=== PATIENT | female | born 1940 | race Caucasian/White ===

== ENCOUNTER 2019-06-30 13:21 | Outpatient (CLI) | payer OTHER, SELFPAY ==
--- NOTE | ~2019-06-30 | DEXA_ITS ---
Bone Density Report Name: Jamee Finley Age: 78 Sex: Female Ethnicity: White Date of : 1940 Indication: osteopenia; height loss; prior fracture; cancer; hysterectomy; Referring Provider: Radha Colbert Study: Bone densitometry was performed. Exam Date: June 30, 2019 Accession number: [id number] Bone Density: Region BMD T-score Z-score Classification AP Spine (L1, L3, L4) 0.931 -1.1 1.5 Osteopenia Femoral Neck (Left) 0.586 -2.4 -0.2 Osteopenia Total Hip (Left) 0.788 -1.3 0.7 Osteopenia Total Hip Bilateral Avg 0.777 -1.4 0.6 Osteopenia Femoral Neck (Right) 0.588 -2.3 -0.1 Osteopenia Total Hip (Right) 0.765 -1.5 0.5 Osteopenia World Health Organization criteria for BMD impression classify patients as: Normal (T-score at or above -1.0), Osteopenia (T-score between -1.0 and -2.5), or Osteoporosis (T-score at or below -2.5). 10-year Fracture Risk(1): Major Osteoporotic Fracture 23% Hip Fracture 6.8% Reported Risk Factors: [place] (), Neck BMD=0.586, BMI=31.1, previous fracture (1) FRAX(R) Version 3.08. Fracture probability calculated for an untreated patient. Fracture probability may be lower if the patient has received treatment. Previous Exams: Region Exam Age BMD T-score BMD Change BMD Change Date g/cm2 vs Baseline vs Previous AP Spine(L1, L3, L4) 06/30/2019 78 0.931 -1.1 0.026(2.9%)# 0.061(7.0%)* 12/11/2014 74 0.870 -1.7 -0.035(-3.8%)# -0.035(-3.8%)# 11/12/2012 72 0.905 -1.3 Total Hip(Left) 06/30/2019 78 0.788 -1.3 -0.057(-6.7%)# -0.010(-1.3%) 12/11/2014 74 0.798 -1.2 -0.046(-5.5%)# -0.046(-5.5%)# 11/12/2012 72 0.845 -0.8 Total Hip(Right) 06/30/2019 78 0.765 -1.5 -0.075(-9.0%)# -0.071(-8.4%)* 12/11/2014 74 0.835 -0.9 -0.005(-0.6%)# -0.005(-0.6%)# 11/12/2012 72 0.840 -0.8 *Denotes significance at 95% confidence level, LSC for AP Spine = 0.022 g/cm2, LSC for Total Hip = 0.027 g/cm2 Clinical Information Provided by Patient: Has had a low trauma fracture Has used the following medications: Vitamin D, Calcium Has the following medical conditions: Cancer, Hysterectomy Patient maximum height was 64 Menopause Age: 46 No regular weight bearing exercise Drinks caffeinated beverages Onset of menses at age 14 Number of children 1 Impression: The patient has low bone mass, based on the Left Femoral Neck T-score. The patient has an estimated ten-year risk of hip fracture
== END 2019-06-30 13:22 | disposition home or self-care (01) ==
PROVIDERS: PCP Family Medicine; Visit Provider Internal Medicine Endocrinology, Diabetes & Metabolism
DX: E03.9 Hypothyroidism, unspecified (principal); E11.40 Type 2 diabetes mellitus with diabetic neuropathy, unspecified; Z78.0 Asymptomatic menopausal state; Z79.4 Long term (current) use of insulin; M85.88 Other specified disorders of bone density and structure, other site; M85.852 Other specified disorders of bone density and structure, left thigh; M85.851 Other specified disorders of bone density and structure, right thigh
CPT/HCPCS: 77080

== ENCOUNTER 2019-07-31 14:00 | Outpatient (RCR) | payer OTHER, SELFPAY ==
[2019-06-10 11:06] VITALS: BMI 30.7
[2019-06-10 11:07] VITALS: BMI 30.7
== END 2019-09-08 23:59 | disposition home or self-care (01) ==
LOC: ANHDMC 14:00
PROVIDERS: PCP Family Medicine; Visit Provider Family Medicine
DX: E11.22 Type 2 diabetes mellitus with diabetic chronic kidney disease (principal); E11.40 Type 2 diabetes mellitus with diabetic neuropathy, unspecified; Z71.3 Dietary counseling and surveillance
CPT/HCPCS: 97803; G0108

== ENCOUNTER 2020-01-01 09:26 | Outpatient (CLI) | payer OTHER, SELFPAY ==
--- NOTE | ~2020-01-01 | CT_ITS ---
EXAMINATION: CT chest high resolution wo nh DATE: 01/01/2020 09:45 INDICATION: Obstructive sleep apnea TECHNIQUE: Computed tomography (CT) of the chest was performed without intravenous contrast. The dose -length product (DLP) was 223.32 mGy-cm. Automated exposure control and iterative reconstruction tech nique were employed. COMPARISON: None FINDINGS: There is mild emphysema. The lungs are hyperinflated. There are multiple upper lung zone pr edominant tree-in-bud and solitary nodules. The largest measures 8 mm in the right upper lobe. There is no pleural effusion or pneumothorax. Cardiomegaly is noted. There are changes of coronary artery b ypass grafting. There are no pathologically enlarged thoracic lymph nodes. There is a moderate-sized sliding hiatal hernia. Gastric lap band is noted. A stone is present in the nondistended gallbladder. There is moderate thoracic spondylosis. IMPRESSION: 1. Solitary and tree-in-bud nodules with an upper lung zone predominance with scattered throughout th e lungs, likely infectious or inflammatory. Follow-up CT in three months is recommended. 2. Emphysema. Reviewed, dictated and finalized at location B. IMPRESSION: 1. Solitary and tree-in-bud nodules with an upper lung zone predominance with s cattered throughout the lungs, likely infectious or inflammatory. Follow-up CT in three months is recommended. 2. Emphysema.
== END 2020-01-01 09:27 | disposition home or self-care (01) ==
LOC: ANHIMG 09:28
PROVIDERS: PCP Family Medicine; Visit Provider Nurse Practitioner Family
DX: G47.33 Obstructive sleep apnea (adult) (pediatric) (principal); R09.89 Other specified symptoms and signs involving the circulatory and respiratory systems; R91.8 Other nonspecific abnormal finding of lung field; J43.9 Emphysema, unspecified
CPT/HCPCS: 71250

== ENCOUNTER → 2020-06-15 15:47 | Outpatient (CLI) | payer OTHER, SELFPAY ==
--- NOTE | ~2020-06-15 | CT_ITS ---
EXAMINATION: CT chest wo con DATE: 06/15/2020 16:08 INDICATION: Solitary pulmonary nodule TECHNIQUE: Computed tomography (CT) of the chest was performed without intravenous contrast. The dose -length product (DLP) was 103.11 mGy-cm. Automated exposure control and iterative reconstruction tech [employer] were employed. COMPARISON: 01/01/2020 FINDINGS: Again seen are tree-in-bud and solitary nodules of the lungs, many of which have decreased in size since the prior examination and including the largest nodule previously measured in the right upper lobe. No new pulmonary nodule is identified. There is no pleural effusion or pneumothorax. Sta ble cardiomegaly is noted. There are no pathologically enlarged thoracic lymph nodes. A moderate-size d sliding hiatal hernia is noted. There are changes of gastric lap band surgery. Also noted are lobo es of prior coronary artery bypass grafting. There is a 1.5 cm calcified nodule of the right thyroid lobe. Cholelithiasis is noted. There is moderate thoracic spondylosis. IMPRESSION: 1. Persistent but improved solitary and tree-in-bud nodules of the lungs, most consistent with infect ion/inflammation. 2. Cholelithiasis. 3. Calcified nodule of the right thyroid. Consider thyroid ultrasound for risk stratification. Reviewed, dictated and finalized at location A. ICAL RESEARCHER IMPRESSION: 1. Persistent but improved solitary and tree-in-bud nodules of the lungs, most consistent with infection/inflammation. 2. Cholelithiasis. 3. Calcified nodule of the right thyroid. Consider thyroid ultrasound for risk stratification.
== END ==
PROVIDERS: PCP Family Medicine; Visit Provider Internal Medicine Critical Care Medicine
DX: R91.1 Solitary pulmonary nodule (principal); R91.8 Other nonspecific abnormal finding of lung field; K80.20 Calculus of gallbladder without cholecystitis without obstruction; E04.1 Nontoxic single thyroid nodule
CPT/HCPCS: 71250

== ENCOUNTER 2020-06-25 14:39 | Outpatient (CLI) | payer OTHER, SELFPAY ==
[2020-06-25 14:50] VITALS: PULSE 77; O2SAT 95
[2020-06-25 14:55] VITALS: PULSE 97; O2SAT 90
[2020-06-25 15:05] VITALS: PULSE 75; O2SAT 94
--- NOTE | 2020-06-25 15:17 | HOMEO2EVAL ---
Home Oxygen Evaluation RC: Home Oxygen (O2) Evaluation Start: 06/25/20 15:13 Freq: Status: Active Protocol: RPE Activity Type Activity Date Activity User E-Sign Co-Sign Detail Recorded Client Recorded Date Recorded By Document 06/25/20 14:50 DJO [email or web address] 06/25/20 15:15 DJO Document 06/25/20 14:55 DJO [email or web address] 06/25/20 15:15 DJO Document 06/25/20 15:05 DJO [email or web address] 06/25/20 15:15 DJO 06/25/20 06/25/20 06/25/20 14:50 14:55 15:05 Home O2 Evaluation Test Phase Resting Exercise Resting Oxygen Delivery Room Air Room Air Room Air Pulse Oximetry (90-100 %) 95 90 94 Pulse Rate (60-100 beats/min) 77 97 75 Activity Tolerance Good Ambulation Distance (feet) 500 Treatment Charges O2 Evaluation
== END 2020-06-25 14:40 | disposition home or self-care (01) ==
LOC: ANHPFT 14:40
PROVIDERS: PCP Family Medicine; Visit Provider Nurse Practitioner Family
DX: R06.02 Shortness of breath (principal)
CPT/HCPCS: 94618

== ENCOUNTER 2021-01-03 15:01 | Outpatient (CLI) | payer OTHER, SELFPAY ==
--- NOTE | ~2021-01-03 | XR_ITS ---
EXAMINATION: XR ankle RT min 3V DATE: 01/03/2021 15:29 INDICATION: Lymphatic right ankle pain and swelling TECHNIQUE: Anteroposterior, oblique, mortise, and lateral views of the right ankle were obtained. COMPARISON: None. FINDINGS: Alignment is normal. No fracture. The profiled joint spaces are normal. Small heterotopic ossicle ne ar the tip the medial malleolus likely sequela of chronic deltoid ligament sprain. Soft tissue swelli ng about the lateral malleolus suggesting more acute lateral ankle sprain. Moderate-sized plantar terell caneal spurs. No ankle joint effusion. IMPRESSION: 1. No acute osseous abnormality. Reviewed, dictated and finalized at location A.
== END 2021-01-03 15:02 | disposition home or self-care (01) ==
PROVIDERS: PCP Family Medicine; Visit Provider Physician Assistant
DX: M25.571 Pain in right ankle and joints of right foot (principal)
CPT/HCPCS: 73610

== ENCOUNTER 2021-02-28 11:31 | Outpatient (CLI) | payer OTHER, SELFPAY ==
--- NOTE | ~2021-02-28 | XR_ITS ---
EXAMINATION: XR lumbar spine 2-3V EXAM DATE: 02/28/2021 11:49 INDICATION: M54.5 - Low back pain. TECHNIQUE: Lumber spine frontal, lateral, lateral L5-S1 projections for interpretation. Comparison is made to prior examination from 04/10/2016. FINDINGS: There is moderate aortic arterial sclerosis. There are moderate-sized bridging endplate os teophytes. There is gastric banding device. Sacrum, sacroiliac joints, sacral arcuate lines are intac t. The vertebral bodies are aligned in the AP dimension. The disc heights appear maintained. There is moderate mid and lower lumbar facet arthropathy. There are no acute fractures identified. There are no bony erosions identified. Facet arthropathy, size of the osteophytes have progressed compared to 2 016. IMPRESSION: 1. Moderate lumbar facet arthropathy. 2. Bridging endplate osteophytes, diffuse idiopathic skeletal hyperostosis. Reviewed, dictated and finalized at location A.
== END 2021-02-28 11:32 | disposition home or self-care (01) ==
PROVIDERS: PCP Family Medicine; Visit Provider Nurse Practitioner Family
DX: M54.50 Low back pain, unspecified (principal); M12.88 Other specific arthropathies, not elsewhere classified, other specified site; M48.16 Ankylosing hyperostosis [Forestier], lumbar region
CPT/HCPCS: 72100

== ENCOUNTER 2021-03-18 13:32 | Outpatient (CLI) | payer OTHER, SELFPAY ==
--- NOTE | ~2021-03-18 | US_ITS ---
US thyroid 03/18/2021 14:01 Indication: Nontoxic thyroid goiter Procedure: High-resolution ultrasound of the thyroid gland Comparison: No prior studies for comparison. Findings: Right lobe of the thyroid gland measures 4.1 x 2.6 x 1.4 cm. Left lobe measures 3.2 x 1.4 x 1.1 cm. There is normal vascularity in both lobes. In the right lobe there is a complex largely cyst ic mass which is wider than tall, ill-defined margins and no definite calcifications measuring 2 x 1. 7 x 1.9 cm. No internal vascularity. No abnormal masses in the left lobe. Impression: 1: Largely cystic 2 cm right thyroid mass with internal septations which is not suspicious. Reviewed, dictated and finalized at location B. Impression: 1: Largely cystic 2 cm right thyroid mass with internal septations which is not suspicious.
== END 2021-03-18 13:33 | disposition home or self-care (01) ==
LOC: ANHIMG 13:33
PROVIDERS: PCP Family Medicine; Visit Provider Nurse Practitioner Family
DX: E04.1 Nontoxic single thyroid nodule (principal)
CPT/HCPCS: 76536

== ENCOUNTER → 2021-04-13 11:25 | Outpatient (CLI) | payer OTHER, SELFPAY ==
--- NOTE | ~2021-04-13 | MR_ITS ---
EXAMINATION: MR lumbar spine wo con EXAM DATE: 04/13/2021 12:21 INDICATION: Low back pain, lumbar radiculopathy. TECHNIQUE: Multi-sequential, multiplanar MR images of the lumbar spine were obtained without contrast . Sagittal T1, T2, T2 fat saturation images. Axial T2 weighted images. There is no prior study for comparison. FINDINGS: The vertebral bodies are aligned in the AP dimension. Vertebral body and disc heights are w ell-maintained. There are scattered focal signal abnormalities consistent with hemangiomata, otherwi se without focal suspicious marrow signal abnormalities. Paraspinal soft tissue is unremarkable. Level by level evaluation: T12-L1: Disc does not extend beyond the endplate margin. Facet arthropathy: Mild. Neural foraminal stenosis: No stenosis. Central canal stenosis: No stenosis. L1-L2: Disc does not extend beyond the endplate margin. Facet arthropathy: Mild. Neural foraminal stenosis: No stenosis. Central canal stenosis: No stenosis. L2-L3: There is a mild diffuse disc bulge. Facet arthropathy: Mild. Neural foraminal stenosis: Minimal left. Central canal stenosis: Mild. L3-L4: There is a mild diffuse disc bulge. Facet arthropathy: Mild. Neural foraminal stenosis: Minimal bilateral. Central canal stenosis: Mild. L4-L5: There is a mild diffuse disc bulge. Facet arthropathy: Moderate . Ligamentum flavum enlargement. Neural foraminal stenosis: Mild to moderate left. Central canal stenosis: Moderate to severe. L5-S1: There is a mild diffuse disc bulge. Facet arthropathy: Mild. Neural foraminal stenosis: No stenosis. Central canal stenosis: No stenosis. IMPRESSION: 1. L4-5 moderate to severe central canal stenosis. 2. Otherwise overall mild to moderate lumbar spondylosis. Reviewed, dictated and finalized at location B. ORARY DATA ENTRY CLERK
== END ==
PROVIDERS: Visit Provider Nurse Practitioner Family
DX: M47.27 Other spondylosis with radiculopathy, lumbosacral region (principal); M48.07 Spinal stenosis, lumbosacral region
CPT/HCPCS: 72148

== ENCOUNTER 2021-08-09 13:27 | Outpatient (CLI) | payer OTHER, SELFPAY ==
--- NOTE | ~2021-08-09 | XR_ITS ---
EXAMINATION: XR chest 2V DATE: 08/09/2021 13:44 INDICATION: Chest pain and shortness of breath TECHNIQUE: frontal and lateral views of the chest were obtained. COMPARISON: Chest radiograph dated 08/08/[address] dated 06/15/2020 FINDINGS: Diffuse airspace opacities throughout both lungs. Small bilateral pleural effusions. No pneumothorax. Cardiomegaly. Median sternotomy wires and mediastinal surgical clips are seen, likely from prior cor onary artery bypass grafting. There is also coronary artery stenting. New small metallic device of in determinate purpose projecting over the heart near the region of the mitral valve. Correlate with cli nical history. Additional postoperative change of adjustable lap band procedure with phi angle of cezar roximately 60 degrees which is at the upper limits of normal. There are bridging osteophytes at multi ple levels in the spine, consistent with diffuse idiopathic skeletal hyperostosis (DISH). IMPRESSION: 1. Diffuse bilateral lung disease which could represent pulmonary edema, pneumonia, atelectasis or so me combination thereof. 2. Small bilateral pleural effusions. 3. Cardiomegaly. 4. Postoperative changes as detailed above. Reviewed, dictated and finalized at location A. IMPRESSION: 1. Diffuse bilateral lung disease which could represent pulmonary edema, pneumo linda, atelectasis or some combination thereof. 2. Small bilateral pleural effusions. 3. Cardiomegaly. 4. Postoperative changes as detailed above.
== END 2021-08-09 13:28 | disposition home or self-care (01) ==
LOC: ANHIMG 13:30
PROVIDERS: PCP Family Medicine; Visit Provider Physician Assistant
DX: R09.02 Hypoxemia (principal); J96.10 Chronic respiratory failure, unspecified whether with hypoxia or hypercapnia; J98.4 Other disorders of lung; J90 Pleural effusion, not elsewhere classified; I51.7 Cardiomegaly; Z98.890 Other specified postprocedural states
CPT/HCPCS: 71046

== ENCOUNTER 2021-08-14 12:12 | Inpatient (IN) | payer OTHER, SELFPAY ==
[2021-08-14] VITALS (26 sets, daily range): BP systolic 136–184; BP diastolic 69–134; PULSE 63–82; RESP 16–29; TEMP 35.7–36.8; O2SAT 94–100; BMI 29.0
--- NOTE | ~2021-08-14 | US_ITS ---
EXAMINATION: US venous doppler [facility] DATE: 08/15/2021 09:14 INDICATION: Right lower limb edema TECHNIQUE: Baker scale images without and with compression and Doppler images of the right lower extre mity veins were obtained. COMPARISON: None FINDINGS: The right common femoral vein, profunda femoral vein, femoral vein, popliteal vein, peronea l trunk, posterior tibial veins, and greater saphenous vein are patent. IMPRESSION: 1. Patent right lower extremity veins. No evidence of deep venous thrombosis. Reviewed, dictated and finalized at location B.
--- NOTE | ~2021-08-14 | XR_ITS ---
EXAMINATION: XR chest 2V DATE: 08/17/2021 09:55 INDICATION: Shortness of breath TECHNIQUE: frontal and lateral views of the chest were obtained. COMPARISON: Chest radiograph dated 08/14/2021 FINDINGS: Mild elevation of the right hemidiaphragm. Diffuse patchy airspace opacities throughout both lungs wi th slight worsening in the left upper lung zone and some improvement in the right lower lung zone. Sm all bilateral pleural effusions. No pneumothorax. Cardiomegaly. Median sternotomy wires and mediastin al surgical clips are seen, likely from prior coronary artery bypass grafting. There is also been donnie or coronary artery stenting. Mitraclip projecting in expected position over the region of the mitral valve. Adjustable lap band also in expected position with reservoir project over the right upper quad rant. Old fracture at the right humeral neck. Mild anterior wedging of a couple mid thoracic vertebra l bodies. Bridging osteophytes at multiple levels in the spine, consistent with diffuse idiopathic sk eletal hyperostosis (DISH). IMPRESSION: 1. Interval evolution of diffuse patchy airspace opacities throughout both lungs with some improvemen t in the right lower lung zone and worsening in the left upper lung zone which could represent pneumo linda and/or pulmonary edema. 2. Small bilateral pleural effusions. 3. Cardiomegaly with postoperative changes detailed above. Reviewed, dictated and finalized at location A. IMPRESSION: 1. Interval evolution of diffuse patchy airspace opacities throughout both lung s with some improvement in the right lower lung zone and worsening in the left upper lung zone which could represent pneumonia and/or pulmonary edema. 2. Small bilateral pleural effusions. 3. Cardiomegaly with postoperative changes detailed above.
--- NOTE | ~2021-08-14 | NM_ITS ---
NM hepatobiliary w pharm Procedure: Hepatobiliary scan performed following IV administration 4.3 mCi Tc 99m Choletec. At 60 m inutes 1.5 mcg CCK administered IV for evaluation of gallbladder ejection fraction. Indication: Cholelithiasis. Elevated liver function tests. Comparison: Ultrasound dated 08/15/2021 Findings: There is normal radiotracer uptake in the liver parenchyma with prompt excretion into the b iliary tract. Gallbladder visualized at 25 minutes. Small bowel visualized at 20 minutes. Gallbla dder ejection fraction measures 25 %. (normal is considered 10-90%, but most patients with gallbladde r dysfunction have GBEF of less than 35%) Impression: 1: Low gallbladder ejection fraction measuring 25%. Low GBEF is associated with gallbladder dysfunct ion, although not specific for acute or chronic cholecystitis. Reviewed, dictated and finalized at location A. Impression: 1: Low gallbladder ejection fraction measuring 25%. Low GBEF is associated wit h gallbladder dysfunction, although not specific for acute or chronic cholecyst itis.
--- NOTE | ~2021-08-14 | XR_ITS ---
EXAMINATION: XR chest 1V portable DATE: 08/20/2021 05:29 INDICATION: Shortness of breath TECHNIQUE: frontal view of the chest was obtained. COMPARISON: Chest radiograph dated 08/17/2021 FINDINGS: No significant interval change in patchy airspace opacities throughout both lungs. Small right and ti ny left pleural effusions. No pneumothorax. Cardiomegaly. Median sternotomy wires and mediastinal nayan gical clips are seen, likely from prior coronary artery bypass grafting. Mitraclip and adjustable lap band in expected positions. Old proximal right humeral fracture deformity. IMPRESSION: 1. No significant change in diffuse patchy bilateral lung disease consistent with pneumonia and/or pu lmonary edema. 2. Small bilateral pleural effusions. 2. Cardiomegaly. Reviewed, dictated and finalized at location A. IMPRESSION: 1. No significant change in diffuse patchy bilateral lung disease consistent wi th pneumonia and/or pulmonary edema. 2. Small bilateral pleural effusions. 2. Cardiomegaly.
--- NOTE | ~2021-08-14 | US_ITS ---
EXAMINATION: US abdomen limited DATE: 08/15/2021 09:15 INDICATION: Elevated liver function tests TECHNIQUE: Multiple grayscale and Doppler ultrasound images of the abdomen were obtained. COMPARISON: None available FINDINGS: The head and body of the pancreas are normal. The pancreatic tail is obscured by bowel gas. The liver is normal with normal echogenicity and echotexture. No surface nodularity. Normal hepatope salma flow in the main portal vein. A stone is present in the nondistended gallbladder. There is no gal lbladder wall thickening or pericholecystic fluid. The normal common bile duct measures 3 mm. There w as no sonographic Thompson sign. IMPRESSION: 1. Cholelithiasis without evidence of cholecystitis. Reviewed, dictated and finalized at location B.
--- NOTE | ~2021-08-14 | XR_ITS ---
XR chest 1V portable 08/14/2021 12:45 Indication: Dyspnea. Procedure: AP portable chest Comparison: Comparison to multiple prior studies sequentially, with oldest reviewed study dated 08/08 Findings: Progression of patchy bilateral airspace disease, compatible with pneumonia. Status post me abner sternotomy for CABG. Mildly elevated right diaphragm.. Impression: 1: Interval progression of patchy bilateral airspace disease, compatible with pneumonia. Reviewed, dictated and finalized at location A. Impression: 1: Interval progression of patchy bilateral airspace disease, compatible with p neumonia.
--- NOTE | 2021-08-14 12:34 | ECG_ITS ---
Measurements Intervals [place]stein Rate: 69 P: NC: 0 QRS: -6 QRSD: 110 T: 171 QT: 434 QTc: 468 Interpretive Statements SINUS RHYTHM MINIMAL VOLTAGE CRITERIA FOR LVH, CONSIDER NORMAL VARIANT [MEETS CRITERIA IN ONE OF: R(aVL), S(V1), R(V5), R(V5/V6)+S(V1)] ST DEVIATION AND MODERATE T-WAVE ABNORMALITY, CONSIDER ANTEROLATERAL ISCHEMIA [-0.1+ mV T WAVE IN I/aVL/V5/V6] ABNORMAL ECG NO PREVIOUS ECG AVAILABLE FOR COMPARISON ARTIFACT LIMITS INTERPRETATION Electronically Signed On 08-14-2021 12:44:05 CDT by Dean Portillo M.D.
[2021-08-14 12:46] LABS: Basophils Percent Auto 0.3 % (0.2-1.2); Eosinophils Absolute Auto 0.2 K/mm3 (0-0.3); Eosinophils Percent Auto 1.4 % (0-4.4); Hematocrit 28.5 % (37.0-47.0); Hemoglobin 8.6 g/dL (12.0-15.0); Immature Granulocyte Absolute 0.15 K/mm3 (0.00-0.031); Immature Granulocyte Percent A 1.1 % (0-0.5); Lymphocytes Absolute Auto 0.58 K/mm3 (0.9-3.2); Lymphocytes Percent Auto 4.2 % (18.3-44.2); Mean Corpuscular HGB Conc 30.2 g/dl (32-36); Mean Corpuscular Hemoglobin 29.6 pg (26-34); Mean Corpuscular Volume 97.9 fl (80-100); Mean Platelet Volume 9.3 fl (7.4-10.4); Monocytes Absolute Auto 0.9 K/mm3 (0.1-0.6); Monocytes Percent Auto 6.7 % (2.6-8.5); Neutrophils Percent Auto 86.3 % (45.5-73.1); Platelet Count Result 373 k/mm3 (150-375); Red Blood Count 2.91 M/mm3 (4.2-5.4); Red Cell Distribution Width 18.5 % (11.5-14.5); White Blood Count 13.9 K/mm3 (4.5-10.0)
--- NOTE | 2021-08-14 12:47 | ED.SOB ---
HPI - SOB/Dyspnea General Chief Complaint: Shortness of Breath/Dyspnea Stated Complaint: SOB Time Seen by Provider: 08/14/21 12:35 History of Present Illness HPI Narrative: Pt is an 81y/o female who presented to the ER via EMS w/ c/o SOB. Patient states she has been SOB for approximately 1 week. Patient states she has progressively gotten more SOB and today she could no longer tolerate the SOB. Patient states she does have a rescue MDI at home, but she did not try to use the inhaler b/c her daughter in law did not think she needed it. Patient denies any fever or chills. Patient initially denied any chest discomfort, but upon reevaluation patient states that she has had chest discomfort with activity that resolves with rest. Patient states she does have a known history of COPD and she wears chronic oxygen at home at 3 L per nasal cannula. Patient states she also does have a history of coronary artery disease and had coronary bypass grafting in 1998. Patient did have a cardiac catheterization in November 2020 showed ejection fraction of 50% with a patent LAYNE graft to the LAD and occluded vein graft to the diagonal branch and obtuse marginal. Patient had an echo Doppler that showed ejection fraction 30 to 40% with no significant valvular disease. Patient did have a history of severe mitral regurgitation underwent mitral clip on 02/24/2021. Patient states she has not had anything to eat or drink today, but she has taken all of her medication. Patient states she was recently hospitalized at [facility] for COPD exacerbation. Patient states during that hospitalization she broke her hip and had to have surgery. Related Data Home Medications Medication Instructions Recorded Confirmed clopidogrel 75 mg tablet 75 mg PO DAILY 11/05/19 08/14/21 insulin glargine U-300 conc 300 10 unit SUBCUT DAILY syr 05/30/21 08/14/21 unit/mL (1.5 mL) subcutaneous pen losartan 50 mg tablet 100 mg PO DAILY tablet 05/30/21 08/14/21 atorvastatin 80 mg PO DAILY 08/14/21 08/14/21 carvedilol 25 mg PO Q12H 08/14/21 08/14/21 citalopram 40 mg PO DAILY 08/14/21 08/14/21 plysibwvblx-sjunfnzbu-wozievii 1 inh INHALATION DAILY 08/14/21 08/14/21 [Trelegy Ellipta] hydralazine 50 mg PO Q8H 08/14/21 08/14/21 insulin lispro [Humalog KwikPen See Rx Instructions .ROUTE .COMPLEX 08/14/21 08/14/21 Insulin] isosorbide dinitrate 10 mg PO Q12H 08/14/21 08/14/21 levothyroxine 50 mcg PO DAILY 08/14/21 08/14/21 Allergies Allergy/AdvReac Type Severity Reaction Status Date / Time adhesive tape Allergy Unknown unknown Verified 08/14/21 15:17 clarithromycin Allergy Unknown unknown Verified 08/14/21 15:17 latex Allergy Unknown unknown Verified 08/14/21 15:17 prednisone Allergy Unknown Hyperglycem Verified 08/14/21 15:17 ia Review of Systems Review of Systems: 12 point review systems was completed with patient all pertinent positive negative per HPI the remainder are unremarkable [facility] Past Medical History Medical History (Updated 08/14/21 @ 16:04 by Eric Ybarra DO) Anemia Cardiac arrest with ventricular fibrillation (06/2018) Cervical cancer Chronic anemia Chronic kidney disease, stage 3 Chronic left-sided low back pain with left-sided sciatica Chronic respiratory failure with hypoxia, on home oxygen therapy Congestive heart failure Congestive heart failure Coronary artery disease Patient of Dr. Edward Carrasco. Status post CABG in 1998. Cardiac cath in November 2020 showed an EF of 50% with patent LAYNE graft to the LAD and occluded vein graft to the diagonal branch and obtuse marginal branch. Diabetic peripheral neuropathy Diabetic retinopathy Essential hypertension Fracture of head of left femur (06/2021) Gastroesophageal reflux disease Hypertension Hypothyroidism Insulin dependent diabetes mellitus Ischemic cardiomyopathy EF as low as 35 to 45% in July 2018 Echocardiogram in November 2020 showed ejection fraction of 55 to 60%. Kidney stones Macular degeneration Major depre
[2021-08-14 12:55] LABS: Alanine Aminotransferase 39 U/L (4-35); Albumin Level 3.4 g/dL (3.5-5.1); Alkaline Phosphatase 227 U/L (38-126); Anion Gap 4 mmol/L (8-16); Aspartate Amino Transferase 75 U/L (14-36); Bilirubin,Total 1.5 mg/dL (0.2-1.3); Blood Urea Nitrogen 28 mg/dL (7-17); Calcium 8.7 mg/dL (8.4-10.2); Carbon Dioxide 34 mmol/L (22-30); Chloride 94 mmol/L (98-107); Estimated CRCL calculation 39 ml/min; Estimated Glomerular Filt Rate 53; Glucose 194 mg/dL (65-110); INR 1.3; Potassium 4.5 mmol/L (3.4-5.0); Prothrombin Time 15.9 Seconds (11.1-14.7); Sodium 132 mmol/L (137-145)
[2021-08-14 12:56] LABS: Partial Thromboplastin Time 35.4 SECONDS (22.3-36.8)
[2021-08-14 13:09] LABS: NT Pro B Type Natriuretic Pept 17100 pg/mL (5-100)
--- NOTE | 2021-08-14 13:30 | PM.IMHP ---
H&P: HPI History of Present Illness Date/Time: 08/14/21 13:30 Chief Complaint: Shortness of breath. Narrative: This is a pleasant 81-year-old female with multiple medical problems including coronary artery disease, ischemic cardiomyopathy, chronic respiratory failure on 2 L nasal cannula, chronic obstructive pulmonary disease, insulin-dependent diabetes, hypertension, chronic kidney disease, and several other comorbidities who presented to the emergency department for evaluation of shortness of breath. She has had an unfortunate run over the last month several months and has been hospitalized at [facility] for what sounds like congestive heart failure exacerbation, RSV bronchitis, and acute on chronic anemia requiring blood transfusion. During her most recent admission she sustained a fall and fractured her left hip which was fixed with what sounds like an intramedullary elsy. She has been home for 2 to 3 weeks and since that time she has become progressively more swollen and short of breath with significant orthopnea to the point where she has hardly slept much in the last week. The last 2 days she has felt worn out and exhausted due to lack of sleep. She has also had intermittent episodes of mid to left anterior chest heaviness associated with shortness of breath and nausea. The chest heaviness occurs randomly and is not necessarily related to exertion or mealtime. A chest x-ray done on arrival showed interval progression of patchy bilateral airspace disease compatible with pneumonia and with further questioning she endorses perhaps a mild cough and a decrease in appetite but she has had no other symptoms to suggest infection. Specifically she denies fever, headache, sinus congestion, sore throat, productive cough, nausea, vomiting, and diarrhea. She has not had any sick contacts. No dysphagia or concerns for aspiration. Her proBNP was 17,100 and initial troponin was 1.010. EKG was personally reviewed and showed ST and T wave abnormalities in the anterior lateral leads, similar to previous tracings. Of note the patient was seen by her care support representative within the last couple of weeks and she was apparently referred to the heart failure team at [facility]. Review of Systems Review of Systems: 12 systems were reviewed and are negative except for as per HPI. She believes that her weight has been steady at 160 lb though her weight today is 167.2 lb. She has not had fever or sweats but she is always cold. She does fall asleep with her CPAP on but she seems and up with it off by the time she wakes up in the morning. No dysuria. She had been having issues with constipation however has increased her intake of prune juice and she is now moving her bowels much better. Except as documented, all other systems were reviewed and are negative. [facility] Past Medical History Medical History (Updated 08/14/21 @ 22:25 by Carlene Lomax PA-C) Anemia Cardiac arrest with ventricular fibrillation (06/2018) Cervical cancer Chronic anemia Chronic kidney disease, stage 3 Chronic left-sided low back pain with left-sided sciatica Chronic respiratory failure with hypoxia, on home oxygen therapy Congestive heart failure Coronary artery disease Patient of Dr. Edward Carrasco. Status post CABG in 1998. Cardiac cath in November 2020 showed an EF of 50% with patent LAYNE graft to the LAD and occluded vein graft to the diagonal branch and obtuse marginal branch. Five stents were placed in November 2020. Diabetic peripheral neuropathy Diabetic retinopathy Essential hypertension Fracture of head of left femur (06/2021) Gastroesophageal reflux disease Hypertension Hypothyroidism Insulin dependent diabetes mellitus Ischemic cardiomyopathy EF as low as 35 to 45% in July 2018 Echocardiogram in November 2020 showed ejection fraction of 55 to 60%. Kidney stones Macular degeneration Major depression Mixed hyperlipidemia Obstructive sleep apnea on CPAP Osteoarthritis Osteoporosis Severe mitral valve regurg
[2021-08-14 13:56] LABS: SARS-CoV-2 RNA PCR Negative
[2021-08-14] MEDS: FUROSEMIDE INJ 40 MG/4 ML VIAL IV PUSH (14:58)
--- NOTE | 2021-08-14 15:52 | PM.CNCAR ---
Assessment and Plan Assessment and plan (1) Elevated troponin: Code(s): R77.8 - Other specified abnormalities of plasma proteins Status: Acute Assessment and Plan: Probably due to pneumonia with CKD, anemia, hypoxia. Trend troponin to peak. Given anemia with Hb 8.6, will hold off on anticoagulation as it is unusual to be both pneumonia and ACS. Obtain echo. (2) Systolic dysfunction: Code(s): I51.9 - Heart disease, unspecified Status: Acute Assessment and Plan: Does not appear to be in acute heart failure at this time though she has edema of legs and elevated NTproBNP. History of mod-severe LV systolic dysfunction of EF 30-40%. Received a dose of Lasix 40 mg IV in ED. Resume home Lasix dose to keep her from becoming fluid overloaded. (3) Pneumonia: Code(s): J18.9 - Pneumonia, unspecified organism Status: Acute Assessment and Plan: On Antibiotics and managed by hospitalist. (4) Chronic anemia: Code(s): D64.9 - Anemia, unspecified Status: Acute (5) CAD (coronary artery disease), autologous vein bypass graft: Code(s): I25.810 - Atherosclerosis of coronary artery bypass graft(s) without angina pectoris Status: Acute Assessment and Plan: Received 5 stents in November 2020 at [facility]. On aspirin and Clopidogrel, resume that. Her regular felt finishing supervisor is at [facility]. (6) Hypertension: Code(s): I10 - Essential (primary) hypertension Status: Acute Assessment and Plan: Mildly high. Monitor. Resume home medication. (7) Mixed hyperlipidemia: Code(s): E78.2 - Mixed hyperlipidemia Status: Acute Assessment and Plan: On Atorvastatin, resume that. History of Present Illness History of Present Illness Consult date/time: 08/14/21 15:52 Reason for consult: Elevated troponin. 81 yr old woman presents to ER for sob and chest pain for 1 week. Her son is at bedside. Her regular felt finishing supervisor who see saw just last Sunday is at [facility]. She has a history of CAD/CABG x4 vessels in 1998 at [facility], mitral clip for severe MR in Jan 2021 at [facility], last left heart cath with 5 stents placed at [facility] in November 2020 with patent LM to LAD, but occluded veing grafts to Diag and OM. She has a history of systolic heart failure with EF 30-40%. States that her felt finishing supervisor was referring her to heart failure team at [facility] after he saw her last Sunday. She also has history of DM, hypertension, dyslipidemia, MATHEUS on CPAP, COPD with home oxygen (former smoker). States that for last 1 week she has sob and intermittent lower chest discomfort at rest. She is always cold , no fever. Has mild infrequent cough. She is limited at walking minimal distance with her walker. She fell recently and fractured her hip and therefore, more limited now with walking distance. EKG: Sinus rhythm, LVH, consider inferior infarct, ST-T wave abnormality in anterolat leads- consider ischemia. CXR shows patchy bilateral airspace disease c/w pneumonia. WBC 13.9, Hb 8.6, Sodium 132, Cr 1.0/Cr Cl 39, NTproBNP 13,100, AST 75, ALT 39, troponin 1.01. Reason For Visit: Pneumonia Review of Systems Review of Systems: All systems reviewed & are unremarkable except as noted in HPI and below Constitutional: Constitutional: Reports as per HPI, Reports chills, Reports fatigue, Denies fever(s) and Reports frequent falls Cardiovascular: Cardiovascular: Reports as per HPI, Reports chest pain, Denies irregular heart rhythm, Reports leg edema, Denies lightheadedness and Reports dyspnea Respiratory: Respiratory: Reports as per HPI, Reports cough and Reports dyspnea Gastrointestinal: Gastrointestinal: Reports as per HPI and Denies abdominal pain Genitourinary: Genitourinary: Reports as per HPI and Denies dysuria Musculoskeletal: Musculoskeletal: Reports as per HPI and Reports arthralgias Neurologic: Reports as per
--- NOTE | 2021-08-14 15:55 | ADMGEN ---
This patient, Jamee Finley, was admitted to IMU Room 205-02 at 1530. Patient/family oriented to hospital policies and general routines including ID bracelet, bed and alarms, visiting hours, pain management, procedures, bathroom and other care routines, personal items, smoking policy, room service/diet, and visiting hours. Information on how to activate the Rapid Response Team has been discussed. Patient/Family are encouraged to report perceived risks to care and to ask questions if they do not understand what they are told or what they should do.
--- NOTE | 2021-08-14 16:09 | PC.NURSE ---
Report received by YARELI Katz with the ED department at 1515. All questions answered and plan of care reviewed. Patient to go to IMU room 205-1.
--- NOTE | 2021-08-14 17:10 | ADMGEN ---
This patient, Jamee Finley, was admitted to IMU Room 205-02 at 1525. Patient/family oriented to hospital policies and general routines including ID bracelet, bed and alarms, visiting hours, pain management, procedures, bathroom and other care routines, personal items, smoking policy, room service/diet, and visiting hours. Information on how to activate the Rapid Response Team has been discussed. Patient/Family are encouraged to report perceived risks to care and to ask questions if they do not understand what they are told or what they should do.
[2021-08-14 19:38] LABS: Troponin I 0.958 ng/mL (0.000-0.034)
[2021-08-14] MEDS: MELATONIN 5 MG TABLET PO (23:52)
[2021-08-14] MEDS: carvediloL 25 MG TABLET PO (23:52)
[2021-08-14] MEDS: PANTOPRAZOLE 40 MG TABLET PO (23:53)
[2021-08-14] MEDS: hydrALAZINE HCL 50 MG TABLET PO (23:53)
[2021-08-14] MEDS: DOXYCYCLINE HYCLATE 100 MG TABLET PO (23:53)
[2021-08-14] MEDS: ISOSORBIDE DINITRATE 10 MG TABLET PO (23:53)
[2021-08-15] VITALS (32 sets, daily range): BP systolic 126–170; BP diastolic 55–93; PULSE 60–89; RESP 16–26; TEMP 35.6–36.4; O2SAT 83–100; BMI 29.7
--- NOTE | 2021-08-15 | ECHO_ITS ---
Patient Info Name: Jamee Finley Age: 81 years : 1940 Gender: Female Ht: 63 in Wt: 164 lbs BSA: 1.84 m2 HR: 67 bpm BP: 170 / 93 mmHg Technical Quality: Good Exam Date: 08/15/2021 11:56 AM Exam Location: [facility] Pulmonary Patient Status: Inpatient Admit Date: 08/15/2021 Staff Ordering Physician: Eric Ybarra DO Casino Assistant Manager: Tyler Thompson RDCS, RT Attending Provider: Bakari Yi MD Referring Physician: Tate FULLER; Exam Type: CA echo doppler color flow Study Info Indications R06.02 - Shortness of breath Complete two-dimensional, color flow and Doppler transthoracic echocardiogram is performed. Strain analysis performed. Summary 1. Complete two-dimensional, color flow and Doppler transthoracic echocardiogram is performed. 2. Left ventricular chamber dimension is mildly enlarged. 3. Left ventricular systolic function is mildly reduced, estimated at 45-50%. 4. There is mildly increased left ventricular wall thickness. 5. The left ventricular diastolic function is normal. 6. E/e' 8 is minimally elevated. 7. Global longitudinal strain is abnormal at -9.9%. 8. Right ventricular systolic function is reduced based on abnormal TAPSE 1.4 cm. 9. Left atrial chamber dimension is moderately enlarged. 10. The mitral valve has mildly thickened leaflets. 11. Evidence of mitral clip. 12. There is mild mitral valve regurgitation. 13. There is moderate tricuspid valve regurgitation. 14. Moderate pulmonary hypertension, estimated pulmonary arterial systolic pressure is 54 mmHg. 15. There is trace pulmonic regurgitation. 16. Normal inferior vena cava with <50% collapse upon inspiration consistent with elevated right atrial pressure, 10 mmHg. Left Ventricle E/e' 8 is minimally elevated. Global longitudinal strain is abnormal at -9.9%. Left ventricular chamber dimension is mildly enlarged. Left ventricular systolic function is mildly reduced, estimated at 45-50%. There is mildly increased left ventricular wall thickness. The left ventricular diastolic function is normal. Right Ventricle Right ventricular systolic function is reduced based on abnormal TAPSE 1.4 cm. Right ventricular chamber dimension is not well visualized. Left Atria Left atrial chamber dimension is moderately enlarged. Right Atria Right atrial chamber dimension is normal. Aortic Valve The aortic valve is trileaflet. There is no aortic valve stenosis. There is no aortic valve regurgitation. Pulmonic Valve There is trace pulmonic regurgitation. Mitral Valve The mitral valve has mildly thickened leaflets. Evidence of mitral clip. There is no mitral valve stenosis. There is mild mitral valve regurgitation. Tricuspid Valve There is moderate tricuspid valve regurgitation. Moderate pulmonary hypertension, estimated pulmonary arterial systolic pressure is 54 mmHg. Pericardium/Pleural There is no pericardial effusion. Inferior Vena Cava Normal inferior vena cava with <50% collapse upon inspiration consistent with elevated right atrial pressure, 10 mmHg. Aorta The aortic root size at the sinus of Valsalva is normal. Left Ventricular Outflow Tract Name Value Normal LVOT 2D LVOT Diameter 2
[2021-08-15 01:07] LABS: Glucose Point of Care 245 mg/dl (65-105)
[2021-08-15] MEDS: FUROSEMIDE INJ 40 MG/4 ML VIAL IV PUSH ×2 (04:18→11:59)
[2021-08-15] MEDS: ALBUTEROL SULFATE NEB 2.5 MG/0.5 ML INH INHALATION ×3 (04:24→20:00)
[2021-08-15] MEDS: IPRATROPIUM BR 0.02% INH SOLN 0.5 MG/2.5 ML VIAL INHALATION ×3 (04:24→20:00)
[2021-08-15 04:51] LABS: Hematocrit 26.6 % (37.0-47.0); Hemoglobin 7.9 g/dL (12.0-15.0); Mean Corpuscular HGB Conc 29.7 g/dl (32-36); Mean Corpuscular Hemoglobin 28.8 pg (26-34); Mean Corpuscular Volume 97.1 fl (80-100); Mean Platelet Volume 9.4 fl (7.4-10.4); Platelet Count Result 355 k/mm3 (150-375); Red Blood Count 2.74 M/mm3 (4.2-5.4); Red Cell Distribution Width 18.4 % (11.5-14.5); White Blood Count 11.3 K/mm3 (4.5-10.0)
[2021-08-15 04:59] LABS: Hemoglobin A1C 5.8 % (<5.7)
[2021-08-15 05:01] LABS: Alanine Aminotransferase 36 U/L (4-35); Alkaline Phosphatase 197 U/L (38-126); Anion Gap 6 mmol/L (8-16); Aspartate Amino Transferase 81 U/L (14-36); Blood Urea Nitrogen 32 mg/dL (7-17); Calcium 8.1 mg/dL (8.4-10.2); Carbon Dioxide 33 mmol/L (22-30); Chloride 93 mmol/L (98-107); Estimated CRCL calculation 35 ml/min; Estimated Glomerular Filt Rate 48; Glucose 248 mg/dL (65-110); Magnesium 1.7 mg/dL (1.6-2.3); Potassium 4.3 mmol/L (3.4-5.0); Sodium 132 mmol/L (137-145)
[2021-08-15 05:49] LABS: Hepatitis B Surface Antigen Negative (Negative)
[2021-08-15 05:55] LABS: HAV RESULT Negative (Negative); Hepatitis B Core IgM Result Negative (Negative)
[2021-08-15 06:07] LABS: Hepatitis C Virus Antibody Negative (Negative)
[2021-08-15] MEDS: hydrALAZINE HCL 50 MG TABLET PO ×3 (06:29→20:53)
[2021-08-15] MEDS: LEVOTHYROXINE SODIUM 50 MCG TABLET PO (06:29)
[2021-08-15 07:36] LABS: Glucose Point of Care 249 mg/dl (65-105)
--- NOTE | 2021-08-15 07:54 | PM.PNCARD ---
Progress Note: A&P Assessment and Plan (1) Elevated troponin: Code(s): R77.8 - Other specified abnormalities of plasma proteins Status: Acute Assessment and Plan: Probably due to pneumonia with CKD, anemia, hypoxia. Troponin peaked at 1.07. Obtain echo. (2) Systolic dysfunction: Code(s): I51.9 - Heart disease, unspecified Status: Acute Assessment and Plan: Does not appear to be in acute heart failure at this time though she has edema of legs and elevated NTproBNP. History of mod-severe LV systolic dysfunction of EF 30-40%. Received a dose of Lasix 40 mg IV in ED. Start Lasix 40 mg PO BID to keep her from becoming fluid overloaded. (3) Pneumonia: Code(s): J18.9 - Pneumonia, unspecified organism Status: Acute Assessment and Plan: On Antibiotics and managed by hospitalist. (4) Chronic anemia: Code(s): D64.9 - Anemia, unspecified Status: Acute (5) CAD (coronary artery disease), autologous vein bypass graft: Code(s): I25.810 - Atherosclerosis of coronary artery bypass graft(s) without angina pectoris Status: Acute Assessment and Plan: Received 5 stents in November 2020 at [facility]. On aspirin and Clopidogrel. Her regular nipple maker is at [facility]. (6) Hypertension: Code(s): I10 - Essential (primary) hypertension Status: Acute Assessment and Plan: Mildly high. Monitor. Resume home medication. (7) Mixed hyperlipidemia: Code(s): E78.2 - Mixed hyperlipidemia Status: Acute Assessment and Plan: On Atorvastatin, resume that. Subjective Date/time seen: 08/15/21 07:54 Has sob. Denies chest pain. Exam Const: General: cooperative, healthy appearing and comfortable Resp: Auscultation: crackles, no wheezes and diminished lung sounds Cardio: Jugular venous distension: no JVD Rate: regular rate Rhythm: regular rhythm Heart sounds: no murmurs GI: GI Palp: No abdominal tenderness and Yes Soft to palpation Neuro: General: oriented to person, oriented to place and oriented to time Extrem: Right lower extremity: edema Left lower extremity: edema Other: Left with mod and right with mild edema Objective Data Vital Signs Vital Signs: Vital Signs - 24 hr 08/14/21 12:29 08/14/21 12:34 08/14/21 12:35 Temperature 98.2 F Pulse Rate 77 72 72 Respiratory Rate 22 H 23 H 29 H Blood Pressure 184/74 H Pulse Oximetry 100 100 100 08/14/21 12:45 08/14/21 12:47 08/14/21 13:00 Temperature Pulse Rate 69 69 69 Respiratory Rate 22 H 27 H 29 H Blood Pressure 157/74 H Pulse Oximetry 100 99 100 08/14/21 13:01 08/14/21 13:02 08/14/21 13:15 Temperature Pulse Rate 72 69 68 Respiratory Rate 29 H 27 H 22 H Blood Pressure 163/134 H Pulse Oximetry 100 100 08/14/21 13:17 08/14/21 13:38 08/14/21 13:45 Temperature Pulse Rate 67 70 63 Respiratory Rate 22 H 25 H 22 H Blood Pressure 156/73 H Pulse Oximetry 100 100 100 08/14/21 14:05 08/14/21 14:22 08/14/21 14:23 Temperature Pulse Rate 72 75 71 Respiratory Rate 25 H 26 H 26 H Blood Pressure 160/79 H Pulse Oximetry 100 98 98 08/14/21 14:34 08/14/21 14:45 08/14/21 14:47 Temperature Pulse Rate 71 66 67 Respiratory Rate 22 H 23 H 20 Blood Pressure 163/86 H Pulse Oximetry 98 98 98 08/14/21 15:41 08/14/21 16:00 08/14/21 18:00 Temperature 96.3 F L Pulse Rate 74 73 75 Respiratory Rate 26 H Blood Pressure 176/85 H Pulse Oximetry 97 97 08/14/21 20:00 08/14/21 22:00 08/14/21 23:13 Temperature 97.6 F 97.8 F Pulse Rate 78 76 76 Respiratory Rate 16 18 Blood Pressure 171/83 H 155/69 H Pulse Oximetry 94 95 08/14/21 23:52 08/15/21 00:00 08/15/21 00:20 Temperature Pulse Rate 79 80 89 Respiratory Rate 18 24 H Blood Pressure Pulse Oximetry 95 93 08/15/21 02:00 08/15/21 03:45 08/15/21 04:00 Temperature 97.3 F L Pulse Rate 74 75 76 Respiratory Rate 26 H Blood Press
[2021-08-15 08:20] LABS: Glucose Point of Care 242 mg/dl (65-105)
[2021-08-15] MEDS: FLUTICASONE/UMECLIDIN/VILANTER 100-62.5-25 MCG ELLIPTA 1 PUFF INHALATION (08:25)
[2021-08-15] MEDS: INSULIN ASPART (*BKC) 100 UNITS/ML SUB-Q ×4 (10:02→17:24)
[2021-08-15] MEDS: SODIUM CHLORIDE 0.9% IV 250 ML 30 ML IV CONT (10:03)
[2021-08-15] MEDS: PROCHLORPERAZINE EDISYLATE 10 MG/2 ML VIAL IV PUSH (10:04)
[2021-08-15] MEDS: TUBING, BLOOD PLUM PUMP TUBING 1 EACH XX (10:27)
[2021-08-15] MEDS: SILVERGEL (ELTA) 45 ML 1 APPLIC TOPICAL (10:27)
[2021-08-15] MEDS: PANTOPRAZOLE 40 MG TABLET PO ×2 (10:28→20:53)
[2021-08-15] MEDS: ISOSORBIDE DINITRATE 10 MG TABLET PO ×2 (10:29→20:53)
[2021-08-15] MEDS: FUROSEMIDE 40 MG TABLET PO ×2 (10:29→17:20)
[2021-08-15] MEDS: DOXYCYCLINE HYCLATE 100 MG TABLET PO ×2 (10:30→20:53)
[2021-08-15] MEDS: carvediloL 25 MG TABLET PO ×2 (10:30→20:53)
[2021-08-15] MEDS: CLOPIDOGREL BISULFATE 75 MG TABLET PO (10:30)
[2021-08-15] MEDS: CITALOPRAM HYDROBROMIDE 20 MG TABLET 40 MG PO (10:30)
[2021-08-15] MEDS: ATORVASTATIN 40 MG TABLET 80 MG PO (10:31)
[2021-08-15] MEDS: LOSARTAN POTASSIUM 50 MG TABLET 100 MG PO (11:10)
--- NOTE | 2021-08-15 11:21 | PM.IMPN ---
Progress Note: A&P Additional Plan 81-year-old female with multiple medical problems including coronary artery disease, ischemic cardiomyopathy, chronic respiratory failure on 2 L nasal cannula, chronic obstructive pulmonary disease, insulin-dependent diabetes, hypertension, chronic kidney disease, presented to the emergency department for evaluation of shortness of breath. She has had an unfortunate run over the last month several months and has been hospitalized at [facility] for congestive heart failure exacerbation, RSV bronchitis, and acute on chronic anemia requiring blood transfusion. During her most recent admission she sustained a fall and fractured her left hip which was fixed with intramedullary elsy. She has been home for 2 to 3 weeks and since that time she has become progressively more swollen and short of breath with significant orthopnea to the point where she has hardly slept much in the last week.. Patient was seen by her bomb technician within the last couple of weeks and she was apparently referred to the heart failure team at [facility]. 1)Acute on Chronic Resp Failure: Likely multifactorial 2/2 acute on chronic heart failure+?B/l PNA+Acute on Chronic Anemia Appreciate cardiology help C/w Lasix BID Strict I/O's Daily standing weight Keep K>4, mag>2 Await echocardiogram C/w ceftriaxone+Doxycycline DVT study negative c/w bronchodilators Obtain iron panel, fecal occult blood Will transfuse 1 unit of packed RBC 2)Elevated LFT's+Nausea: US[facility] abdomen shows cholelithasis but no cholecysytitis Will get HIDA scan Although elevated LFT's can be in setting of hepatic congestion with heart failure 3)H/o CAD: c/w Plavix, Coreg, Statin, Imdur, Losartan 4)Diabetes Mellitus: HBA1C in range of 5 falsely low in setting of anemia BG check TID AC and HS c/w lantus+meal time insulin Adjust dose as needed 5)CKD stage 3: Stable at the moment Avoid nephrooxins Recheck BMP in AM 5)DVT ppx: SCD 6)Code: Modified 7)Dispo:Pending improvement, critically sick, poor manager intermediate prognosis Time Spent With Patient Time with patient: 25 - 35 minutes Subjective Date/time seen: 08/15/21 11:21 not feeling well in general, nauseous, just got back from [facility] abdomen has leg swelling Review of Systems Constitutional: Constitutional: Reports lethargy and Reports weakness Eyes: Eyes: Reports no additional eye complaints ENT: Reports system reviewed and no additional complaints, except as documented Cardiovascular: Cardiovascular: Reports leg edema Respiratory: Respiratory: Reports dyspnea Gastrointestinal: Gastrointestinal: Reports nausea Musculoskeletal: Musculoskeletal: Reports no additional musculoskeletal complaints Neurologic: Reports as per HPI Exam Const: General: uncomfortable HENMT: Mouth: Yes moist mucous membranes Eyes: Pupils: Equal, round and reactive pupils present Neck: Neck: supple Resp: Other: decreased breath sounds B/L, few crackles at B/L bases Cardio: Rate: regular rate Rhythm: regular rhythm GI: GI Palp: Yes Soft to palpation Percussion: Yes normal to percussion Auscultation: normal bowel sounds Skin: General skin exam: normal color Neuro: Cognition (Neuro): normal cognition Speech: normal speech Extrem: General: pedal edema bilaterally Objective Data Vital Signs Vital Signs: Vital Signs - 24 hr 08/14/21 12:29 08/14/21 12:34 08/14/21 12:35 Temperature 98.2 F Pulse Rate 77 72 72 Respiratory Rate 22 H 23 H 29 H Blood Pressure 184/74 H Pulse Oximetry 100 100 100 08/14/21 12:45 08/14/21 12:47 08/14/21 13:00 Temperature Pulse Rate 69 69 69 Respiratory Rate 22 H 27 H 29 H Blood Pressure 157/74 H Pulse Oximetry 100 99 100 08/14/21 13:01 08/14/21 13:02 08/14/21 13:15 Temperature Pulse Rate 72 69 68 Respiratory Rate 29 H 27 H 22 H Blood Pressure 163/134 H Pulse Oximetry 100 100 08/14/21 13:17 08/14/21 13:38 08/14/21 13:45 Temperatu
[2021-08-15 11:27] LABS: Glucose Point of Care 227 mg/dl (65-105)
[2021-08-15] MEDS: buPROPion HCL XL (24 HR) 150 MG TABCR PO (11:30)
[2021-08-15 12:43] LABS: IFOB Positive Control Positive; Immunochemical Fecal Occult Bl Positive (N)
[2021-08-15] MEDS: MAGNESIUM SULF 1 GM/D5W 100 ML 1 GM/100 ML BAG IVPB (16:23)
[2021-08-15 16:42] LABS: Glucose Point of Care 166 mg/dl (65-105)
[2021-08-15 19:51] LABS: Glucose Point of Care 240 mg/dl (65-105)
[2021-08-15] MEDS: MELATONIN 5 MG TABLET PO (20:53)
[2021-08-16] VITALS (31 sets, daily range): BP systolic 121–154; BP diastolic 62–77; PULSE 60–90; RESP 16–22; TEMP 35.7–36.4; O2SAT 95–100
[2021-08-16] MEDS: ALBUTEROL SULFATE NEB 2.5 MG/0.5 ML INH INHALATION ×6 (00:20→20:31)
[2021-08-16] MEDS: IPRATROPIUM BR 0.02% INH SOLN 0.5 MG/2.5 ML VIAL INHALATION (04:20)
[2021-08-16] MEDS: PROCHLORPERAZINE EDISYLATE 10 MG/2 ML VIAL IV PUSH ×2 (05:19→19:53)
[2021-08-16 05:30] LABS: Basophils Percent Auto 0.3 % (0.2-1.2); Eosinophils Absolute Auto 0.2 K/mm3 (0-0.3); Eosinophils Percent Auto 1.5 % (0-4.4); Hemoglobin 9.6 g/dL (12.0-15.0); Immature Granulocyte Percent A 0.7 % (0-0.5); Lymphocytes Absolute Auto 0.85 K/mm3 (0.9-3.2); Lymphocytes Percent Auto 6.2 % (18.3-44.2); Mean Corpuscular Hemoglobin 29.4 pg (26-34); Mean Platelet Volume 9.2 fl (7.4-10.4); Monocytes Absolute Auto 1.4 K/mm3 (0.1-0.6); Monocytes Percent Auto 10.4 % (2.6-8.5); Neutrophils Percent Auto 80.9 % (45.5-73.1); Platelet Count Result 346 k/mm3 (150-375); Red Blood Count 3.26 M/mm3 (4.2-5.4); Red Cell Distribution Width 17.9 % (11.5-14.5); White Blood Count 13.6 K/mm3 (4.5-10.0)
[2021-08-16 05:45] LABS: Alanine Aminotransferase 37 U/L (4-35); Albumin Level 3.1 g/dL (3.5-5.1); Alkaline Phosphatase 192 U/L (38-126); Anion Gap 3 mmol/L (8-16); Aspartate Amino Transferase 70 U/L (14-36); Bilirubin,Total 0.9 mg/dL (0.2-1.3); Blood Urea Nitrogen 35 mg/dL (7-17); Calcium 8.3 mg/dL (8.4-10.2); Carbon Dioxide 34 mmol/L (22-30); Chloride 95 mmol/L (98-107); Estimated CRCL calculation 35 ml/min; Estimated Glomerular Filt Rate 48; Glucose 183 mg/dL (65-110); Lactate Dehydrogenase 1357 U/L (313-618); Potassium 3.7 mmol/L (3.4-5.0); Sodium 132 mmol/L (137-145)
[2021-08-16 05:50] LABS: Iron 61 ug/dL (37-170)
[2021-08-16 05:59] LABS: Percent Iron Saturation 30 % (20-50)
[2021-08-16] MEDS: LEVOTHYROXINE SODIUM 50 MCG TABLET PO (06:50)
[2021-08-16] MEDS: hydrALAZINE HCL 50 MG TABLET PO ×3 (06:50→19:55)
[2021-08-16 06:52] LABS: Folic Acid 16.3 ng/mL (2.76->20); Vitamin B12 > 1000.0 pg/mL (239-931)
--- NOTE | 2021-08-16 08:04 | PM.PNCARD ---
Progress Note: A&P Assessment and Plan (1) Elevated troponin: Code(s): R77.8 - Other specified abnormalities of plasma proteins Status: Acute Assessment and Plan: Probably due to pneumonia with CKD, anemia, hypoxia. Troponin peaked at 1.07. Obtain echo. (2) Systolic dysfunction: Code(s): I51.9 - Heart disease, unspecified Status: Acute Assessment and Plan: Mild systolic dysfunction. Does not appear to be in acute heart failure at this time though she has edema of legs and elevated NTproBNP. History of mod-severe LV systolic dysfunction of EF 30-40%. Received a dose of Lasix 40 mg IV in ED. On Lasix 40 mg PO BID to keep her from becoming fluid overloaded. Echo on 08/15/21 EF 45-50%, mild LVH, mod LAE, mitral clip, mild MR, mod TR, mod pulm hypertension with RVSP 54 mmHg. Decrease Lasix 40 mg PO daily. (3) Pneumonia: Code(s): J18.9 - Pneumonia, unspecified organism Status: Acute Assessment and Plan: On Antibiotics and managed by hospitalist. (4) Chronic anemia: Code(s): D64.9 - Anemia, unspecified Status: Acute Assessment and Plan: Received blood transfusion on 08/15/21. Stool occult positive. Managed by hospitalist. (5) CAD (coronary artery disease), autologous vein bypass graft: Code(s): I25.810 - Atherosclerosis of coronary artery bypass graft(s) without angina pectoris Status: Acute Assessment and Plan: Received 5 stents in November 2020 at [facility]. On aspirin and Clopidogrel. Her regular post doctoral fellow is at [facility]. (6) Hypertension: Code(s): I10 - Essential (primary) hypertension Status: Acute Assessment and Plan: Stable. Monitor. Resume home medication. (7) Mixed hyperlipidemia: Code(s): E78.2 - Mixed hyperlipidemia Status: Acute Assessment and Plan: On Atorvastatin, resume that. Subjective Date/time seen: 08/16/21 08:04 Feels weak. No chest pain or sob this morning. Exam Const: General: cooperative, healthy appearing and comfortable Resp: Auscultation: crackles, no wheezes and diminished lung sounds Cardio: Jugular venous distension: no JVD Rate: regular rate Rhythm: regular rhythm Heart sounds: no murmurs GI: GI Palp: No abdominal tenderness and Yes Soft to palpation Neuro: General: oriented to person, oriented to place and oriented to time Extrem: Right lower extremity: no edema Left lower extremity: no edema Objective Data Vital Signs Vital Signs: Vital Signs - 24 hr 08/15/21 08:12 08/15/21 10:00 08/15/21 10:30 Temperature Pulse Rate 78 71 Respiratory Rate Blood Pressure Pulse Oximetry 100 08/15/21 11:05 08/15/21 11:20 08/15/21 12:00 Temperature 97.6 F 97.4 F L 97.4 F L Pulse Rate 73 66 70 Respiratory Rate 17 22 H 16 Blood Pressure 126/61 132/68 132/68 Pulse Oximetry 96 97 98 08/15/21 13:20 08/15/21 14:00 08/15/21 14:11 Temperature 97.4 F L Pulse Rate 67 70 71 Respiratory Rate 20 22 H 22 H Blood Pressure 137/55 L Pulse Oximetry 100 08/15/21 14:20 08/15/21 15:20 08/15/21 16:00 Temperature 96.0 F L 97.4 F L 97.2 F L Pulse Rate 68 65 61 Respiratory Rate 24 H 20 20 Blood Pressure 148/60 H 147/69 H 138/76 Pulse Oximetry 97 99 100 08/15/21 18:00 08/15/21 20:00 08/15/21 20:01 Temperature 96.7 F L Pulse Rate 80 60 66 Respiratory Rate 20 20 Blood Pressure 127/75 Pulse Oximetry 98 08/15/21 20:02 08/15/21 20:10 08/15/21 20:53 Temperature Pulse Rate 66 64 66 Respiratory Rate 20 Blood Pressure Pulse Oximetry 98 08/15/21 21:59 08/15/21 23:47 08/16/21 00:00 Temperature 97.6 F Pulse Rate 62 61 72 Respiratory Rate 16 16 Blood Pressure 129/65 Pulse Oximetry 100 100 08/16/21 00:20 08/16/21 00:30 08/16/21 02:00 Temperature Pulse Rate 65 66 68 Respiratory Rate 20 20 Blood Pressure Pulse Oximetry 08/16/21 04:00 08/16/21 04:20 08/16/21 04:31 Temper
[2021-08-16 08:20] LABS: Glucose Point of Care 186 mg/dl (65-105)
[2021-08-16] MEDS: FLUTICASONE/UMECLIDIN/VILANTER 100-62.5-25 MCG ELLIPTA 1 PUFF INHALATION (08:36)
[2021-08-16] MEDS: FUROSEMIDE 40 MG TABLET PO (10:08)
[2021-08-16] MEDS: ATORVASTATIN 40 MG TABLET 80 MG PO (10:08)
[2021-08-16] MEDS: buPROPion HCL XL (24 HR) 150 MG TABCR PO (10:09)
[2021-08-16] MEDS: CITALOPRAM HYDROBROMIDE 20 MG TABLET 40 MG PO (10:09)
[2021-08-16] MEDS: carvediloL 25 MG TABLET PO ×2 (10:09→19:54)
[2021-08-16] MEDS: CLOPIDOGREL BISULFATE 75 MG TABLET PO (10:09)
[2021-08-16] MEDS: ISOSORBIDE DINITRATE 10 MG TABLET PO ×2 (10:10→19:54)
[2021-08-16] MEDS: DOXYCYCLINE HYCLATE 100 MG TABLET PO ×2 (10:10→19:54)
[2021-08-16] MEDS: LOSARTAN POTASSIUM 50 MG TABLET 100 MG PO (10:10)
[2021-08-16] MEDS: SILVERGEL (ELTA) 45 ML 1 APPLIC TOPICAL (10:11)
[2021-08-16] MEDS: PANTOPRAZOLE 40 MG TABLET PO ×2 (10:11→19:55)
[2021-08-16 13:16] LABS: Glucose Point of Care 218 mg/dl (65-105)
[2021-08-16] MEDS: INSULIN ASPART (*BKC) 100 UNITS/ML SUB-Q ×4 (13:48→18:13)
[2021-08-16 17:06] LABS: Glucose Point of Care 204 mg/dl (65-105)
--- NOTE | 2021-08-16 17:20 | PM.IMPN ---
Progress Note: A&P Assessment and Plan (1) Elevated troponin: Code(s): R77.8 - Other specified abnormalities of plasma proteins Status: Acute Assessment and Plan: likley secondary to CHF excerbation (2) Acute exacerbation of congestive heart failure: Code(s): I50.9 - Heart failure, unspecified Status: Acute Assessment and Plan: Pt is on oral lasix pt seen by Dr Ybarra cardiology awaiting echo (3) Pneumonia: Code(s): J18.9 - Pneumonia, unspecified organism Status: Acute Assessment and Plan: Pt lungs are full of rales continue with iv ceftriaxone and oral doxycycline cultures are not found (4) Chronic respiratory failure with hypoxia, on home oxygen therapy: Code(s): J96.11 - Chronic respiratory failure with hypoxia; Z99.81 - Dependence on supplemental oxygen Status: Acute Assessment and Plan: pt is on 3 liters 2liters is her baseline (5) Chronic anemia: Code(s): D64.9 - Anemia, unspecified Status: Acute Assessment and Plan: pt had one unit of blood hb has improved to 9 (6) Obstructive sleep apnea on CPAP: Code(s): G47.33 - Obstructive sleep apnea (adult) (pediatric); Z99.89 - Dependence on other enabling machines and devices Status: Acute (7) Insulin dependent diabetes mellitus: Status: Acute Assessment and Plan: accuchecks, ssi, hbaic is 5 (8) Chronic kidney disease, stage 3: Code(s): N18.30 - Chronic kidney disease, stage 3 unspecified Status: Acute Assessment and Plan: creat is 1.1 (9) Hypothyroidism: Code(s): E03.9 - Hypothyroidism, unspecified Status: Acute (10) Elevated LFTs: Code(s): R79.89 - Other specified abnormal findings of blood chemistry Status: Acute Assessment and Plan: Pt had hida scan today- Low gallbladder ejection fraction measuring 25%. Low GBEF is associated with gallbladder dysfunction, although not specific for acute or chronic cholecystitis. pt will need to follow in surgery clinic on dischrage Subjective Date/time seen: 08/16/21 17:20 Interval history: 81-year-old female with multiple medical problems including coronary artery disease, ischemic cardiomyopathy, chronic respiratory failure on 2 L nasal cannula, chronic obstructive pulmonary disease, insulin-dependent diabetes, hypertension, chronic kidney disease, and several other comorbidities who presented to the emergency department for evaluation of shortness of breath. Pt still feels very SOB today, Pt went for her HIDA scan today. complains of L sided back pains? pleuritic Review of Systems Review of Systems: All systems reviewed & are unremarkable except as noted in HPI and below Exam Const: General: ill appearing and tired appearing Orientation/consciousness: oriented to person HENMT: Head: normal to inspection Resp: Effort & Inspection: other (BL rales in lungs ) Other: TTP over L lung Cardio: Rate: regular rate Rhythm: regular rhythm GI: Inspection: normal to inspection GI Palp: No abdominal tenderness, No Guarding due to palpation present (GI) and No Hepatomegaly present Auscultation: normal bowel sounds Neuro: General: oriented to person Objective Data Vital Signs Vital Signs: Vital Signs - 24 hr 08/15/21 18:00 08/15/21 20:00 08/15/21 20:01 Temperature 35.9 C L Pulse Rate 80 60 66 Respiratory Rate 20 20 Blood Pressure 127/75 Pulse Oximetry 98 08/15/21 20:02 08/15/21 20:10 08/15/21 20:53 Temperature Pulse Rate 66 64 66 Respiratory Rate 20 Blood Pressure Pulse Oximetry 98 08/15/21 21:59 08/15/21 23:47 08/16/21 00:00 Temperature 36.4 C Pulse Rate 62 61 72 Respiratory Rate 16 16 Blood Pressure 129/65 Pulse Oximetry 100 100 08/16/21 00:20 08/16/21 00:30 08/16/21 02:00 Temperature Pulse Rate 65 66 68 Respiratory Rate 20 20 Blood Pressure Pulse Oximetry
[2021-08-16] MEDS: MELATONIN 5 MG TABLET PO (19:55)
[2021-08-16 20:15] LABS: Glucose Point of Care 223 mg/dl (65-105)
--- NOTE | 2021-08-16 20:39 | PCRCNOTE ---
Pt refuses S9. States that she wears hers at home sometimes but that she doesn't like the mask on this one. She was advised to let the nurse know if she changes her mind.
[2021-08-17] VITALS (26 sets, daily range): BP systolic 131–174; BP diastolic 51–91; PULSE 56–106; RESP 16–28; TEMP 35.9–36.7; O2SAT 96–100
[2021-08-17] MEDS: ALBUTEROL SULFATE NEB 2.5 MG/0.5 ML INH INHALATION ×6 (00:16→20:11)
[2021-08-17] MEDS: PROCHLORPERAZINE EDISYLATE 10 MG/2 ML VIAL IV PUSH (02:40)
[2021-08-17] MEDS: LEVOTHYROXINE SODIUM 50 MCG TABLET PO (05:43)
[2021-08-17] MEDS: hydrALAZINE HCL 50 MG TABLET PO ×3 (05:43→21:17)
[2021-08-17 08:01] LABS: Alanine Aminotransferase 33 U/L (4-35); Albumin Level 2.9 g/dL (3.5-5.1); Alkaline Phosphatase 190 U/L (38-126); Anion Gap 3 mmol/L (8-16); Aspartate Amino Transferase 55 U/L (14-36); Bilirubin,Total 1.2 mg/dL (0.2-1.3); Blood Urea Nitrogen 28 mg/dL (7-17); Calcium 8.3 mg/dL (8.4-10.2); Carbon Dioxide 35 mmol/L (22-30); Chloride 95 mmol/L (98-107); Estimated CRCL calculation 35 ml/min; Estimated Glomerular Filt Rate 48; Glucose 140 mg/dL (65-110); Potassium 3.8 mmol/L (3.4-5.0); Sodium 133 mmol/L (137-145)
--- NOTE | 2021-08-17 08:01 | PM.PNCARD ---
Progress Note: A&P Assessment and Plan (1) Elevated troponin: Code(s): R77.8 - Other specified abnormalities of plasma proteins Status: Acute Assessment and Plan: Probably due to pneumonia with CKD, anemia, hypoxia. Troponin peaked at 1.07. (2) Systolic dysfunction: Code(s): I51.9 - Heart disease, unspecified Status: Acute Assessment and Plan: Mild systolic dysfunction. Does not appear to be in acute heart failure at this time though she has edema of legs and elevated NTproBNP. History of mod-severe LV systolic dysfunction of EF 30-40%. Received a dose of Lasix 40 mg IV in ED. On Lasix 40 mg PO BID to keep her from becoming fluid overloaded. Echo on 08/15/21 EF 45-50%, mild LVH, mod LAE, mitral clip, mild MR, mod TR, mod pulm hypertension with RVSP 54 mmHg. On Lasix 40 mg PO daily. Obtain CXR to see if any congestion or pleural effusion that would require higher lasix dose. (3) Pneumonia: Code(s): J18.9 - Pneumonia, unspecified organism Status: Acute Assessment and Plan: On Antibiotics and managed by hospitalist. (4) Chronic anemia: Code(s): D64.9 - Anemia, unspecified Status: Acute Assessment and Plan: Received blood transfusion on 08/15/21. Stool occult positive. Managed by hospitalist. (5) CAD (coronary artery disease), autologous vein bypass graft: Code(s): I25.810 - Atherosclerosis of coronary artery bypass graft(s) without angina pectoris Status: Acute Assessment and Plan: Received 5 stents in November 2020 at [facility]. On aspirin and Clopidogrel. 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 (6) Hypertension: Code(s): I10 - Essential (primary) hypertension Status: Acute Assessment and Plan: Stable. Monitor. Resume home medication. (7) Mixed hyperlipidemia: Code(s): E78.2 - Mixed hyperlipidemia Status: Acute Assessment and Plan: On Atorvastatin, resume that. Subjective Date/time seen: 08/17/21 08:01 Has sob and weakness. No chest pain. Exam Const: General: cooperative, healthy appearing and comfortable Resp: Auscultation: crackles, no wheezes and diminished lung sounds Cardio: Jugular venous distension: no JVD Rate: regular rate Rhythm: regular rhythm Heart sounds: no murmurs GI: GI Palp: No abdominal tenderness and Yes Soft to palpation Neuro: General: oriented to person, oriented to place and oriented to time Extrem: Right lower extremity: no edema Left lower extremity: no edema Objective Data Vital Signs Vital Signs: Vital Signs - 24 hr 08/16/21 08:26 08/16/21 08:30 08/16/21 08:39 Temperature 96.2 F L Pulse Rate 77 81 79 Respiratory Rate 22 H 20 20 Blood Pressure 154/77 H Pulse Oximetry 96 96 96 08/16/21 10:00 08/16/21 10:09 08/16/21 12:00 Temperature Pulse Rate 76 79 77 Respiratory Rate 20 Blood Pressure Pulse Oximetry 97 08/16/21 12:56 08/16/21 13:50 08/16/21 13:58 Temperature 97.0 F L Pulse Rate 72 67 75 Respiratory Rate 22 H 20 20 Blood Pressure 146/73 H Pulse Oximetry 95 08/16/21 14:00 08/16/21 16:00 08/16/21 17:05 Temperature Pulse Rate 73 60 70 Respiratory Rate 20 20 Blood Pressure Pulse Oximetry 97 08/16/21 17:14 08/16/21 18:00 08/16/21 19:28 Temperature 96.7 F L 97.1 F L Pulse Rate 65 65 67 Respiratory Rate 20 16 Blood Pressure 148/75 H 136/64 Pulse Oximetry 99 99 08/16/21 19:54 08/16/21 20:00 08/16/21 20:32 Temperature Pulse Rate 68 64 65 Respiratory Rate 16 16 Blood Pressure Pulse Oximetry 100 100 08/16/21 20:39 08/16/21 22:00 08/16/21 23:38 Temperature 97.4 F L Pulse Rate 64 64 70 Respiratory Rate 16 16 Blood Pressure 136/62 Pulse Oximetry 98 08/16/21 23:43 08/17/21 00:16 08/17/21 00:22 Temperature Pulse Rate 70 56 L 58 L Respiratory Rate 16 18 16 Blood Pressure Pulse Oximetry 98 08/17/21 02:00 08/17/21 04:00
[2021-08-17 08:38] LABS: Glucose Point of Care 157 mg/dl (65-105)
[2021-08-17] MEDS: FLUTICASONE/UMECLIDIN/VILANTER 100-62.5-25 MCG ELLIPTA 1 PUFF INHALATION (08:41)
[2021-08-17] MEDS: PANTOPRAZOLE 40 MG TABLET PO ×2 (10:26→21:17)
[2021-08-17] MEDS: SILVERGEL (ELTA) 45 ML 1 APPLIC TOPICAL (10:26)
[2021-08-17] MEDS: buPROPion HCL XL (24 HR) 150 MG TABCR PO (10:26)
[2021-08-17] MEDS: CITALOPRAM HYDROBROMIDE 20 MG TABLET 40 MG PO (10:27)
[2021-08-17] MEDS: carvediloL 25 MG TABLET PO ×2 (10:27→21:17)
[2021-08-17] MEDS: LOSARTAN POTASSIUM 50 MG TABLET 100 MG PO (10:27)
[2021-08-17] MEDS: CLOPIDOGREL BISULFATE 75 MG TABLET PO (10:28)
[2021-08-17] MEDS: DOXYCYCLINE HYCLATE 100 MG TABLET PO (10:28)
[2021-08-17] MEDS: ISOSORBIDE DINITRATE 10 MG TABLET PO ×2 (10:28→21:17)
[2021-08-17] MEDS: FUROSEMIDE 40 MG TABLET PO ×2 (10:28→17:20)
[2021-08-17] MEDS: ATORVASTATIN 40 MG TABLET 80 MG PO (10:29)
--- NOTE | 2021-08-17 11:33 | WPDCDIQUERY2 ---
CDI Query Clarification Request -08/14 Cardiology documented: - Systolic dysfunction: -I51.9 - Heart disease, unspecified -Status: Acute -Assessment and Plan: - Does not appear to be in acute heart failure at this time though she has edema of legs and elevated NTproBNP. -History of mod-severe LV systolic dysfunction of EF 30-40%. -08/15 Echocardiogram results: Left ventricular systolic function is mildly reduced, estimated at 45-50%. There is mildly increased left ventricular wall thickness. The left ventricular diastolic function is normal. 08/16 Hospitalist documented: - Acute exacerbation of congestive heart failure: -I50.9 - Heart failure, unspecified -Status: Acute -Assessment and Plan: Pt is on oral lasix, pt seen by Dr Ybarra cardiology, awaiting echo Please clarify within the medical record if Acute Congestive Heart Failure is ruled in, ruled out or unable to determine. Please clarify if Acute Congestive Heart Failure is: -Systolic -Diastolic -Combined -other -unable to determine <Anika Dempsey - Last Filed: 08/17/21 11:51> Provider Comments ACUTE ON CHRONIC SYSTOLIC CHF <Trinity Abraham MD - Last Filed: 08/18/21 14:14>
[2021-08-17 12:59] LABS: Glucose Point of Care 220 mg/dl (65-105)
[2021-08-17] MEDS: INSULIN ASPART (*BKC) 100 UNITS/ML SUB-Q ×4 (13:01→17:22)
--- NOTE | 2021-08-17 13:06 | PM.IMPN ---
Progress Note: A&P Assessment and Plan (1) Elevated troponin: Code(s): R77.8 - Other specified abnormalities of plasma proteins Status: Acute Assessment and Plan: likley secondary to CHF excerbation (2) Acute exacerbation of congestive heart failure: Code(s): I50.9 - Heart failure, unspecified Status: Acute Assessment and Plan: Pt is on oral lasix pt seen by Dr Ybarra cardiology echo reviewed (3) Pneumonia: Code(s): J18.9 - Pneumonia, unspecified organism Status: Acute Assessment and Plan: Pt lungs are full of rales continue with iv ceftriaxone and start iv doxycycline cultures are not found CXR shows pneumonia consider CT chest if Sob does not improve (4) Chronic respiratory failure with hypoxia, on home oxygen therapy: Code(s): J96.11 - Chronic respiratory failure with hypoxia; Z99.81 - Dependence on supplemental oxygen Status: Acute Assessment and Plan: pt is on 3 liters 2liters is her baseline (5) Chronic anemia: Code(s): D64.9 - Anemia, unspecified Status: Acute Assessment and Plan: pt had one unit of blood hb has improved to 9, continue to monitor Hb (6) Obstructive sleep apnea on CPAP: Code(s): G47.33 - Obstructive sleep apnea (adult) (pediatric); Z99.89 - Dependence on other enabling machines and devices Status: Chronic (7) Insulin dependent diabetes mellitus: Status: Chronic Assessment and Plan: accuchecks, ssi, hbaic is 5 (8) Chronic kidney disease, stage 3: Code(s): N18.30 - Chronic kidney disease, stage 3 unspecified Status: Chronic Assessment and Plan: creat is 1.1 (9) Hypothyroidism: Code(s): E03.9 - Hypothyroidism, unspecified Status: Chronic (10) Elevated LFTs: Code(s): R79.89 - Other specified abnormal findings of blood chemistry Status: Acute Assessment and Plan: Pt had hida scan today- Low gallbladder ejection fraction measuring 25%. Low GB EF is associated with gallbladder dysfunction, although not specific for acute or chronic cholecystitis. Pt has been nauseated all day i will consult GI. Subjective Date/time seen: 08/17/21 13:06 Interval history: 81-year-old female with multiple medical problems including coronary artery disease, ischemic cardiomyopathy, chronic respiratory failure on 2 L nasal cannula, chronic obstructive pulmonary disease, insulin-dependent diabetes, hypertension, chronic kidney disease, and several other comorbidities who presented to the emergency department for evaluation of shortness of breath. Pt still feels very SOB today, Pt went for her HIDA scan today. complains of L sided back pains? pleuritic. 08/17/2021: pt has been nauseated all night, HIDA was positive for Low gallbladder ejection fraction measuring 25%. Low GB EF is associated with gallbladder dysfunction, although not specific for acute or chronic cholecystitis. I will consult GI. Pt had cxr today for SOB Cxr shows ongoing pneumonia, I will continue to treat for pneumonia. If sob does not improve pt may benefit from CT Chest. Review of Systems Review of Systems: All systems reviewed & are unremarkable except as noted in HPI and below Exam Const: General: ill appearing and tired appearing Orientation/consciousness: oriented to person HENMT: Head: normal to inspection Resp: Effort & Inspection: other (BL rales in lungs ) Other: TTP over L lung Cardio: Rate: regular rate Rhythm: regular rhythm GI: Inspection: normal to inspection Auscultation: normal bowel sounds Neuro: General: oriented to person Objective Data Vital Signs Vital Signs: Vital Signs - 24 hr 08/16/21 13:50 08/16/21 13:58 08/16/21 14:00 Temperature Pulse Rate 67 75 73 Respiratory Rate 20 20 Blood Pressure Pulse Oximetry 08/16/21 16:00 08/16/21 17:05 08/16/21 17:14 Temperature 35.9 C L Pulse Rate 60 70 65 Respir
[2021-08-17 13:54] LABS: Vancomycin Trough < 5.0 ug/mL (10.0-20.0)
--- NOTE | 2021-08-17 13:57 | PCOTNOTE ---
Attempted to see pt 2x this PM for occupation therapy tx. At 1st attempt pt was still eating lunch at 12:54pm. At 2nd attempt pt was being evaluated with Physical Therapy. Will continue per poc duration/frequency tomorrow.
[2021-08-17 17:02] LABS: Glucose Point of Care 287 mg/dl (65-105)
--- NOTE | 2021-08-17 18:43 | PC.NURSE ---
This patient, Jamee Finley, was transferred to [address] [place] [address] Room 316-01 at 1845. Patient/family oriented to hospital policies and general routines including ID bracelet, bed and alarms, visiting hours, pain management, procedures, bathroom and other care routines, personal items, smoking policy, room service/diet, and visiting hours. Information on how to activate the Rapid Response Team has been discussed. Patient/Family are encouraged to report perceived risks to care and to ask questions if they do not understand what they are told or what they should do.
--- NOTE | 2021-08-17 18:45 | PC.NURSE ---
This patient, Jamee Finley, was transferred to [[id number] ] on 08/17/21 at 1835. Personal belongings sent with patient. Report given to [Jessika ]. Appropriate documentation sent with patient.
[2021-08-17 20:23] LABS: Glucose Point of Care 303 mg/dl (65-105)
[2021-08-17] MEDS: MELATONIN 5 MG TABLET PO (21:17)
[2021-08-17] MEDS: DOXYCYCLINE 100 MG/NS 100 ML 100 MG/100 ML BAG IVPB (21:17)
[2021-08-17] MEDS: INSULIN GLARGINE (*BKC) 100 UNITS/ML 10 UNITS SUB-Q (21:18)
[2021-08-18] VITALS (17 sets, daily range): BP systolic 129–148; BP diastolic 53–75; PULSE 62–76; RESP 16–18; TEMP 36.2–36.8; O2SAT 95–100
[2021-08-18] MEDS: ALBUTEROL SULFATE NEB 2.5 MG/0.5 ML INH INHALATION ×4 (00:55→20:19)
[2021-08-18] MEDS: hydrALAZINE HCL 50 MG TABLET PO ×3 (05:58→20:33)
[2021-08-18] MEDS: LEVOTHYROXINE SODIUM 50 MCG TABLET PO (05:58)
[2021-08-18 06:55] LABS: Anion Gap 2 mmol/L (8-16); Blood Urea Nitrogen 27 mg/dL (7-17); Calcium 8.4 mg/dL (8.4-10.2); Carbon Dioxide 36 mmol/L (22-30); Chloride 95 mmol/L (98-107); Estimated CRCL calculation 34 ml/min; Estimated Glomerular Filt Rate 48; Glucose 194 mg/dL (65-110); Potassium 3.7 mmol/L (3.4-5.0); Sodium 133 mmol/L (137-145)
--- NOTE | 2021-08-18 08:09 | PM.PNCARD ---
Progress Note: A&P Assessment and Plan (1) Elevated troponin: Code(s): R77.8 - Other specified abnormalities of plasma proteins Status: Acute Assessment and Plan: Probably due to pneumonia with CKD, anemia, hypoxia. Troponin peaked at 1.07. (2) Systolic dysfunction: Code(s): I51.9 - Heart disease, unspecified Status: Acute Assessment and Plan: Chronic mild systolic dysfunction. Does not appear to be in acute heart failure at this time though she has edema of legs and elevated NTproBNP. History of mod-severe LV systolic dysfunction of EF 30-40%. Received a dose of Lasix 40 mg IV in ED. On Lasix 40 mg PO BID to keep her from becoming fluid overloaded. Echo on 08/15/21 EF 45-50%, mild LVH, mod LAE, mitral clip, mild MR, mod TR, mod pulm hypertension with RVSP 54 mmHg. CXR showed worsening pneumonia and mild pleural effusions. On Lasix 40 mg PO BID. (3) Pneumonia: Code(s): J18.9 - Pneumonia, unspecified organism Status: Acute Assessment and Plan: On Antibiotics and managed by hospitalist. (4) Chronic anemia: Code(s): D64.9 - Anemia, unspecified Status: Acute Assessment and Plan: Received blood transfusion on 08/15/21. Stool occult positive. Managed by hospitalist. (5) CAD (coronary artery disease), autologous vein bypass graft: Code(s): I25.810 - Atherosclerosis of coronary artery bypass graft(s) without angina pectoris Status: Acute Assessment and Plan: Received 5 stents in November 2020 at [facility]. On aspirin and Clopidogrel. 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 (6) Hypertension: Code(s): I10 - Essential (primary) hypertension Status: Acute Assessment and Plan: Stable. Monitor. Resume home medication. (7) Mixed hyperlipidemia: Code(s): E78.2 - Mixed hyperlipidemia Status: Acute Assessment and Plan: On Atorvastatin, resume that. Subjective Date/time seen: 08/18/21 08:09 Reports sob is only slightly better than yesterday. No chest pain. Exam Const: General: cooperative, healthy appearing and comfortable Resp: Auscultation: crackles, no wheezes and diminished lung sounds Cardio: Jugular venous distension: no JVD Rate: regular rate Rhythm: regular rhythm Heart sounds: no murmurs GI: GI Palp: No abdominal tenderness and Yes Soft to palpation Neuro: General: oriented to person, oriented to place and oriented to time Extrem: Right lower extremity: no edema Left lower extremity: no edema Objective Data Vital Signs Vital Signs: Vital Signs - 24 hr 08/17/21 08:42 08/17/21 08:44 08/17/21 08:50 Temperature Pulse Rate 72 69 Respiratory Rate 16 16 Blood Pressure Pulse Oximetry 97 08/17/21 10:00 08/17/21 10:27 08/17/21 12:00 Temperature 97.6 F Pulse Rate 79 77 72 Respiratory Rate 24 H Blood Pressure 156/62 H Pulse Oximetry 96 08/17/21 13:08 08/17/21 13:15 08/17/21 16:00 Temperature 98.1 F Pulse Rate 71 76 106 H Respiratory Rate 16 16 28 H Blood Pressure 132/59 L Pulse Oximetry 99 08/17/21 16:55 08/17/21 17:02 08/17/21 19:07 Temperature 96.7 F L Pulse Rate 69 71 64 Respiratory Rate 16 16 20 Blood Pressure 131/51 L Pulse Oximetry 100 08/17/21 20:00 08/17/21 20:12 08/17/21 20:21 Temperature Pulse Rate 68 71 Respiratory Rate 16 16 Blood Pressure Pulse Oximetry 97 96 08/17/21 21:17 08/17/21 22:00 08/17/21 23:16 Temperature 98.0 F Pulse Rate 87 70 79 Respiratory Rate 20 23 H Blood Pressure 153/66 H Pulse Oximetry 100 96 08/18/21 00:55 08/18/21 01:09 08/18/21 03:53 Temperature Pulse Rate 66 67 73 Respiratory Rate 16 16 18 Blood Pressure Pulse Oximetry 08/18/21 04:03 08/18/21 05:28 Temperature 97.4 F L Pulse Rate 71 76 Respiratory Rate 16 18 Blood Pressure 148/75 H Pulse Oximetry 98 Intake/Output Intake/Output: Intake & Output 08/15/21 08/16/21 0
[2021-08-18 08:11] LABS: Glucose Point of Care 203 mg/dl (65-105)
[2021-08-18] MEDS: IPRATROPIUM BR 0.02% INH SOLN 0.5 MG/2.5 ML VIAL INHALATION (08:20)
[2021-08-18] MEDS: FLUTICASONE/UMECLIDIN/VILANTER 100-62.5-25 MCG ELLIPTA 1 PUFF INHALATION (08:21)
[2021-08-18 08:27] LABS: Hematocrit 30.9 % (37.0-47.0); Hemoglobin 9.5 g/dL (12.0-15.0); Mean Corpuscular HGB Conc 30.7 g/dl (32-36); Mean Corpuscular Hemoglobin 29.2 pg (26-34); Mean Corpuscular Volume 95.1 fl (80-100); Mean Platelet Volume 9.7 fl (7.4-10.4); Platelet Count Result 343 k/mm3 (150-375); Red Blood Count 3.25 M/mm3 (4.2-5.4); White Blood Count 11.8 K/mm3 (4.5-10.0)
[2021-08-18] MEDS: INSULIN ASPART (*BKC) 100 UNITS/ML SUB-Q ×6 (09:24→17:46)
[2021-08-18] MEDS: SILVERGEL (ELTA) 45 ML 1 APPLIC TOPICAL (09:26)
[2021-08-18] MEDS: CLOPIDOGREL BISULFATE 75 MG TABLET PO (09:27)
[2021-08-18] MEDS: DOXYCYCLINE 100 MG/NS 100 ML 100 MG/100 ML BAG IVPB ×2 (09:27→20:35)
[2021-08-18] MEDS: FUROSEMIDE 40 MG TABLET PO ×2 (09:28→17:47)
[2021-08-18] MEDS: buPROPion HCL XL (24 HR) 150 MG TABCR PO (09:29)
[2021-08-18] MEDS: carvediloL 25 MG TABLET PO ×2 (09:29→20:33)
[2021-08-18] MEDS: PANTOPRAZOLE 40 MG TABLET PO ×2 (09:29→20:33)
[2021-08-18] MEDS: ATORVASTATIN 40 MG TABLET 80 MG PO (09:30)
[2021-08-18] MEDS: CITALOPRAM HYDROBROMIDE 20 MG TABLET 40 MG PO (09:30)
[2021-08-18] MEDS: LOSARTAN POTASSIUM 50 MG TABLET 100 MG PO (09:30)
--- NOTE | 2021-08-18 11:27 | PCNFU ---
Nutrition Follow-Up Complete: Increase protein needs r/t wounds AEB stage II right buttock pressure ulcer, stage II left buttock pressure ulcer, and unstageable sacrum pressure ulcer goal: Pt to meet >50% of estimated nutritional needs patient is progressing towards goal. We will continue current goal. Pt current nutrition is Heart Healthy. Last recorded weight is 68.9 kg, down from 76 kg on admit. Bowel Motility:+BM reported 08/14 Labs Reviewed:Glu 94, GFR 48, Na 133, Cr 1.10,Glu 194 Meds Noted:Protonix, Wellbutrin, Plavix,Synthroid, Lantus, NovoLog, Cozaar, Albuterol Skin: WNL Additional Notes: Patient remains on a heart healthy diet. Oral intake has been 75-80% of meals. Spoke with patient in regards to diet supplements today due to wounds. MD orders for Arden BID and Glucerna shake BID 2/2 to wound healing. Agree with diet orders. Monitoring: Will monitor labs, medication, wt and reported intake every 5 days
[2021-08-18 12:12] LABS: Glucose Point of Care 251 mg/dl (65-105)
--- NOTE | 2021-08-18 12:27 | PM.IMPN ---
Progress Note: A&P Assessment and Plan (1) Elevated troponin: Code(s): R77.8 - Other specified abnormalities of plasma proteins Status: Acute Assessment and Plan: likley secondary to CHF excerbation (2) Acute exacerbation of congestive heart failure: Code(s): I50.9 - Heart failure, unspecified Status: Acute Assessment and Plan: Pt is on oral lasix pt seen by Dr Ybarra cardiology echo reviewed acute on chronic systolic CHF EF 45% (3) Pneumonia: Code(s): J18.9 - Pneumonia, unspecified organism Status: Acute Assessment and Plan: Pt lungs are getting better pt slightly better today continue with iv ceftriaxone and start iv doxycycline cultures are not found Rpt CXR showed worsening pneumonia and small BL pleural effusions consider CT chest if Sob does not improve (4) Chronic respiratory failure with hypoxia, on home oxygen therapy: Code(s): J96.11 - Chronic respiratory failure with hypoxia; Z99.81 - Dependence on supplemental oxygen Status: Acute Assessment and Plan: pt is on 3 liters 2liters is her baseline (5) Chronic anemia: Code(s): D64.9 - Anemia, unspecified Status: Acute Assessment and Plan: pt had one unit of blood hb has improved to 9, continue to monitor Hb (6) Obstructive sleep apnea on CPAP: Code(s): G47.33 - Obstructive sleep apnea (adult) (pediatric); Z99.89 - Dependence on other enabling machines and devices Status: Chronic (7) Insulin dependent diabetes mellitus: Status: Chronic Assessment and Plan: accuchecks, ssi, hbaic is 5 (8) Chronic kidney disease, stage 3: Code(s): N18.30 - Chronic kidney disease, stage 3 unspecified Status: Chronic Assessment and Plan: creat is 1.1 (9) Hypothyroidism: Code(s): E03.9 - Hypothyroidism, unspecified Status: Chronic (10) Elevated LFTs: Code(s): R79.89 - Other specified abnormal findings of blood chemistry Status: Acute Assessment and Plan: Pt had hida scan today- Low gallbladder ejection fraction measuring 25%. Low GB EF is associated with gallbladder dysfunction, although not specific for acute or chronic cholecystitis. Pt was nauseated yesterday not today, I will consult GI. Subjective Date/time seen: 08/18/21 12:27 Interval history: 81-year-old female with multiple medical problems including coronary artery disease, ischemic cardiomyopathy, chronic respiratory failure on 2 L nasal cannula, chronic obstructive pulmonary disease, insulin-dependent diabetes, hypertension, chronic kidney disease, and several other comorbidities who presented to the emergency department for evaluation of shortness of breath. Pt still feels very SOB today, Pt went for her HIDA scan today. complains of L sided back pains? pleuritic. 08/17/2021: pt has been nauseated all night, HIDA was positive for Low gallbladder ejection fraction measuring 25%. Low GB EF is associated with gallbladder dysfunction, although not specific for acute or chronic cholecystitis. I will consult GI. Pt had cxr today for SOB Cxr shows ongoing pneumonia, I will continue to treat for pneumonia. If sob does not improve pt may benefit from CT Chest. 08/18/2021 Pt feels better today, will order PT/ OT. Continue current care hopefully home in 2-3 days time. Review of Systems Review of Systems: All systems reviewed & are unremarkable except as noted in HPI and below Exam Const: General: ill appearing and tired appearing Orientation/consciousness: oriented to person HENMT: Head: normal to inspection Resp: Effort & Inspection: decreased respiratory effort (bilateral no added sounds ) Other: TTP over L lung Cardio: Rate: regular rate Rhythm: regular rhythm GI: Inspection: normal to inspection Auscultation: normal bowel sounds Neuro: General: oriented to person Objective Data Vital Signs Vital Signs: Vital Signs - 24 h
--- NOTE | 2021-08-18 13:33 | WPDGICN ---
Assessment and Plan Assessment and plan (1) Elevated LFTs: Code(s): R79.89 - Other specified abnormal findings of blood chemistry Status: Acute Assessment and Plan: only mild elevated of transaminases, last few days actually is downtrending and most likely this is in setting of worsening heart failure with ischemic cardiomyopathy, CKD, pneumonia currently on antibiotics and other medical problems. She has low EF in HIDA scan but not definitive for cholecystitis. She does not need cholecystectomy, there is no abdominal pain and no indication for surgery. Of course she will be at high risk anyways. will follow from af[place], call if questions. (2) Nausea: Code(s): R11.0 - Nausea Status: Acute Assessment and Plan: antiemetics prn no need to perform EGD she is tolerating diet, no emesis medical support (3) Acute exacerbation of congestive heart failure: Code(s): I50.9 - Heart failure, unspecified Status: Acute Assessment and Plan: this is the main reason of her hospitalization, she has advanced disease (4) Chronic respiratory failure with hypoxia, on home oxygen therapy: Code(s): J96.11 - Chronic respiratory failure with hypoxia; Z99.81 - Dependence on supplemental oxygen Status: Acute Assessment and Plan: also treated for pneumonia (5) CAD (coronary artery disease), autologous vein bypass graft: Code(s): I25.810 - Atherosclerosis of coronary artery bypass graft(s) without angina pectoris Status: Acute (6) Pneumonia: Code(s): J18.9 - Pneumonia, unspecified organism Status: Acute Assessment and Plan: on antibiotics (7) Chronic kidney disease, stage 3: Code(s): N18.30 - Chronic kidney disease, stage 3 unspecified Status: Chronic GI Consult Note Consult date/time: 08/18/21 13:33 Reason for consult: nausea, elevated liver enzymes HPI: Jamee Finley is a 81 year old female with multiple medical problems including CAD/CABG x4 vessels in [address] [facility], severe MR, last left heart cath with 5 stents at [facility] in November 2020. She has a history of systolic heart failure with EF 30-40%, DM, chronic respiratory failure on 2 L nasal cannula, chronic obstructive pulmonary disease, insulin-dependent diabetes, hypertension, chronic kidney disease. Recent hospitalization at [facility] for congestive heart failure exacerbation, RSV bronchitis, and acute on chronic anemia requiring blood transfusion, also she sustained a fall and fractured her left hip which was fixed with what sounds like an intramedullary elsy. She was admitted this time with worsening shortness of breath going on for 1 week and admitted again 4 days ago with exacerbation of heart failure requiring medical treatment and cardiology evaluation. Also noted to have mild elevated liver enzymes (transaminases 40-70) however denies any abdominal pain, no previous liver disease, no alcohol use. Also admits nausea last few weeks but no vomiting, decrease appetite but she has been eating. Primary ordered HIDA scan that showed low EF but no cholecystitis. She remembers having EGD about 2 years ago. Review of Systems Constitutional: Constitutional: Reports weakness Eyes: Eyes: Denies blurry vision ENT: Reports Normal hearing present Cardiovascular: Cardiovascular: Denies lightheadedness Respiratory: Respiratory: Reports dyspnea on exertion Gastrointestinal: Gastrointestinal: Denies abdominal pain and Reports nausea Genitourinary: Genitourinary: Denies hematuria Musculoskeletal: Musculoskeletal: Denies neck pain Integumentary/Breasts: Skin/Breast: Denies dry skin Neurologic: Denies headache(s) Psychiatric: Psychiatric: Denies behavioral changes [facility] Past Medical History Medical History (Updated 08/18/21 @ 13:41 by Harinder Estevez MD) Anemia Cardiac arrest with ventricular fibrillation (06/2018) Cervical cancer Chronic anemia Chronic
[2021-08-18] MEDS: ISOSORBIDE DINITRATE 20 MG TABLET PO ×2 (14:27→20:34)
--- NOTE | 2021-08-18 14:57 | PCRCNOTE ---
Changed pts treatments to Q6 with approval from doctor due to pts conditions/request. Went to do pts 2 o'clock treatment and pt refused. They stated they haven't gotten to sleep and finally got comfortable and wanted to sleep.
[2021-08-18 16:51] LABS: Pneumococcal Antigen Urine Not Detected (Not Detected)
[2021-08-18 17:39] LABS: Glucose Point of Care 228 mg/dl (65-105)
--- NOTE | 2021-08-18 20:29 | PCRCNOTE ---
Pt refuses use of AutoPAP. She states that it's so much stronger than her home machine and is uncomfortable. Machine is currently set to lowest autoPAP settings. Pt was advised to let her nurse know if she changes her mind. Pt also asked not to be woken up for her 02:00 treatment because she hasn't been able to sleep well lately and doesn't want to be disturbed if possible.
[2021-08-18] MEDS: MELATONIN 5 MG TABLET PO (20:33)
[2021-08-18] MEDS: INSULIN GLARGINE (*BKC) 100 UNITS/ML 10 UNITS SUB-Q (20:36)
[2021-08-18 20:47] LABS: Glucose Point of Care 169 mg/dl (65-105)
[2021-08-18] MEDS: IBUPROFEN 400 MG TABLET PO (21:35)
[2021-08-19] VITALS (15 sets, daily range): BP systolic 120–146; BP diastolic 46–65; PULSE 58–77; RESP 14–18; TEMP 36–36.7; O2SAT 96–100
[2021-08-19 00:42] LABS: Legionella pneumophila Ag Ur Not Detected (Not Detected)
[2021-08-19] MEDS: hydrALAZINE HCL 50 MG TABLET PO ×2 (05:27→21:34)
[2021-08-19] MEDS: LEVOTHYROXINE SODIUM 50 MCG TABLET PO (05:29)
[2021-08-19] MEDS: IBUPROFEN 400 MG TABLET PO (05:38)
[2021-08-19 06:24] LABS: Anion Gap 3 mmol/L (8-16); Blood Urea Nitrogen 30 mg/dL (7-17); Calcium 8.3 mg/dL (8.4-10.2); Carbon Dioxide 35 mmol/L (22-30); Chloride 94 mmol/L (98-107); Estimated CRCL calculation 34 ml/min; Estimated Glomerular Filt Rate 48; Glucose 152 mg/dL (65-110); Potassium 3.6 mmol/L (3.4-5.0); Sodium 132 mmol/L (137-145)
[2021-08-19 06:44] LABS: Hematocrit 29.5 % (37.0-47.0); Hemoglobin 9.1 g/dL (12.0-15.0); Mean Corpuscular HGB Conc 30.8 g/dl (32-36); Mean Corpuscular Hemoglobin 29.5 pg (26-34); Mean Corpuscular Volume 95.8 fl (80-100); Mean Platelet Volume 9.6 fl (7.4-10.4); Platelet Count Result 310 k/mm3 (150-375); Red Blood Count 3.08 M/mm3 (4.2-5.4); Red Cell Distribution Width 17.8 % (11.5-14.5); White Blood Count 9.5 K/mm3 (4.5-10.0)
--- NOTE | 2021-08-19 07:49 | PM.PNCARD ---
Progress Note: A&P Assessment and Plan (1) Elevated troponin: Code(s): R77.8 - Other specified abnormalities of plasma proteins Status: Acute Assessment and Plan: Probably due to pneumonia with CKD, anemia, hypoxia. Troponin peaked at 1.07. (2) Systolic dysfunction: Code(s): I51.9 - Heart disease, unspecified Status: Acute Assessment and Plan: Chronic mild systolic dysfunction. Does not appear to be in acute heart failure at this time though she has edema of legs and elevated NTproBNP. History of mod-severe LV systolic dysfunction of EF 30-40%. Received a dose of Lasix 40 mg IV in ED. Echo on 08/15/21 EF 45-50%, mild LVH, mod LAE, mitral clip, mild MR, mod TR, mod pulm hypertension with RVSP 54 mmHg. CXR showed worsening pneumonia and mild pleural effusions. On Lasix 40 mg PO BID. No further cardiac workup. Her regular seo manager is Dr. Hart at [facility]. Have her f/u with Dr. Obregon in 1-2 weeks after discharge. (3) Pneumonia: Code(s): J18.9 - Pneumonia, unspecified organism Status: Acute Assessment and Plan: On Antibiotics and managed by hospitalist. (4) Chronic anemia: Code(s): D64.9 - Anemia, unspecified Status: Acute Assessment and Plan: Received blood transfusion on 08/15/21. Stool occult positive. Managed by hospitalist. (5) CAD (coronary artery disease), autologous vein bypass graft: Code(s): I25.810 - Atherosclerosis of coronary artery bypass graft(s) without angina pectoris Status: Acute Assessment and Plan: Received 5 stents in November 2020 at [facility]. On aspirin and Clopidogrel. (6) Hypertension: Code(s): I10 - Essential (primary) hypertension Status: Acute Assessment and Plan: Stable. Monitor. Resume home medication. (7) Mixed hyperlipidemia: Code(s): E78.2 - Mixed hyperlipidemia Status: Acute Assessment and Plan: On Atorvastatin, resume that. Subjective Date/time seen: 08/19/21 07:49 Reports has sob but a little better. No chest pain. Exam Const: General: cooperative, healthy appearing and comfortable Resp: Auscultation: crackles, no wheezes and diminished lung sounds Cardio: Jugular venous distension: no JVD Rate: regular rate Rhythm: regular rhythm Heart sounds: no murmurs GI: GI Palp: No abdominal tenderness and Yes Soft to palpation Neuro: General: oriented to person, oriented to place and oriented to time Extrem: Right lower extremity: no edema Left lower extremity: no edema Objective Data Vital Signs Vital Signs: Vital Signs - 24 hr 08/18/21 08:00 08/18/21 08:22 08/18/21 08:23 Temperature Pulse Rate 70 Respiratory Rate 18 Blood Pressure Pulse Oximetry 95 96 08/18/21 08:30 08/18/21 09:29 08/18/21 14:10 Temperature 97.2 F L Pulse Rate 71 70 67 Respiratory Rate 18 16 Blood Pressure 138/68 Pulse Oximetry 100 08/18/21 20:00 08/18/21 20:20 08/18/21 20:28 Temperature Pulse Rate 62 68 70 Respiratory Rate 18 16 16 Blood Pressure Pulse Oximetry 97 98 08/18/21 20:33 08/18/21 21:20 08/18/21 21:47 Temperature 98.3 F Pulse Rate 70 67 62 Respiratory Rate 18 Blood Pressure 129/53 L Pulse Oximetry 98 97 08/19/21 05:35 08/19/21 07:48 Temperature 98.0 F 96.8 F L Pulse Rate 71 69 Respiratory Rate 18 18 Blood Pressure 134/55 L 146/65 H Pulse Oximetry 96 99 Intake/Output Intake/Output: Intake & Output 08/16/21 08/17/21 08/18/21 08/19/21 23:59 23:59 23:59 23:59 Intake Total 530 1950 1378 Output Total 900 1500 500 725 Balance -370 966 593 -723 Meds/Results Medications: Active Medications Generic Name Dose Route Start Last Admin Trade Name Freq PRN Reason Stop Dose Admin Albuterol 2.5 mg 08/18/21 14:00 08/19/21 02:23 Albuterol Sulfate Neb 2.5 Mg/0.5 Ml Inh INHALATION Not Given Q6HRT MAYA Atorvastatin Calcium 80 mg 08/15/21 09:00 08/18/21 09:3
[2021-08-19] MEDS: FLUTICASONE/UMECLIDIN/VILANTER 100-62.5-25 MCG ELLIPTA 1 PUFF INHALATION (08:01)
[2021-08-19] MEDS: ALBUTEROL SULFATE NEB 2.5 MG/0.5 ML INH INHALATION ×3 (08:01→20:26)
[2021-08-19 08:24] LABS: Glucose Point of Care 152 mg/dl (65-105)
[2021-08-19] MEDS: INSULIN ASPART (*BKC) 100 UNITS/ML SUB-Q ×5 (09:09→18:25)
[2021-08-19] MEDS: CITALOPRAM HYDROBROMIDE 20 MG TABLET 40 MG PO (09:10)
[2021-08-19] MEDS: ISOSORBIDE DINITRATE 20 MG TABLET PO ×2 (09:10→21:34)
[2021-08-19] MEDS: CLOPIDOGREL BISULFATE 75 MG TABLET PO (09:10)
[2021-08-19] MEDS: buPROPion HCL XL (24 HR) 150 MG TABCR PO (09:10)
[2021-08-19] MEDS: ATORVASTATIN 40 MG TABLET 80 MG PO (09:11)
[2021-08-19] MEDS: LOSARTAN POTASSIUM 50 MG TABLET 100 MG PO (09:11)
[2021-08-19] MEDS: carvediloL 25 MG TABLET PO ×2 (09:11→21:34)
[2021-08-19] MEDS: FUROSEMIDE 40 MG TABLET PO ×2 (09:11→18:27)
[2021-08-19] MEDS: SILVERGEL (ELTA) 45 ML 1 APPLIC TOPICAL (09:12)
--- NOTE | 2021-08-19 09:44 | PM.IMPN ---
Progress Note: A&P Assessment and Plan (1) Chronic respiratory failure with hypoxia, on home oxygen therapy: Code(s): J96.11 - Chronic respiratory failure with hypoxia; Z99.81 - Dependence on supplemental oxygen Status: Acute Assessment and Plan: -pt is on 3 liters her baseline (2) Elevated troponin: Code(s): R77.8 - Other specified abnormalities of plasma proteins Status: Acute Assessment and Plan: -likely secondary to pneumonia with CKD, anemia, hypoxia -peaked at 1.07 -cardiology signed off (3) Acute exacerbation of congestive heart failure: Code(s): I50.9 - Heart failure, unspecified Status: Acute Assessment and Plan: -Pt is on oral lasix -echo reviewed acute on chronic systolic CHF EF 45% -pt seen by Dr Ybarra cardiology, he states she does not appear to be in acute heart failure at this time though she has edema of legs and elevated NTproBNP. Recieved dose of Lasix 40 mg IV in ED. Continue Lasix 40 mg PO BID. She should follow up with her normal customs consultant in 1-2 weeks after discharge. (4) Pneumonia: Code(s): J18.9 - Pneumonia, unspecified organism Status: Acute Assessment and Plan: -Rpt CXR showed worsening pneumonia and small BL pleural effusions -continue with iv ceftriaxone and start iv doxycycline -consider CT chest if Sob does not improve, however she seems to be slightly better today (5) Chronic anemia: Code(s): D64.9 - Anemia, unspecified Status: Acute Assessment and Plan: -pt had one unit of blood hb has improved to 9, continue to monitor Hgb (6) Obstructive sleep apnea on CPAP: Code(s): G47.33 - Obstructive sleep apnea (adult) (pediatric); Z99.89 - Dependence on other enabling machines and devices Status: Chronic (7) Insulin dependent diabetes mellitus: Status: Chronic Assessment and Plan: -Hgb A1C in range of 5 -BG check TID AC and HS -c/w lantus+meal time insulin -Adjust dose as needed (8) Chronic kidney disease, stage 3: Code(s): N18.30 - Chronic kidney disease, stage 3 unspecified Status: Chronic Assessment and Plan: -stable -monitor BMP (9) Elevated LFTs: Code(s): R79.89 - Other specified abnormal findings of blood chemistry Status: Acute Assessment and Plan: -USG abdomen shows cholelithiasis but no cholecystitis -HIDA scan- Low gallbladder ejection fraction measuring 25%. Low GB EF is associated with gallbladder dysfunction, although not specific for acute or chronic cholecystitis. Pt was nauseated yesterday not today, GI consulted -per GI: only mild elevated of transaminases, last few days actually is downtrending and most likely this is in setting of worsening heart failure with ischemic cardiomyopathy, CKD, pneumonia currently on antibiotics and other medical problems. She has low EF in HIDA scan but not definitive for cholecystitis. She does not need cholecystectomy, there is no abdominal pain and no indication for surgery. -Continue to monitor CMP Subjective Date/time seen: 08/19/21 09:44 Interval history: 81-year-old female with multiple medical problems including coronary artery disease, ischemic cardiomyopathy, chronic respiratory failure on 2 L nasal cannula, chronic obstructive pulmonary disease, insulin-dependent diabetes, hypertension, chronic kidney disease, and several other comorbidities who presented to the emergency department for evaluation of shortness of breath. She is feeling better today but not at her baseline, still having some sob. She is on 3L NC which she states is her home oxygen requirement. No chest pain. Nausea from yesterday has resolved. No abd pain. Review of Systems Review of Systems: All systems reviewed & are unremarkable except as noted in HPI and below Exam Narrative: General: Moderately ill-appearing elderly female sitting up in
--- NOTE | 2021-08-19 10:36 | PCOTNOTE ---
Attempted to see patient this am, however patient refused at this time stating, I have indigestion, and I'm sick to my stomach. I don't feel like doing anything except getting something for my indigestion.
[2021-08-19 11:23] LABS: Glucose Point of Care 253 mg/dl (65-105)
--- NOTE | 2021-08-19 11:36 | PCPTNOTE ---
The patient treatment was not able to be completed on this date due to patient not feeling well due to having ingestion. RN notified and stated that she would contact the doctor due to her not having anything to give the patient for it at this time. Will plan to continue treatment per plan of care.
[2021-08-19] MEDS: DOXYCYCLINE 100 MG/NS 100 ML 100 MG/100 ML BAG IVPB ×2 (11:41→21:35)
[2021-08-19] MEDS: PANTOPRAZOLE 40 MG TABLET PO ×2 (12:20→21:34)
[2021-08-19 16:23] LABS: Glucose Point of Care 282 mg/dl (65-105)
[2021-08-19] MEDS: IPRATROPIUM BR 0.02% INH SOLN 0.5 MG/2.5 ML VIAL INHALATION (20:26)
[2021-08-19] MEDS: MELATONIN 5 MG TABLET PO (21:34)
[2021-08-19] MEDS: INSULIN GLARGINE (*BKC) 100 UNITS/ML 10 UNITS SUB-Q (21:35)
[2021-08-19 21:56] LABS: Glucose Point of Care 138 mg/dl (65-105)
[2021-08-20] VITALS (14 sets, daily range): BP systolic 104–130; BP diastolic 41–56; PULSE 60–78; RESP 16–20; TEMP 36.1–36.6; O2SAT 94–100
--- NOTE | 2021-08-20 02:38 | PCRCNOTE ---
No neb treatment given at this time. Patient is sleeping and she requested not to be awaken for neb treatment if she is asleep.
[2021-08-20] MEDS: hydrALAZINE HCL 50 MG TABLET PO ×3 (05:52→20:20)
[2021-08-20] MEDS: LEVOTHYROXINE SODIUM 50 MCG TABLET PO (05:52)
[2021-08-20 07:19] LABS: Basophils Absolute Auto 0.1 K/mm3 (0.0-0.1); Basophils Percent Auto 0.5 % (0.2-1.2); Eosinophils Absolute Auto 0.3 K/mm3 (0-0.3); Eosinophils Percent Auto 2.6 % (0-4.4); Hemoglobin 9.4 g/dL (12.0-15.0); Immature Granulocyte Absolute 0.08 K/mm3 (0.00-0.031); Immature Granulocyte Percent A 0.7 % (0-0.5); Lymphocytes Absolute Auto 0.75 K/mm3 (0.9-3.2); Lymphocytes Percent Auto 6.9 % (18.3-44.2); Mean Corpuscular HGB Conc 30.3 g/dl (32-36); Mean Corpuscular Hemoglobin 29.6 pg (26-34); Mean Corpuscular Volume 97.5 fl (80-100); Mean Platelet Volume 9.5 fl (7.4-10.4); Monocytes Absolute Auto 1.3 K/mm3 (0.1-0.6); Monocytes Percent Auto 11.9 % (2.6-8.5); Neutrophils Absolute Auto 8.4 K/mm3 (1.3-6.7); Neutrophils Percent Auto 77.4 % (45.5-73.1); Platelet Count Result 301 k/mm3 (150-375); Red Blood Count 3.18 M/mm3 (4.2-5.4); Red Cell Distribution Width 17.8 % (11.5-14.5); White Blood Count 10.9 K/mm3 (4.5-10.0)
[2021-08-20 07:30] LABS: Alanine Aminotransferase 28 U/L (4-35); Albumin Level 2.9 g/dL (3.5-5.1); Alkaline Phosphatase 172 U/L (38-126); Aspartate Amino Transferase 40 U/L (14-36); Bilirubin,Total 0.8 mg/dL (0.2-1.3); Blood Urea Nitrogen 32 mg/dL (7-17); Calcium 8.5 mg/dL (8.4-10.2); Carbon Dioxide > 40 mmol/L (22-30); Chloride 94 mmol/L (98-107); Estimated CRCL calculation 32 ml/min; Estimated Glomerular Filt Rate 43; Glucose 131 mg/dL (65-110); Potassium 3.9 mmol/L (3.4-5.0); Sodium 134 mmol/L (137-145)
[2021-08-20 08:06] LABS: Glucose Point of Care 141 mg/dl (65-105)
[2021-08-20] MEDS: INSULIN ASPART (*BKC) 100 UNITS/ML SUB-Q ×5 (08:07→16:54)
[2021-08-20] MEDS: ISOSORBIDE DINITRATE 20 MG TABLET PO ×2 (08:08→20:19)
[2021-08-20] MEDS: LOSARTAN POTASSIUM 50 MG TABLET 100 MG PO (08:09)
[2021-08-20] MEDS: CITALOPRAM HYDROBROMIDE 20 MG TABLET 40 MG PO (08:09)
[2021-08-20] MEDS: buPROPion HCL XL (24 HR) 150 MG TABCR PO (08:09)
[2021-08-20] MEDS: carvediloL 25 MG TABLET PO ×2 (08:09→20:19)
[2021-08-20] MEDS: ATORVASTATIN 40 MG TABLET 80 MG PO (08:09)
[2021-08-20] MEDS: CLOPIDOGREL BISULFATE 75 MG TABLET PO (08:09)
[2021-08-20] MEDS: PANTOPRAZOLE 40 MG TABLET PO ×2 (08:10→20:20)
[2021-08-20] MEDS: DOXYCYCLINE 100 MG/NS 100 ML 100 MG/100 ML BAG IVPB ×2 (08:10→20:21)
[2021-08-20] MEDS: FUROSEMIDE 40 MG TABLET PO ×2 (08:10→16:54)
[2021-08-20] MEDS: SILVERGEL (ELTA) 45 ML 1 APPLIC TOPICAL (08:11)
[2021-08-20] MEDS: ALBUTEROL SULFATE NEB 2.5 MG/0.5 ML INH INHALATION ×3 (08:47→20:01)
[2021-08-20] MEDS: FLUTICASONE/UMECLIDIN/VILANTER 100-62.5-25 MCG ELLIPTA 1 PUFF INHALATION (08:47)
--- NOTE | 2021-08-20 10:42 | PM.IMPN ---
Progress Note: A&P Assessment and Plan (1) Chronic respiratory failure with hypoxia, on home oxygen therapy: Code(s): J96.11 - Chronic respiratory failure with hypoxia; Z99.81 - Dependence on supplemental oxygen Status: Acute Assessment and Plan: -pt is on 3 liters her baseline (2) Elevated troponin: Code(s): R77.8 - Other specified abnormalities of plasma proteins Status: Acute Assessment and Plan: -likely secondary to pneumonia with CKD, anemia, hypoxia -peaked at 1.07 -cardiology signed off (3) Acute exacerbation of congestive heart failure: Code(s): I50.9 - Heart failure, unspecified Status: Acute Assessment and Plan: -Pt is on oral lasix -echo reviewed acute on chronic systolic CHF EF 45% -pt seen by Dr Ybarra cardiology, he states she does not appear to be in acute heart failure at this time though she has edema of legs and elevated NTproBNP. Recieved dose of Lasix 40 mg IV in ED. Continue Lasix 40 mg PO BID. She should follow up with her normal research advisor in 1-2 weeks after discharge. (4) Pneumonia: Code(s): J18.9 - Pneumonia, unspecified organism Status: Acute Assessment and Plan: -Rpt CXR showed worsening pneumonia and small BL pleural effusions -continue with iv ceftriaxone and start iv doxycycline -continue home inhalers (5) Chronic anemia: Code(s): D64.9 - Anemia, unspecified Status: Acute Assessment and Plan: -pt had one unit of blood hb has improved to 9, continue to monitor Hgb (6) Obstructive sleep apnea on CPAP: Code(s): G47.33 - Obstructive sleep apnea (adult) (pediatric); Z99.89 - Dependence on other enabling machines and devices Status: Chronic Assessment and Plan: -cpap (7) Insulin dependent diabetes mellitus: Status: Chronic Assessment and Plan: -Hgb A1C in range of 5 -BG check TID AC and HS -c/w lantus+meal time insulin -Adjust dose as needed (8) Chronic kidney disease, stage 3: Code(s): N18.30 - Chronic kidney disease, stage 3 unspecified Status: Chronic Assessment and Plan: -stable -monitor BMP (9) Elevated LFTs: Code(s): R79.89 - Other specified abnormal findings of blood chemistry Status: Acute Assessment and Plan: -USG abdomen shows cholelithiasis but no cholecystitis -HIDA scan- Low gallbladder ejection fraction measuring 25%. Low GB EF is associated with gallbladder dysfunction, although not specific for acute or chronic cholecystitis. Pt was nauseated yesterday not today, GI consulted -per GI: only mild elevated of transaminases, last few days actually is downtrending and most likely this is in setting of worsening heart failure with ischemic cardiomyopathy, CKD, pneumonia currently on antibiotics and other medical problems. She has low EF in HIDA scan but not definitive for cholecystitis. She does not need cholecystectomy, there is no abdominal pain and no indication for surgery. -Continue to monitor CMP Subjective Date/time seen: 08/20/21 10:42 Interval history: 81-year-old female with multiple medical problems including coronary artery disease, ischemic cardiomyopathy, chronic respiratory failure on 2 L nasal cannula, chronic obstructive pulmonary disease, insulin-dependent diabetes, hypertension, chronic kidney disease, and several other comorbidities who presented to the emergency department for evaluation of shortness of breath. She is feeling better today but not at her baseline, still having some sob. She is on 3L NC which she states is her home oxygen requirement. No chest pain. Nausea has resolved. No abd pain. She is stiff all over. Pt states her hospital bed is being delivered to her house on Sunday. Review of Systems Review of Systems: All systems reviewed & are unremarkable except as noted in HPI and below Exam Narrative: Tatiana
[2021-08-20] MEDS: IBUPROFEN 400 MG TABLET PO ×2 (11:24→20:18)
[2021-08-20 12:07] LABS: Glucose Point of Care 233 mg/dl (65-105)
[2021-08-20 12:36] LABS: Haptoglobin <8 mg/dL (43-212)
[2021-08-20 16:54] LABS: Glucose Point of Care 237 mg/dl (65-105)
[2021-08-20] MEDS: IPRATROPIUM BR 0.02% INH SOLN 0.5 MG/2.5 ML VIAL INHALATION (20:01)
[2021-08-20] MEDS: MELATONIN 5 MG TABLET PO (20:20)
[2021-08-20] MEDS: INSULIN GLARGINE (*BKC) 100 UNITS/ML 10 UNITS SUB-Q (20:23)
[2021-08-20 21:45] LABS: Glucose Point of Care 187 mg/dl (65-105)
[2021-08-21] VITALS (15 sets, daily range): BP systolic 106–139; BP diastolic 40–52; PULSE 58–76; RESP 16–18; TEMP 36.1–36.6; O2SAT 94–100
--- NOTE | 2021-08-21 02:48 | PCRCNOTE ---
Patient requested that she not be waken up for a neb treatment. If she was awake she would take one, if she was asleep then let her sleep. Patient was asleep and not woke up for treatment.
[2021-08-21] MEDS: LEVOTHYROXINE SODIUM 50 MCG TABLET PO (06:05)
[2021-08-21] MEDS: hydrALAZINE HCL 50 MG TABLET PO ×3 (06:05→20:31)
[2021-08-21 06:35] LABS: Basophils Absolute Auto 0.1 K/mm3 (0.0-0.1); Basophils Percent Auto 0.6 % (0.2-1.2); Eosinophils Absolute Auto 0.3 K/mm3 (0-0.3); Eosinophils Percent Auto 3.2 % (0-4.4); Hematocrit 30.9 % (37.0-47.0); Hemoglobin 9.4 g/dL (12.0-15.0); Immature Granulocyte Absolute 0.08 K/mm3 (0.00-0.031); Immature Granulocyte Percent A 0.9 % (0-0.5); Lymphocytes Absolute Auto 0.86 K/mm3 (0.9-3.2); Lymphocytes Percent Auto 9.6 % (18.3-44.2); Mean Corpuscular HGB Conc 30.4 g/dl (32-36); Mean Corpuscular Hemoglobin 29.6 pg (26-34); Mean Corpuscular Volume 97.2 fl (80-100); Mean Platelet Volume 9.6 fl (7.4-10.4); Monocytes Absolute Auto 1.3 K/mm3 (0.1-0.6); Monocytes Percent Auto 14.2 % (2.6-8.5); Neutrophils Absolute Auto 6.4 K/mm3 (1.3-6.7); Neutrophils Percent Auto 71.5 % (45.5-73.1); Platelet Count Result 267 k/mm3 (150-375); Red Blood Count 3.18 M/mm3 (4.2-5.4); Red Cell Distribution Width 17.4 % (11.5-14.5); White Blood Count 8.9 K/mm3 (4.5-10.0)
[2021-08-21 07:17] LABS: Alanine Aminotransferase 27 U/L (4-35); Albumin Level 2.7 g/dL (3.5-5.1); Alkaline Phosphatase 156 U/L (38-126); Aspartate Amino Transferase 52 U/L (14-36); Bilirubin,Total 0.7 mg/dL (0.2-1.3); Blood Urea Nitrogen 31 mg/dL (7-17); Calcium 8.2 mg/dL (8.4-10.2); Carbon Dioxide > 40 mmol/L (22-30); Chloride 94 mmol/L (98-107); Estimated CRCL calculation 35 ml/min; Estimated Glomerular Filt Rate 48; Glucose 141 mg/dL (65-110); Potassium 3.4 mmol/L (3.4-5.0); Sodium 134 mmol/L (137-145)
[2021-08-21] MEDS: ALBUTEROL SULFATE NEB 2.5 MG/0.5 ML INH INHALATION ×3 (07:47→20:23)
[2021-08-21] MEDS: FLUTICASONE/UMECLIDIN/VILANTER 100-62.5-25 MCG ELLIPTA 1 PUFF INHALATION (07:47)
[2021-08-21 08:39] LABS: Glucose Point of Care 141 mg/dl (65-105)
--- NOTE | 2021-08-21 09:07 | PM.IMPN ---
Progress Note: A&P Assessment and Plan (1) Chronic respiratory failure with hypoxia, on home oxygen therapy: Code(s): J96.11 - Chronic respiratory failure with hypoxia; Z99.81 - Dependence on supplemental oxygen Status: Acute Assessment and Plan: -pt is on 3 liters her baseline (2) Elevated troponin: Code(s): R77.8 - Other specified abnormalities of plasma proteins Status: Acute Assessment and Plan: -likely secondary to pneumonia with CKD, anemia, hypoxia -peaked at 1.07 -cardiology signed off (3) Acute exacerbation of congestive heart failure: Code(s): I50.9 - Heart failure, unspecified Status: Acute Assessment and Plan: -Pt is on oral lasix -echo reviewed acute on chronic systolic CHF EF 45% -pt seen by Dr Ybarra cardiology, he states she does not appear to be in acute heart failure at this time though she has edema of legs and elevated NTproBNP. Recieved dose of Lasix 40 mg IV in ED. Continue Lasix 40 mg PO BID. She should follow up with her normal search engine optimization analyst in 1-2 weeks after discharge. (4) Pneumonia: Code(s): J18.9 - Pneumonia, unspecified organism Status: Acute Assessment and Plan: -Rpt CXR showed worsening pneumonia and small BL pleural effusions -continue with iv ceftriaxone and start iv doxycycline -continue home inhalers (5) Chronic anemia: Code(s): D64.9 - Anemia, unspecified Status: Acute Assessment and Plan: -pt had one unit of blood hb has improved to 9, continue to monitor Hgb (6) Obstructive sleep apnea on CPAP: Code(s): G47.33 - Obstructive sleep apnea (adult) (pediatric); Z99.89 - Dependence on other enabling machines and devices Status: Chronic Assessment and Plan: -cpap (7) Insulin dependent diabetes mellitus: Status: Chronic Assessment and Plan: -Hgb A1C in range of 5 -BG check TID AC and HS -c/w lantus+meal time insulin -Adjust dose as needed (8) Chronic kidney disease, stage 3: Code(s): N18.30 - Chronic kidney disease, stage 3 unspecified Status: Chronic Assessment and Plan: -stable -monitor BMP (9) Elevated LFTs: Code(s): R79.89 - Other specified abnormal findings of blood chemistry Status: Acute Assessment and Plan: -USG abdomen shows cholelithiasis but no cholecystitis -HIDA scan- Low gallbladder ejection fraction measuring 25%. Low GB EF is associated with gallbladder dysfunction, although not specific for acute or chronic cholecystitis. GI consulted -per GI: only mild elevated of transaminases, last few days actually is downtrending and most likely this is in setting of worsening heart failure with ischemic cardiomyopathy, CKD, pneumonia currently on antibiotics and other medical problems. She has low EF in HIDA scan but not definitive for cholecystitis. She does not need cholecystectomy, there is no abdominal pain and no indication for surgery. -Continue to monitor CMP Subjective Date/time seen: 08/21/21 09:07 Interval history: 81-year-old female with multiple medical problems including coronary artery disease, ischemic cardiomyopathy, chronic respiratory failure on 2 L nasal cannula, chronic obstructive pulmonary disease, insulin-dependent diabetes, hypertension, chronic kidney disease, and several other comorbidities who presented to the emergency department for evaluation of shortness of breath. Pt states sob has improved but she feels really nauseated after eating breakfast. No abdominal pain or vomiting. No cp. Still having LE edema. Review of Systems Review of Systems: All systems reviewed & are unremarkable except as noted in HPI and below Exam Narrative: General: Chronically ill-appearing elderly female sitting up in chair. Weight: 76.8 kg. BMI: 30.0. HEENT: Normocephalic, atraumatic. She is wearing glasses. PERRL. Neck: Supple.
[2021-08-21] MEDS: ONDANSETRON INJ 4 MG/2 ML VIAL IV PUSH (10:05)
[2021-08-21] MEDS: CITALOPRAM HYDROBROMIDE 20 MG TABLET 40 MG PO (10:08)
[2021-08-21] MEDS: ATORVASTATIN 40 MG TABLET 80 MG PO (10:08)
[2021-08-21] MEDS: ISOSORBIDE DINITRATE 20 MG TABLET PO ×2 (10:09→20:31)
[2021-08-21] MEDS: carvediloL 25 MG TABLET PO ×2 (10:09→20:31)
[2021-08-21] MEDS: CLOPIDOGREL BISULFATE 75 MG TABLET PO (10:10)
[2021-08-21] MEDS: FUROSEMIDE 40 MG TABLET PO ×2 (10:10→18:04)
[2021-08-21] MEDS: PANTOPRAZOLE 40 MG TABLET PO ×2 (10:10→20:31)
[2021-08-21] MEDS: buPROPion HCL XL (24 HR) 150 MG TABCR PO (10:10)
[2021-08-21] MEDS: LOSARTAN POTASSIUM 50 MG TABLET 100 MG PO (10:10)
[2021-08-21] MEDS: INSULIN ASPART (*BKC) 100 UNITS/ML SUB-Q ×4 (10:11→18:04)
[2021-08-21] MEDS: IBUPROFEN 400 MG TABLET PO (10:15)
[2021-08-21] MEDS: SILVERGEL (ELTA) 45 ML 1 APPLIC TOPICAL (10:15)
[2021-08-21] MEDS: DOXYCYCLINE 100 MG/NS 100 ML 100 MG/100 ML BAG IVPB ×2 (10:15→20:32)
[2021-08-21 12:16] LABS: Glucose Point of Care 170 mg/dl (65-105)
[2021-08-21 17:02] LABS: Glucose Point of Care 235 mg/dl (65-105)
[2021-08-21] MEDS: MELATONIN 5 MG TABLET PO (20:31)
[2021-08-21 21:22] LABS: Glucose Point of Care 137 mg/dl (65-105)
[2021-08-22] VITALS (15 sets, daily range): BP systolic 110–128; BP diastolic 49–50; PULSE 65–82; RESP 14–19; TEMP 36.3–36.4; O2SAT 93–100
[2021-08-22] MEDS: IBUPROFEN 400 MG TABLET PO ×2 (02:12→16:46)
[2021-08-22] MEDS: LEVOTHYROXINE SODIUM 50 MCG TABLET PO (05:36)
[2021-08-22 06:27] LABS: Basophils Absolute Auto 0.1 K/mm3 (0.0-0.1); Basophils Percent Auto 0.4 % (0.2-1.2); Eosinophils Absolute Auto 0.3 K/mm3 (0-0.3); Eosinophils Percent Auto 2.7 % (0-4.4); Hemoglobin 8.9 g/dL (12.0-15.0); Immature Granulocyte Absolute 0.07 K/mm3 (0.00-0.031); Immature Granulocyte Percent A 0.6 % (0-0.5); Lymphocytes Absolute Auto 0.92 K/mm3 (0.9-3.2); Lymphocytes Percent Auto 8.1 % (18.3-44.2); Mean Corpuscular HGB Conc 30.7 g/dl (32-36); Mean Corpuscular Hemoglobin 29.8 pg (26-34); Mean Platelet Volume 9.4 fl (7.4-10.4); Monocytes Absolute Auto 1.6 K/mm3 (0.1-0.6); Monocytes Percent Auto 14.2 % (2.6-8.5); Neutrophils Absolute Auto 8.4 K/mm3 (1.3-6.7); Platelet Count Result 263 k/mm3 (150-375); Red Blood Count 2.99 M/mm3 (4.2-5.4); Red Cell Distribution Width 17.2 % (11.5-14.5); White Blood Count 11.3 K/mm3 (4.5-10.0)
[2021-08-22 06:37] LABS: Alanine Aminotransferase 28 U/L (4-35); Albumin Level 2.7 g/dL (3.5-5.1); Alkaline Phosphatase 166 U/L (38-126); Anion Gap 1 mmol/L (8-16); Aspartate Amino Transferase 43 U/L (14-36); Bilirubin,Total 0.7 mg/dL (0.2-1.3); Blood Urea Nitrogen 32 mg/dL (7-17); Calcium 8.4 mg/dL (8.4-10.2); Carbon Dioxide 39 mmol/L (22-30); Chloride 92 mmol/L (98-107); Estimated CRCL calculation 32 ml/min; Estimated Glomerular Filt Rate 43; Glucose 116 mg/dL (65-110); Potassium 3.7 mmol/L (3.4-5.0); Sodium 132 mmol/L (137-145)
[2021-08-22 08:07] LABS: Glucose Point of Care 119 mg/dl (65-105)
[2021-08-22] MEDS: INSULIN ASPART (*BKC) 100 UNITS/ML SUB-Q ×5 (08:09→16:47)
[2021-08-22] MEDS: DOXYCYCLINE 100 MG/NS 100 ML 100 MG/100 ML BAG IVPB (08:10)
[2021-08-22] MEDS: LOSARTAN POTASSIUM 50 MG TABLET 100 MG PO (08:13)
[2021-08-22] MEDS: buPROPion HCL XL (24 HR) 150 MG TABCR PO (08:13)
[2021-08-22] MEDS: ATORVASTATIN 40 MG TABLET 80 MG PO (08:13)
[2021-08-22] MEDS: ISOSORBIDE DINITRATE 20 MG TABLET PO ×2 (08:14→20:49)
[2021-08-22] MEDS: PANTOPRAZOLE 40 MG TABLET PO ×2 (08:14→20:49)
[2021-08-22] MEDS: CITALOPRAM HYDROBROMIDE 20 MG TABLET 40 MG PO (08:14)
[2021-08-22] MEDS: FUROSEMIDE 40 MG TABLET PO ×2 (08:14→16:46)
[2021-08-22] MEDS: carvediloL 25 MG TABLET PO ×2 (08:14→20:52)
[2021-08-22] MEDS: CLOPIDOGREL BISULFATE 75 MG TABLET PO (08:14)
[2021-08-22] MEDS: SILVERGEL (ELTA) 45 ML 1 APPLIC TOPICAL (08:15)
[2021-08-22] MEDS: ALBUTEROL SULFATE NEB 2.5 MG/0.5 ML INH INHALATION ×3 (09:00→19:48)
[2021-08-22] MEDS: FLUTICASONE/UMECLIDIN/VILANTER 100-62.5-25 MCG ELLIPTA 1 PUFF INHALATION (09:00)
--- NOTE | 2021-08-22 09:20 | PCOTNOTE ---
Attempted to see patient this am, however patient refused at this time due to upset stomach and feeling cold. Retrieved blanket for warmth and notified nurse of upset stomach.
--- NOTE | 2021-08-22 11:11 | PM.IMPN ---
Progress Note: A&P Assessment and Plan (1) Elevated LFTs: Code(s): R79.89 - Other specified abnormal findings of blood chemistry Status: Acute Assessment and Plan: -USG abdomen shows cholelithiasis but no cholecystitis -HIDA scan- Low gallbladder ejection fraction measuring 25%. Low GB EF is associated with gallbladder dysfunction, although not specific for acute or chronic cholecystitis. GI consulted -per GI: only mild elevated of transaminases, last few days actually is downtrending and most likely this is in setting of worsening heart failure with ischemic cardiomyopathy, CKD, pneumonia currently on antibiotics and other medical problems. She has low EF in HIDA scan but not definitive for cholecystitis. She does not need cholecystectomy, there is no abdominal pain and no indication for surgery. -Continue to monitor CMP (2) Nausea: Code(s): R11.0 - Nausea Status: Acute Assessment and Plan: -persistent, not controlled with -discussed with Dr. Hillman per request of the family, he will see her again and consider EGD -avoiding zofran due to already prolonged QT and she is also already on Celexa (3) Chronic respiratory failure with hypoxia, on home oxygen therapy: Code(s): J96.11 - Chronic respiratory failure with hypoxia; Z99.81 - Dependence on supplemental oxygen Status: Acute Assessment and Plan: -pt is on 3 liters her baseline -Likely multifactorial secondary to acute on chronic CHF, pneumonia, acute on chronic anemia (4) Elevated troponin: Code(s): R77.8 - Other specified abnormalities of plasma proteins Status: Acute Assessment and Plan: -likely secondary to pneumonia with CKD, anemia, hypoxia -peaked at 1.07 -cardiology reviewed and has signed off (5) Acute exacerbation of congestive heart failure: Code(s): I50.9 - Heart failure, unspecified Status: Acute Assessment and Plan: -Pt is on oral lasix -echo reviewed acute on chronic systolic CHF EF 45% -pt seen by Dr Ybarra cardiology, he states she does not appear to be in acute heart failure at this time though she has edema of legs and elevated NTproBNP. Recieved dose of Lasix 40 mg IV in ED. Continue Lasix 40 mg PO BID. She should follow up with her normal scrap iron cutter in 1-2 weeks after discharge. (6) Pneumonia: Code(s): J18.9 - Pneumonia, unspecified organism Status: Acute Assessment and Plan: -completed iv ceftriaxone #8 and iv doxycycline #6 -continue home inhalers -nebs prn (7) Chronic anemia: Code(s): D64.9 - Anemia, unspecified Status: Acute Assessment and Plan: -pt had one unit of blood hb has improved to 9, continue to monitor Hgb (8) Obstructive sleep apnea on CPAP: Code(s): G47.33 - Obstructive sleep apnea (adult) (pediatric); Z99.89 - Dependence on other enabling machines and devices Status: Chronic Assessment and Plan: -cpap (9) Insulin dependent diabetes mellitus: Status: Chronic Assessment and Plan: -Hgb A1C in range of 5 -BG check TID AC and HS -c/w lantus+meal time insulin -Adjust dose as needed (10) Chronic kidney disease, stage 3: Code(s): N18.30 - Chronic kidney disease, stage 3 unspecified Status: Chronic Assessment and Plan: -stable -monitor BMP Subjective Date/time seen: 08/22/21 11:11 Interval history: 81-year-old female with multiple medical problems including coronary artery disease, ischemic cardiomyopathy, chronic respiratory failure on 2 L nasal cannula, chronic obstructive pulmonary disease, insulin-dependent diabetes, hypertension, chronic kidney disease, and several other comorbidities who presented to the emergency department for evaluation of shortness of breath. Pt is not feeling good today. Has a lot of nausea that has not been well controlled with zofran. Mara goldberg
[2021-08-22 11:39] LABS: Glucose Point of Care 247 mg/dl (65-105)
--- NOTE | 2021-08-22 11:41 | PCPTNOTE ---
Patient refused treatment this session due to feeling nauseated. Patient states I will try later today.
--- NOTE | 2021-08-22 13:17 | PCOTNOTE ---
Attempted to see patient this pm, however patient declined stating, No, I wanna take a nap.
--- NOTE | 2021-08-22 13:53 | WPDGIPROGNO ---
Progress Note: A&P Assessment and Plan (1) Nausea: Code(s): R11.0 - Nausea Status: Acute Assessment and Plan: still with nausea but she says that controlled with medication, no emesis and she has been tolerating diet will proceed with EGD tomorrow to assess if pud, etc probably could be multifactorial (2) Acute exacerbation of congestive heart failure: Code(s): I50.9 - Heart failure, unspecified Status: Acute Assessment and Plan: on treatment, also had elevated troponin but flat- evaluated by cardiology and stable (3) Chronic respiratory failure with hypoxia, on home oxygen therapy: Code(s): J96.11 - Chronic respiratory failure with hypoxia; Z99.81 - Dependence on supplemental oxygen Status: Acute (4) Elevated LFTs: Code(s): R79.89 - Other specified abnormal findings of blood chemistry Status: Acute Assessment and Plan: only minimal elevation and stable denies any abdominal pain (5) CKD (chronic kidney disease), stage IV: Code(s): N18.4 - Chronic kidney disease, stage 4 (severe) Status: Acute (6) Cholelithiasis: Code(s): K80.20 - Calculus of gallbladder without cholecystitis without obstruction Status: Acute Assessment and Plan: no pain Subjective Date/time seen: 08/22/21 13:53 Interval history: I was called to reassess patient again because persistent nausea however she says that better, sometimes after eating but denies any abdominal pain. She had for lunch mash potatoes, turkey with gravy and she is feeling ok now. Still with shortness of breath on morning Review of Systems Review of Systems: All systems reviewed & are unremarkable except as noted in HPI and below Exam Const: General: comfortable, no acute distress and ill appearing chronically Other: on nasal cannula, she is pleasant HENMT: General nose exam: Normal nares present Eyes: General: appearance normal, both eyes and all related structures Neck: Neck: no JVD Resp: Auscultation: clear to auscultation bilaterally Cardio: Rate: regular rate Rhythm: regular rhythm GI: Inspection: non-distended GI Palp: Yes Soft to palpation and No Guarding due to palpation present (GI) Auscultation: normal bowel sounds Skin: General skin exam: normal color Neuro: Speech: normal speech Extrem: General: pedal edema Psych: Mental Status: mental status grossly normal Objective Data Vital Signs Vital Signs: Vital Signs - 24 hr 08/21/21 13:57 08/21/21 14:00 08/21/21 14:05 Temperature 97.0 F L Pulse Rate 64 58 L 61 Respiratory Rate 18 16 18 Blood Pressure 106/40 L Pulse Oximetry 98 08/21/21 20:00 08/21/21 20:23 08/21/21 20:25 Temperature Pulse Rate 65 Respiratory Rate 16 Blood Pressure Pulse Oximetry 94 99 08/21/21 20:31 08/21/21 20:32 08/21/21 22:00 Temperature 96.9 F L Pulse Rate 63 63 61 Respiratory Rate 16 18 Blood Pressure 119/52 L Pulse Oximetry 100 08/22/21 06:00 08/22/21 08:00 08/22/21 08:14 Temperature 97.6 F Pulse Rate 77 80 Respiratory Rate 16 Blood Pressure 122/50 L Pulse Oximetry 99 95 08/22/21 09:00 08/22/21 09:03 08/22/21 09:09 Temperature Pulse Rate 78 75 Respiratory Rate 16 16 Blood Pressure Pulse Oximetry 93 08/22/21 13:40 08/22/21 13:47 Temperature Pulse Rate 68 72 Respiratory Rate 16 16 Blood Pressure Pulse Oximetry Intake/Output Intake/Output: Intake & Output 08/19/21 08/20/21 08/21/21 08/22/21 23:59 23:59 23:59 23:59 Intake Total 1080 1870 1400 460 Output Total 1075 750 Balance 5 1120 1400 460 Meds/Results Medications: Active Medications Generic Name Dose Route Start Last Admin Trade Name Jumana PRN Reason Stop Dose Admin Albuterol 2.5 mg 08/18/21 14:00 08/22/21 13:40 Albuterol Sulfate Neb 2.5 Mg/0.5 Ml Inh INHALATION 2.5 mg Q6HRT MAYA Administration Atorvastatin Calcium 80 mg 08/15/21 09:00 08/22/21 08:
[2021-08-22] MEDS: hydrALAZINE HCL 50 MG TABLET PO (14:09)
[2021-08-22 16:36] LABS: Glucose Point of Care 276 mg/dl (65-105)
[2021-08-22] MEDS: MELATONIN 5 MG TABLET PO (20:49)
[2021-08-22] MEDS: INSULIN GLARGINE (*BKC) 100 UNITS/ML 10 UNITS SUB-Q (20:52)
[2021-08-22 22:43] LABS: Glucose Point of Care 231 mg/dl (65-105)
[2021-08-23] VITALS (17 sets, daily range): BP systolic 99–151; BP diastolic 32–61; PULSE 63–84; RESP 16–21; TEMP 36.1–36.6; O2SAT 91–100
[2021-08-23 06:29] LABS: Basophils Absolute Auto 0.1 K/mm3 (0.0-0.1); Basophils Percent Auto 0.6 % (0.2-1.2); Eosinophils Absolute Auto 0.3 K/mm3 (0-0.3); Eosinophils Percent Auto 3.1 % (0-4.4); Hematocrit 29.2 % (37.0-47.0); Hemoglobin 8.7 g/dL (12.0-15.0); Immature Granulocyte Absolute 0.05 K/mm3 (0.00-0.031); Immature Granulocyte Percent A 0.5 % (0-0.5); Lymphocytes Absolute Auto 1.04 K/mm3 (0.9-3.2); Lymphocytes Percent Auto 10.2 % (18.3-44.2); Mean Corpuscular HGB Conc 29.8 g/dl (32-36); Mean Corpuscular Hemoglobin 28.8 pg (26-34); Mean Corpuscular Volume 96.7 fl (80-100); Mean Platelet Volume 9.6 fl (7.4-10.4); Monocytes Absolute Auto 1.5 K/mm3 (0.1-0.6); Monocytes Percent Auto 14.4 % (2.6-8.5); Neutrophils Absolute Auto 7.2 K/mm3 (1.3-6.7); Neutrophils Percent Auto 71.2 % (45.5-73.1); Platelet Count Result 259 k/mm3 (150-375); Red Blood Count 3.02 M/mm3 (4.2-5.4); Red Cell Distribution Width 17.1 % (11.5-14.5); White Blood Count 10.2 K/mm3 (4.5-10.0)
[2021-08-23] MEDS: LEVOTHYROXINE SODIUM 50 MCG TABLET PO (06:32)
[2021-08-23 06:48] LABS: Alanine Aminotransferase 29 U/L (4-35); Albumin Level 2.8 g/dL (3.5-5.1); Alkaline Phosphatase 157 U/L (38-126); Anion Gap 0 mmol/L (8-16); Aspartate Amino Transferase 43 U/L (14-36); Bilirubin,Total 0.7 mg/dL (0.2-1.3); Blood Urea Nitrogen 32 mg/dL (7-17); Calcium 8.4 mg/dL (8.4-10.2); Carbon Dioxide 39 mmol/L (22-30); Chloride 94 mmol/L (98-107); Estimated CRCL calculation 30 ml/min; Estimated Glomerular Filt Rate 39; Glucose 128 mg/dL (65-110); Lipase 52 U/L (23-300); Potassium 3.8 mmol/L (3.4-5.0); Sodium 133 mmol/L (137-145)
[2021-08-23 07:19] LABS: Acanthocytes 1+ (NORMAL); Anisocytosis 1+ (NORMAL); Ovalocytes 1+ (NORMAL); Platelet Estimate Adequate (Adequate)
[2021-08-23 08:16] LABS: Glucose Point of Care 131 mg/dl (65-105)
[2021-08-23] MEDS: INSULIN ASPART (*BKC) 100 UNITS/ML SUB-Q ×2 (08:20→17:27)
[2021-08-23] MEDS: ATORVASTATIN 40 MG TABLET 80 MG PO (08:21)
[2021-08-23] MEDS: PANTOPRAZOLE 40 MG TABLET PO ×2 (08:21→21:12)
[2021-08-23] MEDS: buPROPion HCL XL (24 HR) 150 MG TABCR PO (08:21)
[2021-08-23] MEDS: CLOPIDOGREL BISULFATE 75 MG TABLET PO (08:21)
[2021-08-23] MEDS: CITALOPRAM HYDROBROMIDE 20 MG TABLET 40 MG PO (08:22)
[2021-08-23] MEDS: IBUPROFEN 400 MG TABLET PO ×2 (08:24→21:16)
[2021-08-23] MEDS: ALBUTEROL SULFATE NEB 2.5 MG/0.5 ML INH INHALATION ×3 (08:35→19:35)
[2021-08-23] MEDS: FLUTICASONE/UMECLIDIN/VILANTER 100-62.5-25 MCG ELLIPTA 1 PUFF INHALATION (08:35)
[2021-08-23] MEDS: carvediloL 25 MG TABLET PO ×2 (08:39→21:18)
[2021-08-23] MEDS: LOSARTAN POTASSIUM 50 MG TABLET 100 MG PO (08:40)
[2021-08-23] MEDS: ISOSORBIDE DINITRATE 20 MG TABLET PO ×2 (08:40→21:11)
[2021-08-23] MEDS: FUROSEMIDE 40 MG TABLET PO ×2 (08:41→16:33)
--- NOTE | 2021-08-23 09:35 | PCOTNOTE ---
Attempted to see patient this am, however patient refused stating, I still don't feel too hot. I will later.
--- NOTE | 2021-08-23 11:16 | PCNFU ---
Nutrition Follow-Up Complete: Increased protein needs related to wounds as evidenced by stage II right buttock pressure ulcer, stage II left buttock pressure ulcer, and unstageable sacrum pressure ulcer Goal:Pt to meet >50% of estimated nutritional needs Pt was meeting goal with 75-100% most meals. Pt current nutrition is NPO for test/procedure. Nutrition recommendation: Resume previous diet order upon return. Last recorded weight is 73.1 kg - stable Bowel Motility: Labs Reviewed:Na:133, Glucose: 128 Meds Noted:Novolog Skin: Stage II to L and R buttocks, unstageable wound to sacrum Additional Notes: Currently NPO. Diet to resume. Previous was heart healthy diet, TONNY BID, glucerna shakes BID. Will monitor for diet to resume, labs, medication, wt and reported intake every 5 days.
[2021-08-23 11:52] LABS: Glucose Point of Care 97 mg/dl (65-105)
[2021-08-23] MEDS: SILVERGEL (ELTA) 45 ML 1 APPLIC TOPICAL (12:22)
--- NOTE | 2021-08-23 12:28 | PM.IMPN ---
Progress Note: A&P Assessment and Plan (1) Elevated LFTs: Code(s): R79.89 - Other specified abnormal findings of blood chemistry Status: Acute Assessment and Plan: -US RUQ shows cholelithiasis but no cholecystitis -HIDA scan- Low gallbladder ejection fraction measuring 25%. Low GB EF is associated with gallbladder dysfunction, although not specific for acute or chronic cholecystitis. GI consulted -per GI: only mild elevated of transaminases, last few days actually is downtrending and most likely this is in setting of worsening heart failure with ischemic cardiomyopathy, CKD, pneumonia currently on antibiotics and other medical problems. She has low EF in HIDA scan but not definitive for cholecystitis. She does not need cholecystectomy, there is no abdominal pain and no indication for surgery. -spoke w/ Dr. Hillman regarding persistent nausea. She is going for EGD today. (2) Nausea: Code(s): R11.0 - Nausea Status: Acute Assessment and Plan: -persistent -discussed with Dr. Hillman per request of the family, he is doing EGD today -avoiding zofran due to already prolonged QT and she is also already on Celexa (3) Chronic respiratory failure with hypoxia, on home oxygen therapy: Code(s): J96.11 - Chronic respiratory failure with hypoxia; Z99.81 - Dependence on supplemental oxygen Status: Acute Assessment and Plan: -pt is on 3 liters her baseline -Likely multifactorial secondary to acute on chronic CHF, pneumonia, acute on chronic anemia (4) Elevated troponin: Code(s): R77.8 - Other specified abnormalities of plasma proteins Status: Acute Assessment and Plan: -likely secondary to pneumonia with CKD, anemia, hypoxia -peaked at 1.07 -cardiology reviewed and has signed off (5) Acute exacerbation of congestive heart failure: Code(s): I50.9 - Heart failure, unspecified Status: Acute Assessment and Plan: -Pt is on oral lasix -echo reviewed acute on chronic systolic CHF EF 45% -pt seen by Dr Ybarra cardiology, he states she does not appear to be in acute heart failure at this time though she has edema of legs and elevated NTproBNP. Recieved dose of Lasix 40 mg IV in ED. Continue Lasix 40 mg PO BID. She should follow up with her normal phlebotomy director in 1-2 weeks after discharge. (6) Pneumonia: Code(s): J18.9 - Pneumonia, unspecified organism Status: Acute Assessment and Plan: -completed iv ceftriaxone #8 and iv doxycycline #6 -continue home inhalers -nebs prn (7) Chronic anemia: Code(s): D64.9 - Anemia, unspecified Status: Acute Assessment and Plan: -pt had one unit of blood hb has improved to 9, continue to monitor Hgb -GI is following, getting EGD today (8) Obstructive sleep apnea on CPAP: Code(s): G47.33 - Obstructive sleep apnea (adult) (pediatric); Z99.89 - Dependence on other enabling machines and devices Status: Chronic Assessment and Plan: -cpap (9) Insulin dependent diabetes mellitus: Status: Chronic Assessment and Plan: -Hgb A1C in range of 5 -BG check TID AC and HS -c/w lantus+meal time insulin -Adjust dose as needed (10) Chronic kidney disease, stage 3: Code(s): N18.30 - Chronic kidney disease, stage 3 unspecified Status: Chronic Assessment and Plan: -stable -monitor BMP Additional Plan Subjective Date/time seen: 08/23/21 12:28 Interval history: 81-year-old female with multiple medical problems including coronary artery disease, ischemic cardiomyopathy, chronic respiratory failure on 2 L nasal cannula, chronic obstructive pulmonary disease, insulin-dependent diabetes, hypertension, chronic kidney disease, and several other comorbidities who presented to the emergency department for evaluation of shortness of breath. She was admitted for pneumonia, CHF, an
--- NOTE | 2021-08-23 12:50 | PC.NURSE ---
To GI Lab via [employer].
[2021-08-23] MEDS: LACTATED RINGERS 1,000 ML 150 ML IV CONT (13:14)
--- NOTE | 2021-08-23 13:28 | WPDANESEPPF ---
Anes - Initial Pre Proc Eval Procedure: Operation Date: 08/15/21 08:45 Proposed Procedures p Left Heart Cath - Alverto Bar MD Operation Date: 08/23/21 14:30 Proposed Procedures p Esophagogastroduodenoscopy - Harinder Estevez MD Date/Time: 08/23/21 13:28 Surgeon: Jelena Landry PA-C Pre Op Diagnosis: Pneumonia Patient Data Age: 81 Gender: F Height: 1.6 m Weight: 73.1 kg Last Vital Signs Temp 97.0 F L 08/23/21 13:00 Pulse 69 08/23/21 13:00 Resp 16 08/23/21 13:00 BP 119/47 L 08/23/21 13:00 Pulse Ox 100 08/23/21 13:00 Allergies Allergy/AdvReac Type Severity Reaction Status Date / Time adhesive tape Allergy Unknown unknown Verified 08/14/21 15:17 clarithromycin Allergy Unknown unknown Verified 08/14/21 15:17 latex Allergy Unknown unknown Verified 08/14/21 15:17 prednisone Allergy Unknown Hyperglycem Verified 08/14/21 15:17 ia Home Medications Medication Instructions Recorded Confirmed Type clopidogrel 75 mg tablet 75 mg PO DAILY 11/05/19 08/23/21 History bupropion HCl 150 mg 24 hr tablet, 150 mg PO QAM #90 tablet 09/17/20 08/23/21 Rx extended release insulin glargine U-300 conc 300 10 unit SUBCUT DAILY syr 05/30/21 08/23/21 History unit/mL (1.5 mL) subcutaneous pen losartan 50 mg tablet 100 mg PO DAILY tablet 05/30/21 08/23/21 History omeprazole 40 mg capsule,delayed 40 mg PO DAILY #90 cap 07/06/21 08/23/21 Rx release doxycycline hyclate 100 mg capsule 100 mg PO BID #20 cap 08/09/21 08/23/21 Rx atorvastatin 80 mg PO DAILY 08/14/21 08/23/21 History carvedilol 25 mg PO Q12H 08/14/21 08/23/21 History citalopram 40 mg PO DAILY 08/14/21 08/23/21 History dynjqlsgxol-ccahupxvl-swkgpmjk 1 inh INHALATION DAILY 08/14/21 08/23/21 History [Trelegy Ellipta] hydralazine 50 mg PO Q8H 08/14/21 08/23/21 History insulin lispro [Humalog KwikPen See Rx Instructions .ROUTE .COMPLEX 08/14/21 08/23/21 History Insulin] isosorbide dinitrate 10 mg PO Q12H 08/14/21 08/23/21 History levothyroxine 50 mcg PO DAILY 08/14/21 08/23/21 History melatonin 5 mg PO HS 08/14/21 08/23/21 History naproxen 500 mg PO BID PRN 08/14/21 08/23/21 History Laboratory Tests 08/22/21 08/22/21 08/23/21 16:30 20:51 06:12 WBC 10.2 K/mm3 H K/mm3 (4.5-10.0) RBC 3.02 M/mm3 L M/mm3 (4.2-5.4) Hgb 8.7 g/dL L g/dL (12.0-15.0) Hct 29.2 % L % (37.0-47.0) MCV 96.7 fl fl (80-100) MCH 28.8 pg pg (26-34) MCHC 29.8 g/dl L g/dl (32-36) RDW 17.1 % H % (11.5-14.5) Plt Count 259 k/mm3 k/mm3 (150-375) MPV 9.6 fl fl (7.4-10.4) Immature Gran % (Auto) 0.5 % % (0-0.5) Neut % (Auto) 71.2 % % (45.5-73.1) Lymph % (Auto) 10.2 % L % (18.3-44.2) [place] % (Auto) 14.4 % H % (2.6-8.5) Eos % (Auto) 3.1 % % (0-4.4) Baso % (Auto) 0.6 % % (0.2-1.2) Lymph # (Auto) 1.04 K/mm3 K/mm3 (0.9-3.2) [place] # (Auto) 1.5 K/mm3 H K/mm3 (0.1-0.6) Eos # (Auto) 0.3 K/mm3 K/mm3 (0-0.3) Baso # (Auto) 0.1 K/mm3 K/mm3 (0.0-0.1) Abs Immat Gran (auto) 0.05 K/mm3 H K/mm3 (0.00-0.031) Absolute Neuts (auto) 7.2 K/mm3 H K/mm3 (1.3-6.7) Absolute Nucleated RBC 0.0 K/mm3 K/mm3 (0.0-0.012) Nucleated RBC % 0.0 % % (0.0-0.2) Platelet Estimate Adequate (Adequate) Anisocytosis 1+ (NORMAL) Ovalocytes 1+ (NORMAL) Acanthocytes (Spur) 1+ (NORMAL) Sodium Potassium Chloride Carbon Dioxide Anion Gap BUN Creatinine Estim Creat Clear Calc Estimated GFR Glucose POC Capillary Glucose 276 mg/dl H mg/dl 231 mg/dl H mg/dl (65-105) (65-105) Calcium Total Bilirubin AST
--- NOTE | 2021-08-23 14:10 | PCOTNOTE ---
Attempted to see patient this pm, however patient having testing.
[2021-08-23 14:32] LABS: Glucose Point of Care 109 mg/dl (65-105)
--- NOTE | 2021-08-23 14:55 | PC.NURSE ---
Back from GI Lab via stretcher.
[2021-08-23] MEDS: hydrALAZINE HCL 50 MG TABLET PO (16:33)
--- NOTE | 2021-08-23 16:44 | PCPTNOTE ---
Patient declined PT in A.M. and was out of room in P.M. for test. Treatment unable to be completed today. PT will continue to follow per plan of care.
[2021-08-23 16:51] LABS: Glucose Point of Care 116 mg/dl (65-105)
[2021-08-23] MEDS: MELATONIN 5 MG TABLET PO (21:12)
[2021-08-23] MEDS: INSULIN GLARGINE (*BKC) 100 UNITS/ML 10 UNITS SUB-Q (21:15)
[2021-08-23 21:58] LABS: Glucose Point of Care 223 mg/dl (65-105)
[2021-08-24] VITALS (14 sets, daily range): BP systolic 90–131; BP diastolic 37–61; PULSE 63–89; RESP 15–18; TEMP 36.4–36.7; O2SAT 98–100
[2021-08-24] MEDS: ALBUTEROL SULFATE NEB 2.5 MG/0.5 ML INH INHALATION ×2 (02:06→09:03)
[2021-08-24] MEDS: LEVOTHYROXINE SODIUM 50 MCG TABLET PO (05:40)
[2021-08-24 06:36] LABS: Basophils Percent Auto 0.5 % (0.2-1.2); Eosinophils Absolute Auto 0.3 K/mm3 (0-0.3); Eosinophils Percent Auto 3.2 % (0-4.4); Hematocrit 27.5 % (37.0-47.0); Hemoglobin 8.4 g/dL (12.0-15.0); Immature Granulocyte Absolute 0.03 K/mm3 (0.00-0.031); Immature Granulocyte Percent A 0.4 % (0-0.5); Lymphocytes Absolute Auto 0.91 K/mm3 (0.9-3.2); Lymphocytes Percent Auto 10.9 % (18.3-44.2); Mean Corpuscular HGB Conc 30.5 g/dl (32-36); Mean Corpuscular Hemoglobin 29.3 pg (26-34); Mean Corpuscular Volume 95.8 fl (80-100); Monocytes Absolute Auto 1.4 K/mm3 (0.1-0.6); Monocytes Percent Auto 16.3 % (2.6-8.5); Neutrophils Absolute Auto 5.7 K/mm3 (1.3-6.7); Neutrophils Percent Auto 68.7 % (45.5-73.1); Platelet Count Result 247 k/mm3 (150-375); Red Blood Count 2.87 M/mm3 (4.2-5.4); Red Cell Distribution Width 16.9 % (11.5-14.5); White Blood Count 8.3 K/mm3 (4.5-10.0)
[2021-08-24 07:01] LABS: Alanine Aminotransferase 28 U/L (4-35); Albumin Level 2.7 g/dL (3.5-5.1); Alkaline Phosphatase 149 U/L (38-126); Anion Gap 2 mmol/L (8-16); Aspartate Amino Transferase 45 U/L (14-36); Bilirubin,Total 0.9 mg/dL (0.2-1.3); Blood Urea Nitrogen 32 mg/dL (7-17); Calcium 8.4 mg/dL (8.4-10.2); Carbon Dioxide 38 mmol/L (22-30); Chloride 92 mmol/L (98-107); Estimated CRCL calculation 34 ml/min; Estimated Glomerular Filt Rate 48; Glucose 139 mg/dL (65-110); Potassium 3.7 mmol/L (3.4-5.0); Sodium 132 mmol/L (137-145)
[2021-08-24 07:48] LABS: Glucose Point of Care 152 mg/dl (65-105)
[2021-08-24 08:11] LABS: Glucose Point of Care 144 mg/dl (65-105)
[2021-08-24] MEDS: IPRATROPIUM BR 0.02% INH SOLN 0.5 MG/2.5 ML VIAL INHALATION (09:03)
[2021-08-24] MEDS: FLUTICASONE/UMECLIDIN/VILANTER 100-62.5-25 MCG ELLIPTA 1 PUFF INHALATION (09:03)
[2021-08-24] MEDS: buPROPion HCL XL (24 HR) 150 MG TABCR PO (09:17)
[2021-08-24] MEDS: carvediloL 25 MG TABLET PO ×2 (09:17→20:15)
[2021-08-24] MEDS: ATORVASTATIN 40 MG TABLET 80 MG PO (09:17)
[2021-08-24] MEDS: PANTOPRAZOLE 40 MG TABLET PO ×2 (09:18→20:15)
[2021-08-24] MEDS: CLOPIDOGREL BISULFATE 75 MG TABLET PO (09:18)
[2021-08-24] MEDS: FUROSEMIDE 40 MG TABLET PO ×2 (09:18→17:04)
[2021-08-24] MEDS: LOSARTAN POTASSIUM 50 MG TABLET 100 MG PO (09:18)
[2021-08-24] MEDS: ISOSORBIDE DINITRATE 20 MG TABLET PO ×2 (09:18→20:16)
[2021-08-24] MEDS: CITALOPRAM HYDROBROMIDE 20 MG TABLET 40 MG PO (09:18)
[2021-08-24] MEDS: INSULIN ASPART (*BKC) 100 UNITS/ML SUB-Q ×4 (09:22→17:05)
--- NOTE | 2021-08-24 10:56 | WPDGIPROGNO ---
Progress Note: A&P Assessment and Plan (1) Nausea: Code(s): R11.0 - Nausea Status: Acute Assessment and Plan: egd mostly unremarkable, only small hiatal hernia nausea probably multifactorial, she is eating without problem no objections to discharge home by GI standpoint (2) Chronic respiratory failure with hypoxia, on home oxygen therapy: Code(s): J96.11 - Chronic respiratory failure with hypoxia; Z99.81 - Dependence on supplemental oxygen Status: Acute Assessment and Plan: treated by primary, on oxygen (3) Acute exacerbation of congestive heart failure: Code(s): I50.9 - Heart failure, unspecified Status: Acute Assessment and Plan: stable (4) CAD (coronary artery disease), autologous vein bypass graft: Code(s): I25.810 - Atherosclerosis of coronary artery bypass graft(s) without angina pectoris Status: Acute (5) Insulin dependent diabetes mellitus: Status: Chronic (6) Cholelithiasis: Code(s): K80.20 - Calculus of gallbladder without cholecystitis without obstruction Status: Acute Assessment and Plan: incidental finding, no abdominal pain no need of surgery Subjective Date/time seen: 08/24/21 10:56 Interval history: she is comfortable, still some nausea but she is eating and denies abdominal pain. She is hoping to go home today Review of Systems Review of Systems: All systems reviewed & are unremarkable except as noted in HPI and below Exam Const: General: comfortable and no acute distress HENMT: General nose exam: Normal nares present Eyes: General: appearance normal, both eyes and all related structures Neck: Neck: no JVD Resp: Auscultation: clear to auscultation bilaterally Cardio: Rate: regular rate Rhythm: regular rhythm GI: Inspection: non-distended GI Palp: Yes Soft to palpation and No Guarding due to palpation present (GI) Auscultation: normal bowel sounds Skin: General skin exam: normal color Neuro: Speech: normal speech Extrem: General: normal to inspection Psych: Mental Status: mental status grossly normal Objective Data Vital Signs Vital Signs: Vital Signs - 24 hr 08/23/21 13:00 08/23/21 14:11 08/23/21 14:15 Temperature 97.0 F L Pulse Rate 69 67 77 Respiratory Rate 16 21 H 18 Blood Pressure 119/47 L 99/46 L Pulse Oximetry 100 94 08/23/21 14:21 08/23/21 14:31 08/23/21 15:06 Temperature 97 F L Pulse Rate 63 70 67 Respiratory Rate 18 16 19 Blood Pressure 105/47 L 126/51 L 131/58 L Pulse Oximetry 91 99 100 08/23/21 16:00 08/23/21 19:36 08/23/21 19:43 Temperature 97 F L Pulse Rate 67 72 75 Respiratory Rate 19 18 18 Blood Pressure 131/58 L Pulse Oximetry 100 08/23/21 20:00 08/23/21 20:28 08/23/21 21:18 Temperature 97.9 F Pulse Rate 73 72 Respiratory Rate 16 Blood Pressure 114/44 L Pulse Oximetry 99 99 08/24/21 02:06 08/24/21 02:13 08/24/21 05:30 Temperature 97.6 F Pulse Rate 71 72 67 Respiratory Rate 18 18 15 Blood Pressure 131/61 Pulse Oximetry 100 08/24/21 08:00 08/24/21 09:03 08/24/21 09:13 Temperature Pulse Rate 70 70 Respiratory Rate 18 18 Blood Pressure Pulse Oximetry 100 08/24/21 09:17 Temperature Pulse Rate 70 Respiratory Rate Blood Pressure Pulse Oximetry Intake/Output Intake/Output: Intake & Output 08/21/21 08/22/21 08/23/21 08/24/21 23:59 23:59 23:59 23:59 Intake Total 1400 1000 1140 336 Output Total 1700 Balance 1400 1000 -560 336 Meds/Results Medications: Active Medications Generic Name Dose Route Start Last Admin Trade Name Freq PRN Reason Stop Dose Admin Albuterol 2.5 mg 08/18/21 14:00 08/24/21 09:03 Albuterol Sulfate Neb 2.5 Mg/0.5 Ml Inh INHALATION 2.5 mg Q6HRT MAYA Administration Atorvastatin Calcium 80 mg 08/15/21 09:00 08/24/21 09:17 Atorvastatin 40 Mg Tablet PO 80 mg DAILY MAYA Administration Bupropion HCl 150 mg 08/15/21 09:00
--- NOTE | 2021-08-24 11:30 | PCPTNOTE ---
Patient declined PT today stating she will be going home. Patient states I have been up moving around several times today and this is my last chance to rest before going home.
[2021-08-24 12:04] LABS: Glucose Point of Care 118 mg/dl (65-105)
--- NOTE | 2021-08-24 14:11 | PC.NURSE ---
Chasidy SMITH notified of bp 100/40, hydralazine held
--- NOTE | 2021-08-24 15:06 | PM.IMPN ---
Progress Note: A&P Assessment and Plan (1) Elevated LFTs: Code(s): R79.89 - Other specified abnormal findings of blood chemistry Status: Acute Assessment and Plan: LFTs noted to be elevated on presentation -US RUQ showed cholelithiasis but no cholecystitis -HIDA scan showed low gallbladder ejection fraction measuring 25%. Low GB EF is associated with gallbladder dysfunction, although not specific for acute or chronic cholecystitis. -Appreciate GI consultation. Per GI: only mild elevated of transaminases, last few days actually is downtrending and most likely this is in setting of worsening heart failure with ischemic cardiomyopathy, CKD, pneumonia currently on antibiotics and other medical problems. No indication for cholecystectomy -Continue with low-fat diet (2) Nausea: Code(s): R11.0 - Nausea Status: Acute Assessment and Plan: Patient endorse persistent nausea earlier in hospitalization -Seen in consultation by GI -had EGD on 08/23 which showed small hiatal hernia with no other findings to explain symptoms -nausea has resolved and she is tolerating a low-fat diet (3) Acute exacerbation of congestive heart failure: Code(s): I50.9 - Heart failure, unspecified Status: Acute Assessment and Plan: She is now at baseline -appreciate cardiology consultation -has been started on Lasix 40 mg p.o. b.i.d. Will add 10 mEq p.o. KCl supplement with this -echo reviewed which showed EF of 45-50%, LVH -follow-up with her sports analyst in 2 weeks (4) Chronic respiratory failure with hypoxia, on home oxygen therapy: Code(s): J96.11 - Chronic respiratory failure with hypoxia; Z99.81 - Dependence on supplemental oxygen Status: Acute Assessment and Plan: She is on 2-3 L supplemental O2 at baseline -maintaining adequate O2 sats on home oxygen therapy (5) Elevated troponin: Code(s): R77.8 - Other specified abnormalities of plasma proteins Status: Acute Assessment and Plan: Troponins elevated peak 1.07 -seen in consultation by Cardiology. [place] to be multifactorial, likely related to pneumonia, CKD, anemia, hypoxia -no further intervention required -Cardiology has signed off (6) Pneumonia: Code(s): J18.9 - Pneumonia, unspecified organism Status: Acute Assessment and Plan: CXR on presentation showed diffuse patchy airspace opacities of bilateral lungs -completed a course of ceftriaxone and doxycycline (7) Chronic anemia: Code(s): D64.9 - Anemia, unspecified Status: Acute Assessment and Plan: Hemoglobin declined to 7.9 and patient received 1 unit PRBC -H&H has remained stable following -no findings on EGD to contribute -iron panel reviewed and appears consistent with anemia of chronic disease. Iron stores are adequate at this time. Likely due to CKD -continue to monitor H&H (8) Obstructive sleep apnea on CPAP: Code(s): G47.33 - Obstructive sleep apnea (adult) (pediatric); Z99.89 - Dependence on other enabling machines and devices Status: Chronic Assessment and Plan: Continue CPAP (9) Insulin dependent diabetes mellitus: Status: Chronic Assessment and Plan: A1c is 5.8 -continue Accu-Cheks, sliding scale insulin, hypoglycemic protocol -Lantus 10 units q.h.s. (10) Chronic kidney disease, stage 3: Code(s): N18.30 - Chronic kidney disease, stage 3 unspecified Status: Chronic Assessment and Plan: Renal function is stable -monitor BMP (11) Hypertension: Code(s): I10 - Essential (primary) hypertension Status: Acute Assessment and Plan: Blood pressure reviewed and has been running low today -patient is not orthostatic -she is on several antihypertensives and likely the combination of these plus the new Lasix 40 mg b.i.d. has caused her BP to decline -will discontinue hydralazine -decrease losartan to 50 mg daily
[2021-08-24 16:58] LABS: Glucose Point of Care 240 mg/dl (65-105)
[2021-08-24] MEDS: SILVERGEL (ELTA) 45 ML 1 APPLIC TOPICAL (17:10)
[2021-08-24 20:11] LABS: Glucose Point of Care 239 mg/dl (65-105)
[2021-08-24] MEDS: INSULIN GLARGINE (*BKC) 100 UNITS/ML 10 UNITS SUB-Q (20:12)
[2021-08-24] MEDS: MELATONIN 5 MG TABLET PO (20:16)
[2021-08-25] VITALS (9 sets, daily range): BP systolic 110–134; BP diastolic 50–73; PULSE 70–81; RESP 18; TEMP 36.3; O2SAT 98–99
[2021-08-25] MEDS: IBUPROFEN 400 MG TABLET PO (03:50)
[2021-08-25] MEDS: LEVOTHYROXINE SODIUM 50 MCG TABLET PO (05:33)
[2021-08-25 06:10] LABS: Hematocrit 28.1 % (37.0-47.0); Hemoglobin 8.6 g/dL (12.0-15.0); Mean Corpuscular HGB Conc 30.6 g/dl (32-36); Mean Corpuscular Hemoglobin 29.2 pg (26-34); Mean Corpuscular Volume 95.3 fl (80-100); Mean Platelet Volume 10.1 fl (7.4-10.4); Platelet Count Result 249 k/mm3 (150-375); Red Blood Count 2.95 M/mm3 (4.2-5.4); Red Cell Distribution Width 16.8 % (11.5-14.5); White Blood Count 9.7 K/mm3 (4.5-10.0)
[2021-08-25 06:24] LABS: Blood Urea Nitrogen 27 mg/dL (7-17); Calcium 8.4 mg/dL (8.4-10.2); Carbon Dioxide > 40 mmol/L (22-30); Chloride 93 mmol/L (98-107); Estimated CRCL calculation 31 ml/min; Estimated Glomerular Filt Rate 43; Glucose 231 mg/dL (65-110); Potassium 3.6 mmol/L (3.4-5.0); Sodium 133 mmol/L (137-145)
[2021-08-25 08:04] LABS: Glucose Point of Care 206 mg/dl (65-105)
[2021-08-25] MEDS: INSULIN ASPART (*BKC) 100 UNITS/ML SUB-Q ×3 (08:14→11:58)
[2021-08-25] MEDS: ALBUTEROL SULFATE NEB 2.5 MG/0.5 ML INH INHALATION ×2 (08:25→13:39)
[2021-08-25] MEDS: FLUTICASONE/UMECLIDIN/VILANTER 100-62.5-25 MCG ELLIPTA 1 PUFF INHALATION (08:40)
[2021-08-25] MEDS: POTASSIUM CHLORIDE 10 MEQ TABLET.ER PO (08:53)
[2021-08-25] MEDS: carvediloL 25 MG TABLET PO (08:53)
[2021-08-25] MEDS: buPROPion HCL XL (24 HR) 150 MG TABCR PO (08:53)
[2021-08-25] MEDS: CITALOPRAM HYDROBROMIDE 20 MG TABLET 40 MG PO (08:53)
[2021-08-25] MEDS: ATORVASTATIN 40 MG TABLET 80 MG PO (08:53)
[2021-08-25] MEDS: FUROSEMIDE 40 MG TABLET PO (08:54)
[2021-08-25] MEDS: CLOPIDOGREL BISULFATE 75 MG TABLET PO (08:54)
[2021-08-25] MEDS: PANTOPRAZOLE 40 MG TABLET PO (08:54)
[2021-08-25] MEDS: SILVERGEL (ELTA) 45 ML 1 APPLIC TOPICAL (08:54)
[2021-08-25] MEDS: ISOSORBIDE DINITRATE 20 MG TABLET PO (08:54)
--- NOTE | 2021-08-25 10:47 | PM.DS ---
DS: Admitting Diagnosis Discharge Date 08/25/2021 Admitting Diagnosis Dyspnea DS: Discharge Diagnosis Discharge Diagnosis (1) Acute exacerbation of congestive heart failure: Code(s): I50.9 - Heart failure, unspecified Status: Acute Assessment and Plan: Patient presented with increased shortness of breath -she was seen in consultation by Cardiology -echo reviewed which showed EF of 45-50% with LVH -received IV Lasix was symptomatic improvement and was transitioned back to p.o. Lasix and increased dose of 40 mg b.i.d. Potassium supplement initiated with this. BMP in 1 week to monitor potassium and renal function -echo reviewed which showed EF of 45-50%, LVH -follow-up with her coat check attendant in 2 weeks (2) Pneumonia: Code(s): J18.9 - Pneumonia, unspecified organism Status: Acute Assessment and Plan: CXR on presentation showed diffuse patchy airspace opacities of bilateral lungs -completed a course of ceftriaxone and doxycycline with symptomatic improvement (3) Chronic respiratory failure with hypoxia, on home oxygen therapy: Code(s): J96.11 - Chronic respiratory failure with hypoxia; Z99.81 - Dependence on supplemental oxygen Status: Acute Assessment and Plan: She is on 2-3 L supplemental O2 at baseline -she maintained adequate O2 sats on home oxygen therapy (4) Elevated LFTs: Code(s): R79.89 - Other specified abnormal findings of blood chemistry Status: Acute Assessment and Plan: LFTs noted to be elevated on presentation -US RUQ showed cholelithiasis but no cholecystitis -HIDA scan showed low gallbladder ejection fraction measuring 25%. Low GB EF is associated with gallbladder dysfunction, although not specific for acute or chronic cholecystitis. -Appreciate GI consultation. Per GI: only mild elevated of transaminases with downward trend and most likely this is in setting of worsening heart failure with ischemic cardiomyopathy, CKD, pneumonia and other medical problems. No indication for cholecystectomy -Continue with low-fat diet -repeat LFTs in 1 week to assess for continued improvement/resolution (5) Nausea: Code(s): R11.0 - Nausea Status: Acute Assessment and Plan: Patient endorsed persistent nausea earlier in hospitalization -Seen in consultation by GI -had EGD on 08/23 which showed small hiatal hernia with no other findings to explain symptoms -nausea resolved and she tolerated a low-fat diet (6) Elevated troponin: Code(s): R77.8 - Other specified abnormalities of plasma proteins Status: Acute Assessment and Plan: Troponins elevated with peak 1.07 -seen in consultation by Cardiology. [place] to be multifactorial, likely related to pneumonia, CKD, anemia, hypoxia -no further intervention required (7) Chronic anemia: Code(s): D64.9 - Anemia, unspecified Status: Acute Assessment and Plan: Hemoglobin declined to 7.9 and patient received 1 unit pRBC -H&H remained stable following transfusion -no findings on EGD to contribute -iron panel reviewed and appears consistent with anemia of chronic disease. Iron stores are adequate at this time. Likely due to CKD -Repeat H&H in 1 week to ensure remaining stable (8) Obstructive sleep apnea on CPAP: Code(s): G47.33 - Obstructive sleep apnea (adult) (pediatric); Z99.89 - Dependence on other enabling machines and devices Status: Chronic Assessment and Plan: Continue CPAP (9) Insulin dependent diabetes mellitus: Status: Chronic Assessment and Plan: A1c is 5.8 -continue home insulin regimen including Lantus 10 units daily with sliding scale (10) Chronic kidney disease, stage 3: Code(s): N18.30 - Chronic kidney disease, stage 3 unspecified Status: Chronic Assessment and Plan: Renal function remained stable -repeat BMP in 1 week to ensure remaining stable with increase in fu
[2021-08-25 11:40] LABS: Glucose Point of Care 179 mg/dl (65-105)
--- NOTE | 2021-08-25 12:56 | PCNFU ---
Nutrition Follow-Up Complete: Increase protein needs related to wounds as evidenced by stage II right buttock pressure ulcer, stage II left buttock pressure ulcer, and unstageable sacrum pressure ulcer Goal: Pt to meet >50% of estimated nutritional needs Pt is progressing towards goal. Pt current nutrition is Low fat diet. Nutrition recommendation: Restart supplements as previous: glucerna shakes BID and TONNY BID Last recorded weight is 70.9 kg - shows a 6kg wt loss Bowel Motility:+ BM 08/24 Labs Reviewed:Glucose: 231 Meds Noted: Skin:multiple pressure wounds noted Additional Notes: Pt reports improved intake. Intake charted at 70,80,25,100% of meals. Likes Glucerna shakes and wanting them restarted. Will restart Glucerna BID and TONNY BID for increased caloric intake and wound healing. Pt in agreement. Will monitor labs, medication, wt and reported intake every 5 days
== END 2021-08-25 15:13 | disposition home health service (06) | DRG 193 ==
LOC: ANHED 14:36 → ANHIMU 15:27 → ANH3MEDSUR 08-17 18:45
PROVIDERS: Emergency Medicine; Family Medicine; Internal Medicine; Internal Medicine Gastroenterology; Physician Assistant; Admitting Provider Family Medicine; Emergency Provider Nurse Practitioner Adult Health; PCP Family Medicine; Visit Provider Family Medicine
PROC: 0DJ08ZZ Inspection of Upper Intestinal Tract, Via Natural or Artificial Opening Endoscopic (ICD-10-PCS; CPT 43235; principal; 2021-08-23 14:30)
DX: J18.9 Pneumonia, unspecified organism (principal); I50.23 Acute on chronic systolic (congestive) heart failure; I13.0 Hypertensive heart and chronic kidney disease with heart failure and stage 1 through stage 4 chronic kidney disease, or unspecified chronic kidney disease; J96.11 Chronic respiratory failure with hypoxia; J44.0 Chronic obstructive pulmonary disease with (acute) lower respiratory infection; I25.810 Atherosclerosis of coronary artery bypass graft(s) without angina pectoris; Z20.822 Contact with and (suspected) exposure to COVID-19; E11.42 Type 2 diabetes mellitus with diabetic polyneuropathy; E11.319 Type 2 diabetes mellitus with unspecified diabetic retinopathy without macular edema; E11.22 Type 2 diabetes mellitus with diabetic chronic kidney disease; N18.30 Chronic kidney disease, stage 3 unspecified; D63.1 Anemia in chronic kidney disease; R77.8 Other specified abnormalities of plasma proteins; R79.89 Other specified abnormal findings of blood chemistry; R19.5 Other fecal abnormalities; R11.0 Nausea; K21.9 Gastro-esophageal reflux disease without esophagitis; K44.9 Diaphragmatic hernia without obstruction or gangrene; I34.0 Nonrheumatic mitral (valve) insufficiency; I25.5 Ischemic cardiomyopathy; K80.20 Calculus of gallbladder without cholecystitis without obstruction; E03.9 Hypothyroidism, unspecified; G47.33 Obstructive sleep apnea (adult) (pediatric); E78.2 Mixed hyperlipidemia; M54.42 Lumbago with sciatica, left side; Z28.21 Immunization not carried out because of patient refusal; Z79.02 Long term (current) use of antithrombotics/antiplatelets; Z79.4 Long term (current) use of insulin; Z79.899 Other long term (current) drug therapy; Z85.41 Personal history of malignant neoplasm of cervix uteri; Z86.74 Personal history of sudden cardiac arrest; Z87.81 Personal history of (healed) traumatic fracture; Z87.891 Personal history of nicotine dependence; Z90.710 Acquired absence of both cervix and uterus; Z90.79 Acquired absence of other genital organ(s); Z90.722 Acquired absence of ovaries, bilateral; Z91.81 History of falling; Z95.1 Presence of aortocoronary bypass graft; Z95.5 Presence of coronary angioplasty implant and graft; Z98.84 Bariatric surgery status; Z98.890 Other specified postprocedural states; Z99.81 Dependence on supplemental oxygen; Z99.89 Dependence on other enabling machines and devices
CPT/HCPCS: 36415; 36430; 71045; 71046; 76705; 78227; 80048; 80053; 80074; 80202; 82274; 82607; 82728; 82746; 82948; 83010; 83036; 83540; 83550; 83615; 83690; 83735; 83880; 84443; 84484; 85025; 85027; 85610; 85730; 86850; 86900; 86901; 86920; 87070; 87077; 87186; 87205; 87449; 87899; 88305; 93005; 93306; 93970; 94640; 94660; 96365; 96374; 96375; 96376; 97110; 97116; 97161; 97165; 97530; 97535; 99285; A9270; A9537; C9803; G0378; J0692; J0696; J0780; J1815; J1940; J2405; J2704; J2805; J3370; J3475; J7050; J7120; P9016; U0003; U0005

== ENCOUNTER 2021-08-28 21:12 | Inpatient (IN) | payer OTHER, SELFPAY ==
--- NOTE | ~2021-08-28 | XR_ITS ---
EXAMINATION: XR chest 1V portable EXAM DATE: 09/04/2021 05:05 INDICATION: Pneumonia TECHNIQUE: Portable AP frontal chest x-ray was obtained. Comparison is made to prior examination from 08/28/2021. FINDINGS: Sternotomy wires are present without findings to suggest sternal dehiscence. The cardiac silhouette i s enlarged. There is pulmonary vascular congestion. Moderate amount of patchy bilateral pneumonia or edema. There is chronic right humeral neck fracture. No pneumothorax or sizable pleural effusion. Acc ounting for differences in technique, there is no significant interval change. IMPRESSION: 1. Moderate amount of bilateral pneumonia or edema. 2. Cardiomegaly, pulmonary vascular congestion Reviewed, dictated and finalized at location A.
--- NOTE | ~2021-08-28 | CT_ITS ---
EXAMINATION:CT chest high resolution wo ma DATE: 09/12/2021 13:03 INDICATION: Worsening pneumonia. TECHNIQUE: Computed tomography (CT) of the chest was performed without intravenous contrast. Automate d exposure control and iterative reconstruction technique were employed. The dose-length product (DLP ) was 152.23 mGy-cm. COMPARISON: Chest CT 08/31/2021, thyroid ultrasound 03/18/2021 FINDINGS: There are patchy airspace and groundglass opacities in all lobes. There are small right and trace left pleural effusions. There is a calcified pleural plaque on the left. Cardiomegaly is noted . There are coronary artery calcifications. There are changes of coronary artery bypass grafting. No pericardial effusion. There is a moderate-sized sliding hiatal hernia. There is a lap band in expecte d position. Again seen is a 2.0 cm nodule in right thyroid lobe. IMPRESSION: 1. Persistent diffuse lung disease, consistent with pneumonia. 2. Small right pleural effusion. 3. Cardiomegaly. 4. Moderate-sized sliding hiatal hernia. Reviewed, dictated and finalized at location B.
--- NOTE | ~2021-08-28 | XR_ITS ---
EXAMINATION: XR chest 1V portable Exam Date/Time: 09/13/2021 14:50 CDT CLINICAL HISTORY: pt sounding wet w/o auscultation and lethargic Comparison: 09/11/2021. RESULT: Lines, tubes, and devices: Fractured inferior sternotomy wire that remains stable in position. Media stinal surgical clips. Gastric band. Lungs and pleura: Persistent but improving scattered bilateral pulmonary opacities. Improving visual ization of vascular margins.. Cardiomediastinal silhouette: Stable cardiomediastinal silhouette. Other: No acute osseous or upper abdominal finding. IMPRESSION: Improving pulmonary findings likely representing improving pulmonary edema overlying senescent change s. Concomitant infection is not excluded. Reviewed, dictated and finalized at location K. IMPRESSION: Improving pulmonary findings likely representing improving pulmonary edema over lying senescent changes. Concomitant infection is not excluded.
--- NOTE | ~2021-08-28 | XR_ITS ---
EXAMINATION: XR chest 1V portable DATE: 09/17/2021 05:50 INDICATION: Pneumonia. Congestive heart failure. TECHNIQUE: frontal view of the chest was obtained. COMPARISON: Chest radiograph dated 09/13/2021 FINDINGS: Bilateral patchy airspace opacities scattered throughout the right lung and with left upper lung pred ominance. No pleural effusion or pneumothorax. Cardiomegaly. Coronary artery stenting and change of m edian sternotomy and coronary artery bypass grafting. Adjustable gastric banding procedure with phi a ngle of 70 degrees. Old proximal right humeral fracture. There are bridging osteophytes at multiple l evels in the spine, consistent with diffuse idiopathic skeletal hyperostosis (DISH). IMPRESSION: 1. Persistent scattered bilateral patchy airspace opacities consistent with pulmonary edema or pneumo linda. 2. Cardiomegaly. Reviewed, dictated and finalized at location A. IMPRESSION: 1. Persistent scattered bilateral patchy airspace opacities consistent with pul monary edema or pneumonia. 2. Cardiomegaly.
--- NOTE | ~2021-08-28 | XR_ITS ---
EXAMINATION: XR chest 2V DATE: 08/28/2021 22:26 INDICATION: Transient alteration of awareness. Pneumonia. TECHNIQUE: Frontal and lateral views of the chest were obtained. COMPARISON: Chest single view 08/20/2021, chest CT 06/15/2020, chest two views 08/08/17 FINDINGS: There are heterogeneous airspace opacities in all lung zones bilaterally. There is a small left pleural effusion. No pneumothorax. Cardiomegaly is noted. Median sternotomy wires and mediastina l surgical clips are seen, likely from prior coronary artery bypass grafting. There is a lap band marielos und the proximal stomach with phi angle of 68 degrees. There is an old healed fracture of proximal ri ght humerus. IMPRESSION: 1. Diffuse lung disease with mild improvement on the right, likely pneumonia. 2. Small left pleural effusion. 3. Cardiomegaly. 4. Lap band with abnormal phi angle, which is chronic. Reviewed, dictated and finalized at location A.
--- NOTE | ~2021-08-28 | XR_ITS ---
EXAMINATION: XR foot LT min 3V DATE: 09/06/2021 15:19 INDICATION: Left heel ulcer and pain. TECHNIQUE: 4 views of left foot were obtained. COMPARISON: None. FINDINGS: Bone alignment is normal. No fracture. There is mild osteoarthritis of first metatarsophala ngeal joint and some of the interphalangeal joints. There is moderate osteoarthritis of third distal interphalangeal joint. IMPRESSION: 1. Polyarticular osteoarthritis. Reviewed, dictated and finalized at location A.
--- NOTE | ~2021-08-28 | CT_ITS ---
EXAMINATION: CT chest abdomen pelvis wo con EXAM DATE: 08/31/2021 12:18 INDICATION: Pneumonia set UTI sepsis. Shortness of breath. TECHNIQUE: Spiral CT of the chest, abdomen and pelvis was performed without contrast. Axial, duque l and sagittal images chest, abdomen and pelvis were reviewed. Coronal maximum intensity pixel image s of chest reviewed. The dose-length product (DLP) for this examination was 915.42 mGy-cm. The expo sure was tailored according to patient size (auto mA exposure control), and iterative reconstruction (ASIR) was used as additional dose reduction technique. Comparison is made to prior examination from 06/15/2020. FINDINGS: CHEST: There is a moderate-sized right pleural effusion. Trace left pleural effusion. Some small left pleural calcifications. There is cardiomegaly. Sternotomy wires and probable cardiac bypass surgical changes. There is moderate amount of bilateral diffuse airspace disease most consistent with pneumon ia. Right lower lobe segmental atelectasis. Mediastinal lymphadenopathy probably reactive. The interv entricular septum is perceptible, suggesting patient is anemic. No pneumothorax. ABDOMEN PELVIS: The liver, spleen, adrenal glands and pancreas are unremarkable. There are gallstone s within an otherwise unremarkable gallbladder. No evidence of obstructive biliary disease. There i s no nephrolithiasis or hydronephrosis. The uterus is not identified and has likely been surgically resected. The bladder is unremarkable. There is no retroperitoneal or pelvic lymphadenopathy. Th ere is moderate scattered arteriosclerotic disease. The appendix is not positively visualized. There is no pericecal inflammatory change to suggest appe ndicitis. There is moderate sigmoid colonic diverticulosis. There is no adjacent inflammatory change to suggest diverticulitis. Gastric banding device. There is expected amount of colonic stool. No free intraperitoneal gas. There are no osteoblastic or osteolytic lesions identified. Left hip gamm a nail. IMPRESSION: 1. Moderate amount of airspace disease probably pneumonia. 2. Moderate right pleural effusion. 3. Cardiomegaly. 4. Moderate colonic diverticulosis. 5. Cholelithiasis. Reviewed, dictated and finalized at location A.
--- NOTE | ~2021-08-28 | XR_ITS ---
EXAMINATION: XR chest 1V portable INDICATION: Shortness of breath TECHNIQUE: Portable AP chest at 0548 hours COMPARISON: 09/04/2021 FINDINGS: Patchy bilateral airspace opacities persist throughout all lung zones but have improved. Ca rdiomegaly is noted. There is no pleural effusion or pneumothorax. Median sternotomy wires and medias tinal surgical clips are seen, likely from prior coronary artery bypass grafting. A healed fracture o f the proximal right humerus is noted. A gastric lap band is seen. IMPRESSION: 1. Diffuse lung disease with interval improvement, consistent with pneumonia and/or pulmonary edema. 2. Cardiomegaly. Reviewed, dictated and finalized at location A. IMPRESSION: 1. Diffuse lung disease with interval improvement, consistent with pneumonia an d/or pulmonary edema. 2. Cardiomegaly.
--- NOTE | ~2021-08-28 | XR_ITS ---
EXAMINATION: XR chest 1V portable DATE: 09/11/2021 10:14 INDICATION: Shortness of breath. TECHNIQUE: A single frontal view of the chest was obtained. COMPARISON: Chest single view 09/07/2021, chest CT 08/31/2021 FINDINGS: There are airspace and interstitial opacities throughout the lungs bilaterally. No pleural effusion or pneumothorax. Cardiomegaly is noted. Median sternotomy wires and mediastinal surgical cli ps are seen, likely from prior coronary artery bypass grafting. There is an implant in the heart. The re is a lap band at the proximal stomach. There is an old healed fracture of proximal right humerus. IMPRESSION: 1. Worsened diffuse lung disease, consistent with pulmonary edema versus pneumonia. 2. Cardiomegaly. Reviewed, dictated and finalized at location A. IMPRESSION: 1. Worsened diffuse lung disease, consistent with pulmonary edema versus pneumo linda. 2. Cardiomegaly.
--- NOTE | ~2021-08-28 | CT_ITS ---
EXAMINATION: CT brain wo con DATE: 09/12/2021 13:03 INDICATION: Visual change. TECHNIQUE: Computed tomography (CT) of the head was performed without intravenous contrast. The mA wa s adjusted according to patient size. Iterative reconstruction technique was employed. The dose-lengt h product was 605.33 mGy-cm. COMPARISON: Head CT 08/28/2021 FINDINGS: There are old infarcts in the left frontal lobe and left cerebellum. There are scattered ar eas of low attenuation in the cerebral white matter. There is no intracranial hemorrhage, acute infar ction, or abnormal intracranial mass lesion. The ventricles are normal in size. There is mucosal thic kening in the paranasal sinuses. There are likely changes of ocular lens replacement surgeries. There are trace mastoid effusions. IMPRESSION: 1. 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 2. Stable mild nonspecific cerebral white matter disease, which likely represents chronic small vesse l ischemic disease. Reviewed, dictated and finalized at location B. IMPRESSION: 1. 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 2. Stable mild nonspecific cerebral white matter disease, which likely represen ts chronic small vessel ischemic disease.
--- NOTE | ~2021-08-28 | MR_ITS ---
EXAMINATION: MR brain/brain stem wo con DATE: 09/05/2021 16:50 INDICATION: Vertigo. TECHNIQUE: Magnetic resonance imaging (MRI) of the brain and brainstem was performed without intraven ous contrast. Sequences included sagittal and axial T1-weighted FSE, axial diffusion-weighted FS EPI, axial T2*-weighted GRE, axial T2-weighted FLAIR Propeller, and axial T2-weighted Propeller. Apparent diffusion coefficient (ADC) maps were created. COMPARISON: Head CT 08/28/2021 FINDINGS: There are scattered areas of nonspecific increased T2-weighted signal intensity in the cere bral white matter. There is a small old infarct in posterior left frontal lobe. There is no intracran ial hemorrhage, acute infarction, or abnormal intracranial mass lesion. The ventricles are normal in size. There are likely changes of ocular lens replacement surgeries. There is mild mucosal thickening in right maxillary sinus. The mastoid air cells are normal. IMPRESSION: 1. 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 2. Mild nonspecific cerebral white matter disease, which likely represents chronic small vessel ische mitchel disease. Reviewed, dictated and finalized at location A. IMPRESSION: 1. 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 2. 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
--- NOTE | ~2021-08-28 | XR_ITS ---
EXAMINATION: XR barium swallow modified DATE: 09/06/2021 13:32 INDICATION: Pneumonia TECHNIQUE: Modified barium esophagram was performed by myself to administered fluoroscopy, in conjun ction with speech pathologist who administered barium in varying consistencies as per speech patholog ist documentation. This was recorded on tape. A single fluoroscopic spot image was recorded. The DAP for this procedure was 2.42 Gycm2. Fluoroscopy exposure time was 3.4 minutes. FINDINGS: Oral stage: Adequate function. Pharyngeal phase: Adequate function. Laryngeal penetration: None. Aspiration: None. Laryngeal sensitivity: Not applicable. IMPRESSION: Unremarkable modified barium swallow. Please refer to speech pathologist findings and spe [facility] feeding recommendations. Reviewed, dictated and finalized at location A. IMPRESSION: Unremarkable modified barium swallow. Please refer to speech pathol ogist findings and specific feeding recommendations.
--- NOTE | ~2021-08-28 | CT_ITS ---
EXAMINATION: CT brain wo con DATE: 08/28/2021 22:40 INDICATION: Confusion. TECHNIQUE: Computed tomography (CT) of the head was performed without intravenous contrast. The mA wa s adjusted according to patient size. Iterative reconstruction technique was employed. The dose-lengt h product was 605.33 mGy-cm. COMPARISON: None FINDINGS: There are scattered areas of low attenuation in the cerebral white matter. There is an old infarct in left frontal lobe. There is no intracranial hemorrhage, acute infarction, or abnormal intr acranial mass lesion. The ventricles are normal in size. There is mild mucosal thickening in the para nasal sinuses. The mastoid air cells are normal. IMPRESSION: 1. Old infarct in left frontal lobe. 2. Mild nonspecific cerebral white matter disease, which likely represents chronic small vessel ische mitchel disease. Reviewed, dictated and finalized at location A. IMPRESSION: 1. Old infarct in left frontal lobe. 2. 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
--- NOTE | 2021-08-28 21:30 | ECG_ITS ---
Measurements Intervals [place] Rate: 68 P: 64 MT: 168 QRS: -11 QRSD: 122 T: 124 QT: 446 QTc: 477 Interpretive Statements SINUS RHYTHM WITH OCCASIONAL VENTRICULAR PREMATURE COMPLEXES LEFT VENTRICULAR HYPERTROPHY AND ST-T CHANGE Electronically Signed On 08-29-2021 14:27:08 CDT by Mack Godoy M.D.
[2021-08-28 21:32] VITALS: BP 151/78; PULSE 71; RESP 24; TEMP 36.7; O2SAT 96
[2021-08-28 21:52] LABS: Basophils Absolute Auto 0.1 K/mm3 (0.0-0.1); Basophils Percent Auto 0.6 % (0.2-1.2); Eosinophils Absolute Auto 0.4 K/mm3 (0-0.3); Eosinophils Percent Auto 4.6 % (0-4.4); Hematocrit 30.8 % (37.0-47.0); Hemoglobin 9.6 g/dL (12.0-15.0); Immature Granulocyte Absolute 0.06 K/mm3 (0.00-0.031); Immature Granulocyte Percent A 0.7 % (0-0.5); Lymphocytes Absolute Auto 0.96 K/mm3 (0.9-3.2); Lymphocytes Percent Auto 10.7 % (18.3-44.2); Mean Corpuscular HGB Conc 31.2 g/dl (32-36); Mean Corpuscular Hemoglobin 29.9 pg (26-34); Mean Platelet Volume 10.4 fl (7.4-10.4); Monocytes Absolute Auto 1.2 K/mm3 (0.1-0.6); Monocytes Percent Auto 13.3 % (2.6-8.5); Neutrophils Absolute Auto 6.3 K/mm3 (1.3-6.7); Neutrophils Percent Auto 70.1 % (45.5-73.1); Platelet Count Result 279 k/mm3 (150-375); Red Blood Count 3.21 M/mm3 (4.2-5.4); Red Cell Distribution Width 16.9 % (11.5-14.5)
--- NOTE | 2021-08-28 21:54 | ED.WEAKNESS ---
HPI - Weakness General Chief complaint: Weakness Stated complaint: confusion since 1230 - recent uti Time Seen by Provider: 08/28/21 21:21 Source: patient and EMS Mode of arrival: EMS Limitations: clinical condition History of Present Illness HPI Narrative: This is an 81-year-old female that presents to the emergency department for increased confusion. Noted by her family today. Had a recent admission for pneumonia. Patient reportedly has gotten more lethargic throughout the day. Patient has no complaints currently. Although, is intermittently falling asleep while I talk to her. She is able to answer my questions appropriately. Denies fever, cough, chest pain, shortness of breath, abdominal pain, vomiting, or dysuria. Related Data Home Medications Medication Instructions Recorded Confirmed clopidogrel 75 mg tablet 75 mg PO DAILY 11/05/19 08/23/21 insulin glargine U-300 conc 300 10 unit SUBCUT DAILY syr 05/30/21 08/23/21 unit/mL (1.5 mL) subcutaneous pen Trelegy Ellipta 1 inh INHALATION DAILY 08/14/21 08/23/21 atorvastatin 80 mg PO DAILY 08/14/21 08/23/21 carvedilol 25 mg PO Q12H 08/14/21 08/23/21 citalopram 40 mg PO DAILY 08/14/21 08/23/21 insulin lispro [Humalog KwikPen See Rx Instructions .ROUTE .COMPLEX 08/14/21 08/23/21 Insulin] isosorbide dinitrate 10 mg PO Q12H 08/14/21 08/23/21 levothyroxine 50 mcg PO DAILY 08/14/21 08/23/21 melatonin 5 mg PO HS 08/14/21 08/23/21 Allergies Allergy/AdvReac Type Severity Reaction Status Date / Time adhesive tape Allergy Unknown unknown Verified 08/14/21 15:17 clarithromycin Allergy Unknown unknown Verified 08/14/21 15:17 latex Allergy Unknown unknown Verified 08/14/21 15:17 prednisone Allergy Unknown Hyperglycem Verified 08/14/21 15:17 ia Review of Systems Review of Systems: CONSTITUTIONAL: Denies fever CARDIOVASCULAR: Denies chest pain RESPIRATORY: Denies dyspnea. GASTROINTESTINAL: Denies abdominal pain, nausea, vomiting GENITOURINARY: Denies dysuria or hematuria. NEUROLOGIC: Reports weakness. All systems reviewed & are unremarkable except as noted in HPI and below PMFSH Past Medical History Medical History (Updated 08/29/21 @ 00:50 by Sherry Hodges PA-C) Anemia Cardiac arrest with ventricular fibrillation (06/2018) Cervical cancer Cholelithiasis Chronic anemia Chronic kidney disease, stage 3 Chronic left-sided low back pain with left-sided sciatica Chronic respiratory failure with hypoxia, on home oxygen therapy Congestive heart failure Coronary artery disease Patient of Dr. Edward Carrasco. Status post CABG in 1998. Cardiac cath in November 2020 showed an EF of 50% with patent LAYNE graft to the LAD and occluded vein graft to the diagonal branch and obtuse marginal branch. Five stents were placed in November 2020. Diabetic peripheral neuropathy Diabetic retinopathy Essential hypertension Fracture of head of left femur (06/2021) Gastroesophageal reflux disease Hypertension Hypothyroidism Insulin dependent diabetes mellitus Ischemic cardiomyopathy EF as low as 35 to 45% in July 2018 Echocardiogram in November 2020 showed ejection fraction of 55 to 60%. Kidney stones Macular degeneration Major depression Mixed hyperlipidemia Nausea Obstructive sleep apnea on CPAP Osteoarthritis Osteoporosis Severe mitral valve regurgitation (01/2021) Status post MitraClip. Tobacco abuse Surgical History Surgical History (Updated 08/14/21 @ 14:52 by Carlene Lomax PA-C) History of bladder suspension procedure History of cardiac catheterization History of carpal tunnel release History of coronary artery bypass graft (1998) LAYNE graft to LAD and vein graft to diagonal branch and obtuse marginal branch; LAYNE was patent on cardiac catheterization November 2020 vein grafts were occluded. History of coronary artery stent placement History of cystoscopy History of laparoscopic adjustable gastric banding History of lithotripsy History of open reduction and internal fixation (ORIF)
[2021-08-28 21:57] LABS: Alanine Aminotransferase 33 U/L (4-35); Albumin Level 3.4 g/dL (3.5-5.1); Alkaline Phosphatase 180 U/L (38-126); Anion Gap 5 mmol/L (8-16); Aspartate Amino Transferase 49 U/L (14-36); Bilirubin,Total 1.2 mg/dL (0.2-1.3); Blood Urea Nitrogen 33 mg/dL (7-17); Carbon Dioxide 37 mmol/L (22-30); Chloride 91 mmol/L (98-107); Estimated CRCL calculation 30 ml/min; Estimated Glomerular Filt Rate 43; Glucose 180 mg/dL (65-110); Potassium 3.6 mmol/L (3.4-5.0); Sodium 133 mmol/L (137-145)
[2021-08-28 22:06] LABS: Base Excess ABG 6.5 mEq/l (+/-2.0); Carboxyhemoglobin 0.7 % THb (0-2.0); Fractional Inspired Oxygen 32 %; HCO3 ABG 30.7 mEq/l (22.0-26.0); Methemoglobin ABG 0.3 %THb (0-1.5); Oxygen Content ABG 13.3 %vol (16.0-22.0); Oxyhemoglobin 94.8 % THb (90.0-100.0); PCO2 ABG 42.4 mmHg (35.0-45.0); PO2 ABG 85.6 mmHg (80.0-100.0); PO2 FiO2 Ratio Arterial Blood 2.67 %; Reduced Hemoglobin 4.2 %THb (0-5.0); Total Hemoglobin 9.9 g/dL (12.0-18.0); pH ABG 7.477 (7.350-7.450)
[2021-08-28 22:06] LABS: Lipase 49 U/L (23-300)
[2021-08-28 22:07] LABS: Device NASAL CANNULA; Modified Allen's Test Pass; Site Drawn RIGHT RADIAL
[2021-08-28 22:10] LABS: INR 1.3; Prothrombin Time 15.9 Seconds (11.1-14.7)
[2021-08-28 22:11] LABS: Partial Thromboplastin Time 29.7 SECONDS (22.3-36.8)
[2021-08-28 22:54] VITALS: BP 134/74; PULSE 80; RESP 20; O2SAT 93
[2021-08-28 23:32] LABS: Add Urine Microscopic? YES; Appearance Urine Cloudy (Clear); Bilirubin Urine Negative (Negative); Blood Urine Negative (Negative); Color Urine Amber (Yellow); Glucose Urine UA Negative (Negative); Ketones Urine Negative (Negative); Leukocyte Esterase Ur Negative LEU/UL (Negative); Mucus Urine Rare /lpf; Nitrate Urine Negative (Negative); Protein Urine Negative (Negative); Specific Grav Ur 1.012 (1.001-1.035); Squamous Epithelial Cell Urine Rare /hpf (Few); WBC Urine 0-3 /hpf
[2021-08-28 23:32] LABS: NT Pro B Type Natriuretic Pept 18300 pg/mL (5-100)
[2021-08-29] VITALS (15 sets, daily range): BP systolic 118–156; BP diastolic 53–107; PULSE 72–99; RESP 16–30; TEMP 36.2–36.7; O2SAT 94–100; BMI 28.7
[2021-08-29] MEDS: FUROSEMIDE INJ 40 MG/4 ML VIAL IV PUSH ×2 (00:09→09:19)
[2021-08-29 01:11] LABS: Influenza A QL RT-PCR Negative (Negative); Influenza B QL RT-PCR Negative (Negative); SARS-CoV-2 RNA PCR Negative
--- NOTE | 2021-08-29 02:59 | PM.IMHP ---
H&P: HPI History of Present Illness Date/Time: 08/29/21 02:59 Chief Complaint: Confused Narrative: 81-year-old female with a past medical history of chronic hypoxic respiratory failure, CHF, COPD, insulin-dependent diabetes mellitus and chronic kidney disease who presented to the ER from home due to confusion. The patient reports that she has been seeing people and objects that are not there. She reports that her symptoms started before she is discharged from the hospital. She is on chronic home oxygen and has not had any increased shortness of breath, cough or congestion. She has chronic urinary frequency but denies any dysuria. She received some Lasix in the ER and had 350 mL of urine output. She has not had any diarrhea and reports normal bowel movements. She denies any chest pain or palpitations. In the ER the patient was reportedly falling asleep multiple times during evaluation. At the time of my evaluation the patient's state awake and was talking to me but would randomly reach for objects that were not present. She was reaching for something in her hand and taking it to her mouth like she was taking a pill. She dropped the nonexistent object and tried to find did within her bed covers. She reports that she has been using her CPAP. The bite having hallucinations the patient was alert oriented times 3-4. The patient had been hospitalized 08/14/2021 through 08/25/2021 due to pneumonia. She completed a complete course of Rocephin and doxycycline prior to discharge. She was also treated for CHF exacerbation with IV Lasix. Review of Systems Review of Systems: 12 systems were reviewed with pertinent positives and negatives per HPI. Except as documented in the HPI, all other systems were reviewed and are negative. [facility] Past Medical History Medical History (Updated 08/29/21 @ 07:58 by Shelly Sosa DO) Cardiac arrest with ventricular fibrillation (06/2018) Cervical cancer Cholelithiasis Chronic anemia Anemia of chronic disease Chronic kidney disease, stage 3 Chronic left-sided low back pain with left-sided sciatica Chronic respiratory failure with hypoxia, on home oxygen therapy Congestive heart failure Echocardiogram 08/15/2021: Mild left ventricular enlargement, left ventricular systolic function mildly reduced 45-50%, mildly increased left ventricular wall thickness, diastolic function normal, E/E minimally elevated, global longitudinal strain abnormal had-9.9%, left ventricular systolic function reduced, moderate left atrial enlargement, mitral clip, mitral valve regurgitation, moderate tricuspid valve regurgitation, moderate pulmonary hypertension RVSP of 54, trace pulmonic regurgitation, less than 50% collapse on inspiration consistent with elevated right atrial pressures Coronary artery disease Patient of Dr. Edward Carrasco. Status post CABG in 1998. Cardiac cath in November 2020 showed an EF of 50% with patent LAYNE graft to the LAD and occluded vein graft to the diagonal branch and obtuse marginal branch. Five stents were placed in November 2020. Diabetic peripheral neuropathy Diabetic retinopathy Essential hypertension Fracture of head of left femur (06/2021) Gastroesophageal reflux disease Hypertension Hypothyroidism Insulin dependent diabetes mellitus Ischemic cardiomyopathy EF as low as 35 to 45% in July 2018 Echocardiogram in November 2020 showed ejection fraction of 55 to 60%. Kidney stones Macular degeneration Major depression Mixed hyperlipidemia Nausea Obstructive sleep apnea on CPAP Osteoarthritis Osteoporosis Pulmonary hypertension Severe mitral valve regurgitation (01/2021) Status post MitraClip. Tobacco abuse Surgical History Surgical History History of bladder suspension procedure History of cardiac catheterization History of carpal tunnel release History of coronary artery bypass graft (1998) LAYNE graft to LAD and vein graft to diagonal branch and obtuse
[2021-08-29 08:45] LABS: Hematocrit 32.2 % (37.0-47.0); Hemoglobin 9.7 g/dL (12.0-15.0); Mean Corpuscular HGB Conc 30.1 g/dl (32-36); Mean Corpuscular Hemoglobin 29.3 pg (26-34); Mean Corpuscular Volume 97.3 fl (80-100); Mean Platelet Volume 10.1 fl (7.4-10.4); Platelet Count Result 305 k/mm3 (150-375); Red Blood Count 3.31 M/mm3 (4.2-5.4); White Blood Count 11.7 K/mm3 (4.5-10.0)
[2021-08-29 08:54] LABS: Ammonia < 9 umol/L (9-30)
[2021-08-29 08:55] LABS: Anion Gap 5 mmol/L (8-16); Blood Urea Nitrogen 29 mg/dL (7-17); Calcium 8.8 mg/dL (8.4-10.2); Carbon Dioxide 35 mmol/L (22-30); Chloride 91 mmol/L (98-107); Estimated CRCL calculation 35 ml/min; Estimated Glomerular Filt Rate 48; Glucose 193 mg/dL (65-110); Potassium 3.8 mmol/L (3.4-5.0); Sodium 131 mmol/L (137-145)
[2021-08-29] MEDS: hydrALAZINE HCL 50 MG TABLET PO ×3 (09:06→16:21)
[2021-08-29] MEDS: carvediloL 25 MG TABLET PO ×2 (09:06→16:21)
[2021-08-29] MEDS: PANTOPRAZOLE 40 MG TABLET PO ×2 (09:06→20:13)
[2021-08-29] MEDS: CLOPIDOGREL BISULFATE 75 MG TABLET PO (09:06)
[2021-08-29] MEDS: ASPIRIN 81 MG ENTERIC TABLET PO (09:06)
[2021-08-29] MEDS: ATORVASTATIN 40 MG TABLET 80 MG PO (09:06)
[2021-08-29] MEDS: LEVOTHYROXINE SODIUM 50 MCG TABLET PO (09:06)
[2021-08-29] MEDS: CITALOPRAM HYDROBROMIDE 20 MG TABLET 40 MG PO (09:07)
[2021-08-29] MEDS: buPROPion HCL XL (24 HR) 150 MG TABCR PO (09:07)
[2021-08-29] MEDS: ISOSORBIDE DINITRATE 10 MG TABLET PO ×2 (09:07→16:20)
[2021-08-29] MEDS: GABAPENTIN 300 MG CAPSULE PO ×3 (09:07→16:21)
[2021-08-29 09:10] LABS: Glucose Point of Care 223 mg/dl (65-105)
[2021-08-29] MEDS: INSULIN ASPART (*BKC) 100 UNITS/ML SUB-Q ×3 (09:13→16:21)
--- NOTE | 2021-08-29 09:37 | PM.IMPN ---
Progress Note: A&P Assessment and Plan (1) CHF exacerbation: Qualifiers: Heart failure type: unspecified Qualified Code(s): I50.9 - Heart failure, unspecified Code(s): I50.9 - Heart failure, unspecified Status: Acute Assessment and Plan: Last echo is 08/16 showed ejection fraction 45% Most likely acute on top of chronic systolic CHF exacerbation Elevated BNP Patient is short of breath and has lower extremity edema Give IV Lasix (2) Visual hallucinations: Code(s): R44.1 - Visual hallucinations Status: Acute Assessment and Plan: Most likely acute metabolic encephalopathy multifactorial secondary to CHF exacerbation COPD exacerbation and pneumonia improved CT scan of the head negative for acute finding (3) Chronic respiratory failure with hypoxia, on home oxygen therapy: Code(s): J96.11 - Chronic respiratory failure with hypoxia; Z99.81 - Dependence on supplemental oxygen Status: Acute Assessment and Plan: Continue oxygen (4) Insulin dependent diabetes mellitus: Status: Chronic Assessment and Plan: Insulin sliding scale (5) Altered mental status: Qualifiers: Altered mental status type: somnolence Qualified Code(s): R40.0 - Somnolence Code(s): R41.82 - Altered mental status, unspecified Status: Acute Assessment and Plan: As above (6) Hypertension: Code(s): I10 - Essential (primary) hypertension Status: Acute Assessment and Plan: Stable continue current treatment (7) Cholelithiasis: Code(s): K80.20 - Calculus of gallbladder without cholecystitis without obstruction Status: Acute Assessment and Plan: Follow-up with PCP as outpatient (8) CAD (coronary artery disease), autologous vein bypass graft: Code(s): I25.810 - Atherosclerosis of coronary artery bypass graft(s) without angina pectoris Status: Acute Assessment and Plan: Continue home medication (9) Chronic obstructive pulmonary disease: Qualifiers: COPD type: unspecified COPD Qualified Code(s): J44.9 - Chronic obstructive pulmonary disease, unspecified Code(s): J44.9 - Chronic obstructive pulmonary disease, unspecified Status: Acute Assessment and Plan: With acute exacerbation give nebulizer treatment no plan for steroid as patient has episode of hyperglycemia with steroid in the past continue to monitor if no improvement will add IV steroid (10) Pneumonia of both lungs due to infectious organism: Code(s): J18.9 - Pneumonia, unspecified organism Status: Acute Assessment and Plan: Broad-spectrum IV antibiotic follow blood culture and sputum culture Cefepime doxycycline started on 08/29/2021 Subjective Date/time seen: 08/29/21 09:37 Interval history: 81 years old female with past medical history of COPD CHF presented to the hospital with confusion and increased sleepiness patient was found to have pneumonia CHF exacerbation COPD exacerbation treated with IV diuresis IV antibiotic nebulizer treatment patient has history of hyperglycemia secondary to steroid Patient still feel weak Patient denies fever headache chest pain I am seeing the patient for shortness of breath Exam Narrative: Intermittent confusion Chest bilateral wheezing crackles Abdomen nontender nondistended CVS S1 + S2 Positive Lower extremity edema Objective Data Vital Signs Vital Signs: Vital Signs - 24 hr 08/28/21 21:32 08/28/21 22:54 08/29/21 00:10 Temperature 98.0 F Pulse Rate 71 80 75 Respiratory Rate 24 H 20 18 Blood Pressure 151/78 H 134/74 153/62 H Pulse Oximetry 96 93 100 08/29/21 01:10 08/29/21 01:30 08/29/21 04:00 Temperature 97.4 F L Pulse Rate 77 73 80 Respiratory Rate 18 26 H Blood Pressure 149/107 H 139/74 Pulse Oximetry 96 100 08/29/21 06:00 08/29/21 09:06 Temperature 97.8 F Pulse Rate 79 99 Respiratory Rate 30 H Blood Press
[2021-08-29] MEDS: DOXYCYCLINE 100 MG/NS 100 ML 100 MG/100 ML BAG IVPB ×2 (12:01→21:49)
[2021-08-29 12:03] LABS: Glucose Point of Care 250 mg/dl (65-105)
[2021-08-29] MEDS: FLUTICASONE/UMECLIDIN/VILANTER 100-62.5-25 MCG ELLIPTA 1 PUFF INHALATION (13:53)
[2021-08-29] MEDS: COLLAGENASE OINT 30 GM TUBE 1 APPLIC TOPICAL (15:36)
[2021-08-29 15:58] LABS: Glucose Point of Care 261 mg/dl (65-105)
[2021-08-29] MEDS: MELATONIN 5 MG TABLET PO (20:13)
[2021-08-29] MEDS: IPRATROPIUM BR 0.02% INH SOLN 0.5 MG/2.5 ML VIAL INHALATION (20:23)
[2021-08-30] VITALS (21 sets, daily range): BP systolic 115–157; BP diastolic 76–96; PULSE 58–109; RESP 16–21; TEMP 36.1–36.5; O2SAT 92–99
--- NOTE | 2021-08-30 00:24 | PCRCNOTE ---
Pt is ordered CPAP. Although earlier in the night the pt said she would try using the CPAP tonight, she is now refusing. Pt is currently extremely confused, but based on her refusal of the CPAP during her last admission (discharged 08/25/21), we are accepting her refusal. CPAP machine is on standby in pt's room.
[2021-08-30] MEDS: IPRATROPIUM BR 0.02% INH SOLN 0.5 MG/2.5 ML VIAL INHALATION ×4 (01:55→20:19)
[2021-08-30 06:07] LABS: Glucose Point of Care 262 mg/dl (65-105)
[2021-08-30] MEDS: LEVOTHYROXINE SODIUM 50 MCG TABLET PO (06:11)
[2021-08-30 07:48] LABS: Glucose Point of Care 282 mg/dl (65-105)
[2021-08-30] MEDS: COLLAGENASE OINT 30 GM TUBE 1 APPLIC TOPICAL (08:23)
[2021-08-30] MEDS: buPROPion HCL XL (24 HR) 150 MG TABCR PO (08:23)
[2021-08-30] MEDS: ASPIRIN 81 MG ENTERIC TABLET PO (08:23)
[2021-08-30] MEDS: ATORVASTATIN 40 MG TABLET 80 MG PO (08:23)
[2021-08-30] MEDS: GABAPENTIN 300 MG CAPSULE PO ×3 (08:23→16:36)
[2021-08-30] MEDS: carvediloL 25 MG TABLET PO ×2 (08:24→16:35)
[2021-08-30] MEDS: CITALOPRAM HYDROBROMIDE 20 MG TABLET 40 MG PO (08:24)
[2021-08-30] MEDS: PANTOPRAZOLE 40 MG TABLET PO (08:24)
[2021-08-30] MEDS: CLOPIDOGREL BISULFATE 75 MG TABLET PO (08:24)
[2021-08-30] MEDS: hydrALAZINE HCL 50 MG TABLET PO ×3 (08:24→16:35)
[2021-08-30] MEDS: INSULIN ASPART (*BKC) 100 UNITS/ML SUB-Q ×2 (08:25→12:01)
[2021-08-30] MEDS: ISOSORBIDE DINITRATE 10 MG TABLET PO ×2 (08:25→16:36)
[2021-08-30] MEDS: FUROSEMIDE INJ 40 MG/4 ML VIAL IV PUSH (08:25)
--- NOTE | 2021-08-30 08:47 | PM.IMPN ---
Progress Note: A&P Assessment and Plan (1) CHF exacerbation: Qualifiers: Heart failure type: unspecified Qualified Code(s): I50.9 - Heart failure, unspecified Code(s): I50.9 - Heart failure, unspecified Status: Acute Assessment and Plan: Last echo is 08/16 showed ejection fraction 45% Most likely acute on top of chronic systolic CHF exacerbation Elevated BNP Patient is short of breath and has lower extremity edema Give IV Lasix follow CMP (2) Visual hallucinations: Code(s): R44.1 - Visual hallucinations Status: Acute Assessment and Plan: Most likely acute metabolic encephalopathy multifactorial secondary to CHF exacerbation COPD exacerbation and pneumonia improved CT scan of the head negative for acute finding Improved (3) Chronic respiratory failure with hypoxia, on home oxygen therapy: Code(s): J96.11 - Chronic respiratory failure with hypoxia; Z99.81 - Dependence on supplemental oxygen Status: Acute Assessment and Plan: Continue oxygen (4) Insulin dependent diabetes mellitus: Status: Chronic Assessment and Plan: Insulin sliding scale (5) Altered mental status: Qualifiers: Altered mental status type: somnolence Qualified Code(s): R40.0 - Somnolence Code(s): R41.82 - Altered mental status, unspecified Status: Acute Assessment and Plan: As above (6) Hypertension: Code(s): I10 - Essential (primary) hypertension Status: Acute Assessment and Plan: Stable continue current treatment (7) Cholelithiasis: Code(s): K80.20 - Calculus of gallbladder without cholecystitis without obstruction Status: Acute Assessment and Plan: Follow-up with PCP as outpatient (8) CAD (coronary artery disease), autologous vein bypass graft: Code(s): I25.810 - Atherosclerosis of coronary artery bypass graft(s) without angina pectoris Status: Acute Assessment and Plan: Continue home medication (9) Chronic obstructive pulmonary disease: Qualifiers: COPD type: unspecified COPD Qualified Code(s): J44.9 - Chronic obstructive pulmonary disease, unspecified Code(s): J44.9 - Chronic obstructive pulmonary disease, unspecified Status: Acute Assessment and Plan: With acute exacerbation give nebulizer treatment no plan for steroid as patient has episode of hyperglycemia with steroid in the past continue to monitor if no improvement will add IV steroid (10) Pneumonia of both lungs due to infectious organism: Code(s): J18.9 - Pneumonia, unspecified organism Status: Acute Assessment and Plan: Broad-spectrum IV antibiotic follow blood culture and sputum culture Cefepime doxycycline started on 08/29/2021 Additional Plan Patient has been admitted as observation status. Subjective Date/time seen: 08/30/21 08:47 Interval history: 81 years old female with past medical history of COPD CHF presented to the hospital with confusion and increased sleepiness patient was found to have pneumonia CHF exacerbation COPD exacerbation treated with IV diuresis IV antibiotic nebulizer treatment patient has history of hyperglycemia secondary to steroid Patient feels better today pending CBC and CMP from today shortness of breath improved mental status improved more alert Patient denies fever headache chest pain I am seeing the patient for shortness of breath Exam Narrative: More alert today Chest bilateral wheezing crackles Abdomen nontender nondistended CVS S1 + S2 Positive Lower extremity edema better Objective Data Vital Signs Vital Signs: Vital Signs - 24 hr 08/29/21 09:00 08/29/21 09:06 08/29/21 12:00 Temperature Pulse Rate 92 99 77 Respiratory Rate Blood Pressure Pulse Oximetry 08/29/21 14:00 08/29/21 16:00 08/29/21 16:21 Temperature 98.0 F Pulse Rate 74 77 76 Respiratory Rate 22 H Blood Pressure 118/53 L
[2021-08-30] MEDS: FLUTICASONE/UMECLIDIN/VILANTER 100-62.5-25 MCG ELLIPTA 1 PUFF INHALATION (08:55)
[2021-08-30 09:14] LABS: Basophils Percent Auto 0.2 % (0.2-1.2); Eosinophils Absolute Auto 0.1 K/mm3 (0-0.3); Eosinophils Percent Auto 0.7 % (0-4.4); Hematocrit 29.6 % (37.0-47.0); Hemoglobin 9.2 g/dL (12.0-15.0); Immature Granulocyte Absolute 0.06 K/mm3 (0.00-0.031); Immature Granulocyte Percent A 0.6 % (0-0.5); Lymphocytes Percent Auto 4.2 % (18.3-44.2); Mean Corpuscular HGB Conc 31.1 g/dl (32-36); Mean Corpuscular Hemoglobin 29.8 pg (26-34); Mean Corpuscular Volume 95.8 fl (80-100); Mean Platelet Volume 10.2 fl (7.4-10.4); Monocytes Absolute Auto 0.7 K/mm3 (0.1-0.6); Monocytes Percent Auto 7.2 % (2.6-8.5); Neutrophils Absolute Auto 8.3 K/mm3 (1.3-6.7); Neutrophils Percent Auto 87.1 % (45.5-73.1); Platelet Count Result 285 k/mm3 (150-375); Red Blood Count 3.09 M/mm3 (4.2-5.4); Red Cell Distribution Width 16.9 % (11.5-14.5); White Blood Count 9.5 K/mm3 (4.5-10.0)
[2021-08-30 09:26] LABS: Alanine Aminotransferase 35 U/L (4-35); Albumin Level 3.3 g/dL (3.5-5.1); Alkaline Phosphatase 168 U/L (38-126); Anion Gap 5 mmol/L (8-16); Aspartate Amino Transferase 64 U/L (14-36); Bilirubin,Total 1.3 mg/dL (0.2-1.3); Blood Urea Nitrogen 45 mg/dL (7-17); Calcium 8.9 mg/dL (8.4-10.2); Carbon Dioxide 36 mmol/L (22-30); Chloride 90 mmol/L (98-107); Estimated CRCL calculation 30 ml/min; Estimated Glomerular Filt Rate 39; Glucose 318 mg/dL (65-110); Potassium 4.2 mmol/L (3.4-5.0); Sodium 131 mmol/L (137-145)
--- NOTE | 2021-08-30 09:34 | PCPTNOTE ---
Patient refused treatment this session. Educated patient on the importance of therapy, patient continued to refuse.
[2021-08-30] MEDS: DOXYCYCLINE 100 MG/NS 100 ML 100 MG/100 ML BAG IVPB ×2 (11:17→23:09)
[2021-08-30 11:26] LABS: Glucose Point of Care 374 mg/dl (65-105)
[2021-08-30 16:31] LABS: Glucose Point of Care 171 mg/dl (65-105)
[2021-08-30 23:27] LABS: Glucose Point of Care 152 mg/dl (65-105)
[2021-08-31] VITALS (16 sets, daily range): BP systolic 114–132; BP diastolic 52–69; PULSE 50–93; RESP 16–18; TEMP 36.5–36.6; O2SAT 94–100
[2021-08-31] MEDS: IPRATROPIUM BR 0.02% INH SOLN 0.5 MG/2.5 ML VIAL INHALATION ×2 (02:16→20:21)
[2021-08-31] MEDS: LEVOTHYROXINE SODIUM 50 MCG TABLET PO (05:35)
[2021-08-31 06:32] LABS: Alanine Aminotransferase 31 U/L (4-35); Alkaline Phosphatase 155 U/L (38-126); Anion Gap 4 mmol/L (8-16); Aspartate Amino Transferase 53 U/L (14-36); Bilirubin,Total 0.9 mg/dL (0.2-1.3); Blood Urea Nitrogen 42 mg/dL (7-17); Calcium 8.9 mg/dL (8.4-10.2); Carbon Dioxide 36 mmol/L (22-30); Chloride 93 mmol/L (98-107); Estimated CRCL calculation 32 ml/min; Estimated Glomerular Filt Rate 43; Glucose 162 mg/dL (65-110); Potassium 3.9 mmol/L (3.4-5.0); Sodium 133 mmol/L (137-145)
[2021-08-31 07:36] LABS: Glucose Point of Care 191 mg/dl (65-105)
[2021-08-31 07:44] LABS: Basophils Absolute Auto 0.1 K/mm3 (0.0-0.1); Basophils Percent Auto 0.4 % (0.2-1.2); Eosinophils Absolute Auto 0.3 K/mm3 (0-0.3); Eosinophils Percent Auto 2.1 % (0-4.4); Hematocrit 29.2 % (37.0-47.0); Hemoglobin 9.1 g/dL (12.0-15.0); Immature Granulocyte Absolute 0.07 K/mm3 (0.00-0.031); Immature Granulocyte Percent A 0.5 % (0-0.5); Lymphocytes Absolute Auto 0.45 K/mm3 (0.9-3.2); Lymphocytes Percent Auto 3.3 % (18.3-44.2); Mean Corpuscular HGB Conc 31.2 g/dl (32-36); Mean Corpuscular Hemoglobin 30.1 pg (26-34); Mean Corpuscular Volume 96.7 fl (80-100); Mean Platelet Volume 10.2 fl (7.4-10.4); Monocytes Absolute Auto 1.1 K/mm3 (0.1-0.6); Monocytes Percent Auto 8.5 % (2.6-8.5); Neutrophils Absolute Auto 11.5 K/mm3 (1.3-6.7); Neutrophils Percent Auto 85.2 % (45.5-73.1); Platelet Count Result 253 k/mm3 (150-375); Red Blood Count 3.02 M/mm3 (4.2-5.4); Red Cell Distribution Width 17.1 % (11.5-14.5); White Blood Count 13.5 K/mm3 (4.5-10.0)
[2021-08-31] MEDS: carvediloL 25 MG TABLET PO ×2 (09:16→17:11)
[2021-08-31] MEDS: CITALOPRAM HYDROBROMIDE 20 MG TABLET 40 MG PO (09:16)
[2021-08-31] MEDS: GABAPENTIN 300 MG CAPSULE PO ×3 (09:16→17:10)
[2021-08-31] MEDS: ATORVASTATIN 40 MG TABLET 80 MG PO (09:16)
[2021-08-31] MEDS: COLLAGENASE OINT 30 GM TUBE 1 APPLIC TOPICAL (09:16)
[2021-08-31] MEDS: FUROSEMIDE INJ 40 MG/4 ML VIAL IV PUSH ×2 (09:17→17:09)
[2021-08-31] MEDS: CLOPIDOGREL BISULFATE 75 MG TABLET PO (09:17)
[2021-08-31] MEDS: ISOSORBIDE DINITRATE 10 MG TABLET PO ×2 (09:17→17:09)
[2021-08-31] MEDS: ASPIRIN 81 MG ENTERIC TABLET PO (09:17)
[2021-08-31] MEDS: buPROPion HCL XL (24 HR) 150 MG TABCR PO (09:17)
[2021-08-31] MEDS: PANTOPRAZOLE 40 MG TABLET PO ×2 (09:17→20:36)
[2021-08-31] MEDS: hydrALAZINE HCL 50 MG TABLET PO ×3 (09:17→17:10)
--- NOTE | 2021-08-31 09:28 | PM.IMPN ---
Progress Note: A&P Assessment and Plan (1) CHF exacerbation: Qualifiers: Heart failure type: unspecified Qualified Code(s): I50.9 - Heart failure, unspecified Code(s): I50.9 - Heart failure, unspecified Status: Acute Assessment and Plan: Last echo is 08/16 showed ejection fraction 45% Positive pulmonary hypertension Most likely acute on top of chronic systolic CHF exacerbation Elevated BNP Patient is short of breath and has lower extremity edema Benefit out with the risk increased dose of Lasix today Re-evaluate in a.m. Follow renal function (2) Visual hallucinations: Code(s): R44.1 - Visual hallucinations Status: Acute Assessment and Plan: Most likely acute metabolic encephalopathy multifactorial secondary to CHF exacerbation COPD exacerbation and pneumonia improved CT scan of the head negative for acute finding Improved Patient currently complains of vertigo added meclizine will get MRI of the brain complete workup Also added orthostatic every shift (3) Chronic respiratory failure with hypoxia, on home oxygen therapy: Code(s): J96.11 - Chronic respiratory failure with hypoxia; Z99.81 - Dependence on supplemental oxygen Status: Acute Assessment and Plan: Continue oxygen (4) Insulin dependent diabetes mellitus: Status: Chronic Assessment and Plan: Insulin sliding scale (5) Altered mental status: Qualifiers: Altered mental status type: somnolence Qualified Code(s): R40.0 - Somnolence Code(s): R41.82 - Altered mental status, unspecified Status: Acute Assessment and Plan: As above (6) Hypertension: Code(s): I10 - Essential (primary) hypertension Status: Acute Assessment and Plan: Stable continue current treatment (7) Cholelithiasis: Code(s): K80.20 - Calculus of gallbladder without cholecystitis without obstruction Status: Acute Assessment and Plan: Follow-up with PCP as outpatient (8) CAD (coronary artery disease), autologous vein bypass graft: Code(s): I25.810 - Atherosclerosis of coronary artery bypass graft(s) without angina pectoris Status: Acute Assessment and Plan: Continue home medication (9) Chronic obstructive pulmonary disease: Qualifiers: COPD type: unspecified COPD Qualified Code(s): J44.9 - Chronic obstructive pulmonary disease, unspecified Code(s): J44.9 - Chronic obstructive pulmonary disease, unspecified Status: Acute Assessment and Plan: With acute exacerbation give nebulizer treatment no plan for steroid as patient has episode of hyperglycemia with steroid in the past continue to monitor if no improvement will add IV steroid in a.m. (10) Pneumonia of both lungs due to infectious organism: Code(s): J18.9 - Pneumonia, unspecified organism Status: Acute Assessment and Plan: Broad-spectrum IV antibiotic follow blood culture and sputum culture Cefepime doxycycline started on 08/29/2021 Patient complained of worsening shortness of breath today will get CT scan of the chest Subjective Date/time seen: 08/31/21 09:28 Interval history: 81 years old female with past medical history of COPD CHF presented to the hospital with confusion and increased sleepiness patient was found to have pneumonia CHF exacerbation COPD exacerbation treated with IV diuresis IV antibiotic nebulizer treatment patient has history of hyperglycemia secondary to steroid Patient is more short of breath today she is complaining of cough and shortness of breath will get CT scan of the chest pleural also increase the dose of Lasix monitor BMP if no improvement will consider adding IV steroid Patient denies fever headache chest pain I am seeing the patient for shortness of breath Exam Narrative: More alert today Chest bilateral wheezing crackles Abdomen nontender nondistended CVS S1 + S2 Positive Lower extremity dm
[2021-08-31] MEDS: MECLIZINE HCL 25 MG TABLET PO (11:07)
[2021-08-31 11:42] LABS: Glucose Point of Care 319 mg/dl (65-105)
[2021-08-31] MEDS: DOXYCYCLINE 100 MG/NS 100 ML 100 MG/100 ML BAG IVPB ×2 (11:43→22:53)
[2021-08-31] MEDS: INSULIN ASPART (*BKC) 100 UNITS/ML SUB-Q ×2 (12:42→17:13)
[2021-08-31 16:20] LABS: Glucose Point of Care 289 mg/dl (65-105)
[2021-08-31 21:49] LABS: Glucose Point of Care 171 mg/dl (65-105)
[2021-09-01] VITALS (24 sets, daily range): BP systolic 129–136; BP diastolic 51–68; PULSE 68–89; RESP 13–18; TEMP 36.3–36.6; O2SAT 94–97
[2021-09-01] MEDS: IPRATROPIUM BR 0.02% INH SOLN 0.5 MG/2.5 ML VIAL INHALATION ×4 (01:18→20:50)
[2021-09-01] MEDS: LEVOTHYROXINE SODIUM 50 MCG TABLET PO (05:31)
[2021-09-01 05:50] LABS: Basophils Percent Auto 0.4 % (0.2-1.2); Eosinophils Absolute Auto 0.6 K/mm3 (0-0.3); Eosinophils Percent Auto 6.2 % (0-4.4); Hematocrit 27.8 % (37.0-47.0); Hemoglobin 8.6 g/dL (12.0-15.0); Immature Granulocyte Absolute 0.04 K/mm3 (0.00-0.031); Immature Granulocyte Percent A 0.4 % (0-0.5); Lymphocytes Absolute Auto 0.63 K/mm3 (0.9-3.2); Lymphocytes Percent Auto 6.4 % (18.3-44.2); Mean Corpuscular HGB Conc 30.9 g/dl (32-36); Mean Corpuscular Hemoglobin 29.9 pg (26-34); Mean Corpuscular Volume 96.5 fl (80-100); Mean Platelet Volume 10.1 fl (7.4-10.4); Monocytes Absolute Auto 1.2 K/mm3 (0.1-0.6); Monocytes Percent Auto 11.7 % (2.6-8.5); Neutrophils Absolute Auto 7.4 K/mm3 (1.3-6.7); Neutrophils Percent Auto 74.9 % (45.5-73.1); Platelet Count Result 246 k/mm3 (150-375); Red Blood Count 2.88 M/mm3 (4.2-5.4); Red Cell Distribution Width 17.2 % (11.5-14.5); White Blood Count 9.8 K/mm3 (4.5-10.0)
[2021-09-01 06:09] LABS: Alanine Aminotransferase 27 U/L (4-35); Alkaline Phosphatase 139 U/L (38-126); Anion Gap 3 mmol/L (8-16); Aspartate Amino Transferase 41 U/L (14-36); Bilirubin,Total 0.9 mg/dL (0.2-1.3); Blood Urea Nitrogen 46 mg/dL (7-17); Calcium 8.6 mg/dL (8.4-10.2); Carbon Dioxide 37 mmol/L (22-30); Chloride 94 mmol/L (98-107); Estimated CRCL calculation 32 ml/min; Estimated Glomerular Filt Rate 43; Glucose 165 mg/dL (65-110); Potassium 3.8 mmol/L (3.4-5.0); Sodium 134 mmol/L (137-145)
[2021-09-01 07:56] LABS: Glucose Point of Care 185 mg/dl (65-105)
[2021-09-01] MEDS: FLUTICASONE/UMECLIDIN/VILANTER 100-62.5-25 MCG ELLIPTA 1 PUFF INHALATION (08:17)
[2021-09-01] MEDS: carvediloL 25 MG TABLET PO ×2 (09:05→17:19)
[2021-09-01] MEDS: ASPIRIN 81 MG ENTERIC TABLET PO (09:06)
[2021-09-01] MEDS: buPROPion HCL XL (24 HR) 150 MG TABCR PO (09:07)
[2021-09-01] MEDS: CITALOPRAM HYDROBROMIDE 20 MG TABLET 40 MG PO (09:07)
[2021-09-01] MEDS: ATORVASTATIN 40 MG TABLET 80 MG PO (09:07)
[2021-09-01] MEDS: CLOPIDOGREL BISULFATE 75 MG TABLET PO (09:07)
[2021-09-01] MEDS: GABAPENTIN 300 MG CAPSULE PO ×3 (09:08→17:18)
[2021-09-01] MEDS: ISOSORBIDE DINITRATE 10 MG TABLET PO ×2 (09:09→17:18)
[2021-09-01] MEDS: PANTOPRAZOLE 40 MG TABLET PO ×2 (09:09→20:18)
[2021-09-01] MEDS: hydrALAZINE HCL 50 MG TABLET PO ×3 (09:09→17:19)
[2021-09-01] MEDS: FUROSEMIDE INJ 40 MG/4 ML VIAL IV PUSH ×2 (09:10→17:18)
--- NOTE | 2021-09-01 10:13 | PM.IMPN ---
Progress Note: A&P Assessment and Plan (1) CHF exacerbation: Qualifiers: Heart failure type: unspecified Qualified Code(s): I50.9 - Heart failure, unspecified Code(s): I50.9 - Heart failure, unspecified Status: Acute Assessment and Plan: Last echo is 08/16 showed ejection fraction 45 to 50 % with LVH, moderate LVE, mitral clip, mild MR and moderate TR with moderate pulmonary hypertension with RVSP 54 mm Hg Most likely acute on top of chronic systolic CHF exacerbation Elevated BNP at 18,000 Patient presented with short of breath and has lower extremity edema Benefit out with the risk increased dose of Lasix today CT chest abdomen pelvis 08/31/2021 Moderate amount of airspace disease probably pneumonia Moderate right pleural effusion Cardiomegaly Moderate colonic diverticulosis Cholelithiasis Continue diuresis and IV antibiotics as ordered (2) Visual hallucinations: Code(s): R44.1 - Visual hallucinations Status: Acute Assessment and Plan: Most likely acute metabolic encephalopathy multifactorial secondary to CHF exacerbation COPD exacerbation and pneumonia improved CT scan of the head negative for acute finding Improved Patient currently complains of vertigo added meclizine will get MRI of the brain complete workup Also added orthostatic every shift (3) Chronic respiratory failure with hypoxia, on home oxygen therapy: Code(s): J96.11 - Chronic respiratory failure with hypoxia; Z99.81 - Dependence on supplemental oxygen Status: Acute Assessment and Plan: Acute on chronic respiratory failure 2 L supplemental oxygen at home prior to this admission. Continue oxygen Influenza a/B negative COVID negative (4) Insulin dependent diabetes mellitus: Status: Chronic Assessment and Plan: Insulin sliding scale (5) Altered mental status: Qualifiers: Altered mental status type: somnolence Qualified Code(s): R40.0 - Somnolence Code(s): R41.82 - Altered mental status, unspecified Status: Acute Assessment and Plan: As above CT head is negative evidence of pneumonia and/or CHF (6) Hypertension: Code(s): I10 - Essential (primary) hypertension Status: Acute Assessment and Plan: Stable continue current treatment (7) Cholelithiasis: Code(s): K80.20 - Calculus of gallbladder without cholecystitis without obstruction Status: Acute Assessment and Plan: Follow-up with PCP as outpatient (8) CAD (coronary artery disease), autologous vein bypass graft: Code(s): I25.810 - Atherosclerosis of coronary artery bypass graft(s) without angina pectoris Status: Acute Assessment and Plan: Continue home medication (9) Chronic obstructive pulmonary disease: Qualifiers: COPD type: unspecified COPD Qualified Code(s): J44.9 - Chronic obstructive pulmonary disease, unspecified Code(s): J44.9 - Chronic obstructive pulmonary disease, unspecified Status: Acute Assessment and Plan: With acute exacerbation give nebulizer treatment no plan for steroid as patient has episode of hyperglycemia with steroid in the past continue to monitor (10) Pneumonia of both lungs due to infectious organism: Code(s): J18.9 - Pneumonia, unspecified organism Status: Acute Assessment and Plan: Broad-spectrum IV antibiotic follow blood culture and sputum culture Cefepime doxycycline started on 08/29/2021 Patient complained of worsening shortness of breath Patient has lesser rhonchi and wheezing at the bases will start steroid MRSA screen if positive will start vancomycin Reviewed CT scan of the chest Has right pleural fluid that might need to be tapped if not improved Will add mucolytic agent a status cystine/hypertonic saline neb along with Mucinex Subjective Date/time seen: 09/01/21 10:13 Interval history: 81 years old female with past medical history of C
[2021-09-01] MEDS: DOXYCYCLINE 100 MG/NS 100 ML 100 MG/100 ML BAG IVPB ×2 (10:15→23:25)
[2021-09-01] MEDS: COLLAGENASE OINT 30 GM TUBE 1 APPLIC TOPICAL (10:18)
[2021-09-01] MEDS: guaiFENesin 12 HR 600 MG TABCR 1200 MG PO ×2 (11:10→20:18)
[2021-09-01] MEDS: methylPREDNISolone SOD SUCC 40 MG VIAL IV PUSH ×2 (11:10→20:18)
[2021-09-01 11:33] LABS: Glucose Point of Care 277 mg/dl (65-105)
[2021-09-01] MEDS: INSULIN ASPART (*BKC) 100 UNITS/ML SUB-Q ×2 (12:10→17:17)
--- NOTE | 2021-09-01 12:15 | PCNFU ---
Nutrition Follow-Up Complete: Increase protein needs related to wounds as evidenced by unstageable medial sacrum pressure ulcer, unstageable left heel pressure ulcer, stage II left lower buttock pressure ulcer Goal:Pt to meet greater than or equal to 75% of estimated nutritional needs at meals Pt is progressing towards goal Pt current nutrition is heart healthy, glucerna shakes TID, TONNY BID (prefers orange). Nutrition recommendation: Add TONNY to diet white soda for better acceptance Last recorded weight is 73.9 kg - stable at this time. Bowel Motility:+BM Labs Reviewed:BUN: 46, CRE: 1.2,Gluc 185 Meds Noted: Skin:multiple pressure areas continue Additional Notes: pt reports good appetite and intake of meals. Has not been drinking the TONNY, but educated on importance for wound healing. Will add diet white soda to TONNY (orange) BID for better acceptance. Will monitor labs, medication, wt and reported intake every 5 days
[2021-09-01] MEDS: ACETYLCYSTEINE 20% INHAL SOLN 800 MG/4 ML VIAL 200 MG INHALATION ×2 (14:49→20:50)
--- NOTE | 2021-09-01 15:08 | PCCCNOTE ---
On 09/01/21, the student, [Denise Magallon], provided care and completed [facility] documentation on this patient. I have reviewed the student's documentation and agree with the findings.
[2021-09-01 16:26] LABS: Glucose Point of Care 398 mg/dl (65-105)
[2021-09-01] MEDS: INSULIN GLARGINE (*BKC) 100 UNITS/ML 20 UNITS SUB-Q (20:18)
[2021-09-01] MEDS: MELATONIN 5 MG TABLET PO (20:18)
[2021-09-01] MEDS: INSULIN ASPART (*BKC) 100 UNITS/ML 12 UNITS SUB-Q (20:45)
[2021-09-01 22:17] LABS: Glucose Point of Care 447 mg/dl (65-105)
[2021-09-02] VITALS (21 sets, daily range): BP systolic 112–156; BP diastolic 55–99; PULSE 50–75; RESP 16–18; TEMP 36.3–36.8; O2SAT 98–99
[2021-09-02 00:25] LABS: Glucose Point of Care 307 mg/dl (65-105)
[2021-09-02] MEDS: LEVOTHYROXINE SODIUM 50 MCG TABLET PO (05:35)
[2021-09-02 05:53] LABS: Hematocrit 28.7 % (37.0-47.0); Hemoglobin 8.5 g/dL (12.0-15.0); Immature Granulocyte Absolute 0.02 K/mm3 (0.00-0.031); Immature Granulocyte Percent A 0.3 % (0-0.5); Lymphocytes Absolute Auto 0.26 K/mm3 (0.9-3.2); Lymphocytes Percent Auto 4.1 % (18.3-44.2); Mean Corpuscular HGB Conc 29.6 g/dl (32-36); Monocytes Absolute Auto 0.3 K/mm3 (0.1-0.6); Monocytes Percent Auto 4.4 % (2.6-8.5); Neutrophils Absolute Auto 5.9 K/mm3 (1.3-6.7); Neutrophils Percent Auto 91.2 % (45.5-73.1); Platelet Count Result 230 k/mm3 (150-375); Red Blood Count 2.93 M/mm3 (4.2-5.4); Red Cell Distribution Width 16.9 % (11.5-14.5); White Blood Count 6.4 K/mm3 (4.5-10.0)
[2021-09-02 06:06] LABS: Alanine Aminotransferase 24 U/L (4-35); Alkaline Phosphatase 137 U/L (38-126); Anion Gap 3 mmol/L (8-16); Aspartate Amino Transferase 29 U/L (14-36); Bilirubin,Total 0.7 mg/dL (0.2-1.3); Blood Urea Nitrogen 45 mg/dL (7-17); Calcium 8.6 mg/dL (8.4-10.2); Carbon Dioxide 37 mmol/L (22-30); Chloride 95 mmol/L (98-107); Estimated CRCL calculation 32 ml/min; Estimated Glomerular Filt Rate 43; Glucose 234 mg/dL (65-110); Magnesium 1.9 mg/dL (1.6-2.3); Potassium 3.7 mmol/L (3.4-5.0); Sodium 135 mmol/L (137-145)
[2021-09-02 06:54] LABS: Hypochromasia 1+ (NORMAL); Platelet Estimate Adequate (Adequate)
[2021-09-02 06:55] LABS: Acanthocytes 1+ (NORMAL); Basophilic Stippling 1+ (NORMAL)
[2021-09-02 07:49] LABS: Glucose Point of Care 216 mg/dl (65-105)
[2021-09-02] MEDS: FLUTICASONE/UMECLIDIN/VILANTER 100-62.5-25 MCG ELLIPTA 1 PUFF INHALATION (08:43)
[2021-09-02] MEDS: IPRATROPIUM BR 0.02% INH SOLN 0.5 MG/2.5 ML VIAL INHALATION ×3 (08:43→19:59)
[2021-09-02] MEDS: ACETYLCYSTEINE 20% INHAL SOLN 800 MG/4 ML VIAL 200 MG INHALATION ×3 (08:43→20:00)
[2021-09-02] MEDS: INSULIN ASPART (*BKC) 100 UNITS/ML 8 UNITS SUB-Q ×3 (09:18→17:37)
[2021-09-02] MEDS: INSULIN ASPART (*BKC) 100 UNITS/ML SUB-Q ×2 (09:19→13:07)
[2021-09-02] MEDS: CITALOPRAM HYDROBROMIDE 20 MG TABLET 40 MG PO (09:20)
[2021-09-02] MEDS: COLLAGENASE OINT 30 GM TUBE 1 APPLIC TOPICAL (09:20)
[2021-09-02] MEDS: CLOPIDOGREL BISULFATE 75 MG TABLET PO (09:20)
[2021-09-02] MEDS: GABAPENTIN 300 MG CAPSULE PO ×3 (09:20→17:37)
[2021-09-02] MEDS: carvediloL 25 MG TABLET PO ×2 (09:20→17:36)
[2021-09-02] MEDS: methylPREDNISolone SOD SUCC 40 MG VIAL IV PUSH ×2 (09:20→21:03)
[2021-09-02] MEDS: ATORVASTATIN 40 MG TABLET 80 MG PO (09:21)
[2021-09-02] MEDS: FUROSEMIDE INJ 40 MG/4 ML VIAL IV PUSH ×2 (09:21→17:36)
[2021-09-02] MEDS: hydrALAZINE HCL 50 MG TABLET PO ×2 (09:21→17:36)
[2021-09-02] MEDS: PANTOPRAZOLE 40 MG TABLET PO ×2 (09:21→21:02)
[2021-09-02] MEDS: guaiFENesin 12 HR 600 MG TABCR 1200 MG PO ×2 (09:21→21:03)
[2021-09-02] MEDS: ASPIRIN 81 MG ENTERIC TABLET PO (09:21)
[2021-09-02] MEDS: buPROPion HCL XL (24 HR) 150 MG TABCR PO (09:21)
[2021-09-02] MEDS: ISOSORBIDE DINITRATE 10 MG TABLET PO ×2 (09:21→17:38)
--- NOTE | 2021-09-02 11:11 | PCPTNOTE ---
Patient refused treatment this session. Patient more lethargic this date and refused to participate in therapy. RN aware.
[2021-09-02 11:36] LABS: Glucose Point of Care 219 mg/dl (65-105)
[2021-09-02] MEDS: DOXYCYCLINE 100 MG/NS 100 ML 100 MG/100 ML BAG IVPB ×2 (11:55→23:23)
--- NOTE | 2021-09-02 12:21 | PCOTNOTE ---
Attempted to see patient this AM x2 - patient refused as she was sleeping and then later [employer] OPERATOR was with patient. Attempted to see patient again for OT, patient refused this PM. Patient may benefit from decreased frequency with OT plan of care until participation improves. Will decrease frequency and continue plan of care.
--- NOTE | 2021-09-02 12:49 | PM.IMPN ---
Progress Note: A&P Assessment and Plan (1) CHF exacerbation: Qualifiers: Heart failure type: unspecified Qualified Code(s): I50.9 - Heart failure, unspecified Code(s): I50.9 - Heart failure, unspecified Status: Acute Assessment and Plan: Last echo is 08/16 showed ejection fraction 45 to 50 % with LVH, moderate LVE, mitral clip, mild MR and moderate TR with moderate pulmonary hypertension with RVSP 54 mm Hg Most likely acute on top of chronic systolic CHF exacerbation Elevated BNP at 18,000 Patient presented with short of breath and has lower extremity edema Benefit out with the risk increased dose of Lasix today CT chest abdomen pelvis 08/31/2021 Moderate amount of airspace disease probably pneumonia Moderate right pleural effusion Cardiomegaly Moderate colonic diverticulosis Cholelithiasis Continue diuresis and IV antibiotics as ordered (2) Visual hallucinations: Code(s): R44.1 - Visual hallucinations Status: Acute Assessment and Plan: Most likely acute metabolic encephalopathy multifactorial secondary to CHF exacerbation COPD exacerbation and pneumonia improved CT scan of the head negative for acute finding Improved Patient currently complains of vertigo added meclizine will get MRI of the brain complete workup Also added orthostatic every shift (3) Chronic respiratory failure with hypoxia, on home oxygen therapy: Code(s): J96.11 - Chronic respiratory failure with hypoxia; Z99.81 - Dependence on supplemental oxygen Status: Acute Assessment and Plan: Acute on chronic respiratory failure 2 L supplemental oxygen at home prior to this admission. Continue oxygen Influenza a/B negative COVID negative MRSA swab pending (4) Insulin dependent diabetes mellitus: Status: Chronic Assessment and Plan: Insulin sliding scale Added on Lantus Adjust as needed (5) Altered mental status: Qualifiers: Altered mental status type: somnolence Qualified Code(s): R40.0 - Somnolence Code(s): R41.82 - Altered mental status, unspecified Status: Acute Assessment and Plan: As above CT head is negative evidence of pneumonia and/or CHF (6) Hypertension: Code(s): I10 - Essential (primary) hypertension Status: Acute Assessment and Plan: Stable continue current treatment (7) Cholelithiasis: Code(s): K80.20 - Calculus of gallbladder without cholecystitis without obstruction Status: Acute Assessment and Plan: Follow-up with PCP as outpatient (8) CAD (coronary artery disease), autologous vein bypass graft: Code(s): I25.810 - Atherosclerosis of coronary artery bypass graft(s) without angina pectoris Status: Acute Assessment and Plan: Continue home medication (9) Chronic obstructive pulmonary disease: Qualifiers: COPD type: unspecified COPD Qualified Code(s): J44.9 - Chronic obstructive pulmonary disease, unspecified Code(s): J44.9 - Chronic obstructive pulmonary disease, unspecified Status: Acute Assessment and Plan: With acute exacerbation give nebulizer treatment no plan for steroid as patient has episode of hyperglycemia with steroid in the past continue to monitor (10) Pneumonia of both lungs due to infectious organism: Code(s): J18.9 - Pneumonia, unspecified organism Status: Acute Assessment and Plan: Broad-spectrum IV antibiotic follow blood culture and sputum culture Cefepime doxycycline started on 08/29/2021 Patient complained of worsening shortness of breath Patient has lesser rhonchi and wheezing at the bases will start steroid MRSA screen if positive will start vancomycin Reviewed CT scan of the chest Has right pleural fluid that might need to be tapped if not improved Will add mucolytic agent a status cystine/hypertonic saline neb along with Mucinex Additional Plan Patient has been admitted as observation s
--- NOTE | 2021-09-02 13:22 | PCPTNOTE ---
The patient treatment was not able to be completed on this date due to patient shaking her head no and saying no when therapist asked her about doing Physical Therapy. Pt. kept her eyes closed when talking to the therapist. RN stated that patient has been very sleepy today. RN took pt's blood pressure prior to therapist asking about therapy and her blood pressure was 124/64. Will plan to continue treatment per plan of care.
[2021-09-02 16:36] LABS: Glucose Point of Care 148 mg/dl (65-105)
--- NOTE | 2021-09-02 18:07 | PC.NURSE ---
Pt is noted to be very fatigued today. RN assessed blood pressure at 1320 and the dynomap read 124/62 and her heart rate ranged 53 bpm to [address] Rea at 1324 to inform him of her marked fatigued and weakness. RN asked Dr. Rea if it is appropriate to hold hydalazine that was due at 1300 and he confirmed the hold of the medicine for that time. RN did not administer the 1300 hydralazine that was due. Will continue to monitor.
[2021-09-02] MEDS: ALBUTEROL SULFATE NEB 2.5 MG/0.5 ML INH INHALATION (20:00)
[2021-09-02] MEDS: MELATONIN 5 MG TABLET PO (21:02)
[2021-09-02] MEDS: INSULIN GLARGINE (*BKC) 100 UNITS/ML 20 UNITS SUB-Q (21:06)
[2021-09-02 21:26] LABS: Glucose Point of Care 91 mg/dl (65-105)
[2021-09-03] VITALS (25 sets, daily range): BP systolic 105–142; BP diastolic 46–70; PULSE 53–80; RESP 16–18; TEMP 36.6–36.8; O2SAT 94–100
[2021-09-03] MEDS: ALBUTEROL SULFATE NEB 2.5 MG/0.5 ML INH INHALATION ×3 (02:41→14:26)
[2021-09-03] MEDS: IPRATROPIUM BR 0.02% INH SOLN 0.5 MG/2.5 ML VIAL INHALATION ×4 (02:41→20:08)
[2021-09-03] MEDS: ACETYLCYSTEINE 20% INHAL SOLN 800 MG/4 ML VIAL 200 MG INHALATION ×4 (02:42→20:07)
[2021-09-03 06:05] LABS: Basophils Percent Auto 0.1 % (0.2-1.2); Hematocrit 28.5 % (37.0-47.0); Hemoglobin 8.8 g/dL (12.0-15.0); Immature Granulocyte Absolute 0.05 K/mm3 (0.00-0.031); Immature Granulocyte Percent A 0.5 % (0-0.5); Lymphocytes Absolute Auto 0.37 K/mm3 (0.9-3.2); Lymphocytes Percent Auto 3.4 % (18.3-44.2); Mean Corpuscular HGB Conc 30.9 g/dl (32-36); Mean Corpuscular Hemoglobin 29.6 pg (26-34); Mean Platelet Volume 10.1 fl (7.4-10.4); Monocytes Absolute Auto 0.4 K/mm3 (0.1-0.6); Neutrophils Absolute Auto 10.1 K/mm3 (1.3-6.7); Platelet Count Result 258 k/mm3 (150-375); Red Blood Count 2.97 M/mm3 (4.2-5.4)
[2021-09-03 06:16] LABS: Alanine Aminotransferase 22 U/L (4-35); Albumin Level 2.8 g/dL (3.5-5.1); Alkaline Phosphatase 132 U/L (38-126); Anion Gap 1 mmol/L (8-16); Aspartate Amino Transferase 33 U/L (14-36); Bilirubin,Total 0.8 mg/dL (0.2-1.3); Blood Urea Nitrogen 46 mg/dL (7-17); Calcium 8.9 mg/dL (8.4-10.2); Carbon Dioxide 38 mmol/L (22-30); Chloride 98 mmol/L (98-107); Estimated CRCL calculation 34 ml/min; Estimated Glomerular Filt Rate 48; Glucose 123 mg/dL (65-110); Magnesium 1.9 mg/dL (1.6-2.3); Potassium 3.7 mmol/L (3.4-5.0); Sodium 137 mmol/L (137-145)
[2021-09-03] MEDS: LEVOTHYROXINE SODIUM 50 MCG TABLET PO (06:23)
[2021-09-03 06:24] LABS: NT Pro B Type Natriuretic Pept 12400 pg/mL (5-100)
[2021-09-03 06:51] LABS: Platelet Estimate Adequate (Adequate)
[2021-09-03 06:52] LABS: Hypochromasia 1+ (NORMAL); Poikilocytosis 1+ (NORMAL)
[2021-09-03 06:53] LABS: Acanthocytes 1+ (NORMAL)
[2021-09-03 07:50] LABS: Glucose Point of Care 137 mg/dl (65-105)
[2021-09-03] MEDS: FLUTICASONE/UMECLIDIN/VILANTER 100-62.5-25 MCG ELLIPTA 1 PUFF INHALATION (08:55)
[2021-09-03] MEDS: INSULIN ASPART (*BKC) 100 UNITS/ML 8 UNITS SUB-Q ×3 (09:17→16:47)
[2021-09-03] MEDS: CLOPIDOGREL BISULFATE 75 MG TABLET PO (09:20)
[2021-09-03] MEDS: ATORVASTATIN 40 MG TABLET 80 MG PO (09:20)
[2021-09-03] MEDS: PANTOPRAZOLE 40 MG TABLET PO ×2 (09:20→21:14)
[2021-09-03] MEDS: GABAPENTIN 300 MG CAPSULE PO ×3 (09:21→16:48)
[2021-09-03] MEDS: CITALOPRAM HYDROBROMIDE 20 MG TABLET 40 MG PO (09:21)
[2021-09-03] MEDS: carvediloL 25 MG TABLET PO ×2 (09:21→16:49)
[2021-09-03] MEDS: guaiFENesin 12 HR 600 MG TABCR 1200 MG PO ×2 (09:21→21:13)
[2021-09-03] MEDS: ASPIRIN 81 MG ENTERIC TABLET PO (09:21)
[2021-09-03] MEDS: ISOSORBIDE DINITRATE 10 MG TABLET PO ×2 (09:21→16:49)
[2021-09-03] MEDS: COLLAGENASE OINT 30 GM TUBE 1 APPLIC TOPICAL (09:22)
[2021-09-03] MEDS: hydrALAZINE HCL 50 MG TABLET PO ×3 (09:22→16:49)
[2021-09-03] MEDS: buPROPion HCL XL (24 HR) 150 MG TABCR PO (09:22)
[2021-09-03] MEDS: FUROSEMIDE INJ 40 MG/4 ML VIAL IV PUSH ×2 (09:22→16:48)
[2021-09-03] MEDS: methylPREDNISolone SOD SUCC 40 MG VIAL IV PUSH (09:23)
[2021-09-03] MEDS: DOXYCYCLINE 100 MG/NS 100 ML 100 MG/100 ML BAG IVPB ×2 (11:28→23:57)
[2021-09-03 12:01] LABS: Glucose Point of Care 229 mg/dl (65-105)
[2021-09-03] MEDS: INSULIN ASPART (*BKC) 100 UNITS/ML SUB-Q (12:12)
--- NOTE | 2021-09-03 13:23 | P.PNIM_ITS ---
Progress Note: A&P Assessment and Plan (1) CHF exacerbation: Qualifiers: Heart failure type: unspecified Qualified Code(s): I50.9 - Heart failure, unspecified Code(s): I50.9 - Heart failure, unspecified Status: Acute Assessment and Plan: Last echo is 08/16 showed ejection fraction 45 to 50 % with LVH, moderate LVE, mitral clip, mild MR and moderate TR with moderate pulmonary hypertension with RVSP 54 mm Hg Most likely acute on top of chronic systolic CHF exacerbation Elevated BNP at 18,000 Patient presented with short of breath and has lower extremity edema Benefit out with the risk increased dose of Lasix today CT chest abdomen pelvis 08/31/2021 Moderate amount of airspace disease probably pneumonia Moderate right pleural effusion Cardiomegaly Moderate colonic diverticulosis Cholelithiasis Continue diuresis and IV antibiotics as ordered (2) Visual hallucinations: Code(s): R44.1 - Visual hallucinations Status: Acute Assessment and Plan: Most likely acute metabolic encephalopathy multifactorial secondary to CHF exacerbation COPD exacerbation and pneumonia improved CT scan of the head negative for acute finding Improved Patient currently complains of vertigo added meclizine will get MRI of the brain complete workup Also added orthostatic every shift (3) Chronic respiratory failure with hypoxia, on home oxygen therapy: Code(s): J96.11 - Chronic respiratory failure with hypoxia; Z99.81 - Dependence on supplemental oxygen Status: Acute Assessment and Plan: Acute on chronic respiratory failure 2 L supplemental oxygen at home prior to this admission. Continue oxygen Influenza a/B negative COVID negative MRSA swab negative (4) Insulin dependent diabetes mellitus: Status: Chronic Assessment and Plan: Insulin sliding scale Added on Lantus Adjust as needed (5) Altered mental status: Qualifiers: Altered mental status type: somnolence Qualified Code(s): R40.0 - Somnolence Code(s): R41.82 - Altered mental status, unspecified Status: Acute Assessment and Plan: As above CT head is negative evidence of pneumonia and/or CHF (6) Hypertension: Code(s): I10 - Essential (primary) hypertension Status: Acute Assessment and Plan: Stable continue current treatment (7) Cholelithiasis: Code(s): K80.20 - Calculus of gallbladder without cholecystitis without obstruction Status: Acute Assessment and Plan: Follow-up with PCP as outpatient (8) CAD (coronary artery disease), autologous vein bypass graft: Code(s): I25.810 - Atherosclerosis of coronary artery bypass graft(s) without angina pectoris Status: Acute Assessment and Plan: Continue home medication (9) Chronic obstructive pulmonary disease: Qualifiers: COPD type: unspecified COPD Qualified Code(s): J44.9 - Chronic obstructive pulmonary disease, unspecified Code(s): J44.9 - Chronic obstructive pulmonary disease, unspecified Status: Acute Assessment and Plan: With acute exacerbation give nebulizer treatment no plan for steroid as patient has episode of hyperglycemia with steroid in the past continue to monitor . IV Solu-Medrol and switch to p.o. prednisone from tomorrow (10) Pneumonia of both lungs due to infectious organism: Code(s): J18.9 - Pneumonia, unspecified organism Status: Acute Assessment and Plan: Broad-spectrum IV antibiotic follow blood culture and sput
[2021-09-03 16:51] LABS: Glucose Point of Care 195 mg/dl (65-105)
[2021-09-03] MEDS: INSULIN GLARGINE (*BKC) 100 UNITS/ML 20 UNITS SUB-Q (21:13)
[2021-09-03] MEDS: MELATONIN 5 MG TABLET PO (21:14)
[2021-09-03 21:48] LABS: Glucose Point of Care 151 mg/dl (65-105)
[2021-09-04] VITALS (25 sets, daily range): BP systolic 104–129; BP diastolic 47–57; PULSE 54–98; RESP 16–18; TEMP 36.3–36.6; O2SAT 94–100
[2021-09-04] MEDS: ACETYLCYSTEINE 20% INHAL SOLN 800 MG/4 ML VIAL 200 MG INHALATION ×4 (03:03→19:43)
[2021-09-04] MEDS: IPRATROPIUM BR 0.02% INH SOLN 0.5 MG/2.5 ML VIAL INHALATION ×4 (03:03→19:43)
[2021-09-04 06:05] LABS: Basophils Percent Auto 0.1 % (0.2-1.2); Eosinophils Absolute Auto 0.1 K/mm3 (0-0.3); Eosinophils Percent Auto 1.1 % (0-4.4); Hematocrit 27.8 % (37.0-47.0); Hemoglobin 8.3 g/dL (12.0-15.0); Immature Granulocyte Absolute 0.06 K/mm3 (0.00-0.031); Immature Granulocyte Percent A 0.6 % (0-0.5); Lymphocytes Absolute Auto 0.99 K/mm3 (0.9-3.2); Lymphocytes Percent Auto 10.1 % (18.3-44.2); Mean Corpuscular HGB Conc 29.9 g/dl (32-36); Mean Corpuscular Hemoglobin 28.9 pg (26-34); Mean Corpuscular Volume 96.9 fl (80-100); Monocytes Percent Auto 10.4 % (2.6-8.5); Neutrophils Absolute Auto 7.6 K/mm3 (1.3-6.7); Neutrophils Percent Auto 77.7 % (45.5-73.1); Platelet Count Result 265 k/mm3 (150-375); Red Blood Count 2.87 M/mm3 (4.2-5.4); Red Cell Distribution Width 17.5 % (11.5-14.5); White Blood Count 9.8 K/mm3 (4.5-10.0)
[2021-09-04 06:11] LABS: Alanine Aminotransferase 21 U/L (4-35); Albumin Level 2.5 g/dL (3.5-5.1); Alkaline Phosphatase 114 U/L (38-126); Aspartate Amino Transferase 29 U/L (14-36); Bilirubin,Total 0.7 mg/dL (0.2-1.3); Blood Urea Nitrogen 50 mg/dL (7-17); Calcium 8.4 mg/dL (8.4-10.2); Carbon Dioxide > 40 mmol/L (22-30); Chloride 98 mmol/L (98-107); Estimated CRCL calculation 30 ml/min; Estimated Glomerular Filt Rate 39; Glucose 74 mg/dL (65-110); Magnesium 1.9 mg/dL (1.6-2.3); Potassium 3.2 mmol/L (3.4-5.0); Sodium 138 mmol/L (137-145)
[2021-09-04] MEDS: LEVOTHYROXINE SODIUM 50 MCG TABLET PO (06:33)
[2021-09-04 07:24] LABS: Acanthocytes 1+ (NORMAL); Hypochromasia 1+ (NORMAL); Platelet Estimate Adequate (Adequate)
[2021-09-04 07:25] LABS: Poikilocytosis 1+ (NORMAL)
[2021-09-04] MEDS: ALBUTEROL SULFATE NEB 2.5 MG/0.5 ML INH INHALATION ×2 (07:29→14:41)
[2021-09-04] MEDS: FLUTICASONE/UMECLIDIN/VILANTER 100-62.5-25 MCG ELLIPTA 1 PUFF INHALATION (07:32)
[2021-09-04 07:42] LABS: Glucose Point of Care 70 mg/dl (65-105)
[2021-09-04] MEDS: buPROPion HCL XL (24 HR) 150 MG TABCR PO (09:19)
[2021-09-04] MEDS: ASPIRIN 81 MG ENTERIC TABLET PO (09:20)
[2021-09-04] MEDS: carvediloL 25 MG TABLET PO ×2 (09:21→17:47)
[2021-09-04] MEDS: hydrALAZINE HCL 50 MG TABLET PO ×3 (09:21→17:47)
[2021-09-04] MEDS: CITALOPRAM HYDROBROMIDE 20 MG TABLET 40 MG PO (09:21)
[2021-09-04] MEDS: GABAPENTIN 300 MG CAPSULE PO ×3 (09:22→17:46)
[2021-09-04] MEDS: PANTOPRAZOLE 40 MG TABLET PO ×2 (09:22→20:43)
[2021-09-04] MEDS: ISOSORBIDE DINITRATE 10 MG TABLET PO ×2 (09:22→17:47)
[2021-09-04] MEDS: CLOPIDOGREL BISULFATE 75 MG TABLET PO (09:22)
[2021-09-04] MEDS: ATORVASTATIN 40 MG TABLET 80 MG PO (09:22)
[2021-09-04] MEDS: COLLAGENASE OINT 30 GM TUBE 1 APPLIC TOPICAL (09:22)
[2021-09-04] MEDS: POTASSIUM CHLORIDE 20 MEQ TABLET 40 MEQ PO (09:23)
[2021-09-04] MEDS: predniSONE 20 MG TABLET 40 MG PO (09:23)
[2021-09-04] MEDS: FUROSEMIDE INJ 40 MG/4 ML VIAL IV PUSH ×2 (09:24→17:47)
[2021-09-04] MEDS: guaiFENesin 12 HR 600 MG TABCR 1200 MG PO ×2 (09:24→20:43)
[2021-09-04] MEDS: DOXYCYCLINE 100 MG/NS 100 ML 100 MG/100 ML BAG IVPB ×2 (11:11→22:37)
[2021-09-04 11:36] LABS: Glucose Point of Care 169 mg/dl (65-105)
--- NOTE | 2021-09-04 13:20 | PM.IMPN ---
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 Elevated BNP at 18,000 Patient presented with short of breath and has lower extremity edema Benefit out with the risk increased dose of Lasix today CT chest abdomen pelvis 08/31/2021 Moderate amount of airspace disease probably pneumonia Moderate right pleural effusion Cardiomegaly Moderate colonic diverticulosis Cholelithiasis Continue diuresis and IV antibiotics as ordered. (2) Visual hallucinations: Code(s): R44.1 - Visual hallucinations Status: Acute Assessment and Plan: Most likely acute metabolic encephalopathy multifactorial secondary to CHF exacerbation COPD exacerbation and pneumonia improved CT scan of the head negative for acute finding Improved Patient currently complains of vertigo added meclizine will get MRI of the brain complete workup Also added orthostatic every shift (3) Chronic respiratory failure with hypoxia, on home oxygen therapy: Code(s): J96.11 - Chronic respiratory failure with hypoxia; Z99.81 - Dependence on supplemental oxygen Status: Acute Assessment and Plan: Acute on chronic respiratory failure 2 L supplemental oxygen at home prior to this admission. Continue oxygen Influenza a/B negative COVID negative MRSA swab negative (4) Insulin dependent diabetes mellitus: Status: Chronic Assessment and Plan: Insulin sliding scale Added on Lantus Adjust as needed (5) Altered mental status: Qualifiers: Altered mental status type: somnolence Qualified Code(s): R40.0 - Somnolence Code(s): R41.82 - Altered mental status, unspecified Status: Acute Assessment and Plan: As above CT head is negative evidence of pneumonia and/or CHF (6) Hypertension: Code(s): I10 - Essential (primary) hypertension Status: Acute Assessment and Plan: Stable continue current treatment (7) Cholelithiasis: Code(s): K80.20 - Calculus of gallbladder without cholecystitis without obstruction Status: Acute Assessment and Plan: Follow-up with PCP as outpatient (8) CAD (coronary artery disease), autologous vein bypass graft: Code(s): I25.810 - Atherosclerosis of coronary artery bypass graft(s) without angina pectoris Status: Acute Assessment and Plan: Continue home medication (9) Chronic obstructive pulmonary disease: Qualifiers: COPD type: unspecified COPD Qualified Code(s): J44.9 - Chronic obstructive pulmonary disease, unspecified Code(s): J44.9 - Chronic obstructive pulmonary disease, unspecified Status: Acute Assessment and Plan: With acute exacerbation give nebulizer treatment no plan for steroid as patient has episode of hyperglycemia with steroid in the past continue to monitor . IV Solu-Medrol and switch to p.o. prednisone from tomorrow (10) Pneumonia of both lungs due to infectious organism: Code(s): J18.9 - Pneumonia, unspecified organism Status: Acute Assessment and Plan: Broad-spectrum IV antibiotic follow blood culture and sputum culture Cefepime doxycycline started on 08/29/2021 Patient complained of worsening shortness of breath Patient has lesser rhonchi and wheezing at the bases will start steroid MRSA screen came back negative Reviewed CT scan of the chest Has right pleural fluid that might need to be tapped if not improved Will add mucolytic agent a status cystine/hypertonic saline neb along with
[2021-09-04 16:45] LABS: Glucose Point of Care 317 mg/dl (65-105)
[2021-09-04] MEDS: INSULIN ASPART (*BKC) 100 UNITS/ML SUB-Q (17:47)
[2021-09-04] MEDS: MELATONIN 5 MG TABLET PO (20:43)
[2021-09-04] MEDS: INSULIN GLARGINE (*BKC) 100 UNITS/ML 20 UNITS SUB-Q (20:45)
[2021-09-04 21:28] LABS: Glucose Point of Care 299 mg/dl (65-105)
[2021-09-05] VITALS (23 sets, daily range): BP systolic 86–143; BP diastolic 49–71; PULSE 52–82; RESP 12–18; TEMP 36–37.5; O2SAT 94–100
[2021-09-05] MEDS: ACETYLCYSTEINE 20% INHAL SOLN 800 MG/4 ML VIAL 200 MG INHALATION ×4 (02:01→19:19)
[2021-09-05] MEDS: ALBUTEROL SULFATE NEB 2.5 MG/0.5 ML INH INHALATION ×2 (02:01→08:29)
[2021-09-05] MEDS: IPRATROPIUM BR 0.02% INH SOLN 0.5 MG/2.5 ML VIAL INHALATION ×4 (02:01→19:19)
[2021-09-05] MEDS: LEVOTHYROXINE SODIUM 50 MCG TABLET PO (05:24)
[2021-09-05 05:47] LABS: Basophils Percent Auto 0.1 % (0.2-1.2); Eosinophils Percent Auto 0.5 % (0-4.4); Hematocrit 30.5 % (37.0-47.0); Immature Granulocyte Absolute 0.07 K/mm3 (0.00-0.031); Immature Granulocyte Percent A 0.9 % (0-0.5); Lymphocytes Absolute Auto 0.68 K/mm3 (0.9-3.2); Lymphocytes Percent Auto 8.5 % (18.3-44.2); Mean Corpuscular HGB Conc 29.5 g/dl (32-36); Mean Corpuscular Hemoglobin 29.5 pg (26-34); Mean Platelet Volume 9.6 fl (7.4-10.4); Monocytes Absolute Auto 1.1 K/mm3 (0.1-0.6); Monocytes Percent Auto 13.6 % (2.6-8.5); Neutrophils Absolute Auto 6.1 K/mm3 (1.3-6.7); Neutrophils Percent Auto 76.4 % (45.5-73.1); Platelet Count Result 224 k/mm3 (150-375); Red Blood Count 3.05 M/mm3 (4.2-5.4); Red Cell Distribution Width 17.5 % (11.5-14.5)
[2021-09-05 06:04] LABS: Alanine Aminotransferase 22 U/L (4-35); Albumin Level 2.7 g/dL (3.5-5.1); Alkaline Phosphatase 116 U/L (38-126); Anion Gap 2 mmol/L (8-16); Aspartate Amino Transferase 39 U/L (14-36); Bilirubin,Total 0.7 mg/dL (0.2-1.3); Blood Urea Nitrogen 55 mg/dL (7-17); Calcium 8.2 mg/dL (8.4-10.2); Carbon Dioxide 39 mmol/L (22-30); Chloride 95 mmol/L (98-107); Estimated CRCL calculation 32 ml/min; Estimated Glomerular Filt Rate 43; Glucose 196 mg/dL (65-110); Magnesium 1.8 mg/dL (1.6-2.3); Potassium 3.9 mmol/L (3.4-5.0); Sodium 136 mmol/L (137-145)
[2021-09-05 06:11] LABS: NT Pro B Type Natriuretic Pept 8950 pg/mL (5-100)
[2021-09-05 06:39] LABS: Acanthocytes 1+ (NORMAL); Hypochromasia 1+ (NORMAL); Platelet Estimate Adequate (Adequate)
[2021-09-05 07:39] LABS: Glucose Point of Care 166 mg/dl (65-105)
[2021-09-05] MEDS: ISOSORBIDE DINITRATE 10 MG TABLET PO ×2 (08:46→17:11)
[2021-09-05] MEDS: FUROSEMIDE INJ 40 MG/4 ML VIAL IV PUSH (08:46)
[2021-09-05] MEDS: predniSONE 20 MG TABLET 40 MG PO (08:46)
[2021-09-05] MEDS: GABAPENTIN 300 MG CAPSULE PO ×3 (08:46→17:11)
[2021-09-05] MEDS: guaiFENesin 12 HR 600 MG TABCR 1200 MG PO ×2 (08:46→20:33)
[2021-09-05] MEDS: CITALOPRAM HYDROBROMIDE 20 MG TABLET 40 MG PO (08:47)
[2021-09-05] MEDS: PANTOPRAZOLE 40 MG TABLET PO ×2 (08:47→20:33)
[2021-09-05] MEDS: hydrALAZINE HCL 50 MG TABLET PO ×3 (08:47→17:11)
[2021-09-05] MEDS: buPROPion HCL XL (24 HR) 150 MG TABCR PO (08:47)
[2021-09-05] MEDS: ATORVASTATIN 40 MG TABLET 80 MG PO (08:47)
[2021-09-05] MEDS: ASPIRIN 81 MG ENTERIC TABLET PO (08:47)
[2021-09-05] MEDS: CLOPIDOGREL BISULFATE 75 MG TABLET PO (08:48)
[2021-09-05] MEDS: COLLAGENASE OINT 30 GM TUBE 1 APPLIC TOPICAL (08:48)
[2021-09-05] MEDS: carvediloL 25 MG TABLET PO ×2 (08:49→17:11)
[2021-09-05] MEDS: DOXYCYCLINE 100 MG/NS 100 ML 100 MG/100 ML BAG IVPB (11:02)
--- NOTE | 2021-09-05 11:46 | PCNFU ---
Nutrition Follow-Up Complete: Increase protein needs related to wounds as evidenced by unstageable medial sacrum pressure ulcer, unstageable left heel pressure ulcer, stage II left lower buttock pressure ulcer Goal:Pt to meet >75% of estimated nutritional needs. pt is progressing towards goal Pt current nutrition is heart healthy. Nutrition recommendation: change diet to diabetic consistent carb, order prune juice on tray daily Last recorded weight is 72 kg - stable Bowel Motility: pt is constipated and has not had a BM for several days Labs Reviewed: NA:136, BUN:55 CRE:1.2 GLU: 316, 299 Meds Noted: lantus, novolog Skin: multiple pressure ulcers Additional Notes: pt continues on a heart healthy diet, intake is good at this time, 75%. Reports fair appetite but loves the supplements. Pt has not had a BM for several days. Noted elevated glucose, recommend to change diet to consistent carb for better control. Will send prune juice for bowel motility. Will monitor labs, intake, wt. Follow up every 7 days
[2021-09-05 12:26] LABS: Glucose Point of Care 209 mg/dl (65-105)
[2021-09-05] MEDS: INSULIN ASPART (*BKC) 100 UNITS/ML SUB-Q ×2 (13:38→17:17)
--- NOTE | 2021-09-05 15:18 | PM.IMPN ---
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 Elevated BNP at 18,000 Patient presented with short of breath and has lower extremity edema Benefit out with the risk increased dose of Lasix CT chest abdomen pelvis 08/31/2021 Moderate amount of airspace disease probably pneumonia Moderate right pleural effusion Cardiomegaly Moderate colonic diverticulosis Cholelithiasis Continue diuresis and IV antibiotics as ordered. Mildly orthostatic today the still has significant hypervolemia. Will slow down diuresis and hold of this evening's does (2) Visual hallucinations: Code(s): R44.1 - Visual hallucinations Status: Acute Assessment and Plan: Most likely acute metabolic encephalopathy multifactorial secondary to CHF exacerbation COPD exacerbation and pneumonia improved CT scan of the head negative for acute finding Improved Patient currently complains of vertigo added meclizine will get MRI of the brain complete workup Also added orthostatic every shift (3) Chronic respiratory failure with hypoxia, on home oxygen therapy: Code(s): J96.11 - Chronic respiratory failure with hypoxia; Z99.81 - Dependence on supplemental oxygen Status: Acute Assessment and Plan: Acute on chronic respiratory failure 2 L supplemental oxygen at home prior to this admission. Continue oxygen Influenza a/B negative COVID negative MRSA swab negative (4) Insulin dependent diabetes mellitus: Status: Chronic Assessment and Plan: Insulin sliding scale Added on Lantus Adjust as needed (5) Altered mental status: Qualifiers: Altered mental status type: somnolence Qualified Code(s): R40.0 - Somnolence Code(s): R41.82 - Altered mental status, unspecified Status: Acute Assessment and Plan: As above CT head is negative evidence of pneumonia and/or CHF (6) Hypertension: Code(s): I10 - Essential (primary) hypertension Status: Acute Assessment and Plan: Stable continue current treatment (7) Cholelithiasis: Code(s): K80.20 - Calculus of gallbladder without cholecystitis without obstruction Status: Acute Assessment and Plan: Follow-up with PCP as outpatient (8) CAD (coronary artery disease), autologous vein bypass graft: Code(s): I25.810 - Atherosclerosis of coronary artery bypass graft(s) without angina pectoris Status: Acute Assessment and Plan: Continue home medication (9) Chronic obstructive pulmonary disease: Qualifiers: COPD type: unspecified COPD Qualified Code(s): J44.9 - Chronic obstructive pulmonary disease, unspecified Code(s): J44.9 - Chronic obstructive pulmonary disease, unspecified Status: Acute Assessment and Plan: With acute exacerbation give nebulizer treatment no plan for steroid as patient has episode of hyperglycemia with steroid in the past continue to monitor . IV Solu-Medrol and switch to p.o. prednisone (10) Pneumonia of both lungs due to infectious organism: Code(s): J18.9 - Pneumonia, unspecified organism Status: Acute Assessment and Plan: Broad-spectrum IV antibiotic follow blood culture and sputum culture Cefepime doxycycline started on 08/29/2021. Will stop her doxycycline today Patient complained of worsening shortness of breath Patient has lesser rhonchi and wheezing at the bases will start steroid MRSA screen came back negative Reviewed CT scan of the chest Has rig
--- NOTE | 2021-09-05 15:23 | PC.NURSE ---
MRI screening form completed daughter in law state pt allergy to contrast dye, burning feeling to constrast dye
[2021-09-05 20:02] LABS: Glucose Point of Care 407 mg/dl (65-105)
[2021-09-05 20:02] LABS: Glucose Point of Care 425 mg/dl (65-105)
[2021-09-05 20:32] LABS: Glucose Point of Care 422 mg/dl (65-105)
[2021-09-05] MEDS: INSULIN GLARGINE (*BKC) 100 UNITS/ML 20 UNITS SUB-Q (20:33)
[2021-09-05] MEDS: MELATONIN 5 MG TABLET PO (20:33)
[2021-09-05] MEDS: INSULIN ASPART (*BKC) 100 UNITS/ML 8 UNITS SUB-Q (20:53)
[2021-09-05 22:02] LABS: Glucose Point of Care 367 mg/dl (65-105)
[2021-09-06] VITALS (20 sets, daily range): BP systolic 112–142; BP diastolic 20–64; PULSE 56–77; RESP 16–20; TEMP 36.2–37.2; O2SAT 95–100
[2021-09-06 00:42] LABS: Glucose Point of Care 230 mg/dl (65-105)
[2021-09-06] MEDS: ACETYLCYSTEINE 20% INHAL SOLN 800 MG/4 ML VIAL 200 MG INHALATION ×3 (01:27→19:51)
[2021-09-06] MEDS: IPRATROPIUM BR 0.02% INH SOLN 0.5 MG/2.5 ML VIAL INHALATION ×3 (01:27→19:51)
[2021-09-06] MEDS: LEVOTHYROXINE SODIUM 50 MCG TABLET PO (05:09)
[2021-09-06 06:18] LABS: Basophils Percent Auto 0.1 % (0.2-1.2); Eosinophils Percent Auto 0.4 % (0-4.4); Hematocrit 30.8 % (37.0-47.0); Hemoglobin 8.8 g/dL (12.0-15.0); Immature Granulocyte Absolute 0.06 K/mm3 (0.00-0.031); Immature Granulocyte Percent A 0.8 % (0-0.5); Lymphocytes Absolute Auto 0.66 K/mm3 (0.9-3.2); Lymphocytes Percent Auto 9.2 % (18.3-44.2); Mean Corpuscular HGB Conc 28.6 g/dl (32-36); Mean Corpuscular Hemoglobin 29.7 pg (26-34); Mean Corpuscular Volume 104.1 fl (80-100); Mean Platelet Volume 10.1 fl (7.4-10.4); Monocytes Absolute Auto 0.9 K/mm3 (0.1-0.6); Monocytes Percent Auto 11.9 % (2.6-8.5); Neutrophils Absolute Auto 5.5 K/mm3 (1.3-6.7); Neutrophils Percent Auto 77.6 % (45.5-73.1); Platelet Count Result 227 k/mm3 (150-375); Red Blood Count 2.96 M/mm3 (4.2-5.4); Red Cell Distribution Width 17.2 % (11.5-14.5); White Blood Count 7.1 K/mm3 (4.5-10.0)
[2021-09-06 06:24] LABS: Alanine Aminotransferase 23 U/L (4-35); Albumin Level 2.5 g/dL (3.5-5.1); Alkaline Phosphatase 108 U/L (38-126); Anion Gap 1 mmol/L (8-16); Aspartate Amino Transferase 31 U/L (14-36); Bilirubin,Total 0.6 mg/dL (0.2-1.3); Blood Urea Nitrogen 60 mg/dL (7-17); Calcium 8.3 mg/dL (8.4-10.2); Carbon Dioxide 37 mmol/L (22-30); Chloride 97 mmol/L (98-107); Estimated CRCL calculation 34 ml/min; Estimated Glomerular Filt Rate 48; Glucose 66 mg/dL (65-110); Potassium 3.8 mmol/L (3.4-5.0); Sodium 135 mmol/L (137-145)
[2021-09-06 07:55] LABS: Glucose Point of Care 41 mg/dl (65-105)
[2021-09-06] MEDS: FLUTICASONE/UMECLIDIN/VILANTER 100-62.5-25 MCG ELLIPTA 1 PUFF INHALATION (08:33)
[2021-09-06 08:49] LABS: Glucose Point of Care 67 mg/dl (65-105)
--- NOTE | 2021-09-06 09:02 | PCPTNOTE ---
The patient treatment was not able to be completed, per RN the pts blood sugar was really low this morning and to wait on treatment for the moment. Will plan to continue treatment per plan of care.
[2021-09-06] MEDS: buPROPion HCL XL (24 HR) 150 MG TABCR PO (09:13)
[2021-09-06] MEDS: ASPIRIN 81 MG ENTERIC TABLET PO (09:13)
[2021-09-06] MEDS: predniSONE 20 MG TABLET 40 MG PO (09:13)
[2021-09-06] MEDS: carvediloL 25 MG TABLET PO ×2 (09:14→17:07)
[2021-09-06] MEDS: FUROSEMIDE INJ 40 MG/4 ML VIAL IV PUSH ×2 (09:14→17:07)
[2021-09-06] MEDS: guaiFENesin 12 HR 600 MG TABCR 1200 MG PO ×2 (09:15→20:54)
[2021-09-06] MEDS: ISOSORBIDE DINITRATE 10 MG TABLET PO ×2 (09:15→17:07)
[2021-09-06] MEDS: PANTOPRAZOLE 40 MG TABLET PO ×2 (09:15→20:54)
[2021-09-06] MEDS: hydrALAZINE HCL 50 MG TABLET PO ×3 (09:15→17:07)
[2021-09-06] MEDS: ATORVASTATIN 40 MG TABLET 80 MG PO (09:15)
[2021-09-06] MEDS: CLOPIDOGREL BISULFATE 75 MG TABLET PO (09:15)
[2021-09-06] MEDS: CITALOPRAM HYDROBROMIDE 20 MG TABLET 40 MG PO (09:15)
[2021-09-06] MEDS: GABAPENTIN 300 MG CAPSULE PO ×3 (09:15→17:07)
[2021-09-06] MEDS: COLLAGENASE OINT 30 GM TUBE 1 APPLIC TOPICAL (09:16)
[2021-09-06 09:30] LABS: Glucose Point of Care 94 mg/dl (65-105)
[2021-09-06 11:20] LABS: Glucose Point of Care 189 mg/dl (65-105)
--- NOTE | 2021-09-06 12:17 | PCSTNOTE ---
Therapist stopped in to assess patient this morning for Bedside Swallow Evaluation and to assess readiness for Modified Barium Swallow study. Patient had already eaten and did not want to but did take a sip of coffee and demonstrated a mild cough following this sip. This after patient vehemently and decidedly insisted she did not have problems swallowing. She was judged to be physically and cognitively ready for the test and therefore there will be no charge for the Bedside Swallow Evaluation.
[2021-09-06] MEDS: INSULIN ASPART (*BKC) 100 UNITS/ML SUB-Q ×3 (12:37→17:09)
--- NOTE | 2021-09-06 13:36 | PCSTNOTE ---
Please refer to the Modified Barium Swallow Evaluation in the EMR.
--- NOTE | 2021-09-06 14:23 | PM.IMPN ---
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 Elevated BNP at 18,000 Patient presented with short of breath and has lower extremity edema Benefit out with the risk increased dose of Lasix CT chest abdomen pelvis 08/31/2021 Moderate amount of airspace disease probably pneumonia Moderate right pleural effusion Cardiomegaly Moderate colonic diverticulosis Cholelithiasis Continue diuresis and IV antibiotics as ordered. Continue IV diuresis recheck BNP and monitor renal function with diuresis (2) Visual hallucinations: Code(s): R44.1 - Visual hallucinations Status: Acute Assessment and Plan: Most likely acute metabolic encephalopathy multifactorial secondary to CHF exacerbation COPD exacerbation and pneumonia improved CT scan of the head negative for acute finding Improved Patient currently complains of vertigo added meclizine will get MRI of the brain complete workup Also added orthostatic every shift MRI brain negative for any acute stroke (3) Chronic respiratory failure with hypoxia, on home oxygen therapy: Code(s): J96.11 - Chronic respiratory failure with hypoxia; Z99.81 - Dependence on supplemental oxygen Status: Acute Assessment and Plan: Acute on chronic respiratory failure 2 L supplemental oxygen at home prior to this admission. Continue oxygen Influenza a/B negative COVID negative MRSA swab negative (4) Insulin dependent diabetes mellitus: Status: Chronic Assessment and Plan: Insulin sliding scale Added on Lantus Adjust as needed (5) Altered mental status: Qualifiers: Altered mental status type: somnolence Qualified Code(s): R40.0 - Somnolence Code(s): R41.82 - Altered mental status, unspecified Status: Acute Assessment and Plan: As above CT head is negative evidence of pneumonia and/or CHF (6) Hypertension: Code(s): I10 - Essential (primary) hypertension Status: Acute Assessment and Plan: Stable continue current treatment (7) Cholelithiasis: Code(s): K80.20 - Calculus of gallbladder without cholecystitis without obstruction Status: Acute Assessment and Plan: Follow-up with PCP as outpatient (8) CAD (coronary artery disease), autologous vein bypass graft: Code(s): I25.810 - Atherosclerosis of coronary artery bypass graft(s) without angina pectoris Status: Acute Assessment and Plan: Continue home medication (9) Chronic obstructive pulmonary disease: Qualifiers: COPD type: unspecified COPD Qualified Code(s): J44.9 - Chronic obstructive pulmonary disease, unspecified Code(s): J44.9 - Chronic obstructive pulmonary disease, unspecified Status: Acute Assessment and Plan: With acute exacerbation give nebulizer treatment no plan for steroid as patient has episode of hyperglycemia with steroid in the past continue to monitor . IV Solu-Medrol and switch to p.o. prednisone Continue prednisone and slow taper (10) Pneumonia of both lungs due to infectious organism: Code(s): J18.9 - Pneumonia, unspecified organism Status: Acute Assessment and Plan: Broad-spectrum IV antibiotic follow blood culture and sputum culture Cefepime doxycycline started on 08/29/2021. Stop her doxycycline 09/05/2021 Patient complained of worsening shortness of breath Patient has lesser rhonchi and wheezing at the bases will start steroid MRSA screen came back negative Reviewe
--- NOTE | 2021-09-06 14:53 | PCPTNOTE ---
Patient refused treatment this session due to not feeling well.
[2021-09-06 16:31] LABS: Glucose Point of Care 230 mg/dl (65-105)
[2021-09-06] MEDS: INSULIN GLARGINE (*BKC) 100 UNITS/ML 8 UNITS SUB-Q (20:54)
[2021-09-06] MEDS: MELATONIN 5 MG TABLET PO (20:54)
[2021-09-06 20:55] LABS: Glucose Point of Care 259 mg/dl (65-105)
[2021-09-07] VITALS (22 sets, daily range): BP systolic 128–131; BP diastolic 46–60; PULSE 61–78; RESP 12–20; TEMP 35.7–36.4; O2SAT 96–100
[2021-09-07] MEDS: ACETYLCYSTEINE 20% INHAL SOLN 800 MG/4 ML VIAL 200 MG INHALATION ×4 (01:18→20:51)
[2021-09-07] MEDS: IPRATROPIUM BR 0.02% INH SOLN 0.5 MG/2.5 ML VIAL INHALATION ×4 (01:18→20:50)
[2021-09-07] MEDS: LEVOTHYROXINE SODIUM 50 MCG TABLET PO (05:20)
[2021-09-07 05:48] LABS: Basophils Percent Auto 0.1 % (0.2-1.2); Eosinophils Absolute Auto 0.1 K/mm3 (0-0.3); Eosinophils Percent Auto 0.9 % (0-4.4); Hematocrit 29.1 % (37.0-47.0); Hemoglobin 8.8 g/dL (12.0-15.0); Immature Granulocyte Absolute 0.09 K/mm3 (0.00-0.031); Lymphocytes Absolute Auto 0.79 K/mm3 (0.9-3.2); Lymphocytes Percent Auto 8.4 % (18.3-44.2); Mean Corpuscular HGB Conc 30.2 g/dl (32-36); Mean Corpuscular Hemoglobin 28.8 pg (26-34); Mean Corpuscular Volume 95.1 fl (80-100); Mean Platelet Volume 10.1 fl (7.4-10.4); Monocytes Absolute Auto 0.9 K/mm3 (0.1-0.6); Monocytes Percent Auto 9.4 % (2.6-8.5); Neutrophils Absolute Auto 7.6 K/mm3 (1.3-6.7); Neutrophils Percent Auto 80.2 % (45.5-73.1); Platelet Count Result 232 k/mm3 (150-375); Red Blood Count 3.06 M/mm3 (4.2-5.4); Red Cell Distribution Width 17.1 % (11.5-14.5); White Blood Count 9.4 K/mm3 (4.5-10.0)
[2021-09-07 06:05] LABS: NT Pro B Type Natriuretic Pept 9980 pg/mL (5-100)
[2021-09-07 06:10] LABS: Alanine Aminotransferase 24 U/L (4-35); Albumin Level 2.5 g/dL (3.5-5.1); Alkaline Phosphatase 118 U/L (38-126); Aspartate Amino Transferase 34 U/L (14-36); Bilirubin,Total 0.6 mg/dL (0.2-1.3); Blood Urea Nitrogen 62 mg/dL (7-17); Calcium 8.4 mg/dL (8.4-10.2); Carbon Dioxide > 40 mmol/L (22-30); Chloride 93 mmol/L (98-107); Estimated CRCL calculation 30 ml/min; Estimated Glomerular Filt Rate 39; Glucose 120 mg/dL (65-110); Potassium 3.8 mmol/L (3.4-5.0); Sodium 134 mmol/L (137-145)
[2021-09-07 07:21] LABS: Magnesium 1.9 mg/dL (1.6-2.3)
[2021-09-07 07:46] LABS: Glucose Point of Care 95 mg/dl (65-105)
[2021-09-07] MEDS: COLLAGENASE OINT 30 GM TUBE 1 APPLIC TOPICAL (08:50)
[2021-09-07] MEDS: predniSONE 20 MG TABLET 40 MG PO (08:51)
[2021-09-07] MEDS: ASPIRIN 81 MG ENTERIC TABLET PO (08:51)
[2021-09-07] MEDS: GABAPENTIN 300 MG CAPSULE PO ×3 (08:51→17:20)
[2021-09-07] MEDS: guaiFENesin 12 HR 600 MG TABCR 1200 MG PO ×2 (08:51→23:08)
[2021-09-07] MEDS: PANTOPRAZOLE 40 MG TABLET PO ×2 (08:51→20:53)
[2021-09-07] MEDS: CITALOPRAM HYDROBROMIDE 20 MG TABLET 40 MG PO (08:51)
[2021-09-07] MEDS: buPROPion HCL XL (24 HR) 150 MG TABCR PO (08:51)
[2021-09-07] MEDS: CLOPIDOGREL BISULFATE 75 MG TABLET PO (08:52)
[2021-09-07] MEDS: hydrALAZINE HCL 50 MG TABLET PO ×3 (08:52→17:20)
[2021-09-07] MEDS: carvediloL 25 MG TABLET PO ×2 (08:52→17:20)
[2021-09-07] MEDS: ISOSORBIDE DINITRATE 10 MG TABLET PO ×2 (08:52→17:20)
[2021-09-07] MEDS: ATORVASTATIN 40 MG TABLET 80 MG PO (08:52)
[2021-09-07] MEDS: INSULIN ASPART (*BKC) 100 UNITS/ML SUB-Q ×5 (08:53→17:21)
[2021-09-07] MEDS: FLUTICASONE/UMECLIDIN/VILANTER 100-62.5-25 MCG ELLIPTA 1 PUFF INHALATION (08:55)
--- NOTE | 2021-09-07 09:42 | PM.IMPN ---
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/L Pneumonia+?COPD exacerbation c/w O2 support c/w bronchodilators Hold lasix today as Bicarb >40, will reevaluate for lasix in AM again Recheck BNP in AM Reviewed CXR today c/w cefepime for total of 10 days C/w prednisone for total of 5 days Pleural effusion seems to be resolving on CX today Flu A/B and COVID 19 negative (2) Visual hallucinations: Most likely acute metabolic encephalopathy multifactorial secondary to CHF exacerbation COPD exacerbation and pneumonia improved CT scan of the head negative for acute finding Improved (3) Insulin dependent diabetes mellitus: BG check TID AC Insulin sliding scale+Lantus Adjust dose as needed (4) Altered mental status: improved CT head is negative (5) Hypertension: Stable continue current treatment (6) Cholelithiasis: Stable Follow-up with PCP as outpatient (7)Recent hip fracture status post surgery PT/OT (8)Pressure ulcer left lower buttock stage II sacral ulcer, left heel wound care following Xray foot shows arthritis 9)DVT ppx:hep SQ 10)Code:Modified 11)Dispo:pending improvement Discussed pain option with family and risk for aspiration with sedating medication Time Spent With Patient Time with patient: 25 - 35 minutes Subjective Date/time seen: 09/07/21 09:42 No acute events overnight, resting comfortably in bed Review of Systems Constitutional: Constitutional: Reports fatigue and Reports lethargy Eyes: Eyes: Reports no additional eye complaints ENT: Reports system reviewed and no additional complaints, except as documented Cardiovascular: Cardiovascular: Reports no additional cardiovascular complaints Respiratory: Respiratory: Reports dyspnea Gastrointestinal: Gastrointestinal: Reports no additional gastrointestinal complaints Neurologic: Reports system reviewed and no additional complaints, except as documented Exam Const: General: no acute distress HENMT: Mouth: Yes moist mucous membranes Eyes: EOM: EOMs intact bilaterally Neck: Neck: supple Resp: Other: decreased breath sounds B/L, no wheezing heard today Cardio: Rate: regular rate Rhythm: regular rhythm GI: GI Palp: Yes Soft to palpation Auscultation: normal bowel sounds Skin: General skin exam: normal color Extrem: General: edema Other: B/L edema present Objective Data Vital Signs Vital Signs: Vital Signs - 24 hr 09/06/21 12:00 09/06/21 14:00 09/06/21 14:30 Temperature 98.2 F Pulse Rate 71 70 Respiratory Rate 18 Blood Pressure 125/56 L 128/54 L Pulse Oximetry 100 09/06/21 14:35 09/06/21 14:40 09/06/21 16:00 Temperature Pulse Rate 68 Respiratory Rate Blood Pressure 125/20 L 112/44 L Pulse Oximetry 09/06/21 17:07 09/06/21 19:51 09/06/21 19:55 Temperature Pulse Rate 69 72 Respiratory Rate 16 Blood Pressure Pulse Oximetry 95 09/06/21 19:57 09/06/21 20:00 09/06/21 22:00 Temperature 97.1 F L Pulse Rate 73 73 72 Respiratory Rate 16 20 Blood Pressure 122/50 L Pulse Oximetry 97 09/06/21 23:10 09/07/21 00:00 09/07/21 01:23 Temperature Pulse Rate 75 61 76 Respiratory Rate 16 Blood Pressure Pulse Oximetry 98 09/07/21 01:27 09/07/21 01:34 09/07/21 04:00 Temperature Pulse Rate 76 75 67 Respiratory Rate 16 Blood Pressure Pulse Oximetry 97 09/07/21 06:00 09/07/21 08:00 09/07/21 08:52 Temperature 96.5 F L Pulse Rate 68 72 76 Respiratory Rate 20 Blood Pressure 131/60 Pulse Oximetry 96 09/07/21 08:55 09/07/21 09:01 09/07/21 09:07 Temperature Pulse Rate 78 75 Respiratory Rate 16 16 Blood Pressure Pulse Oximetry 98
[2021-09-07 11:36] LABS: Glucose Point of Care 217 mg/dl (65-105)
[2021-09-07 16:22] LABS: Glucose Point of Care 215 mg/dl (65-105)
[2021-09-07 19:47] LABS: Glucose Point of Care 269 mg/dl (65-105)
[2021-09-07] MEDS: HEPARIN SODIUM 5,000 UNITS/ML VIAL 5000 UNITS SUB-Q (20:53)
[2021-09-07] MEDS: MELATONIN 5 MG TABLET PO (20:53)
[2021-09-07] MEDS: HYDROcodone/acetaminophen (*CRX) 5-325 MG TABLET 1 TAB PO (21:31)
[2021-09-07] MEDS: INSULIN GLARGINE (*BKC) 100 UNITS/ML 8 UNITS SUB-Q (23:14)
[2021-09-08] VITALS (21 sets, daily range): BP systolic 98–146; BP diastolic 35–58; PULSE 64–74; RESP 2–20; TEMP 36.1–36.6; O2SAT 98–100
[2021-09-08] MEDS: IPRATROPIUM BR 0.02% INH SOLN 0.5 MG/2.5 ML VIAL INHALATION ×4 (02:48→20:21)
[2021-09-08] MEDS: ACETYLCYSTEINE 20% INHAL SOLN 800 MG/4 ML VIAL 200 MG INHALATION ×4 (02:49→20:20)
[2021-09-08] MEDS: LEVOTHYROXINE SODIUM 50 MCG TABLET PO (05:40)
[2021-09-08 05:51] LABS: Basophils Percent Auto 0.1 % (0.2-1.2); Eosinophils Percent Auto 0.5 % (0-4.4); Hematocrit 29.1 % (37.0-47.0); Hemoglobin 8.7 g/dL (12.0-15.0); Immature Granulocyte Absolute 0.09 K/mm3 (0.00-0.031); Immature Granulocyte Percent A 1.1 % (0-0.5); Lymphocytes Absolute Auto 0.54 K/mm3 (0.9-3.2); Lymphocytes Percent Auto 6.7 % (18.3-44.2); Mean Corpuscular HGB Conc 29.9 g/dl (32-36); Mean Corpuscular Hemoglobin 29.4 pg (26-34); Mean Corpuscular Volume 98.3 fl (80-100); Mean Platelet Volume 10.2 fl (7.4-10.4); Monocytes Absolute Auto 0.8 K/mm3 (0.1-0.6); Monocytes Percent Auto 9.7 % (2.6-8.5); Neutrophils Absolute Auto 6.6 K/mm3 (1.3-6.7); Neutrophils Percent Auto 81.9 % (45.5-73.1); Platelet Count Result 201 k/mm3 (150-375); Red Blood Count 2.96 M/mm3 (4.2-5.4); Red Cell Distribution Width 17.2 % (11.5-14.5)
[2021-09-08 06:00] LABS: Anion Gap 2 mmol/L (8-16); Blood Urea Nitrogen 62 mg/dL (7-17); Calcium 8.3 mg/dL (8.4-10.2); Carbon Dioxide 39 mmol/L (22-30); Chloride 94 mmol/L (98-107); Estimated CRCL calculation 30 ml/min; Estimated Glomerular Filt Rate 39; Glucose 140 mg/dL (65-110); Magnesium 1.9 mg/dL (1.6-2.3); Potassium 4.2 mmol/L (3.4-5.0); Sodium 135 mmol/L (137-145)
[2021-09-08 06:05] LABS: NT Pro B Type Natriuretic Pept 10300 pg/mL (5-100)
[2021-09-08 06:35] LABS: Anisocytosis 1+ (NORMAL); Platelet Estimate Adequate (Adequate)
[2021-09-08 06:36] LABS: Acanthocytes 1+ (NORMAL)
[2021-09-08] MEDS: HYDROcodone/acetaminophen (*CRX) 5-325 MG TABLET 1 TAB PO (07:55)
[2021-09-08 08:03] LABS: Glucose Point of Care 103 mg/dl (65-105)
[2021-09-08 08:03] LABS: Glucose Point of Care 105 mg/dl (65-105)
[2021-09-08] MEDS: FLUTICASONE/UMECLIDIN/VILANTER 100-62.5-25 MCG ELLIPTA 1 PUFF INHALATION (09:02)
[2021-09-08] MEDS: GABAPENTIN 300 MG CAPSULE PO ×3 (09:14→17:18)
[2021-09-08] MEDS: guaiFENesin 12 HR 600 MG TABCR 1200 MG PO ×2 (09:15→21:25)
[2021-09-08] MEDS: predniSONE 20 MG TABLET 40 MG PO (09:15)
[2021-09-08] MEDS: CITALOPRAM HYDROBROMIDE 20 MG TABLET 40 MG PO (09:15)
[2021-09-08] MEDS: PANTOPRAZOLE 40 MG TABLET PO ×2 (09:15→21:25)
[2021-09-08] MEDS: buPROPion HCL XL (24 HR) 150 MG TABCR PO (09:15)
[2021-09-08] MEDS: ASPIRIN 81 MG ENTERIC TABLET PO (09:15)
[2021-09-08] MEDS: ISOSORBIDE DINITRATE 10 MG TABLET PO ×2 (09:15→17:19)
[2021-09-08] MEDS: hydrALAZINE HCL 50 MG TABLET PO ×3 (09:15→17:19)
[2021-09-08] MEDS: carvediloL 25 MG TABLET PO ×2 (09:16→17:18)
[2021-09-08] MEDS: ATORVASTATIN 40 MG TABLET 80 MG PO (09:17)
[2021-09-08] MEDS: CLOPIDOGREL BISULFATE 75 MG TABLET PO (09:17)
[2021-09-08] MEDS: acetaZOLAMIDE SODIUM FOR INJ 500 MG VIAL 250 MG IV PUSH (09:17)
[2021-09-08] MEDS: HEPARIN SODIUM 5,000 UNITS/ML VIAL 5000 UNITS SUB-Q ×2 (09:18→21:25)
[2021-09-08] MEDS: COLLAGENASE OINT 30 GM TUBE 1 APPLIC TOPICAL (09:20)
[2021-09-08 11:47] LABS: Glucose Point of Care 182 mg/dl (65-105)
[2021-09-08] MEDS: INSULIN ASPART (*BKC) 100 UNITS/ML SUB-Q ×3 (11:58→17:15)
--- NOTE | 2021-09-08 12:59 | PM.IMPN ---
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/L Pneumonia+?COPD exacerbation c/w O2 support c/w bronchodilators Hold lasix today as Bicarb >40, will reevaluate for lasix in AM again BNP elevated Will give 1 dose of diamox today Reviewed CXR today c/w cefepime for total of 10 days C/w prednisone for total of 5 days Pleural effusion seems to be resolving on CXR Flu A/B and COVID 19 negative (2) Visual hallucinations: Most likely acute metabolic encephalopathy multifactorial secondary to CHF exacerbation COPD exacerbation and pneumonia improved CT scan of the head negative for acute finding Improved (3) Insulin dependent diabetes mellitus: BG check TID AC Insulin sliding scale+Lantus Adjust dose as needed (4) Altered mental status: improved CT head is negative (5) Hypertension: Stable continue current treatment (6) Cholelithiasis: Stable Follow-up with PCP as outpatient (7)Recent hip fracture status post surgery PT/OT (8)Pressure ulcer left lower buttock stage II sacral ulcer, left heel wound care following Xray foot shows arthritis 9)DVT ppx:hep SQ 10)Code:Modified 11)Dispo:pending improvement Time Spent With Patient Time with patient: 15 - 25 minutes Subjective Date/time seen: 09/08/21 12:59 no acute events overnight, sitting on side of bed, comfortably Review of Systems Constitutional: Constitutional: Reports weakness Eyes: Eyes: Reports no additional eye complaints ENT: Reports system reviewed and no additional complaints, except as documented Cardiovascular: Cardiovascular: Reports no additional cardiovascular complaints Respiratory: Respiratory: Reports no additional respiratory complaints Gastrointestinal: Gastrointestinal: Reports no additional gastrointestinal complaints Exam Narrative: nasal canula in situ, 3L at present Const: General: no acute distress HENMT: Mouth: Yes moist mucous membranes Eyes: Pupils: Equal, round and reactive pupils present Neck: Neck: supple Resp: Other: decreased breath sounds B/L Cardio: Rate: regular rate Rhythm: regular rhythm GI: GI Palp: Yes Soft to palpation Auscultation: normal bowel sounds Skin: General skin exam: normal color Neuro: Speech: normal speech Extrem: General: pedal edema Psych: Mental Status: mental status grossly normal Objective Data Vital Signs Vital Signs: Vital Signs - 24 hr 09/07/21 13:28 09/07/21 15:33 09/07/21 15:42 Temperature 96.3 F L Pulse Rate 68 72 74 Respiratory Rate 16 16 16 Blood Pressure 128/51 L Pulse Oximetry 100 09/07/21 16:00 09/07/21 17:20 09/07/21 20:00 Temperature Pulse Rate 72 73 69 Respiratory Rate Blood Pressure Pulse Oximetry 09/07/21 20:50 09/07/21 21:00 09/07/21 21:52 Temperature 97.6 F Pulse Rate 73 75 75 Respiratory Rate 14 12 20 Blood Pressure 129/46 L Pulse Oximetry 100 100 09/07/21 22:30 09/08/21 00:00 09/08/21 02:48 Temperature Pulse Rate 72 73 74 Respiratory Rate 12 Blood Pressure Pulse Oximetry 99 09/08/21 03:00 09/08/21 04:00 09/08/21 06:00 Temperature 97 F L Pulse Rate 70 73 72 Respiratory Rate 12 20 Blood Pressure 134/52 L Pulse Oximetry 100 09/08/21 08:00 09/08/21 09:03 09/08/21 09:16 Temperature Pulse Rate 69 72 70 Respiratory Rate 12 Blood Pressure 107/35 L Pulse Oximetry 98 98 09/08/21 10:53 09/08/21 10:54 09/08/21 12:00 Temperature Pulse Rate 69 Respiratory Rate Blood Pressure 98/46 L 127/40 L Pulse Oximetry Intake/Output Intake/Output: Intake & Output 09/05/21 09/06/21 09/07/21 09/08/21 23:59 23:59 23:59 23:59 Intake Total 2130 1130 1617 390 Output Tota
--- NOTE | 2021-09-08 13:22 | PCCCNOTE ---
On 09/08/21, the student, [Denise Magallon], provided care and completed [facility] documentation on this patient. I have reviewed the student's documentation and agree with the findings.
--- NOTE | 2021-09-08 13:39 | PC.NURSE ---
On 09/08/21, the student, [ Eric Camargo], provided care and completed [facility] documentation on this patient. I have reviewed the student's documentation and agree with the findings.
--- NOTE | 2021-09-08 13:43 | PC.NURSE ---
On 09/08/21, the student, [Eric Camargo ], provided care and completed [facility] documentation on this patient. I have reviewed the student's documentation and agree with the findings.
[2021-09-08 17:04] LABS: Glucose Point of Care 304 mg/dl (65-105)
[2021-09-08] MEDS: MELATONIN 5 MG TABLET PO (21:25)
[2021-09-08] MEDS: INSULIN GLARGINE (*BKC) 100 UNITS/ML 8 UNITS SUB-Q (21:38)
[2021-09-08 22:16] LABS: Glucose Point of Care 353 mg/dl (65-105)
[2021-09-09] VITALS (27 sets, daily range): BP systolic 112–144; BP diastolic 41–80; PULSE 18–79; RESP 12–66; TEMP 35.7–36.6; O2SAT 94–100
[2021-09-09] MEDS: IPRATROPIUM BR 0.02% INH SOLN 0.5 MG/2.5 ML VIAL INHALATION ×4 (02:45→19:05)
[2021-09-09] MEDS: ACETYLCYSTEINE 20% INHAL SOLN 800 MG/4 ML VIAL 200 MG INHALATION ×4 (02:45→19:05)
[2021-09-09 06:15] LABS: Basophils Percent Auto 0.1 % (0.2-1.2); Eosinophils Percent Auto 0.3 % (0-4.4); Hematocrit 33.3 % (37.0-47.0); Hemoglobin 9.1 g/dL (12.0-15.0); Immature Granulocyte Absolute 0.07 K/mm3 (0.00-0.031); Lymphocytes Absolute Auto 0.39 K/mm3 (0.9-3.2); Lymphocytes Percent Auto 5.6 % (18.3-44.2); Mean Corpuscular HGB Conc 27.3 g/dl (32-36); Mean Corpuscular Hemoglobin 29.4 pg (26-34); Mean Corpuscular Volume 107.8 fl (80-100); Monocytes Absolute Auto 0.6 K/mm3 (0.1-0.6); Monocytes Percent Auto 8.2 % (2.6-8.5); Neutrophils Absolute Auto 5.9 K/mm3 (1.3-6.7); Neutrophils Percent Auto 84.8 % (45.5-73.1); Platelet Count Result 150 k/mm3 (150-375); Red Blood Count 3.09 M/mm3 (4.2-5.4); Red Cell Distribution Width 16.9 % (11.5-14.5)
[2021-09-09] MEDS: LEVOTHYROXINE SODIUM 50 MCG TABLET PO (06:23)
[2021-09-09 06:25] LABS: Anion Gap 4 mmol/L (8-16); Blood Urea Nitrogen 53 mg/dL (7-17); Calcium 8.7 mg/dL (8.4-10.2); Carbon Dioxide 32 mmol/L (22-30); Chloride 97 mmol/L (98-107); Estimated CRCL calculation 27 ml/min; Estimated Glomerular Filt Rate 36; Glucose 220 mg/dL (65-110); Magnesium 2.2 mg/dL (1.6-2.3); Potassium 4.3 mmol/L (3.4-5.0); Sodium 133 mmol/L (137-145)
[2021-09-09 07:34] LABS: Glucose Point of Care 194 mg/dl (65-105)
[2021-09-09] MEDS: ALBUTEROL SULFATE NEB 2.5 MG/0.5 ML INH INHALATION ×2 (07:38→13:32)
[2021-09-09 07:44] LABS: Platelet Estimate Adequate (Adequate)
[2021-09-09 07:45] LABS: Acanthocytes 2+ (NORMAL)
[2021-09-09] MEDS: FLUTICASONE/UMECLIDIN/VILANTER 100-62.5-25 MCG ELLIPTA 1 PUFF INHALATION (07:50)
[2021-09-09] MEDS: hydrALAZINE HCL 50 MG TABLET PO ×3 (07:59→16:47)
[2021-09-09] MEDS: guaiFENesin 12 HR 600 MG TABCR 1200 MG PO ×2 (07:59→20:11)
[2021-09-09] MEDS: ATORVASTATIN 40 MG TABLET 80 MG PO (07:59)
[2021-09-09] MEDS: ASPIRIN 81 MG ENTERIC TABLET PO (07:59)
[2021-09-09] MEDS: GABAPENTIN 300 MG CAPSULE PO ×3 (07:59→16:46)
[2021-09-09] MEDS: carvediloL 25 MG TABLET PO ×2 (07:59→16:46)
[2021-09-09] MEDS: buPROPion HCL XL (24 HR) 150 MG TABCR PO (08:00)
[2021-09-09] MEDS: ISOSORBIDE DINITRATE 10 MG TABLET PO ×2 (08:00→16:47)
[2021-09-09] MEDS: CLOPIDOGREL BISULFATE 75 MG TABLET PO (08:00)
[2021-09-09] MEDS: PANTOPRAZOLE 40 MG TABLET PO ×2 (08:00→20:12)
[2021-09-09] MEDS: CITALOPRAM HYDROBROMIDE 20 MG TABLET 40 MG PO (08:00)
[2021-09-09] MEDS: INSULIN ASPART (*BKC) 100 UNITS/ML SUB-Q ×3 (08:02→16:47)
[2021-09-09] MEDS: HEPARIN SODIUM 5,000 UNITS/ML VIAL 5000 UNITS SUB-Q ×2 (08:02→20:11)
[2021-09-09] MEDS: COLLAGENASE OINT 30 GM TUBE 1 APPLIC TOPICAL (08:03)
--- NOTE | 2021-09-09 08:57 | PM.IMPN ---
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 (3) Visual hallucinations: Most likely acute metabolic encephalopathy multifactorial secondary to CHF exacerbation COPD exacerbation and pneumonia improved CT scan of the head negative for acute finding Improved (4) Insulin dependent diabetes mellitus: BG check TID AC Insulin sliding scale+Lantus Adjust dose as needed (5) Altered mental status: improved CT head is negative (6) Hypertension: Stable continue current treatment (7) Cholelithiasis: Stable Follow-up with PCP as outpatient (8)Recent hip fracture status post surgery PT/OT (9)Pressure ulcer left lower buttock stage II sacral ulcer, left heel wound care following Xray foot shows arthritis (10)DVT ppx:hep SQ 11)Dispo:pending improvement Time Spent With Patient Time with patient: 15 - 25 minutes Subjective Date/time seen: 09/09/21 08:57 Patient seen sitting up in chair, in good spirits. She denies having any new complains. Review of Systems Review of Systems: All systems reviewed & are unremarkable except as noted in HPI and below Exam Const: General: cooperative, comfortable and no acute distress Resp: Effort & Inspection: normal respiratory effort and able to speak in complete sentences Auscultation: clear to auscultation bilaterally Cardio: Rate: regular rate Rhythm: regular rhythm Heart sounds: S1 normal heart sound present and S2 normal heart sound present GI: Inspection: normal to inspection GI Palp: Yes Soft to palpation and No Tenderness to palpation present (GI) Auscultation: normal bowel sounds Extrem: General: normal to inspection Objective Data Vital Signs Vital Signs: Vital Signs - 24 hr 09/08/21 09:03 09/08/21 09:16 09/08/21 09:45 Temperature 97.3 F L Pulse Rate 72 70 70 Respiratory Rate 12 12 Blood Pressure 146/58 H Pulse Oximetry 98 100 09/08/21 10:53 09/08/21 10:54 09/08/21 12:00 Temperature Pulse Rate 69 Respiratory Rate Blood Pressure 98/46 L 127/40 L Pulse Oximetry 09/08/21 14:00 09/08/21 15:11 09/08/21 15:19 Temperature 97.6 F Pulse Rate 67 70 68 Respiratory Rate 18 12 12 Blood Pressure 123/51 L Pulse Oximetry 100 09/08/21 16:00 09/08/21 17:18 09/08/21 20:00 Temperature Pulse Rate 72 74 69 Respiratory Rate Blood Pressure Pulse Oximetry 100 09/08/21 20:25 09/08/21 20:42 09/08/21 21:54 Temperature 98 F Pulse Rate 65 71 64 Respiratory Rate 12 12 2 L Blood Pressure 128/52 L Pulse Oximetry 100 100 09/09/21 00:00 09/09/21 02:45 09/09/21 03:00 Temperature Pulse Rate 69 66 69 Respiratory Rate 12 12 Blood Pressure Pulse Oximetry 09/09/21 04:00 09/09/21 06:00 09/09/21 07:35 Temperature 97.3 F L Pulse Rate 66 61 72 Respiratory Rate 20 18 Blood Pressure 144/80 H Pulse Oximetry 100 09/09/21 07:45 09/09/21 07:54 09/09/21 07:55 Temperature Pulse Rate 75 75 Respiratory Rate 16 18 Blood Pressure Pulse Oximetry 100 09/09/21 07:59 09/09/21 08:00 09/09/21 08:32 Temperature 96.3 F L 96.3 F L Pulse Rate 65 69 63 Respiratory Rate 14 16 Blood Pressure 140/56 L 126/54 L Pulse Oximetry 96 100 Intake/Output Intake/Output: Intake & Output 09/06/21 09/07/21
[2021-09-09 11:40] LABS: Glucose Point of Care 183 mg/dl (65-105)
--- NOTE | 2021-09-09 16:09 | PCCCNOTE ---
On 09/09/21, the student, [Denise Sharma], provided care and completed [facility] documentation on this patient. I have reviewed the student's documentation and agree with the findings.
[2021-09-09 16:43] LABS: Glucose Point of Care 164 mg/dl (65-105)
[2021-09-09] MEDS: MELATONIN 5 MG TABLET PO (20:12)
[2021-09-09] MEDS: INSULIN GLARGINE (*BKC) 100 UNITS/ML 8 UNITS SUB-Q (20:12)
[2021-09-09 21:23] LABS: Glucose Point of Care 221 mg/dl (65-105)
[2021-09-10] VITALS (20 sets, daily range): BP systolic 104–132; BP diastolic 43–74; PULSE 69–90; RESP 14–20; TEMP 36.3–37.7; O2SAT 93–100
[2021-09-10] MEDS: HYDROcodone/acetaminophen (*CRX) 5-325 MG TABLET 1 TAB PO ×2 (02:44→21:56)
[2021-09-10] MEDS: LEVOTHYROXINE SODIUM 50 MCG TABLET PO (06:03)
[2021-09-10 07:04] LABS: Anion Gap 3 mmol/L (8-16); Blood Urea Nitrogen 45 mg/dL (7-17); Calcium 8.8 mg/dL (8.4-10.2); Carbon Dioxide 32 mmol/L (22-30); Chloride 100 mmol/L (98-107); Estimated CRCL calculation 28 ml/min; Estimated Glomerular Filt Rate 36; Glucose 57 mg/dL (65-110); Potassium 4.2 mmol/L (3.4-5.0); Sodium 135 mmol/L (137-145)
[2021-09-10 07:48] LABS: Glucose Point of Care 88 mg/dl (65-105)
[2021-09-10] MEDS: FLUTICASONE/UMECLIDIN/VILANTER 100-62.5-25 MCG ELLIPTA 1 PUFF INHALATION (08:01)
[2021-09-10] MEDS: ACETYLCYSTEINE 20% INHAL SOLN 800 MG/4 ML VIAL 200 MG INHALATION ×3 (08:01→19:16)
[2021-09-10] MEDS: IPRATROPIUM BR 0.02% INH SOLN 0.5 MG/2.5 ML VIAL INHALATION ×3 (08:02→19:16)
--- NOTE | 2021-09-10 08:02 | PM.IMPN ---
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 (2) CLARIBEL on CKD stage 3: stable -creatinine of 1.4 from baseline of 1.1 -giving 40mg of IV furosemide 40mg today. -follow up BMP tomorrow. (3) Visual hallucinations: Most likely acute metabolic encephalopathy multifactorial secondary to CHF exacerbation COPD exacerbation and pneumonia improved CT scan of the head negative for acute finding Improved (4) Hypoglycemia: fasting blood glucose of 57--> improved after juice to 88 morning insulin was held. decreased bedtime glargine to 5units from 8 units. continue accu cheks. (5) Insulin dependent diabetes mellitus with hyperglycemia: BG check TID AC Insulin sliding scale+Lantus Adjust dose as needed (6) Altered mental status: improved CT head is negative (7) Hypertension: Stable continue current treatment (8) Cholelithiasis: Stable Follow-up with PCP as outpatient (9)Recent hip fracture status post surgery PT/OT (10)Pressure ulcer left lower buttock stage II sacral ulcer, left heel wound care following Xray foot shows arthritis (11)DVT ppx:hep SQ (12)Dispo:pending improvement Time Spent With Patient Time with patient: 15 - 25 minutes Subjective Date/time seen: 09/10/21 08:02 Patient seen sitting up in bedside chair, she endorsed not feeling well today, stated her cough feels worse and it is productive of clear sputum. Review of Systems Cardiovascular: Cardiovascular: Denies chest pain, Denies chest pain at rest, Denies chest pain with activity and Denies dyspnea Respiratory: Respiratory: Denies change in phlegm color, Reports chest congestion and Reports cough Gastrointestinal: Gastrointestinal: Denies abdominal pain, Denies constipation and Denies diarrhea Musculoskeletal: Musculoskeletal: Reports no additional musculoskeletal complaints Exam Const: General: cooperative, comfortable and no acute distress HENMT: Head: normal to inspection Resp: Effort & Inspection: normal respiratory effort and able to speak in complete sentences Auscultation: crackles Cardio: Rate: regular rate Rhythm: regular rhythm Heart sounds: S1 normal heart sound present and S2 normal heart sound present GI: GI Palp: Yes Soft to palpation and No Tenderness to palpation present (GI) Auscultation: normal bowel sounds Objective Data Vital Signs Vital Signs: Vital Signs - 24 hr 09/09/21 08:32 09/09/21 12:00 09/09/21 14:00 Temperature 96.3 F L 97.3 F L Pulse Rate 63 66 18 L Respiratory Rate 16 66 H Blood Pressure 126/54 L 112/41 L Pulse Oximetry 100 100 09/09/21 14:14 09/09/21 14:24 09/09/21 16:00 Temperature Pulse Rate 71 73 72 Respiratory Rate 18 18 Blood Pressure Pulse Oximetry 09/09/21 16:46 09/09/21 19:02 09/09/21 19:09 Temperature Pulse Rate 72 79 Respiratory Rate 17 Blood Pressure Pulse Oximetry 99 09/09/21 19:11 09/09/21 20:00 09/09/21 20:35 Temperature 97.8 F Pulse Rate 79 72 70 Respiratory Rate 18 20 Blood Pressure 135/47 L Pulse Oximetry 100 09/09/21 20:38 09/09/21 20:42 09/09/21 21:47 Temperature 97.6 F 97.3 F L 97.8 F Pulse Rate 70 75 70 Respiratory Rate 20 20 20 Blood Pressure 125/49 L 121/43 L 135/47 L Pulse Oximetry 100 100 100 09/09/21 23:43 09/10/21
[2021-09-10] MEDS: buPROPion HCL XL (24 HR) 150 MG TABCR PO (08:58)
[2021-09-10] MEDS: GABAPENTIN 300 MG CAPSULE PO ×3 (08:58→16:47)
[2021-09-10] MEDS: PANTOPRAZOLE 40 MG TABLET PO ×2 (08:58→21:59)
[2021-09-10] MEDS: ASPIRIN 81 MG ENTERIC TABLET PO (08:58)
[2021-09-10] MEDS: guaiFENesin 12 HR 600 MG TABCR 1200 MG PO ×2 (08:58→21:18)
[2021-09-10] MEDS: carvediloL 25 MG TABLET PO ×2 (08:58→16:47)
[2021-09-10] MEDS: CLOPIDOGREL BISULFATE 75 MG TABLET PO (08:58)
[2021-09-10] MEDS: hydrALAZINE HCL 50 MG TABLET PO ×3 (08:59→16:47)
[2021-09-10] MEDS: CITALOPRAM HYDROBROMIDE 20 MG TABLET 40 MG PO (08:59)
[2021-09-10] MEDS: ATORVASTATIN 40 MG TABLET 80 MG PO (08:59)
[2021-09-10] MEDS: ISOSORBIDE DINITRATE 10 MG TABLET PO ×2 (08:59→16:47)
[2021-09-10] MEDS: HEPARIN SODIUM 5,000 UNITS/ML VIAL 5000 UNITS SUB-Q ×2 (09:06→21:43)
[2021-09-10] MEDS: COLLAGENASE OINT 30 GM TUBE 1 APPLIC TOPICAL (09:19)
[2021-09-10 11:40] LABS: Glucose Point of Care 198 mg/dl (65-105)
[2021-09-10] MEDS: INSULIN ASPART (*BKC) 100 UNITS/ML SUB-Q ×3 (11:56→16:47)
[2021-09-10] MEDS: FUROSEMIDE INJ 40 MG/4 ML VIAL IV PUSH (13:21)
[2021-09-10 16:38] LABS: Glucose Point of Care 203 mg/dl (65-105)
[2021-09-10] MEDS: ALBUTEROL SULFATE NEB 2.5 MG/0.5 ML INH INHALATION (19:17)
[2021-09-10] MEDS: INSULIN GLARGINE (*BKC) 100 UNITS/ML SUB-Q (21:38)
[2021-09-10] MEDS: MELATONIN 5 MG TABLET PO (21:44)
[2021-09-11] VITALS (25 sets, daily range): BP systolic 98–167; BP diastolic 50–114; PULSE 72–111; RESP 14–24; TEMP 37.1–37.6; O2SAT 92–100
[2021-09-11 00:10] LABS: Glucose Point of Care 106 mg/dl (65-105)
[2021-09-11] MEDS: ALBUTEROL SULFATE NEB 2.5 MG/0.5 ML INH INHALATION ×3 (01:45→13:52)
[2021-09-11] MEDS: ACETYLCYSTEINE 20% INHAL SOLN 800 MG/4 ML VIAL 200 MG INHALATION ×4 (01:45→19:36)
[2021-09-11] MEDS: IPRATROPIUM BR 0.02% INH SOLN 0.5 MG/2.5 ML VIAL INHALATION ×4 (01:46→19:36)
[2021-09-11] MEDS: LEVOTHYROXINE SODIUM 50 MCG TABLET PO (05:27)
[2021-09-11 06:06] LABS: Anion Gap 0 mmol/L (8-16); Blood Urea Nitrogen 40 mg/dL (7-17); Calcium 8.7 mg/dL (8.4-10.2); Carbon Dioxide 37 mmol/L (22-30); Chloride 98 mmol/L (98-107); Estimated CRCL calculation 28 ml/min; Estimated Glomerular Filt Rate 36; Glucose 75 mg/dL (65-110); Potassium 3.9 mmol/L (3.4-5.0); Sodium 135 mmol/L (137-145)
[2021-09-11] MEDS: FLUTICASONE/UMECLIDIN/VILANTER 100-62.5-25 MCG ELLIPTA 1 PUFF INHALATION (08:03)
[2021-09-11 08:37] LABS: Glucose Point of Care 107 mg/dl (65-105)
--- NOTE | 2021-09-11 09:00 | PM.IMPN ---
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 Elevated BNP at 18,000 Patient presented with short of breath and has lower extremity edema Benefit out with the risk increased dose of Lasix CT chest abdomen pelvis 08/31/2021 Moderate amount of airspace disease probably pneumonia Moderate right pleural effusion Cardiomegaly Moderate colonic diverticulosis Cholelithiasis Diuresis as tolerated with renal function Repeat chest x-ray today (2) Visual hallucinations: Code(s): R44.1 - Visual hallucinations Status: Acute Assessment and Plan: Most likely acute metabolic encephalopathy multifactorial secondary to CHF exacerbation COPD exacerbation and pneumonia improved CT scan of the head negative for acute finding Improved MRI negative for acute stroke shows chronic stroke (3) Chronic respiratory failure with hypoxia, on home oxygen therapy: Code(s): J96.11 - Chronic respiratory failure with hypoxia; Z99.81 - Dependence on supplemental oxygen Status: Acute Assessment and Plan: Acute on chronic respiratory failure 2 L supplemental oxygen at home prior to this admission. Most likely related to COPD pneumonia and CHF exacerbation Continue oxygen Influenza a/B negative COVID negative MRSA swab negative (4) Insulin dependent diabetes mellitus: Status: Chronic Assessment and Plan: Insulin sliding scale Monitor the dose of Lantus daily as patient has hypoglycemia in the morning Adjust as needed (5) Altered mental status: Qualifiers: Altered mental status type: somnolence Qualified Code(s): R40.0 - Somnolence Code(s): R41.82 - Altered mental status, unspecified Status: Acute Assessment and Plan: As above CT head is negative evidence of pneumonia and/or CHF (6) Hypertension: Code(s): I10 - Essential (primary) hypertension Status: Acute Assessment and Plan: Stable continue current treatment (7) Cholelithiasis: Code(s): K80.20 - Calculus of gallbladder without cholecystitis without obstruction Status: Acute Assessment and Plan: Follow-up with PCP as outpatient (8) CAD (coronary artery disease), autologous vein bypass graft: Code(s): I25.810 - Atherosclerosis of coronary artery bypass graft(s) without angina pectoris Status: Acute Assessment and Plan: Continue home medication (9) Chronic obstructive pulmonary disease: Qualifiers: COPD type: unspecified COPD Qualified Code(s): J44.9 - Chronic obstructive pulmonary disease, unspecified Code(s): J44.9 - Chronic obstructive pulmonary disease, unspecified Status: Acute Assessment and Plan: With acute exacerbation give nebulizer treatment no plan for steroid as patient has episode of hyperglycemia with steroid in the past continue to monitor Steroid nebulizer treatment Continue prednisone and slow taper (10) Pneumonia of both lungs due to infectious organism: Code(s): J18.9 - Pneumonia, unspecified organism Status: Acute Assessment and Plan: Treated with IV cefepime IV doxycycline Additional Plan CLARIBEL on CKD stage 3: stable -creatinine of 1.4 from baseline of 1.1 Hypoglycemia: fasting blood glucose of 57--> improved after juice to 88 morning insulin was held. decreased bedtime glargine to 5units from 8 units. And monitor also give patient's neck continue accu cheks. Cholelithiasis: Stable Follow-up with Nam
[2021-09-11] MEDS: ACETAMINOPHEN 325 MG TABLET 650 MG PO (09:38)
[2021-09-11] MEDS: FUROSEMIDE 40 MG TABLET PO (09:38)
[2021-09-11] MEDS: CITALOPRAM HYDROBROMIDE 20 MG TABLET 40 MG PO (09:39)
[2021-09-11] MEDS: hydrALAZINE HCL 50 MG TABLET PO (09:39)
[2021-09-11] MEDS: buPROPion HCL XL (24 HR) 150 MG TABCR PO (09:39)
[2021-09-11] MEDS: GABAPENTIN 300 MG CAPSULE PO ×3 (09:39→17:33)
[2021-09-11] MEDS: ASPIRIN 81 MG ENTERIC TABLET PO (09:39)
[2021-09-11] MEDS: ISOSORBIDE DINITRATE 10 MG TABLET PO (09:40)
[2021-09-11] MEDS: carvediloL 25 MG TABLET PO (09:40)
[2021-09-11] MEDS: ATORVASTATIN 40 MG TABLET 80 MG PO (09:40)
[2021-09-11] MEDS: PANTOPRAZOLE 40 MG TABLET PO ×2 (09:40→20:14)
[2021-09-11] MEDS: guaiFENesin 12 HR 600 MG TABCR 1200 MG PO ×2 (09:40→20:03)
[2021-09-11] MEDS: INSULIN ASPART (*BKC) 100 UNITS/ML SUB-Q ×3 (09:42→17:33)
[2021-09-11] MEDS: CLOPIDOGREL BISULFATE 75 MG TABLET PO (09:43)
[2021-09-11] MEDS: COLLAGENASE OINT 30 GM TUBE 1 APPLIC TOPICAL (09:50)
[2021-09-11] MEDS: HEPARIN SODIUM 5,000 UNITS/ML VIAL 5000 UNITS SUB-Q ×2 (09:54→20:05)
--- NOTE | 2021-09-11 10:25 | PCPTNOTE ---
Attempted therapy session, Pt is eating breakfast and requested therapy to come back. Will attempt again.
[2021-09-11 11:23] LABS: Glucose Point of Care 145 mg/dl (65-105)
--- NOTE | 2021-09-11 11:43 | PC.NURSE ---
This nurse was called into patient's room by therapy r/t patient acting funny at 1125 am. Upon assessment, patient found in recliner in room with eyes closed. Patient was arousable by voice with some disorientation noted. Alert to person and place. Disoriented to time. Patient noted to have periods of difficult to arouse. VS obtained. Hypotension noted. Patient complains of periods of dizzy and feeling funny . BS obtained. Hospitalist made aware. New orders received. Patient denies any chest pain or pressure when asked.
[2021-09-11 11:51] LABS: Alveolar/Arterial O2 Gradient 62.5 mmHg; Base Excess ABG 8.5 mEq/l (+/-2.0); Fractional Inspired Oxygen 32 %; HCO3 ABG 35.1 mEq/l (22.0-26.0); Oxygen Content ABG 13.3 %vol (16.0-22.0); Oxygen Saturation ABG 96.9 % (95.0-100.0); Oxyhemoglobin 95.8 % THb (90.0-100.0); PO2 ABG 94.3 mmHg (80.0-100.0); PO2 FiO2 Ratio Arterial Blood 2.95 %; Total Hemoglobin 9.8 g/dL (12.0-18.0); pH ABG 7.378 (7.350-7.450)
[2021-09-11 11:55] LABS: Device NASAL CANNULA; Modified Allen's Test Pass; Site Drawn RIGHT RADIAL
[2021-09-11 12:02] LABS: Basophils Percent Auto 0.1 % (0.2-1.2); Eosinophils Absolute Auto 0.5 K/mm3 (0-0.3); Eosinophils Percent Auto 4.2 % (0-4.4); Hematocrit 29.4 % (37.0-47.0); Hemoglobin 8.8 g/dL (12.0-15.0); Immature Granulocyte Absolute 0.07 K/mm3 (0.00-0.031); Immature Granulocyte Percent A 0.6 % (0-0.5); Immature Platelet Fraction Pct 4.1 % (0.9-11.2); Lymphocytes Absolute Auto 0.53 K/mm3 (0.9-3.2); Lymphocytes Percent Auto 4.7 % (18.3-44.2); Mean Corpuscular HGB Conc 29.9 g/dl (32-36); Mean Corpuscular Hemoglobin 29.5 pg (26-34); Mean Corpuscular Volume 98.7 fl (80-100); Mean Platelet Volume 10.9 fl (7.4-10.4); Monocytes Percent Auto 8.9 % (2.6-8.5); Neutrophils Absolute Auto 9.2 K/mm3 (1.3-6.7); Neutrophils Percent Auto 81.5 % (45.5-73.1); Platelet Count Result 149 k/mm3 (150-375); Red Blood Count 2.98 M/mm3 (4.2-5.4); White Blood Count 11.3 K/mm3 (4.5-10.0)
[2021-09-11 12:11] LABS: Alanine Aminotransferase 31 U/L (4-35); Albumin Level 2.6 g/dL (3.5-5.1); Alkaline Phosphatase 108 U/L (38-126); Ammonia < 9 umol/L (9-30); Anion Gap 1 mmol/L (8-16); Aspartate Amino Transferase 39 U/L (14-36); Bilirubin,Total 0.6 mg/dL (0.2-1.3); Blood Urea Nitrogen 39 mg/dL (7-17); Calcium 8.6 mg/dL (8.4-10.2); Carbon Dioxide 36 mmol/L (22-30); Chloride 99 mmol/L (98-107); Estimated CRCL calculation 26 ml/min; Estimated Glomerular Filt Rate 33; Glucose 149 mg/dL (65-110); Sodium 136 mmol/L (137-145)
[2021-09-11] MEDS: SODIUM CHLORIDE 0.9% IV 500 ML IV CONT (12:28)
[2021-09-11 16:09] LABS: Glucose Point of Care 143 mg/dl (65-105)
[2021-09-11 16:27] LABS: Glucose Point of Care 151 mg/dl (65-105)
[2021-09-11] MEDS: carvediloL 12.5 MG TABLET PO (20:03)
[2021-09-11] MEDS: MELATONIN 5 MG TABLET PO (20:13)
--- NOTE | 2021-09-11 20:33 | ECG_ITS ---
Measurements Intervals [place] Rate: 115 P: [place]: 0 QRS: -3 QRSD: 114 T: 131 QT: 331 QTc: 458 Interpretive Statements ATRIAL FIBRILLATION WITH RAPID VENTRICULAR RESPONSE MODERATE INTRAVENTRICULAR CONDUCTION DELAY [110+ ms QRS DURATION] ST DEVIATION AND MODERATE T-WAVE ABNORMALITY, CONSIDER LATERAL ISCHEMIA [-0.1+ mV T WAVE IN I/aVL/V5/V6] ABNORMAL ECG COMPARED TO ECG 08/28/2021 21:49:49 ATRIAL FIBRILLATION NOW PRESENT ST ABNORMALITY PRESENT Electronically Signed On 09-12-2021 11:23:26 CDT by Sal Nieto M.D.
[2021-09-11] MEDS: METOPROLOL TARTRATE INJ 5 MG/5 ML VIAL IV PUSH (21:13)
[2021-09-11 22:48] LABS: Glucose Point of Care 163 mg/dl (65-105)
[2021-09-12] VITALS (26 sets, daily range): BP systolic 112–163; BP diastolic 47–112; PULSE 70–101; RESP 18–22; TEMP 36.4–37.8; O2SAT 91–100
[2021-09-12] MEDS: IPRATROPIUM BR 0.02% INH SOLN 0.5 MG/2.5 ML VIAL INHALATION ×4 (02:19→20:51)
[2021-09-12] MEDS: ACETYLCYSTEINE 20% INHAL SOLN 800 MG/4 ML VIAL 200 MG INHALATION ×4 (02:20→20:51)
[2021-09-12] MEDS: LEVOTHYROXINE SODIUM 50 MCG TABLET PO (05:17)
[2021-09-12 06:01] LABS: Basophils Percent Auto 0.1 % (0.2-1.2); Eosinophils Absolute Auto 0.2 K/mm3 (0-0.3); Eosinophils Percent Auto 1.3 % (0-4.4); Hematocrit 31.8 % (37.0-47.0); Hemoglobin 9.2 g/dL (12.0-15.0); Immature Granulocyte Absolute 0.07 K/mm3 (0.00-0.031); Immature Granulocyte Percent A 0.5 % (0-0.5); Lymphocytes Absolute Auto 0.49 K/mm3 (0.9-3.2); Lymphocytes Percent Auto 3.8 % (18.3-44.2); Mean Corpuscular HGB Conc 28.9 g/dl (32-36); Mean Corpuscular Hemoglobin 29.4 pg (26-34); Mean Corpuscular Volume 101.6 fl (80-100); Mean Platelet Volume 11.6 fl (7.4-10.4); Monocytes Absolute Auto 1.2 K/mm3 (0.1-0.6); Neutrophils Absolute Auto 10.8 K/mm3 (1.3-6.7); Neutrophils Percent Auto 85.3 % (45.5-73.1); Platelet Count Result 164 k/mm3 (150-375); Red Blood Count 3.13 M/mm3 (4.2-5.4); Red Cell Distribution Width 17.1 % (11.5-14.5); White Blood Count 12.7 K/mm3 (4.5-10.0)
[2021-09-12 06:15] LABS: Alanine Aminotransferase 34 U/L (4-35); Albumin Level 2.9 g/dL (3.5-5.1); Alkaline Phosphatase 136 U/L (38-126); Anion Gap 1 mmol/L (8-16); Aspartate Amino Transferase 45 U/L (14-36); Bilirubin,Total 0.7 mg/dL (0.2-1.3); Blood Urea Nitrogen 33 mg/dL (7-17); Calcium 8.8 mg/dL (8.4-10.2); Carbon Dioxide 34 mmol/L (22-30); Chloride 102 mmol/L (98-107); Estimated CRCL calculation 30 ml/min; Estimated Glomerular Filt Rate 39; Glucose 155 mg/dL (65-110); Potassium 4.3 mmol/L (3.4-5.0); Sodium 137 mmol/L (137-145)
[2021-09-12 07:40] LABS: Acanthocytes 1+ (NORMAL); Basophilic Stippling 1+ (NORMAL); Hypochromasia 1+ (NORMAL); Platelet Estimate Adequate (Adequate)
[2021-09-12 07:57] LABS: Glucose Point of Care 173 mg/dl (65-105)
[2021-09-12] MEDS: FLUTICASONE/UMECLIDIN/VILANTER 100-62.5-25 MCG ELLIPTA 1 PUFF INHALATION (07:58)
[2021-09-12] MEDS: ALBUTEROL SULFATE NEB 2.5 MG/0.5 ML INH INHALATION ×2 (07:59→14:10)
[2021-09-12] MEDS: hydrALAZINE HCL 50 MG TABLET PO ×3 (08:51→16:49)
[2021-09-12] MEDS: ASPIRIN 81 MG ENTERIC TABLET PO (08:51)
[2021-09-12] MEDS: carvediloL 25 MG TABLET PO ×2 (08:52→16:50)
[2021-09-12] MEDS: GABAPENTIN 300 MG CAPSULE PO ×3 (08:52→16:49)
[2021-09-12] MEDS: ISOSORBIDE DINITRATE 10 MG TABLET PO ×2 (08:52→16:50)
[2021-09-12] MEDS: PANTOPRAZOLE 40 MG TABLET PO ×2 (08:52→21:12)
[2021-09-12] MEDS: CLOPIDOGREL BISULFATE 75 MG TABLET PO (08:52)
[2021-09-12] MEDS: ATORVASTATIN 40 MG TABLET 80 MG PO (08:52)
[2021-09-12] MEDS: COLLAGENASE OINT 30 GM TUBE 1 APPLIC TOPICAL (08:52)
[2021-09-12] MEDS: CITALOPRAM HYDROBROMIDE 20 MG TABLET 40 MG PO (08:53)
[2021-09-12] MEDS: guaiFENesin 12 HR 600 MG TABCR 1200 MG PO ×2 (08:53→21:12)
[2021-09-12] MEDS: buPROPion HCL XL (24 HR) 150 MG TABCR PO (08:53)
[2021-09-12] MEDS: INSULIN ASPART (*BKC) 100 UNITS/ML SUB-Q ×3 (08:55→16:47)
[2021-09-12] MEDS: HYDROcodone/acetaminophen (*CRX) 5-325 MG TABLET 1 TAB PO (08:58)
[2021-09-12] MEDS: HEPARIN SODIUM 5,000 UNITS/ML VIAL 5000 UNITS SUB-Q (08:58)
[2021-09-12 11:24] LABS: Glucose Point of Care 164 mg/dl (65-105)
--- NOTE | 2021-09-12 12:44 | PM.IMPN ---
Progress Note: A&P Assessment and Plan (1) Chronic respiratory failure with hypoxia, on home oxygen therapy: Code(s): J96.11 - Chronic respiratory failure with hypoxia; Z99.81 - Dependence on supplemental oxygen Status: Acute (2) Visual hallucinations: Code(s): R44.1 - Visual hallucinations Status: Acute (3) Acute exacerbation of congestive heart failure: Code(s): I50.9 - Heart failure, unspecified Status: Acute (4) Insulin dependent diabetes mellitus: Status: Chronic (5) Chronic kidney disease, stage 3: Code(s): N18.30 - Chronic kidney disease, stage 3 unspecified Status: Chronic Additional Plan 81 years old female with past medical history of COPD CHF presented to the hospital with confusion and increased sleepiness patient was found to have pneumonia CHF exacerbation COPD exacerbation (1) Acute on Chronic Resp Failure: Multifactorial Acute on chronic diastolic+Systolic HF+B/L Pneumonia+?COPD exacerbation c/w O2 support c/w bronchodilators CXR shows worsening congestion vs PNA Will resume lasix today Will get cardiology consult c/w cefepime for total of 10 days Will get Pulmonary consult as well Flu A/B and COVID [address] chest (2) Visual hallucinations: ?etiology Recent stroke work up including CT head and MRI brain were unremarkable Will repeat CT head again Will consider Neuro consult if continues to happen Already on ASA, plavix, Statin (3) Insulin dependent diabetes mellitus: BG check TID AC Insulin sliding scale+Lantus Adjust dose as needed (4) Altered mental status: Recent ABG showed hypercapnia ?benefit from BIPAP if needed especially at night Will defer to Pulmonary (5)CKD Stage 3: Stable kidney function with mild fluctuation Avoid nephrotoxins Recheck BMP in AM (6) Hypertension: c/w hydralazine (7) Cholelithiasis: Stable Follow-up with PCP as outpatient (8)Recent hip fracture status post surgery PT/OT (9)Pressure ulcer left lower buttock stage II sacral ulcer, left heel wound care following 10)DVT ppx:hep SQ 11)Code:Modified 12)Dispo:pending improvement, called her daughter in law and discussed with her about her ongoing care Time Spent With Patient Time with patient: 25 - 35 minutes Subjective Date/time seen: 09/12/21 12:44 ? had a choking episode overnight episode of Afibb with RVR overnight, requiring additional dose of IV metoprolol not feeling well over all, SOB Review of Systems Constitutional: Constitutional: Reports fatigue, Reports lethargy and Reports weakness Eyes: Eyes: Reports no additional eye complaints ENT: Reports system reviewed and no additional complaints, except as documented Cardiovascular: Cardiovascular: Reports leg edema Respiratory: Respiratory: Reports dyspnea and Reports dyspnea on exertion Gastrointestinal: Gastrointestinal: Reports no additional gastrointestinal complaints Neurologic: Comments: intermittent lethargy ?visual changes Exam Const: Other: on NC sitting in recliner HENMT: Mouth: Yes moist mucous membranes Eyes: Pupils: Equal, round and reactive pupils present Neck: Neck: supple Resp: Other: B/L coarse crackles, no wheezing Cardio: Rate: regular rate GI: GI Palp: Yes Soft to palpation Auscultation: normal bowel sounds Neuro: Speech: normal speech Extrem: Left lower extremity: edema Psych: Mental Status: mental status grossly normal Objective Data Vital Signs Vital Signs: Vital Signs - 24 hr 09/11/21 13:24 09/11/21 13:56 09/11/21 14:07 Temperature 98.7 F Pulse Rate 73 74 78 Respiratory Rate 21 H 18 18 Blood Pressure 111/62 Pulse Oximetry 100 09/11/21 16:00 09/11/21 19:36 09/11/21 19:46 Temperature Pulse Rate 80 99 96 Respiratory Rate 24 H 20 Blood Pressure Pulse Oximetry 92 09/11/21 20:00 09/11/21 20:02 09/11/21 20:03 Temperature Pulse Rate 102 H 102 H Respiratory Rate 20 B
[2021-09-12] MEDS: FUROSEMIDE 40 MG TABLET PO (13:46)
--- NOTE | 2021-09-12 13:46 | PCNFU ---
Nutrition Follow-Up Complete: Increase protein needs r/t wounds AEB unstageable medial sacrum pressure ulcer, unstageable left heel pressure ulcer, stage II left lower buttock pressure ulcer Goal: Pt to meet >75% of estimated nutritional needs. Pt is progressing towards goal Pt current nutrition is Diabetic Carb Consistent diet and dietary supplements Last recorded weight is 73.3 kg - stable. Bowel Motility: +BM reported 09/10/21 Labs Reviewed: Hgb 9.2, Hct 31.8, Alb 2.9, CO2 34, AST 45, GFR 39, BUN 33, Cr 1.30, Glu 155, ALP 146 Meds Noted: [place], Acetylcysteine, Albuterol, Aspirin, Lipitor, Wellbutrin, Coreg, Maxipime, Celexa, Plavix, Lasix, Gabapentin, Mucinex, Apresoline, Novolog, Synthroid, Protonix Skin: medial sacrum pressure ulcer - unstageable, left heel pressure ulcer - unstageable, left lower buttock pressure ulcer - stage II Additional Notes: Current nutrition is a Diabetic Carb Consistent diet with dietary supplements of [place] BID and Glucerna Shakes TID to provide additional kcal and protein to aid in wound healing. Reported intake is 100%, 0%, 50% x2, and 75%. Pt appears to be tolerating current diet orders with adequate intake. Agree with diet orders at this time. Will continue to follow. Will monitor labs, medication, wt and reported intake every 7 days
--- NOTE | 2021-09-12 15:28 | PM.CNCAR ---
Assessment and Plan Assessment and plan (1) Heart failure with reduced ejection fraction: Code(s): I50.20 - Unspecified systolic (congestive) heart failure Status: Acute Assessment and Plan: Patient clinically appears possibly with mild acute on chronic heart failure with reduced ejection fraction with exam suggestive although exam with Velcro rales but cannot exclude pulmonary vascular congestion. EF 45-50% by recent echo. Elevated BNP multifactorial. -Considered giving additional IV Lasix 20mg IVx1, however, she just recently received 40mg po. As such, will observe response this afternoon, but will change Lasix to 40mg IV daily starting tomorrow. Monitor renal function and electrolytes closely. -Must have accurate input and output, and daily weight. -She is not on Luis inhibitor, ARB, Entresto presumably due to mild LV dysfunction and CKD. She remains on Hydralazine and Isosorbide as alternative. -Jardiance may be a reasonable addition to her medical therapy given CHF and LV dysfunction. Monitor tolerance diuresis with recommendations to follow. (2) Chronic respiratory failure with hypoxia, on home oxygen therapy: Code(s): J96.11 - Chronic respiratory failure with hypoxia; Z99.81 - Dependence on supplemental oxygen Status: Acute Assessment and Plan: Respiratory failure does appear to be multifactorial with severe underlying lung disease, pneumonia and a degree of CHF. Continue O2 supplementation. Bronchodilator therapy. Pulmonology consultation placed, appreciate their involvement. Continue CPAP while asleep. (3) Pneumonia of both lungs due to infectious organism: Code(s): J18.9 - Pneumonia, unspecified organism Status: Acute Assessment and Plan: Continue antibiotic therapy per primary service. Development mild leukocytosis, persistent a ground-glass infiltrates. Concerned she may require alteration in her therapy. Defer to primary service and Pulmonology. (4) Atrial fibrillation: Code(s): I48.91 - Unspecified atrial fibrillation Status: Acute Assessment and Plan: AFib not previously documented with available records. Generally maintaining sinus rhythm my review of telemetry. While AFib possible by EKG, review of telemetry questionable with significant baseline artifact and at least brief runs of SVT, Sins tachycardia with frequent PAC's vs very brief AFib. Continue telemetry. Will change carvedilol to metoprolol if tachyarrhythmia and/or recurrent AFib identified. Given radiographic evidence of old CVA anticoagulation may be warranted if clear recurrent atrial fibrillation identified. (5) CAD (coronary artery disease): Code(s): I25.10 - Atherosclerotic heart disease of [place] coronary artery without angina pectoris Status: Acute Assessment and Plan: No anginal symptoms. Continue supportive medical therapy aspirin, statin, beta-josue. (6) Hypertension: Code(s): I10 - Essential (primary) hypertension Status: Acute Assessment and Plan: Stable overall, transient mild hypotension yesterday early afternoon. Reduce hydralazine and or isosorbide if relative hypotension. Continue current therapy for now. (7) Acute on chronic renal insufficiency: Code(s): N28.9 - Disorder of kidney and ureter, unspecified; N18.9 - Chronic kidney disease, unspecified Status: Acute Assessment and Plan: Monitor closely, stable has 48 hours. (8) Altered mental status: Qualifiers: Altered mental status type: somnolence Qualified Code(s): R40.0 - Somnolence Code(s): R41.82 - Altered mental status, unspecified Status: Acute Assessment and Plan: Fluctuating mental status as reported. Per primary service. (9) Controlled diabetes mellitus with diabetic neuropathy, with long-term current use of insulin: Code(s): E11.40 - Type 2 diabetes mellitus with diabetic neuropathy, unspecified; Z79.4 -
[2021-09-12 16:16] LABS: Glucose Point of Care 194 mg/dl (65-105)
--- NOTE | 2021-09-12 20:00 | PM.CNPUL ---
Assessment and Plan Assessment and plan (1) Pneumonia: Qualifiers: Laterality: bilateral Lung location: unspecified part of lung Pneumonia type: due to unspecified organism Qualified Code(s): J18.9 - Pneumonia, unspecified organism Code(s): J18.9 - Pneumonia, unspecified organism Status: Acute Assessment and Plan: CT scan September 12 definitely shows infiltrates that are consistent with pneumonia as well as some underlying pulmonary edema. Her microbiologic studies have been negative so far including urine antigens. She did not have symptoms compatible with pneumonia on admission, more systolic congestive heart failure and she is being well managed, She has other significant medical comorbidities, acute on chronic renal disease, CAD, history of a stroke, possible recent transient atrial fibrillation. She is currently on cefepime alone, and I would broaden this as she has been in the hospital for 2 weeks, and she has underlying lung disease, COPD on supplemental oxygen. Cefepime may need to be renally dosed. I would add vancomycin, try to obtain sputum for studies, may benefit from using a Cornet valve and mucolytics. Urine for pneumococcal antigen was negative July the . (2) Chronic obstructive pulmonary disease: Qualifiers: COPD type: unspecified COPD Qualified Code(s): J44.9 - Chronic obstructive pulmonary disease, unspecified Code(s): J44.9 - Chronic obstructive pulmonary disease, unspecified Status: Acute Assessment and Plan: Longstanding COPD, supplemental oxygen for chronic respiratory failure. She had mild hypercapnia really not enough that would explain significant change in mental status. Continue bronchodilator therapy, bilevel pressure if necessary but not continuously.. Oxygen to maintain adequate saturation. Further recommendations to follow. History of Present Illness History of Present Illness Consult date: 09/13/21 Requesting physician: Mihaela Maldonado MD Reason for consult: pneumonia Chief complaint: CHF Exacerbation, AMS Narrative: NEW CONSULT: Jamee Finley is an 81 year old female admitted 08/29/2021 for confusion. She did not have respiratory complaints on presentation. She was diuresed in the emergency department with Lasix. She has COPD and uses O2 at home 4-5 L/min now with worsening status. Yesterday, she became less responsive and developed new hypercapnia, pCO2 was 61 with a compensated pH. She also had transient atrial fibrillation. Radiographically she is worse with a right pleural effusion and infiltrates. She is being seen by cardiology for heart failure, had lasix for crackles heard on exam. 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 PMH: CABG 1998 LAYNE to LAD, occluded vein graft to diagonal and OM, history of stent to LAD, diagonal branch and repeat stenting to vein graft to the RCA November 2020 setting of acute coronary syndrome, history of mitraclip January 2021 for severe mitral valve regurgitation history of chronic heart failure, history of cardiomyopathy, DM with neuropathy, CKD, history of stroke, hypertension, DATA * 09/11/2021 ABG :7.378/pCO2 61/pO2 94.3/HCO3 35/ * 09/12/2021 HRCT Persistent diffuse lung disease, consistent with pneumonia. Small right pleural effusion. Cardiomegaly. Moderate-sized sliding hiatal hernia. * 09/11/2021 CXR * 08/15/2021 echo: mild LV dysfunction EF 45-50%, mild LVH, mild mitral regurgitation, moderate TR moderate pulmonary hypertension RVSP 54 mmHg Review of Systems Review of Systems: All systems reviewed & are unremarkable except as noted in HPI and below [facility] Past Medical History Medical History Cardiac arrest with ventric
[2021-09-12 20:24] LABS: Glucose Point of Care 193 mg/dl (65-105)
[2021-09-12] MEDS: MELATONIN 5 MG TABLET PO (21:12)
[2021-09-12] MEDS: INSULIN GLARGINE (*BKC) 100 UNITS/ML SUB-Q (21:15)
[2021-09-13] VITALS (23 sets, daily range): BP systolic 101–152; BP diastolic 57–92; PULSE 75–94; RESP 15–20; TEMP 36.8–38.7; O2SAT 93–100
[2021-09-13] MEDS: HEPARIN SODIUM 5,000 UNITS/ML VIAL 5000 UNITS SUB-Q ×3 (01:25→21:33)
[2021-09-13] MEDS: IPRATROPIUM BR 0.02% INH SOLN 0.5 MG/2.5 ML VIAL INHALATION ×4 (02:12→20:24)
[2021-09-13] MEDS: LEVOTHYROXINE SODIUM 50 MCG TABLET PO (06:17)
[2021-09-13 07:22] LABS: Basophils Percent Auto 0.1 % (0.2-1.2); Eosinophils Absolute Auto 0.1 K/mm3 (0-0.3); Hematocrit 30.4 % (37.0-47.0); Hemoglobin 8.8 g/dL (12.0-15.0); Immature Granulocyte Absolute 0.05 K/mm3 (0.00-0.031); Immature Granulocyte Percent A 0.4 % (0-0.5); Lymphocytes Absolute Auto 0.34 K/mm3 (0.9-3.2); Lymphocytes Percent Auto 2.7 % (18.3-44.2); Mean Corpuscular HGB Conc 28.9 g/dl (32-36); Mean Corpuscular Hemoglobin 29.1 pg (26-34); Mean Corpuscular Volume 100.7 fl (80-100); Mean Platelet Volume 11.5 fl (7.4-10.4); Monocytes Absolute Auto 0.7 K/mm3 (0.1-0.6); Monocytes Percent Auto 5.5 % (2.6-8.5); Neutrophils Absolute Auto 11.3 K/mm3 (1.3-6.7); Neutrophils Percent Auto 90.3 % (45.5-73.1); Platelet Count Result 149 k/mm3 (150-375); Red Blood Count 3.02 M/mm3 (4.2-5.4); Red Cell Distribution Width 17.2 % (11.5-14.5); White Blood Count 12.5 K/mm3 (4.5-10.0)
[2021-09-13 07:34] LABS: Alanine Aminotransferase 32 U/L (4-35); Albumin Level 2.9 g/dL (3.5-5.1); Alkaline Phosphatase 138 U/L (38-126); Anion Gap 2 mmol/L (8-16); Aspartate Amino Transferase 41 U/L (14-36); Bilirubin,Total 0.7 mg/dL (0.2-1.3); Blood Urea Nitrogen 42 mg/dL (7-17); Calcium 8.8 mg/dL (8.4-10.2); Carbon Dioxide 33 mmol/L (22-30); Chloride 102 mmol/L (98-107); Estimated CRCL calculation 28 ml/min; Estimated Glomerular Filt Rate 36; Glucose 185 mg/dL (65-110); Potassium 4.5 mmol/L (3.4-5.0); Sodium 137 mmol/L (137-145)
[2021-09-13 07:48] LABS: Glucose Point of Care 185 mg/dl (65-105)
[2021-09-13] MEDS: INSULIN ASPART (*BKC) 100 UNITS/ML SUB-Q ×4 (08:19→16:52)
[2021-09-13] MEDS: CITALOPRAM HYDROBROMIDE 20 MG TABLET 40 MG PO (08:21)
[2021-09-13] MEDS: hydrALAZINE HCL 50 MG TABLET PO ×2 (08:22→12:01)
[2021-09-13] MEDS: guaiFENesin 12 HR 600 MG TABCR 1200 MG PO ×2 (08:22→21:33)
[2021-09-13] MEDS: carvediloL 25 MG TABLET PO (08:22)
[2021-09-13] MEDS: GABAPENTIN 300 MG CAPSULE PO ×2 (08:22→12:01)
[2021-09-13] MEDS: CLOPIDOGREL BISULFATE 75 MG TABLET PO (08:23)
[2021-09-13] MEDS: ASPIRIN 81 MG ENTERIC TABLET PO (08:23)
[2021-09-13] MEDS: PANTOPRAZOLE 40 MG TABLET PO ×2 (08:23→21:33)
[2021-09-13] MEDS: ATORVASTATIN 40 MG TABLET 80 MG PO (08:23)
[2021-09-13] MEDS: ISOSORBIDE DINITRATE 10 MG TABLET PO (08:23)
[2021-09-13] MEDS: FUROSEMIDE INJ 40 MG/4 ML VIAL IV PUSH ×2 (08:24→16:55)
[2021-09-13] MEDS: buPROPion HCL XL (24 HR) 150 MG TABCR PO (08:25)
[2021-09-13] MEDS: COLLAGENASE OINT 30 GM TUBE 1 APPLIC TOPICAL (08:25)
[2021-09-13 08:27] LABS: Acanthocytes 1+ (NORMAL); Hypochromasia 1+ (NORMAL); Platelet Estimate Adequate (Adequate)
--- NOTE | 2021-09-13 09:00 | PM.PNCARD ---
Progress Note: A&P Assessment and Plan (1) Heart failure with reduced ejection fraction: Code(s): I50.20 - Unspecified systolic (congestive) heart failure <JULY Fregoso - Last Filed: 09/13/21 12:43> Status: Acute <JULY Fregoso - Last Filed: 09/13/21 12:43> Assessment and Plan: Patient clinically appears possibly with mild acute on chronic heart failure with reduced ejection fraction with exam suggestive although exam with Velcro rales but cannot exclude pulmonary vascular congestion. EF 45-50% by recent echo. Elevated BNP multifactorial. -Increase furosemide to 40mg b.i.d. -Must have accurate input and output, and daily weight. -Continue medical therapy with hydralazine, imdur, coreg -Jardiance may be a reasonable addition to her medical therapy given CHF and LV dysfunction. Monitor tolerance diuresis with recommendations to follow. <JULY Fregoso - Last Filed: 09/13/21 12:43> (2) Chronic respiratory failure with hypoxia, on home oxygen therapy: Code(s): J96.11 - Chronic respiratory failure with hypoxia; Z99.81 - Dependence on supplemental oxygen <JULY Fregoso - Last Filed: 09/13/21 12:43> Status: Acute <JULY Fregoso - Last Filed: 09/13/21 12:43> Assessment and Plan: Respiratory failure does appear to be multifactorial with severe underlying lung disease, pneumonia and a degree of CHF. Continue O2 supplementation. Bronchodilator therapy. Pulmonology consultation placed, appreciate their involvement. Continue CPAP while asleep. <JULY Fregoso - Last Filed: 09/13/21 12:43> (3) Pneumonia of both lungs due to infectious organism: Code(s): J18.9 - Pneumonia, unspecified organism <JULY Fregoso - Last Filed: 09/13/21 12:43> Status: Acute <JULY Fregoso - Last Filed: 09/13/21 12:43> Assessment and Plan: Continue antibiotic therapy per primary service. Development mild leukocytosis, persistent a ground-glass infiltrates. Concerned she may require alteration in her therapy. Defer to primary service and Pulmonology. <JULY Fregoso - Last Filed: 09/13/21 12:43> (4) Atrial fibrillation: Code(s): I48.91 - Unspecified atrial fibrillation <JULY Fregoso - Last Filed: 09/13/21 12:43> Status: Acute <JULY Fregoso - Last Filed: 09/13/21 12:43> Assessment and Plan: AFib not previously documented with available records. Generally maintaining sinus rhythm my review of telemetry. <JULY Fregoso - Last Filed: 09/13/21 12:43> (5) CAD (coronary artery disease): Code(s): I25.10 - Atherosclerotic heart disease of [place] coronary artery without angina pectoris <JULY Fregoso - Last Filed: 09/13/21 12:43> Status: Acute <JULY Fregoso - Last Filed: 09/13/21 12:43> Assessment and Plan: No anginal symptoms. Continue supportive medical therapy aspirin, statin, beta-josue. <JULY Fregoso - Last Filed: 09/13/21 12:43> (6) Hypertension: Code(s): I10 - Essential (primary) hypertension <JULY Fregoso - Last Filed: 09/13/21 12:43> Status: Acute <JULY Fregoso - Last Filed: 09/13/21 12:43> Assessment and Plan: Stable <JULY Fregoso - Last Filed: 09/13/21 12:43> (7) Acute on chronic renal insufficiency: Code(s): N28.9 - Disorder of kidney and ureter, unspecified; N18.9 - Chronic kidney disease, unspecified <JULY Fregoso - Last Filed: 09/13/21 12:43> Status: Acute <JULY Fregoso - Last Filed: 09/13/21 12:43> Assessment and Plan: Monitor closely, stable today <Tahmina Rodriguez APN-C - Last Filed: 09/13/21 12:43> (8) Altered mental status: Qualifiers: Altered mental status type: somnolence Qualified Code(s): R40.0 - Somnolence <Ch
--- NOTE | 2021-09-13 09:02 | PM.IMPN ---
Progress Note: A&P Assessment and Plan (1) Chronic respiratory failure with hypoxia, on home oxygen therapy: Code(s): J96.11 - Chronic respiratory failure with hypoxia; Z99.81 - Dependence on supplemental oxygen Status: Acute Assessment and Plan: Acute on chronic respiratory failure 2 L supplemental oxygen at home prior to this admission. Most likely related to COPD pneumonia and CHF exacerbation Continue oxygen Continue treatment for COPD see. (2) Visual hallucinations: Code(s): R44.1 - Visual hallucinations Status: Acute Assessment and Plan: Likely metabolic encephalopathy from respiratory issues (3) Acute exacerbation of congestive heart failure: Code(s): I50.9 - Heart failure, unspecified Status: Acute Assessment and Plan: Continue diuretic therapy. Appreciate Cardiology input. (4) Insulin dependent diabetes mellitus: Status: Chronic Assessment and Plan: Insulin sliding scale Monitor blood sugar (5) Chronic kidney disease, stage 3: Code(s): N18.30 - Chronic kidney disease, stage 3 unspecified Status: Chronic Assessment and Plan: Monitor electrolytes. Subjective Date/time seen: 09/13/21 09:02 Patient still has significant shortness of breath. She complete short sentences prior to having to stop talking. Exam Narrative: Alert Chest bilateral crackle and wheeze Abdomen nontender nondistended CVS S1 + S2 Lower extremity positive edema Const: General: cooperative, comfortable and no acute distress Other: on NC sitting in recliner HENMT: Head: normal to inspection Mouth: Yes moist mucous membranes Eyes: Pupils: Equal, round and reactive pupils present EOM: EOMs intact bilaterally Neck: Neck: supple Resp: Effort & Inspection: normal respiratory effort and able to speak in complete sentences Auscultation: clear to auscultation bilaterally and crackles Other: B/L coarse crackles, no wheezing Cardio: Rate: regular rate Rhythm: regular rhythm Heart sounds: S1 normal heart sound present and S2 normal heart sound present GI: Inspection: normal to inspection Auscultation: normal bowel sounds Skin: General skin exam: normal color Neuro: Cranial nerves: Yes Equal, round and reactive pupils present Speech: normal speech Extrem: General: normal to inspection, edema and pedal edema Left lower extremity: edema Other: B/L edema present Psych: Mental Status: mental status grossly normal Objective Data Vital Signs Vital Signs: Vital Signs - 24 hr 09/12/21 10:35 09/12/21 12:00 09/12/21 14:00 Temperature 97.6 F Pulse Rate 76 74 Respiratory Rate 18 Blood Pressure 125/112 H 136/78 Pulse Oximetry 100 09/12/21 14:09 09/12/21 14:16 09/12/21 16:00 Temperature Pulse Rate 91 96 70 Respiratory Rate 20 20 Blood Pressure Pulse Oximetry 09/12/21 16:50 09/12/21 20:00 09/12/21 20:50 Temperature 98.1 F Pulse Rate 78 84 92 Respiratory Rate 20 20 Blood Pressure 117/69 Pulse Oximetry 93 09/12/21 21:05 09/12/21 21:07 09/12/21 22:00 Temperature 98.4 F Pulse Rate 96 74 Respiratory Rate 20 20 Blood Pressure 124/60 Pulse Oximetry 94 94 09/12/21 23:29 09/13/21 00:00 09/13/21 02:12 Temperature Pulse Rate 87 75 89 Respiratory Rate 20 Blood Pressure Pulse Oximetry 93 09/13/21 02:24 09/13/21 04:00 09/13/21 05:41 Temperature Pulse Rate 91 88 90 Respiratory Rate 20 Blood Pressure Pulse Oximetry 94 94 09/13/21 06:00 09/13/21 08:00 09/13/21 08:22 Temperature 101.6 F H Pulse Rate 93 94 Respiratory Rate 20 Blood Pressure 152/77 H 146/72 H Pulse Oximetry 95 09/13/21 08:35 Temperature Pulse Rate Respiratory Rate Blood Pressure 112/92 H Pulse Oximetry Intake/Output Intake/Output: Intake & Output 09/10/21 09/11/21 09/12/21 09/13/21 23:59 23:59 23:59 23:59 Intake Total 1116 1650 540 540 Output Total 800 100 Balance 316 1
[2021-09-13] MEDS: ACETYLCYSTEINE 20% INHAL SOLN 800 MG/4 ML VIAL 200 MG INHALATION ×3 (09:05→20:24)
[2021-09-13 10:12] LABS: Procalcitonin 0.6 ng/mL
[2021-09-13 11:38] LABS: Glucose Point of Care 276 mg/dl (65-105)
[2021-09-13] MEDS: FLUTICASONE/UMECLIDIN/VILANTER 100-62.5-25 MCG ELLIPTA 1 PUFF INHALATION (12:39)
--- NOTE | 2021-09-13 13:31 | PM.PNPUL ---
Progress Note: A&P Assessment and Plan (1) Pneumonia: Qualifiers: Laterality: bilateral Lung location: unspecified part of lung Pneumonia type: due to unspecified organism Qualified Code(s): J18.9 - Pneumonia, unspecified organism Code(s): J18.9 - Pneumonia, unspecified organism Status: Acute Assessment and Plan: CT scan September 12 definitely shows infiltrates that are consistent with pneumonia as well as some underlying pulmonary edema. Her microbiologic studies have been negative so far including urine antigens. She did not have symptoms compatible with pneumonia on admission, more systolic congestive heart failure and she is being well managed, She has other significant medical comorbidities, acute on chronic renal disease, CAD, history of a stroke, possible recent transient atrial fibrillation. She is currently on cefepime alone, and I would broaden this as she has been in the hospital for 2 weeks, and she has underlying lung disease, COPD on supplemental oxygen. Cefepime may need to be renally dosed. Betsyo added, she is not able to expectorate for a sputum sample. May benefit from using a Cornet valve and mucolytics. Urine for pneumococcal antigen was negative July the . (2) Chronic obstructive pulmonary disease: Qualifiers: COPD type: unspecified COPD Qualified Code(s): J44.9 - Chronic obstructive pulmonary disease, unspecified Code(s): J44.9 - Chronic obstructive pulmonary disease, unspecified Status: Acute Assessment and Plan: Longstanding COPD, supplemental oxygen for chronic respiratory failure. She had mild hypercapnia really not enough that would explain significant change in mental status. Continue bronchodilator therapy, bilevel pressure if necessary but not continuously.. Oxygen to maintain adequate saturation. Further recommendations to follow. Subjective Date/time seen: 04/19/22 13:31 hospital follow up : She looks really awful today, curled up in bed, barely speaking, labored breathing. Jamee Finley is an 81 year old female admitted 08/29/2021 for confusion. She did not have respiratory complaints on presentation. She was diuresed in the emergency department with Lasix. She has COPD and uses O2 at home 4-5 L/min now with worsening status. Yesterday, she became less responsive and developed new hypercapnia, pCO2 was 61 with a compensated pH. She also had transient atrial fibrillation. Radiographically she is worse with a right pleural effusion and infiltrates. She is being seen by cardiology for heart failure, had lasix for crackles heard on exam. 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 PMH: CABG 1998 LAYNE to LAD, occluded vein graft to diagonal and OM, history of stent to LAD, diagonal branch and repeat stenting to vein graft to the RCA November 2020 setting of acute coronary syndrome, history of mitraclip January 2021 for severe mitral valve regurgitation history of chronic heart failure, history of cardiomyopathy, DM with neuropathy, CKD, history of stroke, hypertension, DATA * 09/11/2021 ABG :7.378/pCO2 61/pO2 94.3/HCO3 35/ * 09/12/2021 HRCT Persistent diffuse lung disease, consistent with pneumonia. Small right pleural effusion. Cardiomegaly. Moderate-sized sliding hiatal hernia. Review of Systems Review of Systems: ROS unobtainable: Yes unobtainable due to medical condition Exam Narrative: GEN: Not alert; arousable. fatigued, looks worse today. Her nurse says that her mental status fluctuates, every three days she goes through a cycle of appearing responsive and alert, then appearing confused. Alert, oriented, mild to moderate respiratory distress. She has a moist cough, nonproductive. HEENT: pupils are equal, EOMI, symmetr
--- NOTE | 2021-09-13 13:50 | PCPTNOTE ---
The patient treatment was not able to be completed today due to patient being unarousable and not responding to verbal or tactile stim. RN floor Charge Nurse aware of patient current condition. Will plan to continue treatment per plan of care.
[2021-09-13 14:38] LABS: Alveolar/Arterial O2 Gradient 89.1 mmHg; Fractional Inspired Oxygen 32 %; HCO3 ABG 33.9 mEq/l (22.0-26.0); Oxygen Content ABG 12.6 %vol (16.0-22.0); Oxygen Saturation ABG 94.7 % (95.0-100.0); Oxyhemoglobin 93.7 % THb (90.0-100.0); PCO2 ABG 55.4 mmHg (35.0-45.0); PO2 ABG 74.2 mmHg (80.0-100.0); PO2 FiO2 Ratio Arterial Blood 2.32 %; Total Hemoglobin 9.5 g/dL (12.0-18.0); pH ABG 7.405 (7.350-7.450)
[2021-09-13 14:39] LABS: Device NASAL CANNULA; Modified Allen's Test Pass; Site Drawn RIGHT RADIAL
[2021-09-13 16:24] LABS: Glucose Point of Care 132 mg/dl (65-105)
[2021-09-13] MEDS: MELATONIN 5 MG TABLET PO (21:33)
[2021-09-13 23:31] LABS: Glucose Point of Care 70 mg/dl (65-105)
[2021-09-14] VITALS (19 sets, daily range): BP systolic 135–140; BP diastolic 64–78; PULSE 74–96; RESP 16–26; TEMP 36.9–37.5; O2SAT 95–97
[2021-09-14] MEDS: IPRATROPIUM BR 0.02% INH SOLN 0.5 MG/2.5 ML VIAL INHALATION ×4 (02:30→19:27)
[2021-09-14] MEDS: ACETYLCYSTEINE 20% INHAL SOLN 800 MG/4 ML VIAL 200 MG INHALATION ×4 (02:30→19:27)
[2021-09-14 05:44] LABS: Basophils Percent Auto 0.1 % (0.2-1.2); Eosinophils Absolute Auto 0.4 K/mm3 (0-0.3); Hematocrit 29.3 % (37.0-47.0); Hemoglobin 8.7 g/dL (12.0-15.0); Immature Granulocyte Absolute 0.04 K/mm3 (0.00-0.031); Immature Granulocyte Percent A 0.3 % (0-0.5); Immature Platelet Fraction Pct 4.7 % (0.9-11.2); Lymphocytes Absolute Auto 0.49 K/mm3 (0.9-3.2); Lymphocytes Percent Auto 4.1 % (18.3-44.2); Mean Corpuscular HGB Conc 29.7 g/dl (32-36); Mean Corpuscular Hemoglobin 29.3 pg (26-34); Mean Corpuscular Volume 98.7 fl (80-100); Mean Platelet Volume 11.9 fl (7.4-10.4); Monocytes Absolute Auto 0.9 K/mm3 (0.1-0.6); Monocytes Percent Auto 7.8 % (2.6-8.5); Neutrophils Absolute Auto 10.1 K/mm3 (1.3-6.7); Neutrophils Percent Auto 84.7 % (45.5-73.1); Platelet Count Result 159 k/mm3 (150-375); Red Blood Count 2.97 M/mm3 (4.2-5.4); Red Cell Distribution Width 17.7 % (11.5-14.5); White Blood Count 11.9 K/mm3 (4.5-10.0)
[2021-09-14] MEDS: LEVOTHYROXINE SODIUM 50 MCG TABLET PO (06:04)
[2021-09-14 06:51] LABS: Giant Platelets Present; Hypochromasia 2+ (NORMAL); Platelet Estimate Adequate (Adequate)
[2021-09-14 06:52] LABS: Acanthocytes 1+ (NORMAL); Anisocytosis 2+ (NORMAL); Ovalocytes 1+ (NORMAL)
[2021-09-14 07:38] LABS: Alanine Aminotransferase 29 U/L (4-35); Albumin Level 2.5 g/dL (3.5-5.1); Alkaline Phosphatase 127 U/L (38-126); Anion Gap 0 mmol/L (8-16); Aspartate Amino Transferase 35 U/L (14-36); Bilirubin,Total 0.7 mg/dL (0.2-1.3); Blood Urea Nitrogen 45 mg/dL (7-17); Calcium 8.6 mg/dL (8.4-10.2); Carbon Dioxide 37 mmol/L (22-30); Chloride 101 mmol/L (98-107); Estimated CRCL calculation 28 ml/min; Estimated Glomerular Filt Rate 36; Glucose 152 mg/dL (65-110); Potassium 3.9 mmol/L (3.4-5.0); Sodium 138 mmol/L (137-145)
[2021-09-14 07:46] LABS: Glucose Point of Care 157 mg/dl (65-105)
[2021-09-14] MEDS: FLUTICASONE/UMECLIDIN/VILANTER 100-62.5-25 MCG ELLIPTA 1 PUFF INHALATION (08:16)
[2021-09-14] MEDS: INSULIN ASPART (*BKC) 100 UNITS/ML SUB-Q ×4 (08:25→16:40)
[2021-09-14] MEDS: guaiFENesin 12 HR 600 MG TABCR 1200 MG PO ×2 (08:28→20:12)
[2021-09-14] MEDS: CITALOPRAM HYDROBROMIDE 20 MG TABLET 40 MG PO (08:28)
[2021-09-14] MEDS: carvediloL 25 MG TABLET PO ×2 (08:29→17:17)
[2021-09-14] MEDS: ISOSORBIDE DINITRATE 10 MG TABLET PO ×2 (08:29→17:17)
[2021-09-14] MEDS: buPROPion HCL XL (24 HR) 150 MG TABCR PO (08:29)
[2021-09-14] MEDS: GABAPENTIN 300 MG CAPSULE PO ×3 (08:29→17:17)
[2021-09-14] MEDS: hydrALAZINE HCL 50 MG TABLET PO ×3 (08:29→17:17)
[2021-09-14] MEDS: ASPIRIN 81 MG ENTERIC TABLET PO (08:29)
[2021-09-14] MEDS: ATORVASTATIN 40 MG TABLET 80 MG PO (08:29)
[2021-09-14] MEDS: CLOPIDOGREL BISULFATE 75 MG TABLET PO (08:30)
[2021-09-14] MEDS: COLLAGENASE OINT 30 GM TUBE 1 APPLIC TOPICAL (08:30)
[2021-09-14] MEDS: PANTOPRAZOLE 40 MG TABLET PO ×2 (08:30→20:12)
[2021-09-14] MEDS: FUROSEMIDE INJ 40 MG/4 ML VIAL IV PUSH ×2 (08:30→17:17)
[2021-09-14] MEDS: HEPARIN SODIUM 5,000 UNITS/ML VIAL 5000 UNITS SUB-Q ×2 (08:36→20:11)
--- NOTE | 2021-09-14 08:58 | PM.IMPN ---
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 Elevated BNP at 18,000 Patient presented with short of breath and has lower extremity edema Benefit out with the risk increased dose of Lasix CT chest abdomen pelvis 08/31/2021 Moderate amount of airspace disease probably pneumonia Moderate right pleural effusion Cardiomegaly Moderate colonic diverticulosis Cholelithiasis Diuresis as tolerated with renal function Repeat chest x-ray today (2) Visual hallucinations: Code(s): R44.1 - Visual hallucinations Status: Acute Assessment and Plan: Most likely acute metabolic encephalopathy multifactorial secondary to CHF exacerbation COPD exacerbation and pneumonia improved CT scan of the head negative for acute finding Improved MRI negative for acute stroke shows chronic stroke (3) Chronic respiratory failure with hypoxia, on home oxygen therapy: Code(s): J96.11 - Chronic respiratory failure with hypoxia; Z99.81 - Dependence on supplemental oxygen Status: Acute Assessment and Plan: Acute on chronic respiratory failure 2 L supplemental oxygen at home prior to this admission. Most likely related to COPD pneumonia and CHF exacerbation Continue oxygen Influenza a/B negative COVID negative MRSA swab negative (4) Insulin dependent diabetes mellitus: Status: Chronic Assessment and Plan: Insulin sliding scale Monitor the dose of Lantus daily as patient has hypoglycemia in the morning Adjust as needed (5) Altered mental status: Qualifiers: Altered mental status type: somnolence Qualified Code(s): R40.0 - Somnolence Code(s): R41.82 - Altered mental status, unspecified Status: Acute Assessment and Plan: As above CT head is negative evidence of pneumonia and/or CHF (6) Hypertension: Code(s): I10 - Essential (primary) hypertension Status: Acute Assessment and Plan: Stable continue current treatment (7) Cholelithiasis: Code(s): K80.20 - Calculus of gallbladder without cholecystitis without obstruction Status: Acute Assessment and Plan: Follow-up with PCP as outpatient (8) CAD (coronary artery disease), autologous vein bypass graft: Code(s): I25.810 - Atherosclerosis of coronary artery bypass graft(s) without angina pectoris Status: Acute Assessment and Plan: Continue home medication (9) Chronic obstructive pulmonary disease: Qualifiers: COPD type: unspecified COPD Qualified Code(s): J44.9 - Chronic obstructive pulmonary disease, unspecified Code(s): J44.9 - Chronic obstructive pulmonary disease, unspecified Status: Acute Assessment and Plan: With acute exacerbation give nebulizer treatment no plan for steroid as patient has episode of hyperglycemia with steroid in the past continue to monitor Steroid nebulizer treatment Continue prednisone and slow taper (10) Pneumonia of both lungs due to infectious organism: Code(s): J18.9 - Pneumonia, unspecified organism Status: Acute Assessment and Plan: Broad-spectrum IV antibiotics Additional Plan CLARIBEL on CKD stage 3: stable -daily CMP Episodes of Hypoglycemia: fasting blood glucose of 57--> improved after juice to 88 morning insulin was held. decreased bedtime glargine to 5units from 8 units. And monitor also give patient's neck continue accu cheks. Cholelithiasis: Stable Follow-up with PCP as outpatient Recent
--- NOTE | 2021-09-14 10:54 | PM.PNPUL ---
Progress Note: A&P Assessment and Plan (1) Pneumonia: Qualifiers: Laterality: bilateral Lung location: unspecified part of lung Pneumonia type: due to unspecified organism Qualified Code(s): J18.9 - Pneumonia, unspecified organism Code(s): J18.9 - Pneumonia, unspecified organism Status: Acute Assessment and Plan: CT scan September 12 definitely shows infiltrates that are consistent with pneumonia as well as some underlying pulmonary edema. Her microbiologic studies have been negative so far including urine antigens. She did not have symptoms compatible with pneumonia on admission, more systolic congestive heart failure and she is being well managed, She has other significant medical comorbidities, acute on chronic renal disease, CAD, history of a stroke, possible recent transient atrial fibrillation. She is currently on cefepime alone, vanco was added as she has been in the hospital more than 2 weeks with underlying lung disease, COPD on supplemental oxygen. She is not able to expectorate for a sputum sample. She is not able to participate with using a [place] valve. Urine for pneumococcal antigen was negative August 18. (2) Chronic obstructive pulmonary disease: Qualifiers: COPD type: unspecified COPD Qualified Code(s): J44.9 - Chronic obstructive pulmonary disease, unspecified Code(s): J44.9 - Chronic obstructive pulmonary disease, unspecified Status: Acute Assessment and Plan: Longstanding COPD, supplemental oxygen for chronic respiratory failure. She had mild hypercapnia really not enough that would explain significant change in mental status. Continue bronchodilator therapy, bilevel pressure if necessary but not continuously.. Oxygen to maintain adequate saturation. Subjective Date/time seen: 09/14/21 10:54 hospital follow up : She continues to have labored breathing, lying in bed on her side. Jamee Finley is an 81 year old female admitted 08/29/2021 for confusion. She did not have respiratory complaints on presentation. She was diuresed in the emergency department with Lasix. She has COPD and uses O2 at home 4-5 L/min now with worsening status. Yesterday, she became less responsive and developed new hypercapnia, pCO2 was 61 with a compensated pH. She also had transient atrial fibrillation. Radiographically she is worse with a right pleural effusion and infiltrates. She is being seen by cardiology for heart failure, had lasix for crackles heard on exam. 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 PMH: CABG 1998 LAYNE to LAD, occluded vein graft to diagonal and OM, history of stent to LAD, diagonal branch and repeat stenting to vein graft to the RCA November 2020 setting of acute coronary syndrome, history of mitraclip January 2021 for severe mitral valve regurgitation history of chronic heart failure, history of cardiomyopathy, DM with neuropathy, CKD, history of stroke, hypertension, DATA * 09/11/2021 ABG :7.378/pCO2 61/pO2 94.3/HCO3 35/ * 09/12/2021 HRCT Persistent diffuse lung disease, consistent with pneumonia. Small right pleural effusion. Cardiomegaly. Moderate-sized sliding hiatal hernia. Review of Systems Review of Systems: ROS unobtainable: Yes unobtainable due to medical condition Exam Narrative: GEN: Not alert; arousable. fatigued, looks worse today. Her nurse says that her mental status fluctuates, every three days she goes through a cycle of appearing responsive and alert, then appearing confused. Alert, oriented, mild to moderate respiratory distress. She has a moist cough, nonproductive. HEENT: pupils are equal, EOMI, symmetrical face; oral membranes dry, NECK: Trachea is midline CHEST: Equal air entry, symmetric excursion, diffuse crankshaft balancer
[2021-09-14 11:17] LABS: Glucose Point of Care 215 mg/dl (65-105)
--- NOTE | 2021-09-14 12:53 | PM.PNCARD ---
Progress Note: A&P Assessment and Plan (1) Heart failure with reduced ejection fraction: Code(s): I50.20 - Unspecified systolic (congestive) heart failure Status: Acute Assessment and Plan: Patient clinically appears possibly with mild acute on chronic heart failure with reduced ejection fraction with exam suggestive although exam with Velcro rales but cannot exclude pulmonary vascular congestion. EF 45-50% by recent echo. Elevated BNP multifactorial. -Increase furosemide to 40mg b.i.d. -Must have accurate input and output, and daily weight. -Continue medical therapy with hydralazine, imdur, coreg -Jardiance may be a reasonable addition to her medical therapy given CHF and LV dysfunction. Monitor tolerance diuresis with recommendations to follow. (2) Chronic respiratory failure with hypoxia, on home oxygen therapy: Code(s): J96.11 - Chronic respiratory failure with hypoxia; Z99.81 - Dependence on supplemental oxygen Status: Acute Assessment and Plan: Respiratory failure does appear to be multifactorial with severe underlying lung disease, pneumonia and a degree of CHF. Continue O2 supplementation. Bronchodilator therapy. Pulmonology consultation placed, appreciate their involvement. Continue CPAP while asleep. (3) Pneumonia of both lungs due to infectious organism: Code(s): J18.9 - Pneumonia, unspecified organism Status: Acute Assessment and Plan: Continue antibiotic therapy per primary service. Development mild leukocytosis, persistent a ground-glass infiltrates. Doing a little better with diuresis and addition of vancomycin. Continue input and output, daily weights. Urine output is not being adequately tract although she is incontinent of urine. Chest x-ray with improving edema. Continue Lasix 40 mg IV b.i.d. for now. Renal function electrolytes relatively stable. Continue to monitor. (4) Atrial fibrillation: Code(s): I48.91 - Unspecified atrial fibrillation Status: Acute Assessment and Plan: AFib not previously documented with available records. Generally maintaining sinus rhythm my review of telemetry. Continue telemetry. (5) CAD (coronary artery disease): Code(s): I25.10 - Atherosclerotic heart disease of [place] coronary artery without angina pectoris Status: Acute Assessment and Plan: No anginal symptoms. Continue supportive medical therapy aspirin, statin, beta-josue. (6) Hypertension: Code(s): I10 - Essential (primary) hypertension Status: Acute Assessment and Plan: Stable (7) Acute on chronic renal insufficiency: Code(s): N28.9 - Disorder of kidney and ureter, unspecified; N18.9 - Chronic kidney disease, unspecified Status: Acute Assessment and Plan: Monitor closely, stable today (8) Altered mental status: Qualifiers: Altered mental status type: somnolence Qualified Code(s): R40.0 - Somnolence Code(s): R41.82 - Altered mental status, unspecified Status: Acute Assessment and Plan: Fluctuating mental status as reported. Per primary service. Improved today. (9) Controlled diabetes mellitus with diabetic neuropathy, with long-term current use of insulin: Code(s): E11.40 - Type 2 diabetes mellitus with diabetic neuropathy, unspecified; Z79.4 - group home (current) use of insulin Status: Acute Assessment and Plan: Per primary service. (10) H/O: CVA (cerebrovascular accident): Code(s): Z86.73 - Personal history of transient ischemic attack (TIA), and cerebral infarction without residual deficits Status: Acute Assessment and Plan: Continue aspirin and clopidogrel for now. If systemic anticoagulation warranted will then discontinue clopidogrel and continue aspirin. Subjective Date/time seen: Date of service: 09/14/21 12:53 Interval history: Cardiology follow up for CHF More alert today. Sitting up in bed
[2021-09-14 16:26] LABS: Glucose Point of Care 162 mg/dl (65-105)
[2021-09-14] MEDS: MELATONIN 5 MG TABLET PO (20:12)
[2021-09-14] MEDS: INSULIN GLARGINE (*BKC) 100 UNITS/ML SUB-Q (20:12)
[2021-09-14 20:57] LABS: Glucose Point of Care 158 mg/dl (65-105)
[2021-09-15] VITALS (28 sets, daily range): BP systolic 112–166; BP diastolic 56–96; PULSE 61–91; RESP 16–22; TEMP 35.9–36.7; O2SAT 92–99
[2021-09-15] MEDS: ACETYLCYSTEINE 20% INHAL SOLN 800 MG/4 ML VIAL 200 MG INHALATION ×4 (01:25→20:19)
[2021-09-15] MEDS: IPRATROPIUM BR 0.02% INH SOLN 0.5 MG/2.5 ML VIAL INHALATION ×4 (01:25→20:19)
[2021-09-15] MEDS: LEVOTHYROXINE SODIUM 50 MCG TABLET PO (05:44)
[2021-09-15 08:05] LABS: Glucose Point of Care 145 mg/dl (65-105)
[2021-09-15] MEDS: INSULIN ASPART (*BKC) 100 UNITS/ML SUB-Q ×3 (08:23→16:47)
[2021-09-15] MEDS: FLUTICASONE/UMECLIDIN/VILANTER 100-62.5-25 MCG ELLIPTA 1 PUFF INHALATION (08:37)
[2021-09-15] MEDS: FUROSEMIDE INJ 40 MG/4 ML VIAL IV PUSH ×2 (09:00→16:14)
[2021-09-15] MEDS: HEPARIN SODIUM 5,000 UNITS/ML VIAL 5000 UNITS SUB-Q ×2 (09:00→20:54)
[2021-09-15] MEDS: COLLAGENASE OINT 30 GM TUBE 1 APPLIC TOPICAL (09:00)
--- NOTE | 2021-09-15 09:00 | PM.IMPN ---
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 Elevated BNP at 18,000 Patient presented with short of breath and has lower extremity edema Benefit out with the risk increased dose of Lasix CT chest abdomen pelvis 08/31/2021 Moderate amount of airspace disease probably pneumonia Moderate right pleural effusion Cardiomegaly Moderate colonic diverticulosis Cholelithiasis Diuresis as tolerated with renal function Repeat chest x-ray today (2) Visual hallucinations: Code(s): R44.1 - Visual hallucinations Status: Acute Assessment and Plan: Most likely acute metabolic encephalopathy multifactorial secondary to CHF exacerbation COPD exacerbation and pneumonia improved CT scan of the head negative for acute finding Improved MRI negative for acute stroke shows chronic stroke Significantly improved Mental status has improved but still patient have significant shortness of breath (3) Chronic respiratory failure with hypoxia, on home oxygen therapy: Code(s): J96.11 - Chronic respiratory failure with hypoxia; Z99.81 - Dependence on supplemental oxygen Status: Acute Assessment and Plan: Acute on chronic respiratory failure 2 L supplemental oxygen at home prior to this admission. Most likely related to COPD pneumonia and CHF exacerbation Continue oxygen Influenza a/B negative COVID negative MRSA swab negative (4) Insulin dependent diabetes mellitus: Status: Chronic Assessment and Plan: Insulin sliding scale Monitor the dose of Lantus daily as patient has hypoglycemia in the morning Adjust as needed (5) Altered mental status: Qualifiers: Altered mental status type: somnolence Qualified Code(s): R40.0 - Somnolence Code(s): R41.82 - Altered mental status, unspecified Status: Acute Assessment and Plan: As above CT head is negative evidence of pneumonia and/or CHF (6) Hypertension: Code(s): I10 - Essential (primary) hypertension Status: Acute Assessment and Plan: Stable continue current treatment (7) Cholelithiasis: Code(s): K80.20 - Calculus of gallbladder without cholecystitis without obstruction Status: Acute Assessment and Plan: Follow-up with PCP as outpatient (8) CAD (coronary artery disease), autologous vein bypass graft: Code(s): I25.810 - Atherosclerosis of coronary artery bypass graft(s) without angina pectoris Status: Acute Assessment and Plan: Continue home medication (9) Chronic obstructive pulmonary disease: Qualifiers: COPD type: unspecified COPD Qualified Code(s): J44.9 - Chronic obstructive pulmonary disease, unspecified Code(s): J44.9 - Chronic obstructive pulmonary disease, unspecified Status: Acute Assessment and Plan: With acute exacerbation give nebulizer treatment no plan for steroid as patient has episode of hyperglycemia with steroid in the past continue to monitor Steroid nebulizer treatment Continue prednisone and slow taper (10) Pneumonia of both lungs due to infectious organism: Code(s): J18.9 - Pneumonia, unspecified organism Status: Acute Assessment and Plan: Broad-spectrum IV antibiotics I added IV Flagyl Will get speech swallow evaluation Will get repeat chest x-ray Additional Plan CLARIBEL on CKD stage 3: stable - CMP Episodes of Hypoglycemia: fasting blood glucose of 57--> improved after juice to 88 morning insulin was held. de
[2021-09-15] MEDS: PANTOPRAZOLE 40 MG TABLET PO ×2 (09:01→20:54)
[2021-09-15] MEDS: guaiFENesin 12 HR 600 MG TABCR 1200 MG PO ×2 (09:01→20:53)
[2021-09-15] MEDS: GABAPENTIN 300 MG CAPSULE PO ×3 (09:02→16:14)
[2021-09-15] MEDS: ISOSORBIDE DINITRATE 10 MG TABLET PO ×2 (09:02→16:16)
[2021-09-15] MEDS: hydrALAZINE HCL 50 MG TABLET PO ×2 (09:02→12:51)
[2021-09-15] MEDS: CITALOPRAM HYDROBROMIDE 20 MG TABLET 40 MG PO (09:02)
[2021-09-15] MEDS: carvediloL 25 MG TABLET PO ×2 (09:03→16:15)
[2021-09-15] MEDS: ASPIRIN 81 MG ENTERIC TABLET PO (09:03)
[2021-09-15] MEDS: CLOPIDOGREL BISULFATE 75 MG TABLET PO (09:03)
[2021-09-15] MEDS: buPROPion HCL XL (24 HR) 150 MG TABCR PO (09:03)
[2021-09-15] MEDS: ATORVASTATIN 40 MG TABLET 80 MG PO (09:03)
[2021-09-15 09:31] LABS: Eosinophils Absolute Auto 0.2 K/mm3 (0-0.3); Eosinophils Percent Auto 2.2 % (0-4.4); Hemoglobin 9.2 g/dL (12.0-15.0); Immature Granulocyte Absolute 0.06 K/mm3 (0.00-0.031); Immature Granulocyte Percent A 0.6 % (0-0.5); Lymphocytes Absolute Auto 0.32 K/mm3 (0.9-3.2); Lymphocytes Percent Auto 3.2 % (18.3-44.2); Mean Corpuscular HGB Conc 29.7 g/dl (32-36); Mean Corpuscular Hemoglobin 29.1 pg (26-34); Mean Corpuscular Volume 98.1 fl (80-100); Mean Platelet Volume 10.7 fl (7.4-10.4); Monocytes Absolute Auto 0.7 K/mm3 (0.1-0.6); Monocytes Percent Auto 6.4 % (2.6-8.5); Neutrophils Absolute Auto 8.9 K/mm3 (1.3-6.7); Neutrophils Percent Auto 87.6 % (45.5-73.1); Platelet Count Result 198 k/mm3 (150-375); Red Blood Count 3.16 M/mm3 (4.2-5.4); Red Cell Distribution Width 17.3 % (11.5-14.5); White Blood Count 10.2 K/mm3 (4.5-10.0)
[2021-09-15 09:41] LABS: Alanine Aminotransferase 39 U/L (4-35); Albumin Level 3.1 g/dL (3.5-5.1); Alkaline Phosphatase 274 U/L (38-126); Anion Gap 3 mmol/L (8-16); Anisocytosis 1+ (NORMAL); Aspartate Amino Transferase 60 U/L (14-36); Bilirubin,Total 0.8 mg/dL (0.2-1.3); Blood Urea Nitrogen 45 mg/dL (7-17); Burr Cells 1+ (NORMAL); Calcium 8.9 mg/dL (8.4-10.2); Carbon Dioxide 37 mmol/L (22-30); Chloride 101 mmol/L (98-107); Estimated CRCL calculation 27 ml/min; Estimated Glomerular Filt Rate 36; Glucose 155 mg/dL (65-110); Ovalocytes 1+ (NORMAL); Platelet Estimate Adequate (Adequate); Potassium 3.9 mmol/L (3.4-5.0); Sodium 141 mmol/L (137-145)
[2021-09-15 09:42] LABS: Acanthocytes 1+ (NORMAL); Hypochromasia 1+ (NORMAL)
[2021-09-15] MEDS: metroNIDAZOLE 500 MG/ISO 100ML 500 MG/100 ML BAG 100 MG IVPB ×2 (09:48→17:00)
--- NOTE | 2021-09-15 11:25 | PCPTNOTE ---
The patient treatment was not able to be completed on unable to wake up. Nursing notified. Will plan to continue treatment per plan of care.
[2021-09-15 11:41] LABS: Glucose Point of Care 140 mg/dl (65-105)
--- NOTE | 2021-09-15 12:48 | PCSTNOTE ---
Please refer to the Bedside Swallow Evaluation in the EMR. Please note, silent aspiration cannot be ruled out at bedside.
--- NOTE | 2021-09-15 14:25 | PC.NURSE ---
On 09/15/21, the student, [ Marquita Low], provided care and completed [facility] documentation on this patient. I have reviewed the student's documentation and agree with the findings.
--- NOTE | 2021-09-15 15:40 | PM.PNCARD ---
Progress Note: A&P Assessment and Plan (1) Heart failure with reduced ejection fraction: Code(s): I50.20 - Unspecified systolic (congestive) heart failure Status: Acute Assessment and Plan: Patient clinically appears possibly with mild acute on chronic heart failure with reduced ejection fraction with exam suggestive although exam with Velcro rales but cannot exclude pulmonary vascular congestion. EF 45-50% by recent echo. Elevated BNP multifactorial. -continue furosemide to 40mg b.i.d. IV today. Very difficult to accurately assess volume status given lack of documentation of input and output. If no improvement in a.m. may increase dose as tolerated. If respiratory status continues to deteriorate although would like to avoid Olivo catheter this may be needed better assess volume status and response. The to monitor renal function very closely. -Must have accurate input and output, and daily weight. -Continue medical therapy with hydralazine, imdur, coreg -check chest x-ray in a.m. (2) Chronic respiratory failure with hypoxia, on home oxygen therapy: Code(s): J96.11 - Chronic respiratory failure with hypoxia; Z99.81 - Dependence on supplemental oxygen Status: Acute Assessment and Plan: Respiratory failure multifactorial with severe underlying lung disease, pneumonia and a degree of CHF. Continue O2 supplementation. Bronchodilator therapy. Patient continues to have significant crackles and expiratory wheezes with poor air entry. Continue CPAP while asleep. (3) Pneumonia of both lungs due to infectious organism: Code(s): J18.9 - Pneumonia, unspecified organism Status: Acute Assessment and Plan: Continue antibiotic therapy per primary service. Continue antibiotics managed by pulmonology and primary service. Continue input and output, daily weights. Continue Lasix 40 mg IV b.i.d. for now. Renal function electrolytes relatively stable. Continue to monitor. (4) Atrial fibrillation: Code(s): I48.91 - Unspecified atrial fibrillation Status: Acute Assessment and Plan: AFib not previously documented with available records. Generally maintaining sinus rhythm my review of telemetry. Continue telemetry. (5) CAD (coronary artery disease): Code(s): I25.10 - Atherosclerotic heart disease of [place] coronary artery without angina pectoris Status: Acute Assessment and Plan: No anginal symptoms. Continue supportive medical therapy aspirin, statin, beta-josue. (6) Hypertension: Code(s): I10 - Essential (primary) hypertension Status: Acute Assessment and Plan: Stable (7) Acute on chronic renal insufficiency: Code(s): N28.9 - Disorder of kidney and ureter, unspecified; N18.9 - Chronic kidney disease, unspecified Status: Acute Assessment and Plan: Monitor closely, stable concerned about tolerance if escalation diuretic therapy warranted. (8) Altered mental status: Qualifiers: Altered mental status type: somnolence Qualified Code(s): R40.0 - Somnolence Code(s): R41.82 - Altered mental status, unspecified Status: Acute Assessment and Plan: Fluctuating mental status as reported. Per primary service. Improved today. 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 (10) H/O: CVA (cerebrovascular accident): Code(s): Z86.73 - Personal history of transient ischemic attack (TIA), and cerebral infarction without residual deficits Status: Acute Assessment and Plan: Continue aspirin and clopidogrel for now. If systemic anticoagulation warranted will then discontinue clopidogrel and continue aspirin. Subjective Date/time
[2021-09-15 16:41] LABS: Glucose Point of Care 119 mg/dl (65-105)
[2021-09-15 20:51] LABS: Glucose Point of Care 120 mg/dl (65-105)
[2021-09-15] MEDS: MELATONIN 5 MG TABLET PO (20:54)
[2021-09-15] MEDS: INSULIN GLARGINE (*BKC) 100 UNITS/ML SUB-Q (20:54)
[2021-09-16] VITALS (22 sets, daily range): BP systolic 110–152; BP diastolic 51–73; PULSE 73–100; RESP 16–22; TEMP 36.2–36.8; O2SAT 89–98
[2021-09-16] MEDS: metroNIDAZOLE 500 MG/ISO 100ML 500 MG/100 ML BAG 100 MG IVPB ×3 (01:45→17:56)
[2021-09-16] MEDS: IPRATROPIUM BR 0.02% INH SOLN 0.5 MG/2.5 ML VIAL INHALATION ×4 (02:06→21:13)
[2021-09-16] MEDS: ACETYLCYSTEINE 20% INHAL SOLN 800 MG/4 ML VIAL 200 MG INHALATION ×4 (02:06→21:13)
[2021-09-16] MEDS: LEVOTHYROXINE SODIUM 50 MCG TABLET PO (05:32)
[2021-09-16 06:56] LABS: Basophils Percent Auto 0.3 % (0.2-1.2); Eosinophils Absolute Auto 0.3 K/mm3 (0-0.3); Eosinophils Percent Auto 2.4 % (0-4.4); Hemoglobin 8.9 g/dL (12.0-15.0); Immature Granulocyte Absolute 0.04 K/mm3 (0.00-0.031); Immature Granulocyte Percent A 0.4 % (0-0.5); Lymphocytes Absolute Auto 0.44 K/mm3 (0.9-3.2); Lymphocytes Percent Auto 4.3 % (18.3-44.2); Mean Corpuscular HGB Conc 29.7 g/dl (32-36); Mean Corpuscular Hemoglobin 29.1 pg (26-34); Mean Platelet Volume 10.9 fl (7.4-10.4); Monocytes Absolute Auto 0.8 K/mm3 (0.1-0.6); Monocytes Percent Auto 8.2 % (2.6-8.5); Neutrophils Absolute Auto 8.6 K/mm3 (1.3-6.7); Neutrophils Percent Auto 84.4 % (45.5-73.1); Platelet Count Result 222 k/mm3 (150-375); Red Blood Count 3.06 M/mm3 (4.2-5.4); Red Cell Distribution Width 17.2 % (11.5-14.5); White Blood Count 10.2 K/mm3 (4.5-10.0)
[2021-09-16 07:07] LABS: Alanine Aminotransferase 32 U/L (4-35); Albumin Level 2.9 g/dL (3.5-5.1); Alkaline Phosphatase 216 U/L (38-126); Anion Gap 3 mmol/L (8-16); Aspartate Amino Transferase 44 U/L (14-36); Bilirubin,Total 0.7 mg/dL (0.2-1.3); Blood Urea Nitrogen 46 mg/dL (7-17); Calcium 8.6 mg/dL (8.4-10.2); Carbon Dioxide 36 mmol/L (22-30); Chloride 101 mmol/L (98-107); Estimated CRCL calculation 32 ml/min; Estimated Glomerular Filt Rate 43; Glucose 106 mg/dL (65-110); Potassium 3.3 mmol/L (3.4-5.0); Sodium 140 mmol/L (137-145)
[2021-09-16] MEDS: FLUTICASONE/UMECLIDIN/VILANTER 100-62.5-25 MCG ELLIPTA 1 PUFF INHALATION (07:43)
[2021-09-16 07:44] LABS: Glucose Point of Care 144 mg/dl (65-105)
[2021-09-16 08:32] LABS: Acanthocytes 1+ (NORMAL); Anisocytosis 1+ (NORMAL); Hypochromasia 1+ (NORMAL); Ovalocytes 1+ (NORMAL); Platelet Estimate Adequate (Adequate)
[2021-09-16] MEDS: hydrALAZINE HCL 50 MG TABLET PO ×2 (09:10→12:28)
[2021-09-16] MEDS: ISOSORBIDE DINITRATE 10 MG TABLET PO (09:10)
[2021-09-16] MEDS: guaiFENesin 12 HR 600 MG TABCR 1200 MG PO (09:10)
[2021-09-16] MEDS: GABAPENTIN 300 MG CAPSULE PO ×2 (09:10→12:28)
[2021-09-16] MEDS: CLOPIDOGREL BISULFATE 75 MG TABLET PO (09:10)
[2021-09-16] MEDS: PANTOPRAZOLE 40 MG TABLET PO (09:10)
[2021-09-16] MEDS: ATORVASTATIN 40 MG TABLET 80 MG PO (09:10)
[2021-09-16] MEDS: FUROSEMIDE INJ 40 MG/4 ML VIAL IV PUSH (09:10)
[2021-09-16] MEDS: CITALOPRAM HYDROBROMIDE 20 MG TABLET 40 MG PO (09:10)
[2021-09-16] MEDS: buPROPion HCL XL (24 HR) 150 MG TABCR PO (09:11)
[2021-09-16] MEDS: ASPIRIN 81 MG ENTERIC TABLET PO (09:11)
[2021-09-16] MEDS: carvediloL 25 MG TABLET PO (09:11)
[2021-09-16] MEDS: HYDROcodone/acetaminophen (*CRX) 5-325 MG TABLET 1 TAB PO (09:11)
[2021-09-16] MEDS: HEPARIN SODIUM 5,000 UNITS/ML VIAL 5000 UNITS SUB-Q ×2 (09:11→20:53)
[2021-09-16] MEDS: COLLAGENASE OINT 30 GM TUBE 1 APPLIC TOPICAL (09:11)
[2021-09-16 11:21] LABS: Glucose Point of Care 160 mg/dl (65-105)
[2021-09-16 11:21] LABS: EDCOVIDSCREEN Negative (Negative)
[2021-09-16] MEDS: POTASSIUM CHLORIDE 20 MEQ PACKET (FOR LIQUID) 40 MEQ PO (12:28)
--- NOTE | 2021-09-16 15:35 | PM.PNCARD ---
Progress Note: A&P Assessment and Plan (1) Heart failure with reduced ejection fraction: Code(s): I50.20 - Unspecified systolic (congestive) heart failure Status: Acute Assessment and Plan: Patient ongoing crackles on exam. Respiratory failure multifactorial related pneumonia, underlying severe lung disease as well as CHF. Patient is not improving with current therapy. - Increase Lasix to 60 mg IV b.i.d.. Monitor electrolytes, renal function and blood pressure very closely.. - Very difficult to accurately assess volume status given lack of documentation of input and output. If no improvement in a.m. may increase dose as tolerated. If respiratory status continues to deteriorate although would like to avoid Olivo catheter this may be needed better assess volume status and response. -Must have accurate input and output, and daily weight. -Continue medical therapy with hydralazine, imdur, coreg. May need to reduce hydralazine if BP marginal. - check chest x-ray in a.m.. - Comfort measures appropriate. (2) Chronic respiratory failure with hypoxia, on home oxygen therapy: Code(s): J96.11 - Chronic respiratory failure with hypoxia; Z99.81 - Dependence on supplemental oxygen Status: Acute Assessment and Plan: Respiratory failure multifactorial with severe underlying lung disease, pneumonia and a degree of CHF. Continue O2 supplementation. Bronchodilator therapy. Patient continues to have significant crackles and expiratory wheezes with poor air entry. Continue CPAP while asleep. As above. (3) Pneumonia of both lungs due to infectious organism: Code(s): J18.9 - Pneumonia, unspecified organism Status: Acute Assessment and Plan: Continue antibiotic therapy per primary service. Continue antibiotics managed by pulmonology and primary service. Renal function electrolytes relatively stable. Continue to monitor. (4) Atrial fibrillation: Code(s): I48.91 - Unspecified atrial fibrillation Status: Acute Assessment and Plan: No recurrent AFib on telemetry past 48 hours. Maintaining sinus rhythm. Continue telemetry. (5) CAD (coronary artery disease): Code(s): I25.10 - Atherosclerotic heart disease of [place] coronary artery without angina pectoris Status: Acute Assessment and Plan: No anginal symptoms. Continue supportive medical therapy aspirin, statin, beta-josue. (6) Hypertension: Code(s): I10 - Essential (primary) hypertension Status: Acute Assessment and Plan: Stable (7) Acute on chronic renal insufficiency: Code(s): N28.9 - Disorder of kidney and ureter, unspecified; N18.9 - Chronic kidney disease, unspecified Status: Acute Assessment and Plan: Monitor closely, stable concerned about tolerance if escalation diuretic therapy warranted. (8) Altered mental status: Qualifiers: Altered mental status type: somnolence Qualified Code(s): R40.0 - Somnolence Code(s): R41.82 - Altered mental status, unspecified Status: Acute Assessment and Plan: Fluctuating mental status as reported. Per primary service. Improved today. (9) Controlled diabetes mellitus with diabetic neuropathy, with long-term current use of insulin: Code(s): E11.40 - Type 2 diabetes mellitus with diabetic neuropathy, unspecified; Z79.4 - snf (current) use of insulin Status: Acute Assessment and Plan: Per primary service. (10) H/O: CVA (cerebrovascular accident): Code(s): Z86.73 - Personal history of transient ischemic attack (TIA), and cerebral infarction without residual deficits Status: Acute Assessment and Plan: Continue aspirin and clopidogrel for now. If systemic anticoagulation warranted will then discontinue clopidogrel and continue aspirin. Subjective Date/time seen: Date of service: 09/16/21 15:35 Interval history: Cardiology follow up for
[2021-09-16 16:13] LABS: Glucose Point of Care 252 mg/dl (65-105)
--- NOTE | 2021-09-16 16:31 | PM.IMPN ---
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 Elevated BNP at 18,000 Patient presented with short of breath and has lower extremity edema Benefit out with the risk increased dose of Lasix CT chest abdomen pelvis 08/31/2021 Moderate amount of airspace disease probably pneumonia Moderate right pleural effusion Cardiomegaly Moderate colonic diverticulosis Cholelithiasis Diuresis as tolerated with renal function Repeat chest x-ray today 09/16/2021 interval history: 81-year-old female with respiratory failure most likely multifactorial with exert patient of CHF with BNP of 18,000 patient seen by Cardiology had been treated with IV Lasix 40 mg b.i.d. however there was no significant improvement and patient symptoms are not improving and was increased to 60 mg b.i.d by the stove mounter, patient chest x-ray is concerning for pneumonia patient is being treated with cefepime, will repeat chest x-ray and further recommendation to follow. (2) Visual hallucinations: Code(s): R44.1 - Visual hallucinations Status: Acute Assessment and Plan: Most likely acute metabolic encephalopathy multifactorial secondary to CHF exacerbation COPD exacerbation and pneumonia improved CT scan of the head negative for acute finding Improved MRI negative for acute stroke shows chronic stroke Significantly improved Mental status has improved but still patient have significant shortness of breath (3) Chronic respiratory failure with hypoxia, on home oxygen therapy: Code(s): J96.11 - Chronic respiratory failure with hypoxia; Z99.81 - Dependence on supplemental oxygen Status: Acute Assessment and Plan: Acute on chronic respiratory failure 2 L supplemental oxygen at home prior to this admission. Most likely related to COPD pneumonia and CHF exacerbation Continue oxygen Influenza a/B negative COVID negative MRSA swab negative (4) Insulin dependent diabetes mellitus: Status: Chronic Assessment and Plan: Insulin sliding scale Monitor the dose of Lantus daily as patient has hypoglycemia in the morning Adjust as needed (5) Altered mental status: Qualifiers: Altered mental status type: somnolence Qualified Code(s): R40.0 - Somnolence Code(s): R41.82 - Altered mental status, unspecified Status: Acute Assessment and Plan: As above CT head is negative evidence of pneumonia and/or CHF (6) Hypertension: Code(s): I10 - Essential (primary) hypertension Status: Acute Assessment and Plan: Stable continue current treatment (7) Cholelithiasis: Code(s): K80.20 - Calculus of gallbladder without cholecystitis without obstruction Status: Acute Assessment and Plan: Follow-up with PCP as outpatient (8) CAD (coronary artery disease), autologous vein bypass graft: Code(s): I25.810 - Atherosclerosis of coronary artery bypass graft(s) without angina pectoris Status: Acute Assessment and Plan: Continue home medication (9) Chronic obstructive pulmonary disease: Qualifiers: COPD type: unspecified COPD Qualified Code(s): J44.9 - Chronic obstructive pulmonary disease, unspecified Code(s): J44.9 - Chronic obstructive pulmonary disease, unspecified Status: Acute Assessment and Plan: With acute exacerbation give nebulizer treatment no plan for steroid as patient has episode of hyperglycemia with steroid in the past continue to monitor Ster
[2021-09-16] MEDS: FUROSEMIDE INJ 100 MG/10 ML VIAL 60 MG IV PUSH (18:00)
[2021-09-16] MEDS: INSULIN ASPART (*BKC) 100 UNITS/ML SUB-Q ×2 (18:02)
--- NOTE | 2021-09-16 20:50 | PM.PNPUL ---
Progress Note: A&P Assessment and Plan (1) Pneumonia: Qualifiers: Laterality: bilateral Lung location: unspecified part of lung Pneumonia type: due to unspecified organism Qualified Code(s): J18.9 - Pneumonia, unspecified organism Code(s): J18.9 - Pneumonia, unspecified organism Status: Acute Assessment and Plan: CT scan September 12 shows infiltrates that are consistent with pneumonia as well as some underlying pulmonary edema. CXR 09/13 was similar. Her microbiologic studies have been negative, urine antigens. She did not have symptoms compatible with pneumonia on admission. She is being managed for systolic congestive heart failure with diuresis, however she continues to have crackles on exam. She is currently on cefepime and vancomycin. She is not able to expectorate for a sputum sample. She is not able to participate with using a Cornet valve. Urine for pneumococcal antigen was negative August 18. These symptoms are lasintg longer than expected for pneumonia. WBC is 10.2, and this has been lower as well as higher up to 12.5. At the end of July, she grew Stenotrophomonas sensitive to Levaquin and Bactrim. I will stop her current treatment, switch to IV Levaquin to assure that she is not showing persistent signs of pneumonia with this respiratory pathogen. (2) Chronic obstructive pulmonary disease: Qualifiers: COPD type: unspecified COPD Qualified Code(s): J44.9 - Chronic obstructive pulmonary disease, unspecified Code(s): J44.9 - Chronic obstructive pulmonary disease, unspecified Status: Acute Assessment and Plan: Longstanding COPD, supplemental oxygen for chronic respiratory failure. She had mild hypercapnia really not enough that would explain significant change in mental status. Continue bronchodilator therapy, bilevel pressure if necessary but not continuously.. Oxygen to maintain adequate saturation. (3) Chronic respiratory failure with hypoxia, on home oxygen therapy: Code(s): J96.11 - Chronic respiratory failure with hypoxia; Z99.81 - Dependence on supplemental oxygen Status: Acute Assessment and Plan: She has been using O2 at home. Subjective Date/time seen: 09/16/21 20:50 Jamee Finley is an 81 year old female admitted 08/29/2021 for confusion without respiratory complaints initially. She was diuresed in the emergency department with Lasix. She has COPD and uses O2 at home 4-5 L/min. On SundaySeptember 12 i was consulted to see her for worsening respiratory status with new hypercapnia, pCO2 was 61 with a compensated pH and decreased level of mentation. She as had transient atrial fibrillation. Radiographically she is worse with a right pleural effusion and infiltrates. She is being seen by cardiology for heart failure, had lasix for crackles heard on exam. 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 She has been on antibiotics for pneumonia, does not seem to be improving. Her main problem now is alterred mentation. PMH: CABG 1998 LAYNE to LAD, occluded vein graft to diagonal and OM, history of stent to LAD, diagonal branch and repeat stenting to vein graft to the RCA November 2020 setting of acute coronary syndrome, history of mitraclip January 2021 for severe mitral valve regurgitation history of chronic heart failure, history of cardiomyopathy, DM with neuropathy, CKD, history of stroke, hypertension, DATA * 09/11/2021 ABG :7.378/pCO2 61/pO2 94.3/HCO3 35/ * 09/12/2021 HRCT Persistent diffuse lung disease, consistent with pneumonia. Small right pleural effusion. Cardiomegaly. Moderate-sized sliding hiatal hernia. Review of Systems Review of Systems: ROS unobtainable: Yes reece
[2021-09-16 22:42] LABS: Glucose Point of Care 164 mg/dl (65-105)
--- NOTE | 2021-09-16 23:25 | PC.NURSE ---
Addendum entered by Ck Stern RN 09/16/21 23:40: Games Manager did not give HS insulin due to the fact pt is not eating or drinking. Original Note: Pt is not alert or oriented. Pt will not follow commands. Pt will not drink water. Games Manager did not give HS PO medications because of pts current status.
[2021-09-17] VITALS (23 sets, daily range): BP systolic 111–141; BP diastolic 42–70; PULSE 73–95; RESP 16–24; TEMP 36.4–37.2; O2SAT 92–98
[2021-09-17] MEDS: ACETYLCYSTEINE 20% INHAL SOLN 800 MG/4 ML VIAL 200 MG INHALATION ×4 (02:52→20:01)
[2021-09-17] MEDS: IPRATROPIUM BR 0.02% INH SOLN 0.5 MG/2.5 ML VIAL INHALATION ×4 (02:52→20:01)
[2021-09-17] MEDS: metroNIDAZOLE 500 MG/ISO 100ML 500 MG/100 ML BAG 100 MG IVPB ×3 (03:09→17:16)
--- NOTE | 2021-09-17 05:27 | PC.NURSE ---
0500: Pt rounded on. Pt disconnected cpap hose from machine and was saturating in the 60's. Took mask off, put nasal cannula on, turned pt up to 4L. Pt is saturating at 93%.
[2021-09-17 07:33] LABS: Glucose Point of Care 187 mg/dl (65-105)
[2021-09-17] MEDS: FLUTICASONE/UMECLIDIN/VILANTER 100-62.5-25 MCG ELLIPTA 1 PUFF INHALATION (08:06)
[2021-09-17] MEDS: ALBUTEROL SULFATE NEB 2.5 MG/0.5 ML INH INHALATION ×2 (08:06→14:01)
[2021-09-17 08:48] LABS: Hematocrit 30.7 % (37.0-47.0); Hemoglobin 8.8 g/dL (12.0-15.0); Immature Granulocyte Absolute 0.04 K/mm3 (0.00-0.031); Immature Granulocyte Percent A 0.4 % (0-0.5); Lymphocytes Absolute Auto 0.26 K/mm3 (0.9-3.2); Lymphocytes Percent Auto 2.5 % (18.3-44.2); Mean Corpuscular HGB Conc 28.7 g/dl (32-36); Mean Corpuscular Hemoglobin 28.9 pg (26-34); Mean Platelet Volume 10.1 fl (7.4-10.4); Monocytes Absolute Auto 0.5 K/mm3 (0.1-0.6); Monocytes Percent Auto 4.8 % (2.6-8.5); Neutrophils Absolute Auto 9.6 K/mm3 (1.3-6.7); Neutrophils Percent Auto 92.3 % (45.5-73.1); Platelet Count Result 215 k/mm3 (150-375); Red Blood Count 3.04 M/mm3 (4.2-5.4); Red Cell Distribution Width 17.5 % (11.5-14.5); White Blood Count 10.4 K/mm3 (4.5-10.0)
[2021-09-17] MEDS: FUROSEMIDE INJ 100 MG/10 ML VIAL 60 MG IV PUSH (08:50)
[2021-09-17] MEDS: carvediloL 25 MG TABLET PO (08:51)
[2021-09-17] MEDS: ISOSORBIDE DINITRATE 10 MG TABLET PO (08:56)
[2021-09-17] MEDS: guaiFENesin 12 HR 600 MG TABCR 1200 MG PO ×2 (08:56→21:04)
[2021-09-17] MEDS: ASPIRIN 81 MG ENTERIC TABLET PO (08:56)
[2021-09-17] MEDS: PANTOPRAZOLE 40 MG TABLET PO ×2 (08:56→21:04)
[2021-09-17] MEDS: GABAPENTIN 300 MG CAPSULE PO (08:56)
[2021-09-17] MEDS: CLOPIDOGREL BISULFATE 75 MG TABLET PO (08:57)
[2021-09-17] MEDS: buPROPion HCL XL (24 HR) 150 MG TABCR PO (08:57)
[2021-09-17] MEDS: ATORVASTATIN 40 MG TABLET 80 MG PO (08:57)
[2021-09-17] MEDS: hydrALAZINE HCL 50 MG TABLET PO (08:58)
[2021-09-17] MEDS: COLLAGENASE OINT 30 GM TUBE 1 APPLIC TOPICAL (08:58)
[2021-09-17] MEDS: HEPARIN SODIUM 5,000 UNITS/ML VIAL 5000 UNITS SUB-Q ×2 (08:59→21:05)
[2021-09-17 09:00] LABS: Alanine Aminotransferase 29 U/L (4-35); Albumin Level 3.1 g/dL (3.5-5.1); Alkaline Phosphatase 196 U/L (38-126); Anion Gap 6 mmol/L (8-16); Aspartate Amino Transferase 34 U/L (14-36); Bilirubin,Total 0.8 mg/dL (0.2-1.3); Blood Urea Nitrogen 52 mg/dL (7-17); Calcium 8.7 mg/dL (8.4-10.2); Carbon Dioxide 34 mmol/L (22-30); Chloride 102 mmol/L (98-107); Estimated CRCL calculation 29 ml/min; Estimated Glomerular Filt Rate 39; Glucose 207 mg/dL (65-110); Potassium 4.4 mmol/L (3.4-5.0); Sodium 142 mmol/L (137-145)
[2021-09-17 09:11] LABS: Hypochromasia 1+ (NORMAL); Platelet Estimate Adequate (Adequate)
[2021-09-17 09:12] LABS: Acanthocytes 1+ (NORMAL); Ovalocytes 1+ (NORMAL)
--- NOTE | 2021-09-17 09:42 | PM.PNCARD ---
Progress Note: A&P Additional Plan Patient with coronary and valvular heart disease presenting with confusion has been in the hospital now for 2-3 weeks. We are seeing the patient for CHF which is not improving significantly despite IV furosemide. She does not appear to be peripherally fluid overloaded at all at this time but still has significant pulmonary rales. I will advance her furosemide to 80 mg q.12 hours. Alverto Bar MD [facility] Subjective Date/time seen: Date of service 09/17/21 09:42 Interval history: Cardiology follow up for CHF Fairly stable mental status past couple of days. Sleeping but arousable upon entering the room. Complains of some shortness of breath, audible wheezing. no significant change overnight although patient is not really improving. Date of service: 09/17/2021. Patient is lethargic but responsive offers no significant complaints when questioned she still says she feels short of breath. Does not appear to be in any respiratory distress at this time wearing nasal cannula oxygen. Sleeping when I entered the room upon awakening does not have any obvious complaints Exam Narrative: General: Elderly female sitting upright in bed sleeping but arousable audible faint wheezing but no apparent distress. answering questions appropriately Well developed, alert and oriented x2. O2 via nasal cannula place Head: atraumatic, normocephalic Eyes: EOM intact, sclerae anicteric, conjunctivae unremarkable Ears/Nose: external inspection of ears and nose were grossly normal Mouth/Throat: oral mucosa pink and moist Neck: supple, normal range of motion, no jugular venous distention or carotid bruits, thyroid nonpalpable, trachea midline. Cardiac: Distant heart sounds Regular rate and rhythm, normal S1-S2, soft systolic murmur, no appreciable clicks or rubs Lungs: Still has pulmonary rales lower 1/3 of both lung hardy Abdomen: Soft, nontender, nondistended, positive bowel sounds throughout. No appreciable hepatosplenomegaly, no rebound guarding or rigidity noted. Abdominal aorta nonpalpable, no appreciable bruits. Extremities: Trace lower extremity ankle edema left slightly greater than right, no clubbing, and or cyanosis. Extremities warm and well perfused. Skin: Warm and dry without ecchymoses, rashes, and/or petechiae. Musculoskeletal: Muscle strength and tone intact throughout without obvious deformities. Well-healed median sternotomy scar Vascular: Carotid upstrokes 2+ bilaterally, radial pulses 2+ bilaterally, dorsalis pedis pulses 1+ bilaterally, Neurologic: Cranial nerves 2-12 grossly intact, examination grossly nonfocal Pscyhiatric: Mood calm and appropriate. Const: General: comfortable and confusion Orientation/consciousness: oriented to person, oriented to time and confusion HENMT: Head: normal to inspection Ears: hearing grossly normal bilaterally Face and sinus: normal facial exam Mouth: Yes Normal oral and palatal mucosa present Eyes: General: appearance normal, both eyes and all related structures Neck: Neck: normal visual inspection Resp: Effort & Inspection: prolonged expiratory phase Auscultation: not clear to auscultation bilaterally, crackles, rhonchi and wheezes expiratory wheezes Cardio: Rate: regular rate Rhythm: regular rhythm Heart sounds: Murmur heart sound present systolic Peripheral pulses: Peripheral pulses 2+ throughout GI: Auscultation: normal bowel sounds Skin: General skin exam: normal color Neuro: General: oriented to person, oriented to time and confusion Extrem: General: normal to inspection and no edema Psych: Appearance: grossly normal Mental Status: mental status grossly abnormal Objective Data Vital Signs Vital Signs: Vital Signs - 24 hr 09/16/21 10:36 09/16/21 12:00 09/16/21 14:00 Temperature 36.2 C L 36.3 C L Pulse Rate 80 75 78 Respiratory Rate 20 20 Blood Pressure 150/68 H 110/51
--- NOTE | 2021-09-17 11:36 | PCPTNOTE ---
Did not see patient this date per RN.
[2021-09-17 11:55] LABS: Glucose Point of Care 269 mg/dl (65-105)
[2021-09-17] MEDS: INSULIN ASPART (*BKC) 100 UNITS/ML SUB-Q ×2 (12:38→12:39)
--- NOTE | 2021-09-17 15:16 | PM.IMPN ---
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 Elevated BNP at 18,000 Patient presented with short of breath and has lower extremity edema Benefit out with the risk increased dose of Lasix CT chest abdomen pelvis 08/31/2021 Moderate amount of airspace disease probably pneumonia Moderate right pleural effusion Cardiomegaly Moderate colonic diverticulosis Cholelithiasis Diuresis as tolerated with renal function Repeat chest x-ray today 09/16/2021 interval history: 81-year-old female with respiratory failure most likely multifactorial with exert patient of CHF with BNP of 18,000 patient seen by Cardiology had been treated with IV Lasix 40 mg b.i.d. however there was no significant improvement and patient symptoms are not improving and was increased to 60 mg b.i.d by the antique clocks repairer, patient chest x-ray is concerning for pneumonia patient is being treated with cefepime, will repeat chest x-ray and further recommendation to follow. 09/17/2021 interval history: 81-year-old female with respiratory failure most likely multifactorial with exacerbation of CHF with BNP of 18,000 patient seen by Cardiology had been treated with IV Lasix 40 mg b.i.d. however there was no significant improvement and patient symptoms are not improving and on 09/16 was seen by antique clocks repairer and increased to 60 mg b.i.d, again today patient clinically symptoms are not improving and seen by antique clocks repairer increase IV Lasix to 80 mg b.i.d., patient chest x-ray is concerning for pneumonia patient is being treated with cefepime, will repeat chest x-ray and further recommendation to follow. patient expressed to nursing staff she does not want to continue any more, today patient's son is presen and discussed as patient is in clinical symptoms are not improving patient does not wish to continue her treatment and may consider hospice, will continue to monitor and further recommendation to follow. (2) Visual hallucinations: Code(s): R44.1 - Visual hallucinations Status: Acute Assessment and Plan: Most likely acute metabolic encephalopathy multifactorial secondary to CHF exacerbation COPD exacerbation and pneumonia improved CT scan of the head negative for acute finding Improved MRI negative for acute stroke shows chronic stroke Significantly improved Mental status has improved but still patient have significant shortness of breath (3) Chronic respiratory failure with hypoxia, on home oxygen therapy: Code(s): J96.11 - Chronic respiratory failure with hypoxia; Z99.81 - Dependence on supplemental oxygen Status: Acute Assessment and Plan: Acute on chronic respiratory failure 2 L supplemental oxygen at home prior to this admission. Most likely related to COPD pneumonia and CHF exacerbation Continue oxygen Influenza a/B negative COVID negative MRSA swab negative (4) Insulin dependent diabetes mellitus: Status: Chronic Assessment and Plan: Insulin sliding scale Monitor the dose of Lantus daily as patient has hypoglycemia in the morning Adjust as needed (5) Altered mental status: Qualifiers: Altered mental status type: somnolence Qualified Code(s): R40.0 - Somnolence Code(s): R41.82 - Altered mental status, unspecified Status: Acute Assessment and Plan: As above CT head is negative evidence of pneumonia and/or CHF (6) Hypertension: Code(s): I10 - Essential (primary) hypertension Status: Acute Assessmen
[2021-09-17 16:55] LABS: Glucose Point of Care 183 mg/dl (65-105)
[2021-09-17] MEDS: FUROSEMIDE INJ 100 MG/10 ML VIAL 80 MG IV PUSH (17:17)
[2021-09-17] MEDS: MELATONIN 5 MG TABLET PO (21:05)
[2021-09-17] MEDS: INSULIN GLARGINE (*BKC) 100 UNITS/ML SUB-Q (21:07)
[2021-09-17 21:11] LABS: Glucose Point of Care 186 mg/dl (65-105)
[2021-09-18] VITALS (22 sets, daily range): BP systolic 125–134; BP diastolic 53–66; PULSE 68–90; RESP 16–23; TEMP 36–36.3; O2SAT 94–100
[2021-09-18] MEDS: metroNIDAZOLE 500 MG/ISO 100ML 500 MG/100 ML BAG 100 MG IVPB ×3 (01:10→17:03)
[2021-09-18] MEDS: IPRATROPIUM BR 0.02% INH SOLN 0.5 MG/2.5 ML VIAL INHALATION ×4 (01:54→19:37)
[2021-09-18] MEDS: ACETYLCYSTEINE 20% INHAL SOLN 800 MG/4 ML VIAL 200 MG INHALATION ×4 (01:54→19:37)
--- NOTE | 2021-09-18 03:03 | PC.NURSE ---
09/18/21 0230 old mepilex removed applied new mepilex per left buttock and sacrum area. pt tolerated it well. attempted to suction pt refused.
[2021-09-18] MEDS: LEVOTHYROXINE SODIUM 50 MCG TABLET PO (05:57)
[2021-09-18 06:06] LABS: Basophils Percent Auto 0.2 % (0.2-1.2); Eosinophils Percent Auto 0.2 % (0-4.4); Hematocrit 28.6 % (37.0-47.0); Hemoglobin 8.3 g/dL (12.0-15.0); Immature Granulocyte Absolute 0.06 K/mm3 (0.00-0.031); Immature Granulocyte Percent A 0.7 % (0-0.5); Lymphocytes Percent Auto 4.7 % (18.3-44.2); Mean Corpuscular Hemoglobin 29.4 pg (26-34); Mean Corpuscular Volume 101.4 fl (80-100); Mean Platelet Volume 10.4 fl (7.4-10.4); Monocytes Absolute Auto 0.7 K/mm3 (0.1-0.6); Monocytes Percent Auto 7.8 % (2.6-8.5); Neutrophils Absolute Auto 7.4 K/mm3 (1.3-6.7); Neutrophils Percent Auto 86.4 % (45.5-73.1); Platelet Count Result 211 k/mm3 (150-375); Red Blood Count 2.82 M/mm3 (4.2-5.4); Red Cell Distribution Width 17.6 % (11.5-14.5); White Blood Count 8.5 K/mm3 (4.5-10.0)
[2021-09-18 06:19] LABS: Alanine Aminotransferase 25 U/L (4-35); Albumin Level 2.7 g/dL (3.5-5.1); Alkaline Phosphatase 166 U/L (38-126); Anion Gap 4 mmol/L (8-16); Aspartate Amino Transferase 29 U/L (14-36); Bilirubin,Total 0.6 mg/dL (0.2-1.3); Blood Urea Nitrogen 58 mg/dL (7-17); Calcium 8.3 mg/dL (8.4-10.2); Carbon Dioxide 37 mmol/L (22-30); Chloride 103 mmol/L (98-107); Estimated CRCL calculation 29 ml/min; Estimated Glomerular Filt Rate 39; Glucose 202 mg/dL (65-110); Potassium 3.6 mmol/L (3.4-5.0); Sodium 144 mmol/L (137-145)
[2021-09-18 06:57] LABS: Platelet Estimate Adequate (Adequate)
[2021-09-18 06:58] LABS: Anisocytosis 1+ (NORMAL); Hypochromasia 1+ (NORMAL)
[2021-09-18 06:59] LABS: Acanthocytes 1+ (NORMAL)
[2021-09-18 07:39] LABS: Glucose Point of Care 198 mg/dl (65-105)
[2021-09-18] MEDS: ATORVASTATIN 40 MG TABLET 80 MG PO (08:41)
[2021-09-18] MEDS: POTASSIUM CHLORIDE 20 MEQ PACKET (FOR LIQUID) 40 MEQ PO (08:41)
[2021-09-18] MEDS: buPROPion HCL XL (24 HR) 150 MG TABCR PO (08:42)
[2021-09-18] MEDS: ISOSORBIDE DINITRATE 10 MG TABLET PO ×2 (08:42→17:06)
[2021-09-18] MEDS: hydrALAZINE HCL 50 MG TABLET PO ×2 (08:42→17:06)
[2021-09-18] MEDS: ASPIRIN 81 MG ENTERIC TABLET PO (08:42)
[2021-09-18] MEDS: GABAPENTIN 300 MG CAPSULE PO ×2 (08:43→17:06)
[2021-09-18] MEDS: PANTOPRAZOLE 40 MG TABLET PO ×2 (08:43→20:26)
[2021-09-18] MEDS: guaiFENesin 12 HR 600 MG TABCR 1200 MG PO ×2 (08:43→20:26)
[2021-09-18] MEDS: CLOPIDOGREL BISULFATE 75 MG TABLET PO (08:43)
[2021-09-18] MEDS: carvediloL 25 MG TABLET PO ×2 (08:44→17:06)
[2021-09-18] MEDS: COLLAGENASE OINT 30 GM TUBE 1 APPLIC TOPICAL (08:45)
[2021-09-18] MEDS: INSULIN ASPART (*BKC) 100 UNITS/ML SUB-Q (08:45)
[2021-09-18] MEDS: FLUTICASONE/UMECLIDIN/VILANTER 100-62.5-25 MCG ELLIPTA 1 PUFF INHALATION (09:09)
[2021-09-18] MEDS: FUROSEMIDE INJ 100 MG/10 ML VIAL 80 MG IV PUSH ×2 (09:21→17:07)
[2021-09-18] MEDS: POTASSIUM CHLORIDE 20 MEQ PACKET (FOR LIQUID) PO (09:21)
[2021-09-18] MEDS: HEPARIN SODIUM 5,000 UNITS/ML VIAL 5000 UNITS SUB-Q ×2 (09:21→20:26)
--- NOTE | 2021-09-18 09:22 | PC.NURSE ---
while administering pt's medication, the order for potassium chloride powder was decreased from 40 to 20. I only administered the 20.
--- NOTE | 2021-09-18 09:25 | PC.NURSE ---
Pt refused to eat or drink breakfast. Pt did agree to take her meds this morning after I agreed to crush them and put them in applesauce. During and after the administration of her medications, pt kept saying, leave me alone now. please just let me . I asked her why she was saying those things to which she replied, I am miserable. I am done. I just want to . This is the third day in a row that pt has made these type of statements. The night nurses have reported to me that pt is also saying similar statements to them.
--- NOTE | 2021-09-18 10:14 | PM.PNCARD ---
Progress Note: A&P Additional Plan 81-year-old lady with: Significant ischemic LV dysfunction and MR with previous bypass grafting and MitraClip. CHF seems to be slowly improving but with very high doses of diuretic to accomplish this. Her chest does sound a bit less congested to me than it did yesterday in response to the regimen of Bumex. Labs do not show any significant worsening of azotemia. We will continue this regimen. She really has no significant residual peripheral edema at this time. Obviously prognosis for the long-term is poor. Alverto Bar MD [facility] Subjective Date/time seen: Date of service: 09/18/21 10:14 Interval history: 81-year-old lady with: Decompensated congestive heart failure long history of ischemic cardiomyopathy with previous surgical revascularization as well as MitraClip for significant MR. She has been placed on a high dose of diuretic for compensation. The patient is sleeping when I entered the room to see her upon awakening is very weak but offers no additional complaints breathing seems to be okay this morning but she is of course wearing nasal cannula oxygen Exam Narrative: General: Elderly female sitting upright in bed sleeping but arousable audible faint wheezing but no apparent distress. answering questions appropriately Well developed, alert and oriented x2. O2 via nasal cannula place Head: atraumatic, normocephalic Eyes: EOM intact, sclerae anicteric, conjunctivae unremarkable Ears/Nose: external inspection of ears and nose were grossly normal Mouth/Throat: oral mucosa pink and moist Neck: supple, normal range of motion, no jugular venous distention or carotid bruits, thyroid nonpalpable, trachea midline. Cardiac: Distant heart sounds Regular rate and rhythm, normal S1-S2, soft systolic murmur, no appreciable clicks or rubs Lungs: Persistent pulmonary rales but appear to be improved compared with yesterday Abdomen: Soft, nontender, nondistended, positive bowel sounds throughout. No appreciable hepatosplenomegaly, no rebound guarding or rigidity noted. Abdominal aorta nonpalpable, no appreciable bruits. Extremities: No peripheral edema remains Skin: Warm and dry without ecchymoses, rashes, and/or petechiae. Musculoskeletal: Muscle strength and tone intact throughout without obvious deformities. Well-healed median sternotomy scar Vascular: Carotid upstrokes 2+ bilaterally, radial pulses 2+ bilaterally, dorsalis pedis pulses 1+ bilaterally, Neurologic: Cranial nerves 2-12 grossly intact, examination grossly nonfocal Pscyhiatric: Mood calm and appropriate. Const: General: comfortable and confusion Orientation/consciousness: oriented to person, oriented to time and confusion HENMT: Head: normal to inspection Ears: hearing grossly normal bilaterally Face and sinus: normal facial exam Mouth: Yes Normal oral and palatal mucosa present Eyes: General: appearance normal, both eyes and all related structures Neck: Neck: normal visual inspection Resp: Effort & Inspection: prolonged expiratory phase Auscultation: not clear to auscultation bilaterally, crackles, rhonchi and wheezes expiratory wheezes Cardio: Rate: regular rate Rhythm: regular rhythm Heart sounds: Murmur heart sound present systolic Peripheral pulses: Peripheral pulses 2+ throughout GI: Auscultation: normal bowel sounds Skin: General skin exam: normal color Neuro: General: oriented to person, oriented to time and confusion Extrem: General: normal to inspection and no edema Psych: Appearance: grossly normal Mental Status: mental status grossly abnormal Objective Data Vital Signs Vital Signs: Vital Signs - 24 hr 09/17/21 12:00 09/17/21 12:19 09/17/21 14:00 Temperature 36.4 C L 36.4 C Pulse Rate 76 76 83 Respiratory Rate 24 H 24 H Blood Pressure 111/42 L 124/64 Pulse Oximetry 92 96 09/17/21 14:02 09/17/21 14:12 09/17/21 16:00 Temp
[2021-09-18 12:06] LABS: Glucose Point of Care 176 mg/dl (65-105)
--- NOTE | 2021-09-18 12:29 | PM.IMPN ---
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 Elevated BNP at 18,000 Patient presented with short of breath and has lower extremity edema Benefit out with the risk increased dose of Lasix CT chest abdomen pelvis 08/31/2021 Moderate amount of airspace disease probably pneumonia Moderate right pleural effusion Cardiomegaly Moderate colonic diverticulosis Cholelithiasis Diuresis as tolerated with renal function Repeat chest x-ray today 09/16/2021 interval history: 81-year-old female with respiratory failure most likely multifactorial with exert patient of CHF with BNP of 18,000 patient seen by Cardiology had been treated with IV Lasix 40 mg b.i.d. however there was no significant improvement and patient symptoms are not improving and was increased to 60 mg b.i.d by the bulk picker, patient chest x-ray is concerning for pneumonia patient is being treated with cefepime, will repeat chest x-ray and further recommendation to follow. 09/17/2021 interval history: 81-year-old female with respiratory failure most likely multifactorial with exacerbation of CHF with BNP of 18,000 patient seen by Cardiology had been treated with IV Lasix 40 mg b.i.d. however there was no significant improvement and patient symptoms are not improving and on 09/16 was seen by bulk picker and increased to 60 mg b.i.d, again today patient clinically symptoms are not improving and seen by bulk picker increase IV Lasix to 80 mg b.i.d., patient chest x-ray is concerning for pneumonia patient is being treated with cefepime, will repeat chest x-ray and further recommendation to follow. patient expressed to nursing staff she does not want to continue any more, today patient's son is presen and discussed as patient is in clinical symptoms are not improving patient does not wish to continue her treatment and may consider hospice, will continue to monitor and further recommendation to follow. 09/18/2021 interval history: 81-year-old female with respiratory failure most likely multifactorial with exacerbation of CHF with BNP of 18,000 patient seen by Cardiology had been treated with IV Lasix 40 mg b.i.d. however there was no significant improvement and patient symptoms are not improving and on 09/16 was seen by bulk picker and increased to 60 mg b.i.d, again on 09/17 patient clinically symptoms were not improving and seen by bulk picker increase IV Lasix to 80 mg b.i.d., today patient clinical symptoms are improving according to the bulk picker and recommending to CPM, patient chest x-ray is concerning for pneumonia patient is being treated with cefepime, will repeat chest x-ray and further recommendation to follow. patient expressed to nursing staff she does not want to continue any more, today patient's son is presen and discussed as patient is in clinical symptoms are not improving patient does not wish to continue her treatment and may consider hospice, will continue to monitor and further recommendation to follow. (2) Visual hallucinations: Code(s): R44.1 - Visual hallucinations Status: Acute Assessment and Plan: Most likely acute metabolic encephalopathy multifactorial secondary to CHF exacerbation COPD exacerbation and pneumonia improved CT scan of the head negative for acute finding Improved MRI negative for acute stroke shows chronic stroke Significantly improved Mental status has improved but still patient have significant shortness of breath (3) Chronic respiratory failure with hyp
--- NOTE | 2021-09-18 12:43 | PCPTNOTE ---
Did not see for therapy this date per RN.
[2021-09-18 16:57] LABS: Glucose Point of Care 155 mg/dl (65-105)
[2021-09-18] MEDS: ACETAMINOPHEN 325 MG TABLET 650 MG PO (17:27)
[2021-09-18] MEDS: MELATONIN 5 MG TABLET PO (20:26)
[2021-09-18] MEDS: INSULIN GLARGINE (*BKC) 100 UNITS/ML SUB-Q (20:27)
[2021-09-18 20:33] LABS: Glucose Point of Care 208 mg/dl (65-105)
[2021-09-19] VITALS (15 sets, daily range): BP systolic 112–142; BP diastolic 54–67; PULSE 64–84; RESP 18–26; TEMP 36.1–36.5; O2SAT 93–98
[2021-09-19] MEDS: metroNIDAZOLE 500 MG/ISO 100ML 500 MG/100 ML BAG 100 MG IVPB ×2 (01:28→08:10)
[2021-09-19] MEDS: ACETAMINOPHEN 325 MG TABLET 650 MG PO ×2 (01:28→08:13)
[2021-09-19] MEDS: ACETYLCYSTEINE 20% INHAL SOLN 800 MG/4 ML VIAL 200 MG INHALATION ×2 (01:41→08:29)
[2021-09-19] MEDS: IPRATROPIUM BR 0.02% INH SOLN 0.5 MG/2.5 ML VIAL INHALATION ×2 (01:42→08:29)
--- NOTE | 2021-09-19 02:12 | PCRCNOTE ---
PT STATED SHE CANNOT TOLERATE HER CPAP. SHE STATED SHE FEELS THOUGH SHE IS SUFFOCATING AND CAN NOT GET ANY AIR. RT CHECKED CPAP AND MACHINE WAS RUNNING ACCORDINGLY WITH 02 IN LINE. RT REMOVED CPAP AND PLACED PT BACK ON 3L 02. PT 02 SATURATION WAS 93 WHEN ANALYZED.
[2021-09-19] MEDS: LEVOTHYROXINE SODIUM 50 MCG TABLET PO (05:46)
[2021-09-19 07:28] LABS: Glucose Point of Care 233 mg/dl (65-105)
[2021-09-19] MEDS: INSULIN ASPART (*BKC) 100 UNITS/ML SUB-Q ×2 (08:11)
[2021-09-19] MEDS: FUROSEMIDE INJ 100 MG/10 ML VIAL 80 MG IV PUSH (08:12)
[2021-09-19] MEDS: guaiFENesin 12 HR 600 MG TABCR 1200 MG PO (08:13)
[2021-09-19] MEDS: ATORVASTATIN 40 MG TABLET 80 MG PO (08:13)
[2021-09-19] MEDS: hydrALAZINE HCL 50 MG TABLET PO (08:13)
[2021-09-19] MEDS: COLLAGENASE OINT 30 GM TUBE 1 APPLIC TOPICAL (08:14)
[2021-09-19] MEDS: carvediloL 25 MG TABLET PO (08:14)
[2021-09-19] MEDS: buPROPion HCL XL (24 HR) 150 MG TABCR PO (08:14)
[2021-09-19] MEDS: GABAPENTIN 300 MG CAPSULE PO (08:14)
[2021-09-19] MEDS: CLOPIDOGREL BISULFATE 75 MG TABLET PO (08:14)
[2021-09-19] MEDS: ASPIRIN 81 MG ENTERIC TABLET PO (08:14)
[2021-09-19] MEDS: ISOSORBIDE DINITRATE 10 MG TABLET PO (08:14)
[2021-09-19] MEDS: PANTOPRAZOLE 40 MG TABLET PO (08:14)
[2021-09-19] MEDS: HEPARIN SODIUM 5,000 UNITS/ML VIAL 5000 UNITS SUB-Q (08:15)
[2021-09-19] MEDS: FLUTICASONE/UMECLIDIN/VILANTER 100-62.5-25 MCG ELLIPTA 1 PUFF INHALATION (08:29)
[2021-09-19 08:49] LABS: Hematocrit 30.8 % (37.0-47.0); Hemoglobin 8.8 g/dL (12.0-15.0); Mean Corpuscular HGB Conc 28.6 g/dl (32-36); Mean Corpuscular Hemoglobin 29.6 pg (26-34); Mean Corpuscular Volume 103.7 fl (80-100); Mean Platelet Volume 10.2 fl (7.4-10.4); Platelet Count Result 222 k/mm3 (150-375); Red Blood Count 2.97 M/mm3 (4.2-5.4); Red Cell Distribution Width 17.8 % (11.5-14.5); White Blood Count 8.7 K/mm3 (4.5-10.0)
[2021-09-19 09:20] LABS: Anion Gap 4 mmol/L (8-16); Blood Urea Nitrogen 55 mg/dL (7-17); Calcium 8.4 mg/dL (8.4-10.2); Carbon Dioxide 39 mmol/L (22-30); Chloride 104 mmol/L (98-107); Estimated CRCL calculation 27 ml/min; Estimated Glomerular Filt Rate 36; Glucose 239 mg/dL (65-110); Potassium 3.7 mmol/L (3.4-5.0); Sodium 147 mmol/L (137-145)
--- NOTE | 2021-09-19 09:51 | PCOTNOTE ---
Per RN hold occupational therapy today due to pending hospice. Will follow.
--- NOTE | 2021-09-19 10:32 | PM.PNPUL ---
Progress Note: A&P Assessment and Plan (1) Pneumonia: Qualifiers: Laterality: bilateral Lung location: unspecified part of lung Pneumonia type: due to unspecified organism Qualified Code(s): J18.9 - Pneumonia, unspecified organism Code(s): J18.9 - Pneumonia, unspecified organism Status: Acute Assessment and Plan: Patient currently being treated for pneumonia and she had a wilson sensitive Pseudomonas in her sputum from previous admission on 08/23/2021. She did have fevers on 09/10 and now she is afebrile, white blood cell count is 8.5 on Levaquin started on 09/16. Patient is also on Flagyl from 09/15. She received doxycycline from 08/29 through 09/05. She received cefepime from 08/29-09/12. she is COVID negative by RT PCR on 08/29, influenza swab negative on 08/29, urine pneumococcal and urine Legionella were negative on 08/15. I agree with current antibiotics at this time but given that her infiltrates are chronic (as noted below) I will consider additional etiology for pulmonary infiltrates. Patient had a chest x-ray on 08/08/2017 compared to 12/22/2011 that demonstrated only mild atelectasis in the lingula with no focal infiltrates. She did have median sternotomy wires at that time. It appears that the patient was 1st noted to have pulmonary infiltrates on 11/14/2017 as I have a chest x-ray report from [facility] on 02/14/2019 compared to 11/14/2017 that states there are chronic bibasilar interstitial lung disease is present which is unchanged. There are no new focal lung infiltrates. The impression states by basilar chronic interstitial lung disease, stable. Prior CT scan on 06/15/2020 demonstrated improved tree-in-bud infiltrates compared to 01/02/2020. The next chest x-ray in our system was on 08/09/2021 which demonstrated bilateral diffuse interstitial infiltrates. These were present on admission this hospitalization on 08/29/2021 and have progressed to her most recent chest x-ray on 09/17/2021. Her CT scan of the chest on 09/12/2021 demonstrates patchy bilateral ground-glass opacities small pleural effusions and cardiomegaly. Given that she had chronic infiltrates first noted on 11/14/2017 and prior tree-in-bud infiltrates dating back to 01/01/2020 she may have progressing of an interstitial lung disease. I will send serologies for connective tissue disorder including rheumatoid factor, anti CCP antibody, PAYAL screen for 11 auto antibodies, Anca screen, hypersensitivity pneumonitis panel, aldolase and CPK. (2) Chronic obstructive pulmonary disease: Qualifiers: COPD type: unspecified COPD Qualified Code(s): J44.9 - Chronic obstructive pulmonary disease, unspecified Code(s): J44.9 - Chronic obstructive pulmonary disease, unspecified Status: Acute Assessment and Plan: Patient carries a diagnosis of COPD on home oxygen 4-5 L. PFT report from 10/2017 demonstrates severe obstructive pattern, minimal response to bronchodilators, mild air trapping, mild diffusion impairment and increased airway resistance. she was maintained on trelegy 100 inhaler at home. Currently she is on 3 L nasal cannula saturations 95%. Patient has no wheezes today. Currently the patient is on trilogy 100 - 62.5-25, guaifenesin 1200 mg p.o. q.12 hours and I will discontinue acetylcysteine nebulizer today. (3) MATHEUS (obstructive sleep apnea): Code(s): G47.33 - Obstructive sleep apnea (adult) (pediatric) Status: Acute Assessment and Plan: Patient is listed as having obstructive sleep apnea on CPAP 16 at home. I will attempt to take a obtain a download to assess her previous compliance. Currently she is unable to wear the CPAP during this hospitalization. Subjective Date/time seen: 09/19/21 10:32 Interval history: Date/time seen: 09/16/21 20:50 Jamee Finley is an 81 year old female admitted 08/29/2021 for confusion without respiratory complaints initially. ABG on 3 L was 7.48/4
[2021-09-19 11:06] LABS: NT Pro B Type Natriuretic Pept 24100 pg/mL (5-100)
[2021-09-19 11:27] LABS: Glucose Point of Care 200 mg/dl (65-105)
[2021-09-19 12:13] LABS: Rheumatoid Factor < 8.6 IU/ML (<12)
[2021-09-19 12:22] LABS: CRP 8.1 mg/dL (<1.0); Creatine Kinase 24 U/L (30-135)
[2021-09-19 12:33] LABS: Erythrocyte Sedimentation Rate > 140 mm/hr (0-20)
[2021-09-19] MEDS: MORPHINE SULFATE (*CRX) 2 MG/ML INJ IV PUSH ×2 (13:35→16:55)
[2021-09-19] MEDS: ONDANSETRON INJ 4 MG/2 ML VIAL IV PUSH (14:06)
--- NOTE | 2021-09-19 15:32 | PM.DS ---
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 Elevated BNP at 18,000 Patient presented with short of breath and has lower extremity edema Benefit out with the risk increased dose of Lasix CT chest abdomen pelvis 08/31/2021 Moderate amount of airspace disease probably pneumonia Moderate right pleural effusion Cardiomegaly Moderate colonic diverticulosis Cholelithiasis Diuresis as tolerated with renal function Repeat chest x-ray today 09/16/2021 interval history: 81-year-old female with respiratory failure most likely multifactorial with exert patient of CHF with BNP of 18,000 patient seen by Cardiology had been treated with IV Lasix 40 mg b.i.d. however there was no significant improvement and patient symptoms are not improving and was increased to 60 mg b.i.d by the community ambassador, patient chest x-ray is concerning for pneumonia patient is being treated with cefepime, will repeat chest x-ray and further recommendation to follow. 09/17/2021 interval history: 81-year-old female with respiratory failure most likely multifactorial with exacerbation of CHF with BNP of 18,000 patient seen by Cardiology had been treated with IV Lasix 40 mg b.i.d. however there was no significant improvement and patient symptoms are not improving and on 09/16 was seen by community ambassador and increased to 60 mg b.i.d, again today patient clinically symptoms are not improving and seen by community ambassador increase IV Lasix to 80 mg b.i.d., patient chest x-ray is concerning for pneumonia patient is being treated with cefepime, will repeat chest x-ray and further recommendation to follow. patient expressed to nursing staff she does not want to continue any more, today patient's son is presen and discussed as patient is in clinical symptoms are not improving patient does not wish to continue her treatment and may consider hospice, will continue to monitor and further recommendation to follow. 09/18/2021 interval history: 81-year-old female with respiratory failure most likely multifactorial with exacerbation of CHF with BNP of 18,000 patient seen by Cardiology had been treated with IV Lasix 40 mg b.i.d. however there was no significant improvement and patient symptoms are not improving and on 09/16 was seen by community ambassador and increased to 60 mg b.i.d, again on 09/17 patient clinically symptoms were not improving and seen by community ambassador increase IV Lasix to 80 mg b.i.d., today patient clinical symptoms are improving according to the community ambassador and recommending to CPM, patient chest x-ray is concerning for pneumonia patient is being treated with cefepime, will repeat chest x-ray and further recommendation to follow. patient expressed to nursing staff she does not want to continue any more, today patient's son is presen and discussed as patient is in clinical symptoms are not improving patient does not wish to continue her treatment and may consider hospice, will continue to monitor and further recommendation to follow. (2) Visual hallucinations: Code(s): R44.1 - Visual hallucinations Status: Acute Assessment and Plan: Most likely acute metabolic encephalopathy multifactorial secondary to CHF exacerbation COPD exacerbation and pneumonia improved CT scan of the head negative for acute finding Improved MRI negative for acute stroke shows chronic stroke Significantly improved Mental status has improved but
--- NOTE | 2021-09-19 15:56 | PCDIET ---
Per EMR, pt is to discharge home with hospice. No further nutritional needs. No further nutritional interventions.
== END 2021-09-19 21:04 | disposition hospice, home (50) | DRG 193 ==
LOC: ANHED 08-29 00:43 → ANH3MEDSUR 08-29 00:56
PROVIDERS: Chiropractor; Internal Medicine; Internal Medicine Critical Care Medicine; Internal Medicine Pulmonary Disease; Physician Assistant; Admitting Provider Internal Medicine; Emergency Provider Emergency Medicine; PCP Family Medicine; Visit Provider Family Medicine
DX: J18.9 Pneumonia, unspecified organism (principal); G93.41 Metabolic encephalopathy; J96.20 Acute and chronic respiratory failure, unspecified whether with hypoxia or hypercapnia; Z51.5 Encounter for palliative care; I50.43 Acute on chronic combined systolic (congestive) and diastolic (congestive) heart failure; I13.0 Hypertensive heart and chronic kidney disease with heart failure and stage 1 through stage 4 chronic kidney disease, or unspecified chronic kidney disease; J96.11 Chronic respiratory failure with hypoxia; J44.0 Chronic obstructive pulmonary disease with (acute) lower respiratory infection; J44.1 Chronic obstructive pulmonary disease with (acute) exacerbation; I25.810 Atherosclerosis of coronary artery bypass graft(s) without angina pectoris; N17.9 Acute kidney failure, unspecified; E87.3 Alkalosis; I47.1 Supraventricular tachycardia; Z20.822 Contact with and (suspected) exposure to COVID-19; Z79.4 Long term (current) use of insulin; Z85.41 Personal history of malignant neoplasm of cervix uteri; Z99.81 Dependence on supplemental oxygen; I25.10 Atherosclerotic heart disease of native coronary artery without angina pectoris; K21.9 Gastro-esophageal reflux disease without esophagitis; E11.22 Type 2 diabetes mellitus with diabetic chronic kidney disease; N18.30 Chronic kidney disease, stage 3 unspecified; E11.42 Type 2 diabetes mellitus with diabetic polyneuropathy; E11.319 Type 2 diabetes mellitus with unspecified diabetic retinopathy without macular edema; E03.9 Hypothyroidism, unspecified; I25.5 Ischemic cardiomyopathy; E78.2 Mixed hyperlipidemia; G47.33 Obstructive sleep apnea (adult) (pediatric); M19.90 Unspecified osteoarthritis, unspecified site; M81.0 Age-related osteoporosis without current pathological fracture; F32.9 Major depressive disorder, single episode, unspecified; Z87.891 Personal history of nicotine dependence; R44.1 Visual hallucinations; K80.20 Calculus of gallbladder without cholecystitis without obstruction; E11.649 Type 2 diabetes mellitus with hypoglycemia without coma; L89.322 Pressure ulcer of left buttock, stage 2; L89.629 Pressure ulcer of left heel, unspecified stage; I48.91 Unspecified atrial fibrillation; Z95.818 Presence of other cardiac implants and grafts; I49.3 Ventricular premature depolarization; Z86.73 Personal history of transient ischemic attack (TIA), and cerebral infarction without residual deficits
CPT/HCPCS: 36415; 36600; 51701; 70450; 70551; 71045; 71046; 71250; 73630; 74176; 80048; 80053; 81001; 82140; 82375; 82550; 82805; 82948; 83050; 83605; 83690; 83735; 83880; 84145; 85025; 85027; 85055; 85610; 85652; 85730; 86140; 86430; 87040; 87081; 87426; 87502; 92610; 92611; 93005; 94640; 96365; 96366; 96367; 96375; 96376; 97110; 97161; 97164; 97166; 97530; 97535; 99285; A9270; C9803; G0378; J0692; J1120; J1644; J1815; J1940; J1956; J2270; J2405; J2920; J7040; J7512; U0003; U0005